=== PATIENT | female | born 1950 | race American Indian/Alaskan Native ===

== ENCOUNTER 2016-10-05 06:17 | Day surgery (SDC) | payer OTHER ==
--- NOTE | 2016-10-02 14:08 | Anesthesia Consultation ---
Anesthesia Consult and Med Hx Date of service: 10/05/16 - Airway Anesthetic Teeth Evaluation: Poor ROM Head & Neck: Adequate Mental/Hyoid Distance: Adequate Mallampati Class: Class II Intubation Access Assessment: Probably Good - Pulmonary Exam CTA: Yes - Cardiac Exam Cardiac Exam: RRR - Pre-Operative Health Status ASA Pre-Surgery Classification: ASA3 Proposed Anesthetic Plan: General - Pulmonary Hx Smoking: Yes (Quite in 1985) Home Oxygen Therapy: No - Cardiovascular System Hx Hypertension: No Hx Coronary Artery Disease: No Hx Heart Attack/AMI: No - Central Nervous System CVA: No Hx Back Pain: Yes Hx Psychiatric Problems: No - Gastrointestinal Hx Gastroesophageal Reflux Disease: Yes (no meds) - Endocrine Hx Renal Disease: No Hx Liver Disease: No Hx Non-Insulin Dependent Diabetes: No Hx Hypothyroidism: No - Other Systems Hx Alcohol Use: Yes (occas) Hx Cancer: No Hx Obesity: Yes (Wt. 398lb) - Additional Comments Anesthesia Medical History Comments: Not diagnosed with sleep apnea but very likely. Suffers from insomnia.
[2016-10-02 14:18] LABS: Basophils % (Auto) 0.5 % (0.0-1.8); Eosinophils % (Auto) 1.6 % (0.0-4.3); Hematocrit 40.6 % (30.3-42.9); Hemoglobin 12.6 gm/dl (10.1-14.3); Mean Corpuscular HGB Conc 31 % (30-34); Mean Corpuscular Volume 78 fl (79-97); Platelet Count 244 K/mm3 (140-440); Red Blood Count 5.21 M/mm3 (3.65-5.03); White Blood Count 7.6 K/mm3 (4.5-11.0)
[2016-10-02 14:26] LABS: Mean Corpuscular Hemoglobin 24 pg (28-32)
[2016-10-05] MEDS ORDERED: NACL BACTERIOSTATIC INFILTRATI ONE (07:11)
--- NOTE | 2016-10-05 07:17 | Anesthesia Day of Surgery ---
Anesthesia Day of Surgery - Day of Surgery Patient Examined: Yes Patient H&P Reviewed: Yes Patient is NPO: Yes
--- NOTE | 2016-10-05 07:26 | Short Stay Summary ---
Short Stay Documentation Date of service: 10/05/16 Narrative H&P: Pt is a 65yo BF LMP 10 years ago spontaneously, started bleeding on and off for the past 2 years, presents for surgical evaluation of postmenopausal bleeding. In office endometrial biopsy was attempted, but was not successful due to cervical stenosis. She is therefore scheduled for a Hysteroscopy with D& C. - History Principal diagnosis: Postmenopausal bleeding H&P: obtained from office Past Medical History: No medical history Past Surgical History: No surgical history Social history: no significant social history - Allergies and Medications Current Medications: Allergies aspirin Allergy (Verified 09/28/16 09:44) hives, itching codeine Allergy (Verified 09/28/16 09:44) hives, itching Home Medications Medication Instructions Recorded Confirmed Last Taken Type Cyclobenzaprine [Flexeril] 10 mg PO TID PRN 09/28/16 10/05/16 09/28/16 History Ergocalciferol(Vitamin D2)(Nf) 50,000 unit PO Q7D 09/28/16 10/05/16 09/29/16 History [Vitamin D (Nf)] Acetaminophen [Acetaminophen 8 650 mg PO Q6H PRN 10/05/16 10/05/16 10/02/16 History Hour] - Physical exam General appearance: no acute distress Integumentary: no rash HEENT: Atraumatic Lungs: Clear to auscultation Breasts: deferred Heart: Regular rate Gastrointestinal: normal Female Genitourinary: deferred Rectal Exam: deferred Extremities: No edema Neurological: Normal speech - Brief post op/procedure progress note Date of procedure: 10/05/16 Pre-op diagnosis: 1. Postmenopausal bleeding 2. Cervical stenosis Post-op diagnosis: same Procedure: 1. Hysteroscopy 2. D&C Anesthesia: GETA Findings: A 12-14 weeks size uterus sounded to 13cms. Lush amounts of endometrial tissue and polyps seen in uterine cavity, and multiple fragments removed on D&C. Surgeon: NORA SHER Estimated blood loss: minimal Pathology: list (endometrial currettings) Specimen disposition: to lab Condition: stable - Hospital course Hospital course: Unremarkable. - Disposition Condition at discharge: Good Disposition: DISCHARGED TO HOME OR SELFCARE - Discharge Diagnoses (1) Post-menopausal bleeding Status: Chronic Short Stay Discharge Plan Activity: no restrictions Diet: regular Follow up with: PRIMARY CARE, [Primary Care Provider] - 7 Days NORA SHER MD [Staff Physician] - 14 Days Forms: Outpatient Surgery DC Inst. Prescriptions: Ibuprofen [Motrin] 800 mg PO Q8HR PRN #30 tablet PRN Reason: Pain, Moderate (4-6)
[2016-10-05] MEDS ORDERED: DIPRIVAN 10 MG/ML IV ONE ×2 (07:27→08:32)
[2016-10-05] MEDS ORDERED: SUBLIMAZE ONE (07:27)
[2016-10-05] MEDS ORDERED: XYLOCAINE MPF 2% ONE (07:27)
[2016-10-05] MEDS ORDERED: SILVER NITRATE TP ONE (07:46)
[2016-10-05] MEDS ORDERED: ANCEF/STERILE WATER 2 GM/20 ML 2 GM/20 ML SYRINGE IV NR (08:00)
[2016-10-05] MEDS ORDERED: LACTATED RINGERS 1,000 ML IV SCH (08:00)
[2016-10-05] MEDS ORDERED: PEPCID PO NR (08:00)
[2016-10-05] MEDS ORDERED: VERSED IV NR (08:00)
[2016-10-05] MEDS ORDERED: SORBITOL-MANNITOL IRRIG IR ONE (08:01)
[2016-10-05] MEDS ORDERED: DILAUDID IV PRN (08:46)
[2016-10-05] MEDS ORDERED: PERCOCET 5/325 PO PRN (08:46)
[2016-10-05] MEDS ORDERED: DECADRON ONE (08:56)
[2016-10-05] MEDS ORDERED: ZOFRAN ONE (08:56)
[2016-10-05] MEDS ORDERED: QUELICIN ONE (09:02)
--- NOTE | 2016-10-05 09:15 | Post Anesthesia Evaluation ---
- Post Anesthesia Evaluation Patient Participated: Yes Airway Patent: Yes Stable Respiratory Function: Yes Nausea/Vomiting: No Temp > 96.8F: Yes Pain Manageable: Yes Adequeate Hydration: Yes Anesthesia Complications: No Block Receding Appropriately: Not Applicable Patient on Ventilator: No
[2016-10-05 10:37] VITALS: BP 151/78
--- NOTE | 2016-10-11 20:47 | Operative Report ---
Operative Report Operative Report: Date of procedure: 10/05/2016 Pre-operative diagnosis: 1. Postmenopausal bleeding 2. Cervical stenosis Post-operative diagnosis: Same Procedure name(s): 1. Hysteroscopy 2. D&C Surgeon: Cisco Noel MD Desulphuring Operator: None Anesthesia: General Mac by Dr. Gisela Lees EBL: Minimal less than 10 mls Findings: A 12-14 week size uterus was sounded to 13 cm. Lush amount of endometrial tissue and polyps seen in the uterine cavity, and multiple fragments removed on D&C Procedure: After the patient was correctly identified, she was prepped and draped in usual sterile fashion and placed in dorsolithotomy position. First the bladder was entered using a straight catheter. Next a speculum was placed in vaginal vault and the anterior lip of the cervix was grasped using single- tooth tenaculum. The uterus was sounded to 13 cm, and the cervical canal was sequentially dilated. The hysteroscope was placed into the uterine cavity and visualization of endometrial cavity showed lush amount of endometrial tissues and polyps. The hysteroscope was then removed, and the D&C was performed yielding moderate amounts of tissue with minimal effort. The specimen was sent to pathology. At this point the procedure was considered complete. All instruments removed from the vagina, the patient tolerated the procedure well, was transported to recovery room in stable condition.
== END 2016-10-05 10:40 | disposition home or self-care (01) ==
LOC: OR 06:17
PROVIDERS: ATTEND Obstetrics & Gynecology
DX: C54.1 Malignant neoplasm of endometrium (principal); N88.2 Stricture and stenosis of cervix uteri; K21.9 Gastro-esophageal reflux disease without esophagitis; E66.9 Obesity, unspecified; Z68.41 Body mass index [BMI] 40.0-44.9, adult; Z72.89 Other problems related to lifestyle; Z87.891 Personal history of nicotine dependence
CPT/HCPCS: 36415; 58558; 85025; 88305; J0330; J0690; J1100; J2405; J2704; J3010; J7120

== ENCOUNTER 2017-02-08 09:22 | Inpatient (IN) | payer OTHER ==
--- NOTE | 2017-02-08 09:33 | Emergency Department Report ---
ED Neuro Deficit HPI - General Chief Complaint: Neuro Symptoms/Deficit Stated Complaint: POSS STROKE Time Seen by Provider: 02/08/17 09:30 Source: patient, EMS, old records reviewed (hysterectomy for cervical stenosis surgery performed by manager rn 09/2016) Mode of arrival: Stretcher Limitations: Physical Limitation - History of Present Illness Initial Comments: 66-year-old female with a past medical history of hypertension, borderline diabetes, and obesity presents to the hospital with strokelike symptoms. Patient was being assisted by her daughter when suddenly she had generalized weakness with left-sided weakness reported. She complains of difficulty swallowing. EMS reports left facial droop since and persistent left arm weakness. Patient has a history of ongoing right arm pain due to "nerve problem " and arthritis. No previous history of stroke. Patient is not on any blood thinners. No recent surgery reported - Related Data Home Medications: Home Medications Medication Instructions Recorded Confirmed Last Taken Cyclobenzaprine [Flexeril] 10 mg PO TID PRN 09/28/16 10/05/16 09/28/16 Ergocalciferol(Vitamin D2)(Nf) 50,000 unit PO Q7D 09/28/16 10/05/16 09/29/16 [Vitamin D (Nf)] Acetaminophen [Acetaminophen 8 650 mg PO Q6H PRN 10/05/16 10/05/16 10/02/16 Hour] Previous Rx's Medication Instructions Recorded Last Taken Type Ibuprofen [Motrin] 800 mg PO Q8HR PRN #30 tablet 10/05/16 Unknown Rx Allergies/Adverse Reactions: Allergies Allergy/AdvReac Type Severity Reaction Status Date / Time aspirin Allergy hives, Verified 09/28/16 09:44 itching codeine Allergy hives, Verified 09/28/16 09:44 itching ED Review of Systems ROS: Stated complaint: POSS STROKE Other details as noted in HPI Comment: All other systems reviewed and negative Other: Constitutional: No fevers chills Eyes: No eye pain ENT: No throat pain Neck: Denies pain Respiratory: Denies cough wheezing shortness of breath Cardiovascular: Denies chest pain, palpitations, syncope GI: Denies abdominal pain, nausea, vomiting, diarrhea : Denies dysuria Musculoskeletal: Ongoing right arm pain and diagnosed recently with the patient is supposed to follow-up with orthopedic Skin: Denies rash, lesions, erythema Neurologic: Denies headache Psychiatric: Denies suicidal ideation, hallucinations ED Past Medical Hx - Past Medical History Previous Medical History?: Yes Hx Hypertension: Yes Hx Heart Attack/AMI: No Hx Diabetes: Yes Hx GERD: Yes Hx Liver Disease: No Hx Renal Disease: No Hx HIV: No - Surgical History Past Surgical History?: Yes Hx Breast Surgery: Yes (LEFT BREAST BIOPSY 2016) - Social History Smoking Status: Unknown if ever smoked - Medications Home Medications: Home Medications Medication Instructions Recorded Confirmed Last Taken Type Cyclobenzaprine [Flexeril] 10 mg PO TID PRN 09/28/16 10/05/16 09/28/16 History Ergocalciferol(Vitamin D2)(Nf) 50,000 unit PO Q7D 09/28/16 10/05/16 09/29/16 History [Vitamin D (Nf)] Acetaminophen [Acetaminophen 8 650 mg PO Q6H PRN 10/05/16 10/05/16 10/02/16 History Hour] Ibuprofen [Motrin] 800 mg PO Q8HR PRN #30 tablet 10/05/16 Unknown Rx ED Neuro Physical Exam - General Limitations: Physical Limitation Suspected Stroke: Yes - NIHSS Assessment Interval: Baseline 1a. Level of Consciousness: alert 1b. LOC Questions: answers correctly 1c. LOC Commands: performs tasks correctly 2. Best Gaze: normal 3. Visual: partial hemianopia 4. Facial Palsy: normal symmetrical movement 5b. Motor Arm Right: no gravity effort 5a. Motor Arm Left: some gravity effort 6a. Motor Leg Left: no gravity effort 6b. Motor Leg Right: no gravity effort 7. Limb Ataxia: present 2 limbs 8. Sensory: mild/moderate sensory loss (decrease left arm and leg) 9. Best Language: no aphasia 10. Dysarthria: normal 11. Extinction/Inattention: visual/tactile inattention Total Score: 16 Stroke Severity: Moderate to Severe Stroke - Other Other exam information: General: No limitations, patient is alert in no acute distress Head exam: Atraumatic, normocephalic Eyes exam: Normal appearance, pupils equal reactive to light, extraocular movements intact ENT: Moist mucous membrane, normal oropharynx Neck exam: Normal inspection, full range of motion, no meningismus nontender Respiratory exam: Clear to auscultation bilateral, no wheezes, rales, crackles Cardiovascular: Normal rate and rhythm, normal heart sounds Abdomen: Soft, nondistended, and nontender, with normal bowel sounds, no rebound, or guarding Extremity: Full range of motion normal inspection no deformity Back: Normal Inspection, full range of motion, no tenderness Neurologic: Alert, oriented x3, see NIH stroke scale Psychiatric: normal affect, normal mood Skin: Warm, dry, intact ED Course Vital Signs 02/08/17 02/08/17 02/08/17 09:45 10:01 10:15 Temperature Pulse Rate Respiratory Rate Blood Pressure 142/124 142/124 50/22 O2 Sat by Pulse 96 94 Oximetry 02/08/17 02/08/17 02/08/17 10:30 10:40 10:45 Temperature 98 F Pulse Rate 88 89 Respiratory 35 H 25 H Rate Blood Pressure 74/37 O2 Sat by Pulse 79 L 84 Oximetry 02/08/17 02/08/17 02/08/17 11:01 11:09 11:11 Temperature Pulse Rate 86 86 84 Respiratory 37 H 29 H 28 H Rate Blood Pressure 80/40 80/40 O2 Sat by Pulse 100 Oximetry 02/08/17 02/08/17 02/08/17 11:13 11:15 11:16 Temperature Pulse Rate 86 85 87 Respiratory 25 H 26 H 22 Rate Blood Pressure 80/40 65/37 65/37 O2 Sat by Pulse 100 100 100 Oximetry 02/08/17 02/08/17 02/08/17 11:19 11:21 11:23 Temperature Pulse Rate 84 85 91 H Respiratory 29 H 21 27 H Rate Blood Pressure 65/37 65/37 65/37 O2 Sat by Pulse Oximetry 02/08/17 02/08/17 02/08/17 11:25 11:27 11:29 Temperature Pulse Rate 93 H 96 H 107 H Respiratory 27 H 25 H 29 H Rate Blood Pressure 84/67 84/67 84/67 O2 Sat by Pulse Oximetry 02/08/17 02/08/17 02/08/17 11:31 11:32 11:35 Temperature Pulse Rate 120 H 122 H 121 H Respiratory 28 H 27 H 28 H Rate Blood Pressure 84/67 96/74 96/74 O2 Sat by Pulse Oximetry 02/08/17 02/08/17 02/08/17 11:37 11:39 11:41 Temperature Pulse Rate 137 H 145 H 144 H Respiratory 24 27 H 38 H Rate Blood Pressure 96/74 96/74 96/74 O2 Sat by Pulse 82 L 75 L Oximetry 02/08/17 02/08/17 02/08/17 11:43 11:45 11:47 Temperature Pulse Rate 140 H 134 H 132 H Respiratory 36 H 24 25 H Rate Blood Pressure 96/74 96/74 96/74 O2 Sat by Pulse 82 L 74 L 98 Oximetry 02/08/17 02/08/17 02/08/17 11:49 11:51 11:53 Temperature Pulse Rate 142 H 143 H 139 H Respiratory 30 H 21 29 H Rate Blood Pressure 96/74 96/74 96/74 O2 Sat by Pulse 97 98 100 Oximetry 02/08/17 02/08/17 02/08/17 11:55 11:57 11:59 Temperature Pulse Rate 138 H 137 H 136 H Respiratory 28 H 26 H 26 H Rate Blood Pressure 96/74 96/74 96/74 O2 Sat by Pulse 95 78 L 76 L Oximetry 02/08/17 02/08/17 02/08/17 12:01 12:03 12:05 Temperature Pulse Rate 139 H 138 H 135 H Respiratory 29 H 31 H 27 H Rate Blood Pressure 96/74 96/74 96/74 O2 Sat by Pulse 77 L 83 L 77 L Oximetry 02/08/17 02/08/17 02/08/17 12:07 12:08 12:11 Temperature Pulse Rate 143 H 143 H 143 H Respiratory 22 28 H 26 H Rate Blood Pressure 96/74 101/49 101/49 O2 Sat by Pulse 86 83 L Oximetry 02/08/17 12:13 Temperature Pulse Rate 136 H Respiratory 23 Rate Blood Pressure 101/49 O2 Sat by Pulse 75 L Oximetry - Reevaluation(s) Reevaluation #1: 02/08/17 10:15 Patient hypoxic on room air. Nonrebreather provided. Chest x-ray pending Reevaluation #2: 02/08/17 11:47 prior to tpa pt bp decreased from 140 to 70-80's systolic.1 L NS bolus given without improvement. Dopamine initiated thru right antecubital fossa 20 g cath while prepping for central line placement. spb improve to 96 with a MAP >65. repeat cxr ordered. Reevaluation #3: 02/08/17 14:30 Despite dopamine patient's blood pressure now in the 70s. Levophed ordered. IV TPA orderd since patient is too unstable to go to [facility]. Daughter informed. Hospitalist informed Reevaluation #4: 02/08/17 14:34 I was informed at this time that Dr. Jose vascular surgeon has decided to take patient to the [facility] instead since TPA infusion takes 2 hours - Consultations Consultation #1: 02/08/17 9:42 Case d/w Dr guillen superintendent transportation neuro. and will interview pt. 02/08/17 10:07 Interviewed pt. Pt alert but distracted. rec tpa if daughter can give consent. 02/08/17 10:12 Case discussed with Daughter Fredrick and explained 30% improved chance of improvement and 3% chance of bleed or bad outcome. Daughter provides consent for TPA. 02/08/17 10:[address] Guillen, patient is feeling a sepsis picture with leukocytosis, mild coagulopathy, and anion gap. Additional blood cultures, lactic acid, ABG/venous pH ordered. Saline bolus is ordered and the patient will be empirically treated with Zosyn and vancomycin. Dr Guillen suggests that symptoms may represent a mixed picture could represent endocarditis with associated septic emboli causing cva sx. Consultation #2: 02/08/17 13:[address] angio results. dr. Pederson to consult and see pt 02/08/17 14:14 Dr Humphries rec IV tpa since sbp remains in the 70's despite dopamine. too unstable for transfer to clinical lab specialist for [facility]. TPA 100 mg over 2 hours ordered. - Central Line Placement Right IJ Consent Obtained: verbal consent Time Out Performed: Yes Patient Placed on Monitor/Pulse Ox: Yes MD Prep: mask, gown, gloves Central Line Prep: Chlorhexidine scrub, sterile drapes applied Local Anesthesia Used: Lidocaine 1% Amount of Anesthesia Used (mls): 5 Ultrasound Used for Placement: Yes Central Line Lumen Inserted: triple Bloods Obtained for Lab: Yes Central Line Position: good blood return, sutured in place with 3-0 Dressing Applied: Tegaderm Post Procedure X-Ray: tip of catheter in good p Patient Tolerated Procedure: well Complications: none - Lab Data Result diagrams: 02/08/17 09:25 02/08/17 09:25 Lab Results 02/08/17 02/08/17 02/08/17 Range/Units 09:25 09:25 09:25 WBC 14.9 H (4.5-11.0) K/mm3 RBC 4.86 (3.65-5.03) M/mm3 Hgb 11.9 (10.1-14.3) gm/dl Hct 38.2 (30.3-42.9) % MCV 79 (79-97) fl MCH 24 L (28-32) pg MCHC 31 (30-34) % RDW 17.0 H (13.2-15.2) % Plt Count 281 (140-440) K/mm3 Lymph % (Auto) 9.7 L (13.4-35.0) % Gage % (Auto) 6.2 (0.0-7.3) % Eos % (Auto) 0.1 (0.0-4.3) % Baso % (Auto) 0.5 (0.0-1.8) % Lymph # 1.4 (1.2-5.4) K/mm3 Gage # 0.9 H (0.0-0.8) K/mm3 Eos # 0.0 (0.0-0.4) K/mm3 Baso # 0.1 (0.0-0.1) K/mm3 Seg Neutrophils % 83.5 H (40.0-70.0) % Seg Neutrophils # 12.5 H (1.8-7.7) K/mm3 PT 15.6 H (12.2-14.9) Sec. INR 1.25 H (0.87-1.13) APTT 25.1 (24.2-36.6) Sec. Thrombin Time (15.1-19.6) Sec. POC ABG pH (7.35-7.45) POC ABG pCO2 (35-45) POC ABG pO2 (80-105) POC ABG HCO3 POC ABG Total CO2 POC ABG O2 Sat POC ABG Base Excess FiO2 % Sodium 141 (137-145) mmol/L Potassium 4.9 (3.6-5.0) mmol/L Chloride 94.7 L (98-107) mmol/L Carbon Dioxide 21 L (22-30) mmol/L Anion Gap 30 mmol/L BUN 9 (7-17) mg/dL Creatinine 0.6 L (0.7-1.2) mg/dL Estimated GFR > 60 ml/min BUN/Creatinine Ratio 15.00 % Glucose 179 H (65-100) mg/dL POC Glucose (70-105) Lactic Acid (0.7-2.0) mmol/L Calcium 10.4 H (8.4-10.2) mg/dL Total Creatine Kinase (30-135) units/L CK-MB (CK-2) (0.0-4.0) ng/mL CK-MB (CK-2) Rel Index (0-4) Troponin T 0.027 (0.00-0.029) ng/mL Triglycerides (2-149) mg/dL Cholesterol (50-199) mg/dL LDL Cholesterol Direct (50-130) mg/dL HDL Cholesterol (40-59) mg/dL Cholesterol/HDL Ratio % Urine Color (Yellow) Urine Turbidity (Clear) Urine pH (5.0-7.0) Ur Specific [place] (1.003-1.030) Urine Protein (Negative) mg/dL Urine Glucose (UA) (Negative) mg/dL Urine Ketones (Negative) mg/dL Urine Blood (Negative) Urine Nitrite (Negative) Urine Bilirubin (Negative) Urine Urobilinogen (<2.0) mg/dL Ur Leukocyte Esterase (Negative) Urine WBC (Auto) (0.0-6.0) /HPF Urine RBC (Auto) (0.0-6.0) /HPF U Epithel Cells (Auto) (0-13.0) /HPF Urine Mucus /HPF 02/08/17 02/08/17 02/08/17 Range/Units 09:25 10:17 11:07 WBC (4.5-11.0) K/mm3 RBC (3.65-5.03) M/mm3 Hgb (10.1-14.3) gm/dl Hct (30.3-42.9) % MCV (79-97) fl MCH (28-32) pg MCHC (30-34) % RDW (13.2-15.2) % Plt Count (140-440) K/mm3 Lymph % (Auto) (13.4-35.0) % Gage % (Auto) (0.0-7.3) % Eos % (Auto) (0.0-4.3) % Baso % (Auto) (0.0-1.8) % Lymph # (1.2-5.4) K/mm3 Gage # (0.0-0.8) K/mm3 Eos # (0.0-0.4) K/mm3 Baso # (0.0-0.1) K/mm3 Seg Neutrophils % (40.0-70.0) % Seg Neutrophils # (1.8-7.7) K/mm3 PT (12.2-14.9) Sec. INR (0.87-1.13) APTT (24.2-36.6) Sec. Thrombin Time 17.6 (15.1-19.6) Sec. POC ABG pH 7.340 L (7.35-7.45) POC ABG pCO2 40.8 (35-45) POC ABG pO2 28 L (80-105) POC ABG HCO3 22.0 POC ABG Total CO2 23 POC ABG O2 Sat 48 POC ABG Base Excess -4 FiO2 100 % Sodium (137-145) mmol/L Potassium (3.6-5.0) mmol/L Chloride (98-107) mmol/L Carbon Dioxide (22-30) mmol/L Anion Gap mmol/L BUN (7-17) mg/dL Creatinine (0.7-1.2) mg/dL Estimated GFR ml/min BUN/Creatinine Ratio % Glucose (65-100) mg/dL POC Glucose 187 H (70-105) Lactic Acid (0.7-2.0) mmol/L Calcium (8.4-10.2) mg/dL Total Creatine Kinase (30-135) units/L CK-MB (CK-2) (0.0-4.0) ng/mL CK-MB (CK-2) Rel Index (0-4) Troponin T (0.00-0.029) ng/mL Triglycerides (2-149) mg/dL Cholesterol (50-199) mg/dL LDL Cholesterol Direct (50-130) mg/dL HDL Cholesterol (40-59) mg/dL Cholesterol/HDL Ratio % Urine Color (Yellow) Urine Turbidity (Clear) Urine pH (5.0-7.0) Ur Specific [place] (1.003-1.030) Urine Protein (Negative) mg/dL Urine Glucose (UA) (Negative) mg/dL Urine Ketones (Negative) mg/dL Urine Blood (Negative) Urine Nitrite (Negative) Urine Bilirubin (Negative) Urine Urobilinogen (<2.0) mg/dL Ur Leukocyte Esterase (Negative) Urine WBC (Auto) (0.0-6.0) /HPF Urine RBC (Auto) (0.0-6.0) /HPF U Epithel Cells (Auto) (0-13.0) /HPF Urine Mucus /HPF 02/08/17 02/08/17 02/08/17 Range/Units 12:00 12:00 14:15 WBC (4.5-11.0) K/mm3 RBC (3.65-5.03) M/mm3 Hgb (10.1-14.3) gm/dl Hct (30.3-42.9) % MCV (79-97) fl MCH (28-32) pg MCHC (30-34) % RDW (13.2-15.2) % Plt Count (140-440) K/mm3 Lymph % (Auto) (13.4-35.0) % Gage % (Auto) (0.0-7.3) % Eos % (Auto) (0.0-4.3) % Baso % (Auto) (0.0-1.8) % Lymph # (1.2-5.4) K/mm3 Gage # (0.0-0.8) K/mm3 Eos # (0.0-0.4) K/mm3 Baso # (0.0-0.1) K/mm3 Seg Neutrophils % (40.0-70.0) % Seg Neutrophils # (1.8-7.7) K/mm3 PT (12.2-14.9) Sec. INR (0.87-1.13) APTT (24.2-36.6) Sec. Thrombin Time (15.1-19.6) Sec. POC ABG pH (7.35-7.45) POC ABG pCO2 (35-45) POC ABG pO2 (80-105) POC ABG HCO3 POC ABG Total CO2 POC ABG O2 Sat POC ABG Base Excess FiO2 % Sodium (137-145) mmol/L Potassium (3.6-5.0) mmol/L Chloride (98-107) mmol/L Carbon Dioxide (22-30) mmol/L Anion Gap mmol/L BUN (7-17) mg/dL Creatinine (0.7-1.2) mg/dL Estimated GFR ml/min BUN/Creatinine Ratio % Glucose (65-100) mg/dL POC Glucose (70-105) Lactic Acid 1.80 (0.7-2.0) mmol/L Calcium (8.4-10.2) mg/dL Total Creatine Kinase 144 H (30-135) units/L CK-MB (CK-2) 2.1 (0.0-4.0) ng/mL CK-MB (CK-2) Rel Index 1.4 (0-4) Troponin T 0.046 H D (0.00-0.029) ng/mL Triglycerides 74 (2-149) mg/dL Cholesterol 206 H (50-199) mg/dL LDL Cholesterol Direct 157 H (50-130) mg/dL HDL Cholesterol 35 L (40-59) mg/dL Cholesterol/HDL Ratio 5.88 % Urine Color Straw (Yellow) Urine Turbidity Clear (Clear) Urine pH 6.0 (5.0-7.0) Ur Specific [place] 1.025 (1.003-1.030) Urine Protein 30 mg/dl (Negative) mg/dL Urine Glucose (UA) 150 (Negative) mg/dL Urine Ketones Tr (Negative) mg/dL Urine Blood Mod (Negative) Urine Nitrite Neg (Negative) Urine Bilirubin Neg (Negative) Urine Urobilinogen < 2.0 (<2.0) mg/dL Ur Leukocyte Esterase Neg (Negative) Urine WBC (Auto) 2.0 (0.0-6.0) /HPF Urine RBC (Auto) 5.0 (0.0-6.0) /HPF U Epithel Cells (Auto) < 1.0 (0-13.0) /HPF Urine Mucus Few /HPF - EKG Data -: EKG Interpreted by Me (sinus 97 and anterolateral T inversions prolonged) When compared to previous EKG there are: previous EKG unavailable - Radiology Data Radiology results: report reviewed CT head: No acute findings Chest x-ray: Compromise exam with question of right paratracheal widening - Medical Decision Making Stroke symptoms: CT head noncontrast unremarkable. Patient too unstable with finding a sepsis to receive TPA. Also if endocarditis patient at risk for hemorrhage with TPA. Therefore decision to not give TPA was decided by neurology. This was discussed with patient's daughter. Patient when the MRI and further workup Hypoxia on room air: Cause unknown. ABG performed on nonrebreather due to persistent desaturation. Chest x-ray shows questionable right paraTrachea widening. CT angiogram chest has been ordered at dispo. Respiratory unable to obtain ABG despite multiple results. results available are likely due to a venous stick Ct result + PE, vascular consulted and examined at bedside rec, IV TPA due to instability. additional pressors ordered. Daughter reinformed of update and need for TPA for PE. Then surgeon decided to pt to clinical lab specialist and hold TPA since it takes 2 hours to infuse. sepsis: Cause unknown at this time Patient exhibiting leukocytosis, anion gap with slightly low bicarbonate, hypotension, and mild coagulopathy. Empiric broad-spectrum antibiotics recommended. Endocarditis suggested by neurology as possible cause of sepsis with stroke findings. Vital signs are less likely secondary to sepsis and more likely secondary to massive PE. - Differential Diagnosis ischemic cva, ICH, encephalopathy - Thrombolytic Inclusion/Exclusion Thrombolytic Inclusion Criteria: Ischemic Stroke Onset< 3h, NIH Stroke Scale Deficit, Negative CT Scan for ICH, Age 18 or Older, Glucose of 50-400mg/dl Critical Care Time: Yes Critical care time in (mins) excluding proc time.: 65 Critical care attestation.: If time is entered above; I have spent that time in minutes in the direct care of this critically ill patient, excluding procedure time. ED Disposition Clinical Impression: Septic shock, Stroke-like symptom, Hypoxia, Morbid obesity, Hx of essential hypertension, Pulmonary emboli Disposition: OP ADMIT IP TO THIS HOSP Is pt being admited?: Yes Condition: Stable Referrals: PRIMARY CARE, [Primary Care Provider] - 3-5 Days Time of Disposition: 11:55 (Dr Tran/hosp)
[2017-02-08 09:35] LABS: Basophils % (Auto) 0.5 % (0.0-1.8); Eosinophils % (Auto) 0.1 % (0.0-4.3); Hematocrit 38.2 % (30.3-42.9); Hemoglobin 11.9 gm/dl (10.1-14.3); Mean Corpuscular HGB Conc 31 % (30-34); Mean Corpuscular Volume 79 fl (79-97); Platelet Count 281 K/mm3 (140-440); Red Blood Count 4.86 M/mm3 (3.65-5.03); White Blood Count 14.9 K/mm3 (4.5-11.0)
[2017-02-08 09:36] LABS: Mean Corpuscular Hemoglobin 24 pg (28-32)
--- NOTE | 2017-02-08 09:43 | Cat Scan Report ---
CT head without contrast: Neuro deficits on left side of body. Unenhanced images fail to identify any evidence of focal or generalized areas of decreased attenuation. No evidence of hemorrhage. Mild peripheral atrophy consistent with stated age. No extracerebral collections. Unremarkable visualized bones and paranasal sinuses. No prior exams for comparison. Impressions: No pathology identified. These findings were verbally transmitted to Dr. Sosa at 9:40 AM.
[2017-02-08 09:46] LABS: INR 1.25 (0.87-1.13)
[2017-02-08 09:47] LABS: Partial Thromboplastin Time 25.1 Sec. (24.2-36.6)
[2017-02-08 09:55] LABS: Anion Gap 30 mmol/L; Blood Urea Nitrogen 9 mg/dL (7-17); Calcium 10.4 mg/dL (8.4-10.2); Carbon Dioxide 21 mmol/L (22-30); Chloride 94.7 mmol/L (98-107); Glucose 179 mg/dL (65-100); Potassium 4.9 mmol/L (3.6-5.0); Sodium 141 mmol/L (137-145)
[2017-02-08] MEDS ORDERED: NACL 0.9% IV ONE (10:12)
[2017-02-08] MEDS ORDERED: ACTIVASE IV ONE ×3 (10:12→14:11)
[2017-02-08] MEDS ORDERED: NACL 0.9% 1000 ML 1,000 ML ONE ×2 (10:26→15:08)
[2017-02-08] MEDS ORDERED: VANCOMYCIN/NS 1 GM/250 ML 1 GM/250 ML BAG IV ONE (10:42)
[2017-02-08] MEDS ORDERED: ZOSYN/NS 4.5GM/100ML 4.5 GM/100 ML VIAL IV ONE (10:42)
[2017-02-08] MEDS ORDERED: NACL 0.9% 1000 ML 1,000 ML IV ONE ×4 (10:43→20:49)
[2017-02-08] MEDS ORDERED: INTROPIN DRIP 800 MG/D5W 250 ML 800 MG/250 ML BAG IV ONE ×2 (10:52→11:02)
--- NOTE | 2017-02-08 10:54 | XRay Report ---
Portable chest: There is mild rotation of the chest to the right. There is some question concerning right paratracheal widening. I have no prior study for comparison. The exam is otherwise unremarkable. Impression: Compromised exam with question of right paratracheal widening. Recommendation If possible, repeat frontal chest with better positioning and lateral projection.
[2017-02-08 11:09] LABS: ISTAT Base Excess -4; ISTAT PCO2 40.8 (35-45); ISTAT PO2 28 (80-105); ISTAT SO2 48; ISTAT TCO2 23
[2017-02-08] MEDS ORDERED: NACL ONE (12:13)
[2017-02-08] MEDS ORDERED: ZOFRAN IV ONE (12:29)
[2017-02-08] MEDS ORDERED: ZOFRAN ONE (12:33)
[2017-02-08 12:53] LABS: Creatine Kinase MB 2.1 ng/mL (0.0-4.0)
--- NOTE | 2017-02-08 13:07 | XRay Report ---
Portable chest: Line placement. A right jugular central venous line has been placed which appears to overlie the mid SVC. This exam is more rotated than the recent prior study of 10:40 AM and therefore does not improve the evaluation of a questionable widening of the paratracheal stripe question on prior study. The chest is otherwise unremarkable.
--- NOTE | 2017-02-08 13:59 | Cat Scan Report ---
CTA CHEST: History: Hypoxia, abnormal chest x-ray, shortness of breath. Technique: Helical CT following IV contrast. Pulmonary embolus protocol. Sagittal and coronal reformatted images. Rotational MIP images. Findings: Contrast bolus is satisfactory. Large, bilateral, near occlusive pulmonary emboli are identified extending from the main pulmonary arteries to nearly all lobes of both lungs. No saddle embolus. The lungs are generally clear. Minimal subpleural atelectatic changes are noted at the right lung base. No evidence for consolidation, pleural effusion or pneumothorax. The thyroid gland, tracheobronchial tree, esophagus, heart, pericardium, aorta, and bony thorax are unremarkable. Impression: Positive for large bilateral pulmonary emboli as described. These findings were discussed with Dr. Sosa in the emergency department at 1330 hrs.
[2017-02-08] MEDS ORDERED: NACL 0.9% 250ML IV ONE (14:11)
[2017-02-08 14:25] LABS: Bilirubin,Urine NEG (Negative); Blood,Urine MOD (Negative); Ketones,Urine TR mg/dL (Negative); Leukocyte Esterase,Urine NEG (Negative); Mucus,Urine FEW /HPF; Nitrite,Urine NEG (Negative); Urobilinogen,Urine < 2.0 mg/dL (<2.0)
[2017-02-08] MEDS ORDERED: LEVOPHED DRIP 4 MG/NS 250 ML 4 MG/250 ML BAG IV ONE (14:33)
--- NOTE | 2017-02-08 14:45 | Admit Criteria Form ---
Admission Criteria Documentation: SEVERE SEPSIS Clinical Indications for Admission to Inpatient Care (Place 'X' for any and all applicable criteria): Hospital admission is needed for appropriate care of the patient because of ANY ONE of the following: [X]I. Hemodynamic instability indicated by ANY ONE of the following(1)(2)(3)( 4)(5): [X]a. Vital sign abnormality not readily corrected by appropriate treatment within 12 to 24 hours indicated by ANY ONE of the following: [X]i) Tachycardia that persists despite appropriate treatment [X]ii) Hypotension that persists despite appropriate treatment []iii) Orthostatic vital sign changes that persist despite appropriate treatment []b. Vital sign abnormality that is severe indicated by ANY ONE of the following: []i. Inadequate perfusion indicated by ANY ONE of the following: []1) Lactic acidosis (greater than 2 mmol/L) []2) New abnormal capillary refill (greater than 3 seconds) []3) Reduced urine output []4) New altered mental status []5) Myocardial Ischemia []ii. Mean arterial pressure [A] less than 60 mm Hg []iii. Mean arterial pressure[A] less than 70 mm Hg after 30 minutes of appropriate treatment (eg, fluid resuscitation) []iv. Sustained heart rate greater than 120 beats per minute in adult []v. IV inotropic or vasopressor medication required to maintain adequate blood pressure or perfusion [X]II. Systemic or infectious condition causing severe symptoms or findings not responsive to emergency or observation care treatment (as appropriate) indicated by ANY ONE of the following: []a. Cardiac arrhythmias of immediate concern(1)(2)(3) []b. Severe endocrine disorder (eg, thyrotoxicosis, adrenal insufficiency)(4)(5) []c. Seizures (eg, new or recurrent)(6) [X]d. New-onset end organ failure or dysfunction as indicated by ANY ONE of the following: [X]i.Acute unexplained hypoxemia (eg, not from lung infection or chronic disease)(7)(8)(9) []ii. Acute renal failure as indicated by new onset of ANY ONE of the following(10)(11)(12)(13)(14): []1) 3-fold rise in serum creatinine from baseline []2) Serum creatinine greater than 4 mg/dL (354 micromoles/L) with acute rise greater than 0.5 mg/dL (44.2 micromoles/L) []3) Reduction of more than 75% in estimated glomerular filtration rate from baseline. []4) Estimated glomerular filtration rate less than 35 mL/min/1.73m2 ( 0.59 mL/sec/1.73m2) in child younger than 18 years. []5) Cessation of urine output indicated by ALL of the following: []A. Adequate volume status []B. Inadequate urine output as indicated by ANY ONE of the following: []a. Urine output less than 0.3 mL/kg/hr for 24 hours []b. Anuria (urine output less than 0.1 mL/kg/hr) for 12 hours []iii. Acute mental status changes(15) []iv. Acute hepatic failure (eg, plasma bilirubin greater than 4 mg/ dL (68 micromoles/L), new INR greater than 2.0)(16)(17) []e. Unmanageable nausea and vomiting(18) []f. New-onset or uncontrolled central diabetes insipidus(19)(20) []g. Clinically significant dehydration(18)(21) []h. Hypoglycemia(22) [X]i. Acidosis (pH less than 7.35) or alkalosis (pH greater than 7.45)( 22)(23) []j. Toxic drug level that indicates need for specific monitoring or treatment(24)(25) []k. Severe electrolyte abnormalities indicated by ALL of the following( 1)(2)(3): []i. Electrolytes and associated findings are not as expected for patient baseline or acceptable treatment effects. []ii. Severe abnormalities indicated by ANY ONE of the following: []1) Sodium less than 130 mEq/L (mmol/L) (new) []2) Sodium less than 135 mEq/L (mmol/L) with ANY ONE of the following: []A. Uncorrectable (to near normal or chronic baseline) after trial of outpatient and emergency treatment []B. Altered mental status []C. Seizures []D. Severe medical etiology requiring inpatient management (eg , heart failure, hypovolemia) []3) Sodium greater than 155 mEq/L (mmol/L) []4) Sodium greater than 150 mEq/L (mmol/L) with ANY ONE of the following: []A. Uncorrectable (to near normal or chronic baseline) with outpatient and emergency treatment []B. Altered mental status []C. Seizures []D. Severe medical etiology (eg, hypovolemia, diabetes insipidus) []5) Potassium less than 2.5 mEq/L (mmol/L) despite outpatient and emergency treatment []6) Potassium less than 3 mEq/L (mmol/L) with ANY ONE of the following : []A. Weakness []B. Cardiac abnormality (eg, arrhythmia, conduction disturbance ) []C. Cardiac ischemia []D. Ileus []E. Ongoing medical cause requiring inpatient management (eg, acute renal wasting or SIADH) []F. Other severe symptoms []7) Potassium greater than 6.5 mEq/L (mmol/L) []8) Potassium greater than 5 mEq/L (mmol/L) with ANY ONE of the following: []A. Uncorrectable (to near normal or chronic baseline) with outpatient and emergency treatment []B. Severe ECG findings[A] []C. Acute worsening of renal failure (creatinine greater than 2.5 mg/dL (221 micromoles/L) or significant elevation for age and size) []D. Severe weakness []E. Severe medical etiology (eg, hemolysis, infection, drug overdose) []9) Calcium less than 7 mg/dL (1.75 mmol/L) despite outpatient and emergency treatment(5) []10) Calcium less than 8 mg/dL (2 mmol/L) with significant symptoms or findings (eg, altered mental status, muscle spasms, seizures, breathing difficulty, cardiac abnormality (eg, arrhythmia or conduction disturbance))(5) []11) Calcium greater than 14 mg/dL (3.5 mmol/L)(5) []12) Calcium greater than 12 mg/dL (3 mmol/L) with ANY ONE of the following(5): []A. Uncorrectable (to near normal or chronic baseline) with outpatient and emergency treatment []B. Significant dehydration or hypovolemia as indicated by ALL of the following(3)(6)(7): []a. Not resolved with initial treatments []b. Clinically significant dehydration as indicated by ANY ONE of the following: [](1) Vomiting refractory to outpatient treatment (ie, precluding oral rehydration) [](2) Inability to drink [](3) Hypernatremia or other electrolyte abnormality unable to be corrected with outpatient and emergency treatment [](4) Failure to remain hydrated with outpatient therapy [](5) Reduced urine output [](6) Hypotension [](7) Serious cause for dehydration requiring acute hospitalization ( eg, bowel obstruction, increased intracranial pressure, infectious cause) [](8) Child with ANY ONE of the following(8): [](i) Severe abdominal tenderness [](ii) Adequate care not available at home [](iii) Severe dehydration (greater than 9% loss of body weight) []C. Significant symptoms or findings (eg, altered mental status , cardiac abnormality (eg, arrhythmia, conduction disturbance), malignant etiology requiring inpatient treatment) []13) Phosphorus less than 1 mg/dL (0.32 mmol/L) []14) Phosphorus less than 1.5 mg/dL (0.48 mmol/L) with ANY ONE of the following: []A. Patient unresponsive to outpatient and emergency treatment []B. Significant symptoms or findings (eg, weakness, altered mental status, breathing difficulty, seizures, rhabdomyolysis) []15) Phosphorus greater than 10 mg/dL (3.2 mmol/L) []16) Phosphorus greater than 4.5 mg/dL (1.45 mmol/L) (new) with ANY ONE of the following: []A. Severe medical etiology (eg, crush injury, acute renal failure) []B. Associated hypocalcemia with significant findings (eg, neurologic symptoms, altered mental status, muscle spasms, seizures, breathing difficulty, cardiac abnormality (eg, arrhythmia, conduction disturbance)) []16) Magnesium less than 1 mg/dL (0.41 mmol/L) []17) Magnesium less than 1.5 mg/dL (0.62 mmol/L) with ANY ONE of the following: []A. Patient unresponsive to outpatient and emergency treatment []B. Associated hypocalcemia with significant findings (eg, altered mental status, muscle spasms, seizures, breathing difficulty, cardiac abnormality (eg, arrhythmia, conduction disturbance)) []C. Associated hypokalemia (potassium less than 3 mEq/L (mmol/L )) with risk of arrhythmia []18) Magnesium greater than 4 mEq/L (2 mmol/L) []19) Magnesium greater than 2.5 mEq/L (1.25 mmol/L) with significant symptoms or findings (eg, weakness, altered mental status, cardiac abnormality (eg, arrhythmia, conduction disturbance), breathing difficulty, severe medical etiology (eg, renal failure, hypovolemia)) []20) Uric acid greater than 20 mg/dL (1190 micromoles/L)(9) []21) Uric acid greater than 8 mg/dL (476 micromoles/L) with significant symptoms or findings of tumor lysis syndrome (eg, creatinine greater than 1.5 times upper limit of normal, cardiac abnormality (eg , arrhythmia, conduction disturbance), seizure)(9) []III. High fever or other high-risk infection situation as indicated by ANY ONE of the following(26)(27)(28): []a. Outpatient and observation care antimicrobial treatment unavailable, not effective, or not appropriate []b. Documented bacteremia []c. Temperature greater than 104.9 degrees F (40.5 degrees C) (oral) []d. Temperature greater than 103.1 degrees F (39.5 degrees C) (oral) or less than 96.8 degrees F (36 degrees C) (rectal) that does not respond to emergency treatment and observation care []IV. High-risk febrile neutropenia[A] as indicated by ANY ONE of the following(29)(30)(31)(32): []a. Profound neutropenia[B] anticipated to extend for more than 7 days []b. Hemodynamic instability []c. Hypoxemia []d. Tachypnea []e. Altered mental status []f. New-onset abdominal pain []g. New-onset vomiting or diarrhea []h. Oral or gastrointestinal mucositis that interferes with swallowing or causes severe diarrhea []i. Focal infection (eg, cellulitis, pneumonia, central line or catheter infection, perirectal abscess) []j. Renal insufficiency (eg, GFR of less than 30 mL/min/1.73m2 (0.5 mL/sec /1.73m2)). []k. Severe liver dysfunction (transaminase levels greater than 5 times normal) []l. Platelet count less than 50,000/mm3 (50 x109/L)(33) []m. Leukemia or lymphoma induction therapy []n. Leukemia not in complete remission or with evidence of disease progression []o. Bone marrow transplant patient []p. Alemtuzumab being used for therapy []q. [employer] Supportive Care in Cancer (MASCC) Risk Index score of less than 21[C](33)(35). []V. Isolation required (eg, tuberculosis that requires isolation, Ebola infection)[D](36)(37)(38)(39)(40) []. Gangrene that requires treatment beyond emergency or observation level care(41)(42) []VII. Antitoxin administration and ongoing observation required (eg, tetanus, botulism)(43)(44) []. Suspected infection with rapid progression or severe symptoms as indicated by ANY ONE of the following(45): []a. Streptococcal or staphylococcal toxic shock(46) []b. Diphtheria(47) []c. Hantavirus(48) []d. Severe acute respiratory syndrome(8)(49) []e. Anthrax(50) []f. Ebola[D](36)(37)(38) []g. Necrotizing soft tissue infection(41)(42) []h. Plague(50) []i. Other suspected infection that requires care beyond emergency or observation level care []VII. Severe adverse drug or systemic toxin reaction as indicated by ANY ONE of the following(24): []a. Serotonin syndrome(51)(52) []b. Neuroleptic malignant syndrome(51)(52) []c. Cholinergic syndrome with severe symptoms (eg, bronchorrhea, weakness , mental status changes, seizures)(53) []d. Anticholinergic syndrome []e. Sympathetic syndrome with severe symptoms (eg, seizures, mental status changes, cardiac dysrhythmias) []f. Other severe adverse drug or systemic toxin reaction that remains after emergency or observation level care (as appropriate) []VIII. Allergic reaction with severe symptoms (not responsive to emergency or observation care treatment as appropriate), including ANY ONE of the following(54): []a. Airway edema (pharyngeal, epiglottic, or laryngeal edema) []b. Stridor []c. Respiratory failure []d. Bronchospasm []e. Hypotension []IX. Environmental emergency (not responsive to emergency or observation care treatment as appropriate) as indicated by ANY ONE of the following(55)(56): []a. Hyperthermia []b. Heat stroke []c. Heat exhaustion []d. Hypothermia (temperature less than 95 degrees F (35 degrees C) rectal) (57) []e. Electrocution(58) []X. Complications of transplanted organ (ie, not covered elsewhere)[E] indicated by ANY ONE of the following(59): []a. Acute graft rejection (or graft vs. host disease)[F] requiring inpatient management (eg, intravenous immunosuppression)(60)(61)(62)( 63) []b. Acute failure of transplanted organ necessitating inpatient care (eg, cannot be managed in other setting) []c. Infection requiring inpatient management (eg, Hemodynamic instability, need for intravenous antimicrobial treatment)(64)(65) []d. Other complication of transplanted organ requiring inpatient management []XI. Systemic or Infectious Condition condition, symptom, or finding for which emergency and observation care have failed or are not considered appropriate. See General Criteria: Observation Care, General Admission Criteria or Pediatric General Admission Criteria guideline as appropriate. (Contents from SEVERE SEPSIS and SYSTEMIC OR INFECTIOUS CONDITION clinical indications for admission to inpatient care have been integrated in this form) The original [facility] content created by [facility] has been revised. The portions of the content which have been revised are identified through the use of italic text or in bold and [facility] has neither reviewed nor approved the modified material. All other unmodified content is copyright [facility]. Please see references footnoted in the original [facility] edition 2016 Admission Criteria Met: Yes
[2017-02-08] MEDS ORDERED: SODIUM CHLORIDE FLUSH SYRINGE 10 ML IV SCH ×2 (15:00)
[2017-02-08] MEDS ORDERED: LEVOPHED DRIP 4 MG/NS 250 ML 4 MG/250 ML BAG IV SCH (15:00)
[2017-02-08] MEDS ORDERED: CATHFLO ONE (15:06)
[2017-02-08] MEDS ORDERED: HEPARIN/NS 5000 UNIT/500ML(CATH LAB) 1,000 ML IR ONE (15:06)
[2017-02-08] MEDS ORDERED: HEPARIN 10,000 UNITS/10 ML ONE ×3 (15:06→16:16)
[2017-02-08] MEDS ORDERED: XYLOCAINE 2% INFILTRATI ONE (15:06)
[2017-02-08] MEDS ORDERED: HEPARIN/NS 5000 UNIT/500ML(CATH LAB) 500 ML IR ONE (15:34)
[2017-02-08] MEDS ORDERED: WATER FOR INJ (PF) 10 ML ONE (15:35)
[2017-02-08] MEDS ORDERED: NACL 0.9% 1000 ML 1,000 ML SHEATH SCH ×5 (16:00→17:00)
[2017-02-08] MEDS ORDERED: NACL 0.9% 1000 ML 1,000 ML EKOSCLUMEN SCH ×5 (16:00→17:00)
[2017-02-08] MEDS ORDERED: HEPARIN/ 0.45% NACL-25,000 UNIT/500 ML 25,000 UNIT/500 ML BAG SHEATH SCH ×5 (16:00→17:00)
[2017-02-08] MEDS ORDERED: NACL 0.9% 1000 ML 2,000 ML ONE (16:21)
[2017-02-08] MEDS ORDERED: HEPARIN/ 0.45% NACL-25,000 UNIT/500 ML 50,000 UNIT/1,000 ML BAG ONE (16:22)
[2017-02-08] MEDS ORDERED: CATHFLO 10 MG in NACL 0.9% 250ML 250 ML IV SCH ×2 (16:30→17:00)
[2017-02-08] MEDS ORDERED: CATHFLO 10 MG in NACL 0.9% 250ML 250 ML EKOSDLUMEN SCH ×2 (16:30→17:00)
[2017-02-08] MEDS ORDERED: CATHFLO 20 MG in NACL 0.9% 500 ML 500 ML EKOSDLUMEN SCH (16:30)
[2017-02-08 16:39] LABS: ISTAT Base Excess -4; ISTAT HCO3 21.5; ISTAT PCO2 37.2 (35-45); ISTAT PO2 75 (80-105); ISTAT SO2 95; ISTAT TCO2 23
[2017-02-08] MEDS ORDERED: NACL 0.9% 1000 ML IV ONE (16:51)
[2017-02-08] MEDS ORDERED: PROVENTIL IH PRN (16:51)
--- NOTE | 2017-02-08 16:51 | History and Physical Report ---
History of Present Illness Chief complaint: weakness, and almost fell down History of present illness: 66 YO Female with HTN, DM, GERD, Metabolic Syndrome, MO, OA presents to ED for evaluation. Pt unable to provide history. Pt history provided by daughter. Patient was being assisted with ambulation by her daughter when suddenly she experienced acute onset weakness and confusion as well as difficulty swallowing. EMS notified, and upon arrival EMS reports left facial droop since and persistent left arm weakness. Pt transported to [facility] for evaluation. Pt seen and evaluated in ED and found to have septic shock and hypotension and in respiratory distress. Pt also found to have bilateral Pulmonary embolus. Vascular surgery consulted, and patient taken urgently to microbiology laboratory manager for ekos intervention. Pt reports of fever, chills, CP, Palpitations, NVD, Syncope, Productive cough, unintentional weight loss, or night sweats. Past History Past Medical History: arthritis, diabetes, GERD, hypertension, other (metabolic syndrome) Past Surgical History: Other (breast biopsy) Social history: . denies: smoking, alcohol abuse, prescription drug abuse Family history: diabetes, hypertension Medications and Allergies Allergies Allergy/AdvReac Type Severity Reaction Status Date / Time aspirin Allergy hives, Verified 09/28/16 09:44 itching codeine Allergy hives, Verified 09/28/16 09:44 itching Home Medications Medication Instructions Recorded Confirmed Last Taken Type Cyclobenzaprine [Flexeril] 10 mg PO TID PRN 09/28/16 10/05/16 09/28/16 History Ergocalciferol(Vitamin D2)(Nf) 50,000 unit PO Q7D 09/28/16 10/05/16 09/29/16 History [Vitamin D (Nf)] Acetaminophen [Acetaminophen 8 650 mg PO Q6H PRN 10/05/16 10/05/16 10/02/16 History Hour] Ibuprofen [Motrin] 800 mg PO Q8HR PRN #30 tablet 10/05/16 Unknown Rx Active Meds: Active Medications Dopamine HCl/Dextrose (Intropin Drip 800 Mg/D5w 250 Ml) 800 mg in 250 mls @ 6.769 mls/hr IV TITR ONE; 2 MCG/KG/MIN PRN Reason: Protocol Stop: 02/09/17 23:47 Last Titration: 02/08/17 11:20 Dose: 15 mcg/kg/min, 50.76 mls/hr Norepinephrine (Levophed Drip 4 Mg/Ns 250 Ml) 4 mg in 250 mls @ 7.5 mls/hr IV TITR GRICELDA; 2 MCG/MIN PRN Reason: Protocol Last Titration: 02/08/17 14:50 Dose: 10 mcg/min, 37.5 mls/hr Alteplase, Recombinant 20 mg/ (Sodium Chloride) 500 mls @ 25 mls/hr EKOSDLUMEN DIRECT GRICELDA Alteplase, Recombinant 10 mg/ (Sodium Chloride) 250 mls @ 10 mls/hr IV DIRECT GRICELDA Alteplase, Recombinant 10 mg/ (Sodium Chloride) 250 mls @ 10 mls/hr EKOSDLUMEN DIRECT GRICELDA Heparin Sodium/Sodium Chloride (Heparin/ 0.45% Nacl-25,000 Unit/500 Ml) 25,000 unit in 500 mls @ 10 mls/hr SHEATH DIRECT GRICELDA; 500 UNITS/HR PRN Reason: Protocol Heparin Sodium/Sodium Chloride (Heparin/ 0.45% Nacl-25,000 Unit/500 Ml) 25,000 unit in 500 mls @ 10 mls/hr SHEATH DIRECT GRICELDA; 500 UNITS/HR PRN Reason: Protocol Heparin Sodium/Sodium Chloride (Heparin/ 0.45% Nacl-25,000 Unit/500 Ml) 25,000 unit in 500 mls @ 10 mls/hr SHEATH DIRECT GRICELDA; 500 UNITS/HR PRN Reason: Protocol Sodium Chloride (Nacl 0.9% 1000 Ml) 1,000 mls @ 30 mls/hr IV DIRECT GRICELDA Sodium Chloride (Nacl 0.9% 1000 Ml) 1,000 mls @ 35 mls/hr EKOSCLUMEN DIRECT GRICELDA Sodium Chloride (Nacl 0.9% 1000 Ml) 1,000 mls @ 30 mls/hr SHEATH DIRECT GRICELDA Sodium Chloride (Nacl 0.9% 1000 Ml) 1,000 mls @ 35 mls/hr EKOSCLUMEN DIRECT GRICELDA Sodium Chloride (Nacl 0.9% 1000 Ml) 1,000 mls @ 30 mls/hr SHEATH DIRECT GRICELDA Sodium Chloride (Nacl 0.9% 1000 Ml) 1,000 mls @ 35 mls/hr EKOSCLUMEN DIRECT GRICELDA Sodium Chloride (Nacl 0.9% 1000 Ml) 1,000 mls @ 30 mls/hr SHEATH DIRECT GRICELDA Sodium Chloride (Sodium Chloride Flush Syringe 10 Ml) 10 ml IV PRN GRICELDA Sodium Chloride (Sodium Chloride Flush Syringe 10 Ml) 10 ml IV PRN GRICELDA Review of Systems ROS unobtainable: due to mental status Exam - Constitutional Vitals: Temp Pulse Resp BP Pulse Ox 98 F 90 31 H 62/40 70 L 02/08/17 10:40 02/08/17 14:42 02/08/17 13:05 02/08/17 14:42 02/08/17 14:42 General appearance: Present: severe distress - EENT Eyes: Present: PERRL ENT: hearing intact, clear oral mucosa - Neck Neck: Present: supple - Respiratory Respiratory effort: labored Respiratory: bilateral: diminished - Cardiovascular Heart Sounds: Present: S1 & S2. Absent: rub, click - Extremities Extremities: pulses symmetrical, No edema Peripheral Pulses: within normal limits - Abdominal General gastrointestinal: Present: soft, non-tender, non-distended, normal bowel sounds Female genitourinary: Present: normal - Integumentary Integumentary: Present: clear, dry, clammy, pale, decreased turgor - Musculoskeletal Musculoskeletal: generalized weakness - Psychiatric Psychiatric: no intact judgment & insight, no memory intact - Neurologic Neurologic: moves all extremities, no gait normal Results - Labs CBC & Chem 7: 02/08/17 09:25 02/08/17 09:25 Labs: Abnormal lab results 02/08/17 02/08/17 02/08/17 Range/Units 09:25 09:25 09:25 WBC 14.9 H (4.5-11.0) K/mm3 MCH 24 L (28-32) pg RDW 17.0 H (13.2-15.2) % Lymph % (Auto) 9.7 L (13.4-35.0) % [place] # 0.9 H (0.0-0.8) K/mm3 Seg Neutrophils % 83.5 H (40.0-70.0) % Seg Neutrophils # 12.5 H (1.8-7.7) K/mm3 PT 15.6 H (12.2-14.9) Sec. INR 1.25 H (0.87-1.13) POC ABG pH (7.35-7.45) POC ABG pO2 (80-105) VBG pH (7.320-7.420) Chloride 94.7 L (98-107) mmol/L Carbon Dioxide 21 L (22-30) mmol/L Creatinine 0.6 L (0.7-1.2) mg/dL Glucose 179 H (65-100) mg/dL POC Glucose (70-105) Calcium 10.4 H (8.4-10.2) mg/dL Total Creatine Kinase (30-135) units/L Troponin T (0.00-0.029) ng/mL Cholesterol (50-199) mg/dL LDL Cholesterol Direct (50-130) mg/dL HDL Cholesterol (40-59) mg/dL 02/08/17 02/08/17 02/08/17 Range/Units 10:17 11:07 12:00 WBC (4.5-11.0) K/mm3 MCH (28-32) pg RDW (13.2-15.2) % Lymph % (Auto) (13.4-35.0) % [place] # (0.0-0.8) K/mm3 Seg Neutrophils % (40.0-70.0) % Seg Neutrophils # (1.8-7.7) K/mm3 PT (12.2-14.9) Sec. INR (0.87-1.13) POC ABG pH 7.340 L (7.35-7.45) POC ABG pO2 28 L (80-105) VBG pH (7.320-7.420) Chloride (98-107) mmol/L Carbon Dioxide (22-30) mmol/L Creatinine (0.7-1.2) mg/dL Glucose (65-100) mg/dL POC Glucose 187 H (70-105) Calcium (8.4-10.2) mg/dL Total Creatine Kinase 144 H (30-135) units/L Troponin T 0.046 H D (0.00-0.029) ng/mL Cholesterol 206 H (50-199) mg/dL LDL Cholesterol Direct 157 H (50-130) mg/dL HDL Cholesterol 35 L (40-59) mg/dL 02/08/17 02/08/17 Range/Units 14:49 16:38 WBC (4.5-11.0) K/mm3 MCH (28-32) pg RDW (13.2-15.2) % Lymph % (Auto) (13.4-35.0) % [place] # (0.0-0.8) K/mm3 Seg Neutrophils % (40.0-70.0) % Seg Neutrophils # (1.8-7.7) K/mm3 PT (12.2-14.9) Sec. INR (0.87-1.13) POC ABG pH (7.35-7.45) POC ABG pO2 75 L (80-105) VBG pH 7.283 L (7.320-7.420) Chloride (98-107) mmol/L Carbon Dioxide (22-30) mmol/L Creatinine (0.7-1.2) mg/dL Glucose (65-100) mg/dL POC Glucose (70-105) Calcium (8.4-10.2) mg/dL Total Creatine Kinase (30-135) units/L Troponin T (0.00-0.029) ng/mL Cholesterol (50-199) mg/dL LDL Cholesterol Direct (50-130) mg/dL HDL Cholesterol (40-59) mg/dL Assessment and Plan - Patient Problems (1) Sepsis Current Visit: Yes Status: Acute Qualifiers: Sepsis type: Streptococcus group B Qualified Code(s): A40.1 - Sepsis due to streptococcus, group B Plan to address problem: IV abx, IVF, serial lactic acid, pressor support, monitor uop q shift, blood cultures, The high probability of a clinically significant, sudden or life threatening deterioration of the [cardiac, respiratory, renal] system(s) required my full and direct attention, intervention and personal management. The aggregate critical care time was [65] minutes. This time is in addition to time spent performing reported procedures but includes the following: [x] Data Review and interpretation [x] Patient assessment and monitoring of vital signs [x] Documentation [x] Medication orders and management (2) Acute respiratory failure Current Visit: Yes Status: Acute Qualifiers: Respiratory failure complication: R Plan to address problem: Supplemental oxygen, nebs, aspiration precautions, NIPPV, and clinically indicated, Pulmonary consulted. (3) Metabolic acidosis Current Visit: Yes Status: Acute Plan to address problem: treat sepsis, serial lactic acid, IVF resuscitation, (4) Morbid obesity Current Visit: Yes Status: Acute (5) Pulmonary emboli Current Visit: Yes Status: Acute Qualifiers: Pulmonary embolism type: saddle Chronicity: C Acute cor pulmonale presence: A Plan to address problem: Vascular Surgery consulted: S/P Ekos therapy, supportive care, (6) DVT prophylaxis Current Visit: Yes Status: Acute
--- NOTE | 2017-02-08 17:15 | Vascular Lab Report ---
MISCELLANEOUS VESSEL IDENTIFICATION: COMMENTS ON THE SCAN: The right common femoral vein and artery were identified and under real-time ultrasound guidance was cannulated. IMPRESSION: Successful ultrasound guided vein and arterial cannulation.
--- NOTE | 2017-02-08 17:21 | Operative Report ---
Operative Report Operative Report: Operative note: Date: 02/08/2017 Preoperative diagnosis: Massive pulmonary embolism Postoperative diagnosis: Same. Operation: Ultrasound-guided access of right femoral artery. Placement of arterial sheath. Ultrasound-guided access of right femoral vein. Placement of EKOS catheter in left pulmonary artery Placement of EKOS catheter in the right pulmonary artery Surgeon: Donna Magana. Asst.: Venu Jauregui Anesthesia: moderate sedation. EBL: Minimal Findings: Massive bilateral PE Indications: 66-year-old female presented to the emergency room with extreme shortness of breath she was found to be hypotensive to 60s and not responsive to pressors. She had CT scan with deep protocol showing massive bilateral pulmonary embolism. Vascular surgery was called for possible thrombolysis. Patient and family were discussed risks and benefits of procedure and agreed to proceed, signed informed consent. Operative details: patient was emergently brought to the [facility] Representative and placed in supine position. She was placed on BiPAP and respiratory therapist at the bedside. Her right groin was prepped and draped In sterile fashion. Timeout was performed. Under ultrasound guidance right femoral area was infiltrated with local anesthetic. The patient required a line placement. Under ultrasound guidance right femoral artery was accessed by a micropuncture ne and exchanged the micropuncture sheath over a guidewire. Then guidewire was inserted and micropuncture sheath was exchanged to 4FR access sheath, it was flushed. Femoral vein was accessed under ultrasound guidance with micropuncture needle and guidewire was inserted and removed it was accessed again for the secosheath with micropuncture needle under ultrasound and guidewire was placed in that also. Micropuncture sheath was inserted sequentially in I accessed and exchanged a 6 Stateless access s which was flushed and second wirefor the same thing repeated. Patient was given 5000u Heparin IV. 2 Mcadams wires were sequentially advanced to the right atrium, JR 4 catheter was advanced to the right atriumand maneuvered in the right ventricle and then up. Contrast was shot and showed the catheter to be in the pulmonary veins.. Patient happened to have patent foramen oval. Catheter was maneuvered back into right atrium and then maneuvered into the pulmonary artery and again repair was performed showing now being in the pulmonary artery. Then the catheter was positioned in the left lower lobe branches and the wire was lodged there. Catheter was removed and increased EKOS catheter with 12 infusion length was inserted and then the wire was removed and it EKOS wire was inserted. Then catheterJR4 was positioned on the second wire and that was maneuvered in the pulmonary artery and positioned in the right lower lobe. Catheter was removed and EKOS catheter inserted in the right pulmonary artery, followed by EKOS wire. I injected 4 mg of TPA in each drug port and injected heparin in each coolant port and sheath. Arterial sheath was connected to A.line during case. Patient tolerated procedure. By the end of procedure she was off pressors. She was sent to PACU, then to ICU.
[2017-02-08 18:56] LABS: Basophils % (Auto) 0.2 % (0.0-1.8); Hematocrit 37.3 % (30.3-42.9); Hemoglobin 11.8 gm/dl (10.1-14.3); Mean Corpuscular HGB Conc 32 % (30-34); Mean Corpuscular Volume 75 fl (79-97); Platelet Count 272 K/mm3 (140-440); Red Blood Count 4.98 M/mm3 (3.65-5.03); Red Cell Distribution Width 16.3 % (13.2-15.2); White Blood Count 18.5 K/mm3 (4.5-11.0)
[2017-02-08 19:00] LABS: Mean Corpuscular Hemoglobin 24 pg (28-32)
[2017-02-08 19:06] LABS: Anion Gap 19 mmol/L; Blood Urea Nitrogen 9 mg/dL (7-17); Carbon Dioxide 22 mmol/L (22-30); Chloride 103.7 mmol/L (98-107); Glucose 131 mg/dL (65-100); Potassium 3.7 mmol/L (3.6-5.0); Sodium 141 mmol/L (137-145)
[2017-02-08 19:07] LABS: INR 1.39 (0.87-1.13)
[2017-02-08] MEDS ORDERED: NACL 0.9% 500 ML 500 ML IV PRN (21:26)
[2017-02-08 21:28] LABS: ISTAT Base Excess -5; ISTAT HCO3 20.3; ISTAT PCO2 37.1 (35-45); ISTAT PH 7.346 (7.35-7.45); ISTAT PO2 72 (80-105); ISTAT SO2 93; ISTAT TCO2 21
[2017-02-08] MEDS ORDERED: NACL 0.9% 500 ML 500 ML ONE (21:29)
[2017-02-08] MEDS ORDERED: LEVOPHED 8 MG in NACL 0.9% 250ML 242 ML IV SCH (21:30)
[2017-02-08] MEDS ORDERED: Vasostrict 20 UNIT in NACL 0.9% 100 ML IV SCH (21:30)
[2017-02-08] MEDS ORDERED: ZOSYN/NS 4.5GM/100ML 4.5 GM/100 ML VIAL IV SCH (22:00)
--- NOTE | 2017-02-09 09:33 | Consultation ---
History of Present Illness Consult date: 02/09/17 Requesting physician: PREETI MILTON Reason for consult: pulmonary embolism History of present illness: 66 y/o female, admitted with weakness and altered mental status. Hypoxic as well and found to have bilateral Pulmonary emboli. patient taken to [facility] for EKOS therapy. Currently in ICU and stable. Had some issues with BP last night, but now off all pressors and MAPS are good. Patient is alert and awake. Complains of back pain from lying flat. Family at bedside asking if patient can sit up anytime soon and when can she have something for pain. Per patient, her sister had a blood clot before but she also was suffering from cancer. Patient has never had a clot. Denies any recent long trips. Remainder is negative. Past History Past Medical History: arthritis, diabetes, GERD, hypertension, other (metabolic syndrome) Past Surgical History: Other (breast biopsy) Social history: . denies: smoking, alcohol abuse, prescription drug abuse Family history: diabetes, hypertension Medications and Allergies Allergies Allergy/AdvReac Type Severity Reaction Status Date / Time aspirin Allergy hives, Verified 09/28/16 09:44 itching codeine Allergy hives, Verified 09/28/16 09:44 itching Home Medications Medication Instructions Recorded Confirmed Last Taken Type Cyclobenzaprine [Flexeril] 10 mg PO TID PRN 09/28/16 10/05/16 09/28/16 History Ergocalciferol(Vitamin D2)(Nf) 50,000 unit PO Q7D 09/28/16 10/05/16 09/29/16 History [Vitamin D (Nf)] Acetaminophen [Acetaminophen 8 650 mg PO Q6H PRN 10/05/16 10/05/16 10/02/16 History Hour] Ibuprofen [Motrin] 800 mg PO Q8HR PRN #30 tablet 10/05/16 Unknown Rx Active Meds: Active Medications Albuterol (Proventil) 2.5 mg IH Q3HRT PRN PRN Reason: Shortness Of Breath Dopamine HCl/Dextrose (Intropin Drip 800 Mg/D5w 250 Ml) 800 mg in 250 mls @ 6.769 mls/hr IV TITR ONE; 2 MCG/KG/MIN PRN Reason: Protocol Stop: 02/09/17 23:47 Last Titration: 02/08/17 11:20 Dose: 15 mcg/kg/min, 50.76 mls/hr Alteplase, Recombinant 20 mg/ (Sodium Chloride) 500 mls @ 25 mls/hr EKOSDLUMEN DIRECT GRICELDA Alteplase, Recombinant 10 mg/ (Sodium Chloride) 250 mls @ 10 mls/hr IV DIRECT GRICELDA Alteplase, Recombinant 10 mg/ (Sodium Chloride) 250 mls @ 10 mls/hr EKOSDLUMEN DIRECT GRICELDA Last Admin: 02/08/17 18:00 Dose: 250 mls Heparin Sodium/Sodium Chloride (Heparin/ 0.45% Nacl-25,000 Unit/500 Ml) 25,000 unit in 500 mls @ 10 mls/hr SHEATH DIRECT GRICELDA; 500 UNITS/HR PRN Reason: Protocol Last Admin: 02/08/17 18:00 Dose: 1,000 mls Heparin Sodium/Sodium Chloride (Heparin/ 0.45% Nacl-25,000 Unit/500 Ml) 25,000 unit in 500 mls @ 10 mls/hr SHEATH DIRECT GRICELDA; 500 UNITS/HR PRN Reason: Protocol Heparin Sodium/Sodium Chloride (Heparin/ 0.45% Nacl-25,000 Unit/500 Ml) 25,000 unit in 500 mls @ 10 mls/hr SHEATH DIRECT GRICELDA; 500 UNITS/HR PRN Reason: Protocol Sodium Chloride (Nacl 0.9% 1000 Ml) 1,000 mls @ 30 mls/hr IV DIRECT GRICELDA Sodium Chloride (Nacl 0.9% 1000 Ml) 1,000 mls @ 35 mls/hr EKOSCLUMEN DIRECT GRICELDA Last Admin: 02/08/17 18:00 Dose: 1,000 mls Sodium Chloride (Nacl 0.9% 1000 Ml) 1,000 mls @ 30 mls/hr SHEATH DIRECT GRICELDA Sodium Chloride (Nacl 0.9% 1000 Ml) 1,000 mls @ 35 mls/hr EKOSCLUMEN DIRECT GRICELDA Sodium Chloride (Nacl 0.9% 1000 Ml) 1,000 mls @ 30 mls/hr SHEATH DIRECT GRICELDA Sodium Chloride (Nacl 0.9% 1000 Ml) 1,000 mls @ 35 mls/hr EKOSCLUMEN DIRECT GRICELDA Last Admin: 02/08/17 18:00 Dose: 1,000 mls Sodium Chloride (Nacl 0.9% 1000 Ml) 1,000 mls @ 30 mls/hr SHEATH DIRECT GRICELDA Piperacillin Sod/Tazobactam Sod (Zosyn/Ns 4.5gm/100ml) 4.5 gm in 100 mls @ 200 mls/hr IV Q8HR GRICELDA PRN Reason: Protocol Last Admin: 02/08/17 22:30 Dose: 200 mls/hr Heparin Sodium/Sodium Chloride (Heparin/ 0.45% Nacl-25,000 Unit/500 Ml) 25,000 unit in 500 mls @ 10 mls/hr SHEATH DIRECT GRICELDA; 500 UNITS/HR PRN Reason: Protocol Heparin Sodium/Sodium Chloride (Heparin/ 0.45% Nacl-25,000 Unit/500 Ml) 25,000 unit in 500 mls @ 10 mls/hr SHEATH DIRECT GRICELDA; 500 UNITS/HR PRN Reason: Protocol Sodium Chloride (Nacl 0.9% 1000 Ml) 1,000 mls @ 30 mls/hr SHEATH DIRECT GRICELDA Sodium Chloride (Nacl 0.9% 1000 Ml) 1,000 mls @ 35 mls/hr EKOSCLUMEN DIRECT GRICELDA Sodium Chloride (Nacl 0.9% 1000 Ml) 1,000 mls @ 30 mls/hr SHEATH DIRECT GRICELDA Sodium Chloride (Nacl 0.9% 1000 Ml) 1,000 mls @ 35 mls/hr EKOSCLUMEN DIRECT GRICELDA Vasopressin 20 unit/ Sodium (Chloride) 101 mls @ 9.09 mls/hr IV TITR GRICELDA; 0.03 UNITS/MIN PRN Reason: Protocol Norepinephrine 8 mg/ Sodium (Chloride) 250 mls @ 3.75 mls/hr IV TITR GRICELDA; 2 MCG /MIN PRN Reason: Protocol Sodium Chloride (Nacl 0.9% 500 Ml) 500 mls @ 1 mls/hr IV DIRECT PRN PRN Reason: ARTERIAL LINE FLUSH Sodium Chloride (Sodium Chloride Flush Syringe 10 Ml) 10 ml IV PRN GRICELDA Sodium Chloride (Sodium Chloride Flush Syringe 10 Ml) 10 ml IV PRN GRICELDA Review of Systems All systems: negative Physical Examination Vital signs: Vital Signs BP 142/124 02/08/17 09:45 General appearance: no acute distress, alert, other (morbidly obese) Eyes: non-icteric ENT: oropharynx dry, other (has a full face mask bipap on.) Neck: other (large in circumference) Effort: normal Ascultation: Bilateral: diminished breath sounds (secondary to body habitus) Cardiovascular: regular rate and rhythm Gastrointestinal: soft, other (morbidly obese) Extremities: other (morbid obesity) normal mental status, other (per nursing complains of numbness on the right, did not express this to me) mood appropriate Results - Laboratory Findings CBC and BMP: 02/08/17 18:45 02/08/17 18:45 ABG POC ABG pH 7.346 (7.35-7.45) L 02/08/17 21:14 POC ABG pCO2 37.1 (35-45) 02/08/17 21:14 POC ABG pO2 72 (80-105) L 02/08/17 21:14 POC ABG HCO3 20.3 02/08/17 21:14 POC ABG Total CO2 21 02/08/17 21:14 POC ABG O2 Sat 93 02/08/17 21:14 PT/INR, D-dimer PT 17.8 Sec. (12.2-14.9) H 02/08/17 18:45 INR 1.39 (0.87-1.13) H 02/08/17 18:45 Abnormal lab findings: Abnormal Labs 02/08/17 02/08/17 02/08/17 18:45 18:45 18:45 WBC 18.5 H MCV 75 L MCH 24 L RDW 16.3 H Lymph % (Auto) 5.6 L Lymph # 1.0 L Bates # 1.2 H Seg Neutrophils % 88.0 H Seg Neutrophils # 16.3 H PT 17.8 H INR 1.39 H APTT 75.0 H* POC ABG pH POC ABG pO2 Creatinine 0.4 L Glucose 131 H 02/08/17 21:14 WBC MCV MCH RDW Lymph % (Auto) Lymph # Bates # Seg Neutrophils % Seg Neutrophils # PT INR APTT POC ABG pH 7.346 L POC ABG pO2 72 L Creatinine Glucose - Diagnostic Findings CT scan - chest: image reviewed (large pulmonary emboli seen in pulmonary trunk) Assessment and Plan 66 y/o, morbidly obese female, admitted with hypoxemia, acute respiratory failure, secondary to large bilateral pulmonary emboli status post EKOS therapy. 1. Await Vascular removal of catheters. 2. Ordered Fent for Pain with some Benadryl for itching 3. Needs hypercoag work up and LE dopplers once catheters come out 4. COntinue bipap therapy for now, wean FiO2 for sats >88%. Patient has many risk factors for ALTAGRACIA. 5. BP stable now, likely just volume deplete plus poor forward flow and lack of preload from clot burden. CCt 31 minutes.
[2017-02-09] MEDS ORDERED: NORMODYNE IV PRN (11:16)
--- NOTE | 2017-02-09 11:21 | Progress Note ---
Assessment and Plan Assessment and plan: 66-year-old female with a past medical history of hypertension, borderline diabetes, and obesity presents to the hospital with strokelike symptoms. Patient was being assisted by her daughter when suddenly she had generalized weakness with left-sided weakness reported. She complains of difficulty swallowing. EMS reports left facial droop since and persistent left arm weakness. Patient has a history of ongoing right arm pain due to "nerve problem " and arthritis Acute ischemic CVA with infarct patient has a probable PFO, most likely embolic CVA on anticoagulation, Will need official VINH, cardiology consult, Neurology consult continue CVA protocol, will obtain MRI when patient is able to get it, allow permissive hypertension We'll need full anticoagulation Acute Bilateral Massive PE sp EKOS - Needs hypercoag work up and LE dopplers once catheters come out - Needs Vasc US when catheter come out Acute Hypoxic Respiraroty failure -COntinue bipap therapy for now, wean FiO2 for sats >88%. Patient has many risk factors for ALTAGRACIA. metabolic encephalopathy Supportive care, continue to monitor most likely due to acute CVA HTN * Allow permissive hypertension due to acute CVA Mobrid obesity * Nutrition consult The high probability of a clinically significant, sudden or life threatening deterioration of the [cardiovascular, neurologic, pulmonary] system(s) required my full and direct attention, intervention and personal management. The aggregate critical care time was [35] minutes. This time is in addition to time spent performing reported procedures but includes the following: [] Data Review and interpretation [] Patient assessment and monitoring of vital signs [] Documentation [] Medication orders and management History Interval history: Continues to have left sided weakness worse in her left arm, slurred speech. Hospitalist Physical - Physical exam Narrative exam: General: Patient appears well in no distress HEENT: MMM, EOMI cardiac: S1-S2 heard lungs: clear to auscultation, abdomen: soft, nontender, nondistended bowel sounds positive extremities: no edema clubbing or cyanosis Skin: no rash or lesion Neuro: Left hemiparesis, worse in upper extremity, slurred speech Psych: appropriate behavior and mood, cognition intact - Constitutional Vitals: Temp Pulse Resp BP Pulse Ox 97.4 F L 92 H 20 150/76 100 02/09/17 08:00 02/09/17 08:16 02/09/17 08:16 02/09/17 08:16 02/09/17 08:16 General appearance: Present: severe distress Results - Labs CBC & Chem 7: 02/08/17 18:45 02/08/17 18:45 Labs: Laboratory Last Values WBC 18.5 K/mm3 (4.5-11.0) H 02/08/17 18:45 RBC 4.98 M/mm3 (3.65-5.03) 02/08/17 18:45 Hgb 11.8 gm/dl (10.1-14.3) 02/08/17 18:45 Hct 37.3 % (30.3-42.9) 02/08/17 18:45 MCV 75 fl (79-97) L 02/08/17 18:45 MCH 24 pg (28-32) L 02/08/17 18:45 MCHC 32 % (30-34) 02/08/17 18:45 RDW 16.3 % (13.2-15.2) H 02/08/17 18:45 Plt Count 272 K/mm3 (140-440) 02/08/17 18:45 Lymph % (Auto) 5.6 % (13.4-35.0) L 02/08/17 18:45 [place] % (Auto) 6.2 % (0.0-7.3) 02/08/17 18:45 Eos % (Auto) 0.0 % (0.0-4.3) 02/08/17 18:45 Baso % (Auto) 0.2 % (0.0-1.8) 02/08/17 18:45 Lymph # 1.0 K/mm3 (1.2-5.4) L 02/08/17 18:45 [place] # 1.2 K/mm3 (0.0-0.8) H 02/08/17 18:45 Eos # 0.0 K/mm3 (0.0-0.4) 02/08/17 18:45 Baso # 0.0 K/mm3 (0.0-0.1) 02/08/17 18:45 Seg Neutrophils % 88.0 % (40.0-70.0) H 02/08/17 18:45 Seg Neutrophils # 16.3 K/mm3 (1.8-7.7) H 02/08/17 18:45 PT 17.8 Sec. (12.2-14.9) H 02/08/17 18:45 INR 1.39 (0.87-1.13) H 02/08/17 18:45 APTT 75.0 Sec. (24.2-36.6) H* 02/08/17 18:45 Thrombin Time 17.6 Sec. (15.1-19.6) 02/08/17 09:25 Fibrinogen 375 mg/dl (211-480) 02/08/17 18:45 POC ABG pH 7.346 (7.35-7.45) L 02/08/17 21:14 POC ABG pCO2 37.1 (35-45) 02/08/17 21:14 POC ABG pO2 72 (80-105) L 02/08/17 21:14 POC ABG HCO3 20.3 02/08/17 21:14 POC ABG Total CO2 21 02/08/17 21:14 POC ABG O2 Sat 93 02/08/17 21:14 POC ABG Base Excess -5 02/08/17 21:14 VBG pH 7.283 (7.320-7.420) L 02/08/17 14:49 FiO2 85 % 02/08/17 21:14 Sodium 141 mmol/L (137-145) 02/08/17 18:45 Potassium 3.7 mmol/L (3.6-5.0) D 02/08/17 18:45 Chloride 103.7 mmol/L (98-107) 02/08/17 18:45 Carbon Dioxide 22 mmol/L (22-30) 02/08/17 18:45 Anion Gap 19 mmol/L 02/08/17 18:45 BUN 9 mg/dL (7-17) 02/08/17 18:45 Creatinine 0.4 mg/dL (0.7-1.2) L 02/08/17 18:45 Estimated GFR > 60 ml/min 02/08/17 18:45 BUN/Creatinine Ratio 22.50 % 02/08/17 18:45 Glucose 131 mg/dL (65-100) H 02/08/17 18:45 POC Glucose 187 (70-105) H 02/08/17 10:17 Lactic Acid 1.80 mmol/L (0.7-2.0) 02/08/17 22:10 Calcium 9.0 mg/dL (8.4-10.2) 02/08/17 18:45 Total Creatine Kinase 144 units/L (30-135) H 02/08/17 12:00 CK-MB (CK-2) 2.1 ng/mL (0.0-4.0) 02/08/17 12:00 CK-MB (CK-2) Rel Index 1.4 (0-4) 02/08/17 12:00 Troponin T 0.046 ng/mL (0.00-0.029) H D 02/08/17 12:00 Triglycerides 74 mg/dL (2-149) 02/08/17 12:00 Cholesterol 206 mg/dL (50-199) H 02/08/17 12:00 LDL Cholesterol Direct 157 mg/dL (50-130) H 02/08/17 12:00 HDL Cholesterol 35 mg/dL (40-59) L 02/08/17 12:00 Cholesterol/HDL Ratio 5.88 % 02/08/17 12:00 Urine Color Straw (Yellow) 02/08/17 14:15 Urine Turbidity Clear (Clear) 02/08/17 14:15 Urine pH 6.0 (5.0-7.0) 02/08/17 14:15 Ur Specific Tyler 1.025 (1.003-1.030) 02/08/17 14:15 Urine Protein 30 mg/dl mg/dL (Negative) 02/08/17 14:15 Urine Glucose (UA) 150 mg/dL (Negative) 02/08/17 14:15 Urine Ketones Tr mg/dL (Negative) 02/08/17 14:15 Urine Blood Mod (Negative) 02/08/17 14:15 Urine Nitrite Neg (Negative) 02/08/17 14:15 Urine Bilirubin Neg (Negative) 02/08/17 14:15 Urine Urobilinogen < 2.0 mg/dL (<2.0) 02/08/17 14:15 Ur Leukocyte Esterase Neg (Negative) 02/08/17 14:15 Urine WBC (Auto) 2.0 /HPF (0.0-6.0) 02/08/17 14:15 Urine RBC (Auto) 5.0 /HPF (0.0-6.0) 02/08/17 14:15 U Epithel Cells (Auto) < 1.0 /HPF (0-13.0) 02/08/17 14:15 Urine Mucus Few /HPF 02/08/17 14:15 Blood Type O POSITIVE 02/08/17 14:40 Antibody Screen Negative 02/08/17 14:40
[2017-02-09] MEDS ORDERED: HEPARIN/NS 5000 UNIT/500ML(CATH LAB) 500 ML IR ONE ×2 (13:51→14:33)
[2017-02-09] MEDS ORDERED: XYLOCAINE 2% INFILTRATI ONE (14:33)
[2017-02-09] MEDS ORDERED: SUBLIMAZE ONE (14:44)
[2017-02-09] MEDS ORDERED: VERSED ONE (14:44)
[2017-02-09] MEDS ORDERED: NACL 0.9% 250ML 0 ML ONE (14:46)
--- NOTE | 2017-02-09 16:47 | Operative Report ---
Operative Report Operative Report: Operative note: Date: 02/09/2017 Preoperative diagnosis: Less than PE, EKOS catheter Postoperative diagnosis: Same. Operation: Pulmonary arteriogram. Removal of EKOS cathteters.Placement of IVC filter Surgeon: Donna Magana. Asst.: None Anesthesia: Gen. EBL: Minimal Findings: Residual clot in the main pulmonary artery and main right and left pulmonary arteries. Infrarenal placement of IVC filter. Indications: Patient came in with unstable massive PE, she underwent emergent catheter directed thrombolysis, EKOS catheters. Patient was planned to come in 24 hours for catheter check, removal and IVC filter placement. She understood risks, benefits and alternatives of procedure and chose to proceed. Operative details: Patient was brought to the [facility] and placed in supine position. Her right groin was prepped and draped in sterile fashion. Timeout was performed. Gross wire was removed and pulmonary angiogram shot. There was no residual clots. This catheter was removed over a guidewire. Pig tail catheter was positioned in the main pulmonary artery. And pulmonary angiogram repeated with excellent flow and patent trunk. Then sheath was removed, and IVC filter sheath was placed, venogram performed and renal veins visualized over 1st lumbar vertebra. IVC filter was placed in the infrarenal IVC. sheath removed. Second EKOS wire and catheter removed. Sheath was also pulled. Pressure applied. Patient tolerated procedure well. she was sent back to ICU in stable condition. Arterial sheath was left in place for BP monitoring.
[2017-02-09 17:07] LABS: Hematocrit 33.7 % (30.3-42.9); Hemoglobin 10.9 gm/dl (10.1-14.3)
[2017-02-09 17:19] LABS: INR 1.2 (0.87-1.13)
[2017-02-09 17:20] LABS: Partial Thromboplastin Time 27.5 Sec. (24.2-36.6)
[2017-02-09] MEDS: HEPARIN/ 0.45% NACL-25,000 UNIT/500 ML 25,000 UNIT/500 ML BAG IV SCH (17:35)
[2017-02-09] MEDS: SUBLIMAZE IV PRN (18:58)
[2017-02-09] MEDS: ZOCOR PO SCH (22:10)
--- NOTE | 2017-02-10 11:25 | Progress Note ---
Assessment and Plan Assessment and plan: 66-year-old female with a past medical history of hypertension, borderline diabetes, and obesity presents to the hospital with strokelike symptoms. Patient was being assisted by her daughter when suddenly she had generalized weakness with left-sided weakness reported. She complains of difficulty swallowing. EMS reports left facial droop since and persistent left arm weakness. Patient has a history of ongoing right arm pain due to "nerve problem " and arthritis Acute ischemic CVA with infarct patient has a probable PFO, most likely embolic CVA on anticoagulation CTH did not show any acute findings carotid dopplers does not show any significant stenosis Will need official VINH, cardiology consult, Neurology consult continue CVA protocol, obtain MRI DERRELL, allow permissive hypertension continue heparin drip Acute Bilateral Massive PE and DVT sp EKOS - LE dopplers show ACUTE DVT NOTED IN RT. DS SFV, POP. V AND PX PTV continue heparin drip Acute Hypoxic Respiratory failure -Continue bipap therapy for now, wean FiO2 for sats >89%. Patient has many risk factors for ALTAGRACIA. Pulmonary impression appreciated metabolic encephalopathy Supportive care, continue to monitor most likely due to acute CVA HTN * Allow permissive hypertension due to acute CVA Mobrid obesity * Nutrition consult The high probability of a clinically significant, sudden or life threatening deterioration of the [cardiovascular, neurologic, pulmonary] system(s) required my full and direct attention, intervention and personal management. The aggregate critical care time was [35] minutes. This time is in addition to time spent performing reported procedures but includes the following: [] Data Review and interpretation [] Patient assessment and monitoring of vital signs [] Documentation [] Medication orders and management History Interval history: Continues to have left sided weakness worse in her left arm, slurred speech. Hospitalist Physical - Physical exam Narrative exam: General: Patient appears well in no distress HEENT: MMM, EOMI cardiac: S1-S2 heard lungs: clear to auscultation, abdomen: soft, nontender, nondistended bowel sounds positive extremities: no edema clubbing or cyanosis Skin: no rash or lesion Neuro: Left hemiparesis, worse in upper extremity, slurred speech Psych: appropriate behavior and mood, cognition intact - Constitutional Vitals: Temp Pulse Resp BP Pulse Ox 97.7 F 93 H 24 96/77 100 02/10/17 04:00 02/10/17 11:11 02/10/17 11:11 02/10/17 10:40 02/10/17 11:11 General appearance: Present: no acute distress Results - Labs CBC & Chem 7: 02/09/17 16:26 02/08/17 18:45 Labs: Laboratory Last Values WBC 18.5 K/mm3 (4.5-11.0) H 02/08/17 18:45 RBC 4.98 M/mm3 (3.65-5.03) 02/08/17 18:45 Hgb 10.9 gm/dl (10.1-14.3) 02/09/17 16:26 Hct 33.7 % (30.3-42.9) 02/09/17 16:26 MCV 75 fl (79-97) L 02/08/17 18:45 MCH 24 pg (28-32) L 02/08/17 18:45 MCHC 32 % (30-34) 02/08/17 18:45 RDW 16.3 % (13.2-15.2) H 02/08/17 18:45 Plt Count 201 K/mm3 (140-440) 02/09/17 16:26 Lymph % (Auto) 5.6 % (13.4-35.0) L 02/08/17 18:45 [place] % (Auto) 6.2 % (0.0-7.3) 02/08/17 18:45 Eos % (Auto) 0.0 % (0.0-4.3) 02/08/17 18:45 Baso % (Auto) 0.2 % (0.0-1.8) 02/08/17 18:45 Lymph # 1.0 K/mm3 (1.2-5.4) L 02/08/17 18:45 [place] # 1.2 K/mm3 (0.0-0.8) H 02/08/17 18:45 Eos # 0.0 K/mm3 (0.0-0.4) 02/08/17 18:45 Baso # 0.0 K/mm3 (0.0-0.1) 02/08/17 18:45 Seg Neutrophils % 88.0 % (40.0-70.0) H 02/08/17 18:45 Seg Neutrophils # 16.3 K/mm3 (1.8-7.7) H 02/08/17 18:45 PT 15.8 Sec. (12.2-14.9) H 02/09/17 16:26 INR 1.20 (0.87-1.13) H 02/09/17 16:26 APTT 27.5 Sec. (24.2-36.6) 02/09/17 16:26 Thrombin Time 17.6 Sec. (15.1-19.6) 02/08/17 09:25 Fibrinogen 375 mg/dl (211-480) 02/08/17 18:45 Heparin Anti-Xa Level 0.19 U.I./ml (0.3-0.7) L 02/10/17 09:35 POC ABG pH 7.346 (7.35-7.45) L 02/08/17 21:14 POC ABG pCO2 37.1 (35-45) 02/08/17 21:14 POC ABG pO2 72 (80-105) L 02/08/17 21:14 POC ABG HCO3 20.3 02/08/17 21:14 POC ABG Total CO2 21 02/08/17 21:14 POC ABG O2 Sat 93 02/08/17 21:14 POC ABG Base Excess -5 02/08/17 21:14 VBG pH 7.283 (7.320-7.420) L 02/08/17 14:49 FiO2 85 % 02/08/17 21:14 Sodium 141 mmol/L (137-145) 02/08/17 18:45 Potassium 3.7 mmol/L (3.6-5.0) D 02/08/17 18:45 Chloride 103.7 mmol/L (98-107) 02/08/17 18:45 Carbon Dioxide 22 mmol/L (22-30) 02/08/17 18:45 Anion Gap 19 mmol/L 02/08/17 18:45 BUN 9 mg/dL (7-17) 02/08/17 18:45 Creatinine 0.4 mg/dL (0.7-1.2) L 02/08/17 18:45 Estimated GFR > 60 ml/min 02/08/17 18:45 BUN/Creatinine Ratio 22.50 % 02/08/17 18:45 Glucose 131 mg/dL (65-100) H 02/08/17 18:45 POC Glucose 118 (70-105) H 02/10/17 00:28 Lactic Acid 1.80 mmol/L (0.7-2.0) 02/08/17 22:10 Calcium 9.0 mg/dL (8.4-10.2) 02/08/17 18:45 Total Creatine Kinase 144 units/L (30-135) H 02/08/17 12:00 CK-MB (CK-2) 2.1 ng/mL (0.0-4.0) 02/08/17 12:00 CK-MB (CK-2) Rel Index 1.4 (0-4) 02/08/17 12:00 Troponin T 0.046 ng/mL (0.00-0.029) H D 02/08/17 12:00 Triglycerides 74 mg/dL (2-149) 02/08/17 12:00 Cholesterol 206 mg/dL (50-199) H 02/08/17 12:00 LDL Cholesterol Direct 157 mg/dL (50-130) H 02/08/17 12:00 HDL Cholesterol 35 mg/dL (40-59) L 02/08/17 12:00 Cholesterol/HDL Ratio 5.88 % 02/08/17 12:00 Urine Color Straw (Yellow) 02/08/17 14:15 Urine Turbidity Clear (Clear) 02/08/17 14:15 Urine pH 6.0 (5.0-7.0) 02/08/17 14:15 Ur Specific [place] 1.025 (1.003-1.030) 02/08/17 14:15 Urine Protein 30 mg/dl mg/dL (Negative) 02/08/17 14:15 Urine Glucose (UA) 150 mg/dL (Negative) 02/08/17 14:15 Urine Ketones Tr mg/dL (Negative) 02/08/17 14:15 Urine Blood Mod (Negative) 02/08/17 14:15 Urine Nitrite Neg (Negative) 02/08/17 14:15 Urine Bilirubin Neg (Negative) 02/08/17 14:15 Urine Urobilinogen < 2.0 mg/dL (<2.0) 02/08/17 14:15 Ur Leukocyte Esterase Neg (Negative) 02/08/17 14:15 Urine WBC (Auto) 2.0 /HPF (0.0-6.0) 02/08/17 14:15 Urine RBC (Auto) 5.0 /HPF (0.0-6.0) 02/08/17 14:15 U Epithel Cells (Auto) < 1.0 /HPF (0-13.0) 02/08/17 14:15 Urine Mucus Few /HPF 02/08/17 14:15 Blood Type O POSITIVE 02/08/17 14:40 Antibody Screen Negative 02/08/17 14:40
[2017-02-10] MEDS: HEPARIN/ 0.45% NACL-25,000 UNIT/500 ML 25,000 UNIT/500 ML BAG IV SCH (11:34)
--- NOTE | 2017-02-10 13:33 | Progress Note ---
Assessment and Plan 66 y/o, morbidly obese female, admitted with hypoxemia, acute respiratory failure, secondary to large bilateral pulmonary emboli status post EKOS therapy. 1. Continue to wean FiO2 as tolerated. COntinue PRN PPV at night 2. Ordered Fent for Pain with some Benadryl for itching 3. Needs hypercoag work up LE dopplers done this am 4. COntinue bipap therapy for now, wean FiO2 for sats >88%. Patient has many risk factors for ALTAGRACIA. 5. BP has not been measurable with cuffs manually or automated. most likely this is secondary to body habitus. Nursing will attempt to use normal leg to check pressures but this patient is awake alert oriented and appropriate. She is not hypotensive. 6. Stable for transfer from a critical care standpoint. Subjective Date of service: 02/10/17 Interval history: EKOS out, no evidence of bleed. Breathing is stable to improving. Patient is morbidly obese and we have been having trouble obtaining cuff pressures. She had an artline and this has now malfunctioned. Family at bedside. Objective Vital Signs - 12hr 02/10/17 02/10/17 02/10/17 03:01 03:11 03:21 Temperature Pulse Rate 93 H 92 H 96 H Respiratory 22 21 20 Rate Blood Pressure O2 Sat by Pulse 100 100 100 Oximetry 02/10/17 02/10/17 02/10/17 03:31 03:41 03:51 Temperature Pulse Rate 92 H 95 H 91 H Respiratory 24 23 20 Rate Blood Pressure O2 Sat by Pulse 100 100 100 Oximetry 02/10/17 02/10/17 02/10/17 04:00 04:11 04:21 Temperature 97.7 F Pulse Rate 92 H 99 H 93 H Respiratory 23 24 23 Rate Blood Pressure 96/77 O2 Sat by Pulse 100 100 100 Oximetry 02/10/17 02/10/17 02/10/17 04:31 04:41 04:51 Temperature Pulse Rate 98 H 96 H 94 H Respiratory 24 25 H 24 Rate Blood Pressure O2 Sat by Pulse 100 100 100 Oximetry 02/10/17 02/10/17 02/10/17 05:01 05:11 05:21 Temperature Pulse Rate 90 88 92 H Respiratory 20 20 21 Rate Blood Pressure O2 Sat by Pulse 100 100 100 Oximetry 02/10/17 02/10/17 02/10/17 05:31 05:41 05:50 Temperature Pulse Rate 90 91 H 95 H Respiratory 23 22 23 Rate Blood Pressure 96/77 O2 Sat by Pulse 100 100 100 Oximetry 02/10/17 02/10/17 02/10/17 06:00 06:01 06:11 Temperature Pulse Rate 93 H 94 H Respiratory 15 21 19 Rate Blood Pressure O2 Sat by Pulse 98 100 100 Oximetry 02/10/17 02/10/17 02/10/17 06:21 06:31 06:41 Temperature Pulse Rate 93 H 89 90 Respiratory 20 20 22 Rate Blood Pressure O2 Sat by Pulse 100 100 100 Oximetry 02/10/17 02/10/17 02/10/17 06:51 07:01 07:11 Temperature Pulse Rate 95 H 93 H 94 H Respiratory 22 20 22 Rate Blood Pressure O2 Sat by Pulse 100 100 100 Oximetry 02/10/17 02/10/17 02/10/17 07:21 07:31 07:41 Temperature Pulse Rate 92 H 95 H 96 H Respiratory 20 25 H 16 Rate Blood Pressure O2 Sat by Pulse 100 100 Oximetry 02/10/17 02/10/17 02/10/17 07:45 07:51 08:01 Temperature Pulse Rate 96 H 101 H Respiratory 18 20 Rate Blood Pressure O2 Sat by Pulse 100 100 100 Oximetry 02/10/17 02/10/17 02/10/17 08:11 08:20 08:31 Temperature Pulse Rate 104 H 103 H 105 H Respiratory 25 H 18 19 Rate Blood Pressure 96/77 O2 Sat by Pulse 100 100 Oximetry 02/10/17 02/10/17 02/10/17 08:41 08:51 09:01 Temperature Pulse Rate 94 H 104 H 95 H Respiratory 23 23 23 Rate Blood Pressure O2 Sat by Pulse 100 100 100 Oximetry 02/10/17 02/10/17 02/10/17 09:11 09:21 09:31 Temperature Pulse Rate 93 H 97 H 94 H Respiratory 25 H 25 H 25 H Rate Blood Pressure O2 Sat by Pulse 100 100 99 Oximetry 02/10/17 02/10/17 02/10/17 09:41 09:51 10:01 Temperature Pulse Rate 94 H 91 H 89 Respiratory 23 24 21 Rate Blood Pressure O2 Sat by Pulse 98 99 100 Oximetry 02/10/17 02/10/17 02/10/17 10:11 10:21 10:31 Temperature Pulse Rate 92 H 94 H 89 Respiratory 23 22 22 Rate Blood Pressure O2 Sat by Pulse 100 100 100 Oximetry 02/10/17 02/10/17 02/10/17 10:40 10:51 11:01 Temperature Pulse Rate 92 H 93 H 92 H Respiratory 23 21 22 Rate Blood Pressure 96/77 O2 Sat by Pulse 100 100 100 Oximetry 02/10/17 02/10/17 02/10/17 11:11 11:31 11:45 Temperature Pulse Rate 93 H 92 H 90 Respiratory 24 20 25 H Rate Blood Pressure O2 Sat by Pulse 100 100 100 Oximetry 02/10/17 02/10/17 02/10/17 12:00 12:15 12:28 Temperature Pulse Rate 90 86 Respiratory 25 H 22 Rate Blood Pressure 75/51 75/51 O2 Sat by Pulse 100 100 97 Oximetry 02/10/17 12:31 Temperature Pulse Rate 91 H Respiratory 22 Rate Blood Pressure 82/61 O2 Sat by Pulse 100 Oximetry Constitutional: no acute distress, alert, other (morbidly obese) Eyes: non-icteric ENT: oropharynx dry, other (has a full face mask bipap on.) Neck: other (large in circumference) Effort: normal Ascultation: Bilateral: diminished breath sounds (secondary to body habitus) Cardiovascular: regular rate and rhythm Gastrointestinal: soft, other (morbidly obese) Extremities: other (morbid obesity) Neurologic: normal mental status, other (per nursing complains of numbness on the right, did not express this to me) Psychiatric: mood appropriate CBC and BMP: 02/09/17 16:26 02/08/17 18:45 ABG, PT/INR, D-dimer: ABG POC ABG pH 7.346 (7.35-7.45) L 02/08/17 21:14 POC ABG pCO2 37.1 (35-45) 02/08/17 21:14 POC ABG pO2 72 (80-105) L 02/08/17 21:14 POC ABG HCO3 20.3 02/08/17 21:14 POC ABG Total CO2 21 02/08/17 21:14 POC ABG O2 Sat 93 02/08/17 21:14 PT/INR, D-dimer PT 15.8 Sec. (12.2-14.9) H 02/09/17 16:26 INR 1.20 (0.87-1.13) H 02/09/17 16:26 Abnormal lab findings: Abnormal Labs 02/08/17 02/08/17 02/08/17 18:45 18:45 18:45 WBC 18.5 H MCV 75 L MCH 24 L RDW 16.3 H Lymph % (Auto) 5.6 L Lymph # 1.0 L [place] # 1.2 H Seg Neutrophils % 88.0 H Seg Neutrophils # 16.3 H PT 17.8 H INR 1.39 H APTT 75.0 H* Heparin Anti-Xa Level POC ABG pH POC ABG pO2 Creatinine 0.4 L Glucose 131 H POC Glucose 02/08/17 02/09/17 02/10/17 21:14 16:26 00:28 WBC MCV MCH RDW Lymph % (Auto) Lymph # [place] # Seg Neutrophils % Seg Neutrophils # PT 15.8 H INR 1.20 H APTT Heparin Anti-Xa Level POC ABG pH 7.346 L POC ABG pO2 72 L Creatinine Glucose POC Glucose 118 H 02/10/17 02/10/17 00:35 09:35 WBC MCV MCH RDW Lymph % (Auto) Lymph # [place] # Seg Neutrophils % Seg Neutrophils # PT INR APTT Heparin Anti-Xa Level 0.26 L 0.19 L POC ABG pH POC ABG pO2 Creatinine Glucose POC Glucose
--- NOTE | 2017-02-10 14:50 | Consultation ---
History of Present Illness Consult date: 02/10/17 Requesting physician: SOHAM SHAIKH Consult reason: other (pulmonary embolism and hypotension) History of present illness: The patient claims that 2 days prior to presentation, she experienced some shortness of breath. However, this improved. On the day of presentation, she suddenly developed left sided weakness. Upon presentation to the ER, she was noted to be hypotensive. Brain CT scan did not show any acute findings. However , chest CTA revealed large bilateral pulmonary emboli. She subsequently underwent EKOS-catheter directed thrombolysis. Past History Past Medical History: arthritis, GERD, hypertension, other (pre diabetes) Past Surgical History: hysterectomy Social history: . denies: smoking, alcohol abuse, prescription drug abuse Family history: no significant family history Medications and Allergies Allergies Allergy/AdvReac Type Severity Reaction Status Date / Time aspirin Allergy hives, Verified 09/28/16 09:44 itching codeine Allergy hives, Verified 09/28/16 09:44 itching Home Medications Medication Instructions Recorded Confirmed Last Taken Type Cyclobenzaprine [Flexeril] 10 mg PO TID PRN 09/28/16 10/05/16 09/28/16 History Ergocalciferol(Vitamin D2)(Nf) 50,000 unit PO Q7D 09/28/16 10/05/16 09/29/16 History [Vitamin D (Nf)] Acetaminophen [Acetaminophen 8 650 mg PO Q6H PRN 10/05/16 10/05/16 10/02/16 History Hour] Ibuprofen [Motrin] 800 mg PO Q8HR PRN #30 tablet 10/05/16 Unknown Rx Active Meds: Active Medications Albuterol (Proventil) 2.5 mg IH Q3HRT PRN PRN Reason: Shortness Of Breath Diphenhydramine HCl (Benadryl) 25 mg IV Q6H PRN PRN Reason: Itching Fentanyl (Sublimaze) 50 mcg IV Q4HR PRN PRN Reason: Pain Last Admin: 02/09/17 18:58 Dose: 50 mcg Sodium Chloride (Nacl 0.9% 1000 Ml) 1,000 mls @ 30 mls/hr IV DIRECT GRICELDA Vasopressin 20 unit/ Sodium (Chloride) 101 mls @ 9.09 mls/hr IV TITR GRICELDA; 0.03 UNITS/MIN PRN Reason: Protocol Norepinephrine 8 mg/ Sodium (Chloride) 250 mls @ 3.75 mls/hr IV TITR GRICELDA; 2 MCG /MIN PRN Reason: Protocol Sodium Chloride (Nacl 0.9% 500 Ml) 500 mls @ 1 mls/hr IV DIRECT PRN PRN Reason: ARTERIAL LINE FLUSH Heparin Sodium/Sodium Chloride (Heparin/ 0.45% Nacl-25,000 Unit/500 Ml) 25,000 unit in 500 mls @ 30 mls/hr IV TITR GRICELDA; 1,500 UNITS/HR PRN Reason: Protocol Last Admin: 02/10/17 11:34 Dose: 1,800 units/hr, 36 mls/hr Labetalol HCl (Normodyne) 10 mg IV Q4H PRN PRN Reason: Keep SBP > 185 Simvastatin (Zocor) 20 mg PO QHS GRICELDA Last Admin: 02/09/17 22:10 Dose: 20 mg Sodium Chloride (Sodium Chloride Flush Syringe 10 Ml) 10 ml IV PRN GRICELDA Sodium Chloride (Sodium Chloride Flush Syringe 10 Ml) 10 ml IV PRN GRICELDA Review of Systems Constitutional: no fever, no chills Ears, nose, mouth and throat: no ear pain, no ear discharge, no sore throat Cardiovascular: shortness of breath, no chest pain, no orthopnea, no palpitations, no lightheadedness Respiratory: shortness of breath, no cough, no hemoptysis Gastrointestinal: no abdominal pain, no nausea, no vomiting, no diarrhea, no constipation Genitourinary Female: no dysuria, no urinary frequency Rectal: no pain, no bleeding Musculoskeletal: no neck stiffness, no neck pain, no myalgias Integumentary: no rash, no pruritis Neurological: weakness (left-sided), no headaches Endocrine: no cold intolerance, no heat intolerance Allergic/Immunologic: no urticaria, no wheezing Physical Examination Vital Signs Last Vital Signs Temp 97.7 F 02/10/17 04:00 Pulse 91 H 02/10/17 12:31 Resp 22 02/10/17 12:31 BP 82/61 02/10/17 12:31 Pulse Ox 100 02/10/17 12:31 General appearance: no acute distress HEENT: Positive: EOMI, Normocephaly, Mucus Membranes Moist Neck: Positive: neck supple, trachea midline Cardiac: Positive: Reg Rate and Rhythm, S1/S2 Lungs: Positive: clear to auscultation Neuro: Positive: Other (left hemiparesis) Abdomen: Positive: Soft, Active Bowel Sounds. Negative: Tender Skin: Positive: Clear. Negative: Rash Musculoskeletal: Normal Range of Motion Extremities: Present: +1 Edema (nonpitting bilateral leg edema) Results 02/09/17 16:26 02/08/17 18:45 Coagulation 02/09/17 Range/Units 16:26 PT 15.8 H (12.2-14.9) Sec. INR 1.20 H (0.87-1.13) APTT 27.5 (24.2-36.6) Sec. CBC 02/09/17 Range/Units 16:26 Hgb 10.9 (10.1-14.3) gm/dl Hct 33.7 (30.3-42.9) % Plt Count 201 (140-440) K/mm3 - Imaging and Cardiology EKG: image reviewed EKG interpretations - Telemetry EKG Rhythm: Sinus Rhythm - EKG Sinus rhythms and dysrhythmias: sinus rhythm Repolarization changes or abnormalities: ST or T wave suggestive of ischemia Assessment and Plan IV fluids and vasopressor support as necessary. Await venous Doppler study findings to assess for possible DVT. Obtain echocardiogram. - Patient Problems (1) Acute massive pulmonary embolism Current Visit: Yes Status: Acute (2) Stroke Current Visit: Yes Status: Acute Qualifiers: CVA mechanism: embolism Precerebral and cerebral artery: P Laterality of affected vessel: L (3) Hypotension Current Visit: Yes Status: Acute Qualifiers: Hypotension type: H Trimester: T (4) Morbid obesity Current Visit: Yes Status: Chronic
[2017-02-10] MEDS: SUBLIMAZE IV PRN (16:35)
[2017-02-10] MEDS: ZOCOR PO SCH (21:49)
[2017-02-11] MEDS: SUBLIMAZE IV PRN ×2 (00:25→12:36)
[2017-02-11] MEDS: BENADRYL IV PRN (01:28)
[2017-02-11] MEDS: HEPARIN/ 0.45% NACL-25,000 UNIT/500 ML 25,000 UNIT/500 ML BAG IV SCH (01:29)
[2017-02-11 05:32] LABS: Hematocrit 29.4 % (30.3-42.9); Hemoglobin 9.6 gm/dl (10.1-14.3)
--- NOTE | 2017-02-11 09:36 | Consultation ---
History of Present Illness - Reason for Consult Consult date: 02/11/17 stroke - History of Present Illness patient seen and assessed, she still has left sided arm weakness and more alert per daughter suspect from reviewing the EMS notes she has stroke prior to admission and this is residual weakness doubt she has had [place] I will follow up full note dictated Thanks for consult Past History Past Medical History: arthritis, GERD, hypertension, other (pre diabetes) Past Surgical History: hysterectomy Social history: . denies: smoking, alcohol abuse, prescription drug abuse Family history: no significant family history Medications and Allergies Allergies Allergy/AdvReac Type Severity Reaction Status Date / Time aspirin Allergy hives, Verified 09/28/16 09:44 itching codeine Allergy hives, Verified 09/28/16 09:44 itching Home Medications Medication Instructions Recorded Confirmed Last Taken Type Cyclobenzaprine [Flexeril] 10 mg PO TID PRN 09/28/16 10/05/16 09/28/16 History Ergocalciferol(Vitamin D2)(Nf) 50,000 unit PO Q7D 09/28/16 10/05/16 09/29/16 History [Vitamin D (Nf)] Acetaminophen [Acetaminophen 8 650 mg PO Q6H PRN 10/05/16 10/05/16 10/02/16 History Hour] Ibuprofen [Motrin] 800 mg PO Q8HR PRN #30 tablet 10/05/16 Unknown Rx Active Meds: Active Medications Albuterol (Proventil) 2.5 mg IH Q3HRT PRN PRN Reason: Shortness Of Breath Diphenhydramine HCl (Benadryl) 25 mg IV Q6H PRN PRN Reason: Itching Last Admin: 02/11/17 01:28 Dose: 25 mg Fentanyl (Sublimaze) 50 mcg IV Q4HR PRN PRN Reason: Pain Last Admin: 02/11/17 00:25 Dose: 50 mcg Sodium Chloride (Nacl 0.9% 1000 Ml) 1,000 mls @ 30 mls/hr IV DIRECT GRICELDA Vasopressin 20 unit/ Sodium (Chloride) 101 mls @ 9.09 mls/hr IV TITR GRICELDA; 0.03 UNITS/MIN PRN Reason: Protocol Norepinephrine 8 mg/ Sodium (Chloride) 250 mls @ 3.75 mls/hr IV TITR GRICELDA; 2 MCG /MIN PRN Reason: Protocol Sodium Chloride (Nacl 0.9% 500 Ml) 500 mls @ 1 mls/hr IV DIRECT PRN PRN Reason: ARTERIAL LINE FLUSH Heparin Sodium/Sodium Chloride (Heparin/ 0.45% Nacl-25,000 Unit/500 Ml) 25,000 unit in 500 mls @ 30 mls/hr IV TITR GRICELDA; 1,500 UNITS/HR PRN Reason: Protocol Last Admin: 02/11/17 01:29 Dose: 1,800 units/hr, 36 mls/hr Labetalol HCl (Normodyne) 10 mg IV Q4H PRN PRN Reason: Keep SBP > 185 Simvastatin (Zocor) 20 mg PO QHS GRICELDA Last Admin: 02/10/17 21:49 Dose: 20 mg Sodium Chloride (Sodium Chloride Flush Syringe 10 Ml) 10 ml IV PRN GRICELDA Sodium Chloride (Sodium Chloride Flush Syringe 10 Ml) 10 ml IV PRN GRICELDA Exam - Constitutional Vitals: Temp Pulse Resp BP Pulse Ox 98.1 F 85 19 118/55 99 02/11/17 08:00 02/11/17 09:00 02/11/17 09:00 02/11/17 09:00 02/11/17 09:00 Results - Labs CBC & Chem 7: 02/11/17 04:00 02/08/17 18:45 Labs: Abnormal lab results 02/10/17 02/10/17 02/11/17 Range/Units 09:35 21:14 04:00 Hgb 9.6 L (10.1-14.3) gm/dl Hct 29.4 L (30.3-42.9) % Heparin Anti-Xa Level 0.19 L (0.3-0.7) U.I./ml POC Glucose 143 H (70-105)
--- NOTE | 2017-02-11 10:16 | Progress Note ---
Assessment and Plan 66 y/o, morbidly obese female, admitted with hypoxemia, acute respiratory failure, secondary to large bilateral pulmonary emboli status post EKOS therapy. 1. Continue to wean FiO2 as tolerated. COntinue PRN PPV at night 2. Ordered Fent for Pain with some Benadryl for itching 3. Needs hypercoag work up LE dopplers done this am and positive for DVT. Still needs heme follow up and hypercoag work up. 4. COntinue bipap therapy for now, wean FiO2 for sats >88%. Patient has many risk factors for ALTAGRACIA. May be a candidate for home trilogy at discharge 5. Nursing now able to get BP's on leg. Stable. 6. Stable for transfer from a critical care standpoint. Subjective Date of service: 02/11/17 Interval history: Transfer orders placed yesterday but appears no beds were available. Breathing is stable this am. [facility] [place] has ordered MRI secondary to stroke like symptoms but patient too large for table. Her initial presentation was stroke like symptoms but clinically she deteriorated and PE was found. Objective Vital Signs - 12hr 02/10/17 02/10/17 02/11/17 23:00 23:16 00:00 Temperature 97.8 F Pulse Rate 94 H 98 H Pulse Rate [ 90 From Monitor] Respiratory 22 22 Rate Blood Pressure 130/58 131/53 O2 Sat by Pulse 100 100 Oximetry 02/11/17 02/11/17 02/11/17 00:54 01:00 02:00 Temperature Pulse Rate 91 H 88 Pulse Rate [ From Monitor] Respiratory 28 H 23 Rate Blood Pressure 122/56 130/63 O2 Sat by Pulse 100 99 100 Oximetry 02/11/17 02/11/17 02/11/17 03:00 03:40 04:00 Temperature 98 F Pulse Rate 85 86 Pulse Rate [ From Monitor] Respiratory 27 H 18 Rate Blood Pressure 136/63 139/60 O2 Sat by Pulse 98 95 Oximetry 02/11/17 02/11/17 02/11/17 05:00 06:00 07:00 Temperature Pulse Rate 87 82 86 Pulse Rate [ From Monitor] Respiratory 24 23 13 Rate Blood Pressure 127/61 126/63 140/62 O2 Sat by Pulse 99 Oximetry 02/11/17 02/11/17 02/11/17 07:55 08:00 09:00 Temperature 98.1 F Pulse Rate 93 H 85 Pulse Rate [ From Monitor] Respiratory 14 19 Rate Blood Pressure 128/56 118/55 O2 Sat by Pulse 97 98 99 Oximetry Constitutional: no acute distress, alert, other (morbidly obese) Eyes: non-icteric ENT: oropharynx dry, other (has a full face mask bipap on.) Neck: other (large in circumference) Effort: normal Ascultation: Bilateral: diminished breath sounds (secondary to body habitus) Cardiovascular: regular rate and rhythm Gastrointestinal: soft, other (morbidly obese) Extremities: other (morbid obesity) Neurologic: normal mental status, other (per nursing complains of numbness on the right, did not express this to me) Psychiatric: mood appropriate CBC and BMP: 02/11/17 04:00 02/08/17 18:45 ABG, PT/INR, D-dimer: ABG POC ABG pH 7.346 (7.35-7.45) L 02/08/17 21:14 POC ABG pCO2 37.1 (35-45) 02/08/17 21:14 POC ABG pO2 72 (80-105) L 02/08/17 21:14 POC ABG HCO3 20.3 02/08/17 21:14 POC ABG Total CO2 21 02/08/17 21:14 POC ABG O2 Sat 93 02/08/17 21:14 PT/INR, D-dimer PT 15.8 Sec. (12.2-14.9) H 02/09/17 16:26 INR 1.20 (0.87-1.13) H 02/09/17 16:26 Abnormal lab findings: Abnormal Labs 02/08/17 02/08/17 02/08/17 18:45 18:45 18:45 WBC 18.5 H Hgb Hct MCV 75 L MCH 24 L RDW 16.3 H Lymph % (Auto) 5.6 L Lymph # 1.0 L [place] # 1.2 H Seg Neutrophils % 88.0 H Seg Neutrophils # 16.3 H PT 17.8 H INR 1.39 H APTT 75.0 H* Heparin Anti-Xa Level POC ABG pH POC ABG pO2 Creatinine 0.4 L Glucose 131 H POC Glucose 02/08/17 02/09/17 02/10/17 21:14 16:26 00:28 WBC Hgb Hct MCV MCH RDW Lymph % (Auto) Lymph # [place] # Seg Neutrophils % Seg Neutrophils # PT 15.8 H INR 1.20 H APTT Heparin Anti-Xa Level POC ABG pH 7.346 L POC ABG pO2 72 L Creatinine Glucose POC Glucose 118 H 02/10/17 02/10/17 02/10/17 00:35 09:35 21:14 WBC Hgb Hct MCV MCH RDW Lymph % (Auto) Lymph # [place] # Seg Neutrophils % Seg Neutrophils # PT INR APTT Heparin Anti-Xa Level 0.26 L 0.19 L POC ABG pH POC ABG pO2 Creatinine Glucose POC Glucose 143 H 02/11/17 04:00 WBC Hgb 9.6 L Hct 29.4 L MCV MCH RDW Lymph % (Auto) Lymph # [place] # Seg Neutrophils % Seg Neutrophils # PT INR APTT Heparin Anti-Xa Level POC ABG pH POC ABG pO2 Creatinine Glucose POC Glucose
--- NOTE | 2017-02-11 11:46 | Cat Scan Report ---
CTA HEAD: HISTORY: CVA. TECHNIQUE: Helical CT images after IV contrast with 0.625mm reformations. Sagittal and coronal reformats. Rotational MIP images. 3D volume rendering technique. NASCET criteria was utilized. FINDINGS: The distal internal carotid arteries, anterior cerebral arteries and middle cerebral arteries are patent with no evidence for stenosis or occlusion. There is loss of endovascular enhancement in the right SKIN FITTER approximately 3 cm from its origin. This is suspicious for occlusion. The remainder of the vertebrobasilar system is widely patent. There is an approximate 1.5 cm area of diminished attenuation in the posterolateral right thalamus concerning for an ischemic infarct. IMPRESSION: High grade stenosis or occlusion of the right SKIN FITTER is suspected as outlined above. Probable 1.5 cm right thalamic ischemic infarct.
[2017-02-11 12:48] LABS: Hematocrit 29.4 % (30.3-42.9); Hemoglobin 9.6 gm/dl (10.1-14.3); Mean Corpuscular HGB Conc 33 % (30-34); Mean Corpuscular Volume 74 fl (79-97); Platelet Count 197 K/mm3 (140-440); Red Blood Count 3.97 M/mm3 (3.65-5.03); Red Cell Distribution Width 16.4 % (13.2-15.2); White Blood Count 9.5 K/mm3 (4.5-11.0)
[2017-02-11 12:50] LABS: Mean Corpuscular Hemoglobin 24 pg (28-32)
--- NOTE | 2017-02-11 12:55 | Progress Note ---
Assessment and Plan Assessment and plan: 66-year-old female with a past medical history of hypertension, borderline diabetes, and obesity presents to the hospital with strokelike symptoms. Patient was being assisted by her daughter when suddenly she had generalized weakness with left-sided weakness reported. She complains of difficulty swallowing. EMS reports left facial droop since and persistent left arm weakness. Acute ischemic CVA with infarct patient has a probable PFO, most likely embolic CVA on anticoagulation carotid dopplers does not show any significant stenosis Will need official VINH, cardiology consult, Neurology consult continue CVA protocol, unable to get MRI to weight limit of the machine * CT angiogram of the head shows high-grade stenosis of the SPRING MAKER, and 1.5 cm right thalamic ischemic infarct allow permissive hypertension continue heparin drip -LDL 157, change to a more potent statin Acute Bilateral Massive PE and DVT -sp EKOS - LE dopplers show ACUTE DVT NOTED IN RT. DS SFV, POP. V AND PX PTV continue heparin drip Acute Hypoxic Respiratory failure -Continue bipap therapy for now, wean FiO2 for sats >89%. Patient has many risk factors for ALTAGRACIA. Pulmonary impression appreciated metabolic encephalopathy Supportive care, continue to monitor most likely due to acute CVA HTN * Allow permissive hypertension due to acute CVA [place] obesity * Nutrition consult The high probability of a clinically significant, sudden or life threatening deterioration of the [cardiovascular, neurologic, pulmonary] system(s) required my full and direct attention, intervention and personal management. The aggregate critical care time was [35] minutes. This time is in addition to time spent performing reported procedures but includes the following: [] Data Review and interpretation [] Patient assessment and monitoring of vital signs [] Documentation [] Medication orders and management History Interval history: Continues to have left sided weakness worse in her left arm, slurred speech. Hospitalist Physical - Physical exam Narrative exam: General: Patient appears well in no distress, obese HEENT: MMM, EOMI cardiac: S1-S2 heard lungs: clear to auscultation, abdomen: soft, nontender, nondistended bowel sounds positive extremities: no edema clubbing or cyanosis Skin: no rash or lesion Neuro: Left hemiparesis, worse in upper extremity, slurred speech Psych: appropriate behavior and mood, cognition intact - Constitutional Vitals: Temp Pulse Resp BP Pulse Ox 98.1 F 87 20 109/52 100 02/11/17 08:00 02/11/17 10:35 02/11/17 10:00 02/11/17 10:00 02/11/17 10:00 General appearance: Present: no acute distress Results - Labs CBC & Chem 7: 02/11/17 04:00 02/08/17 18:45 Labs: Laboratory Last Values WBC 18.5 K/mm3 (4.5-11.0) H 02/08/17 18:45 RBC 4.98 M/mm3 (3.65-5.03) 02/08/17 18:45 Hgb 9.6 gm/dl (10.1-14.3) L 02/11/17 04:00 Hct 29.4 % (30.3-42.9) L 02/11/17 04:00 MCV 75 fl (79-97) L 02/08/17 18:45 MCH 24 pg (28-32) L 02/08/17 18:45 MCHC 32 % (30-34) 02/08/17 18:45 RDW 16.3 % (13.2-15.2) H 02/08/17 18:45 Plt Count 198 K/mm3 (140-440) 02/11/17 04:00 Lymph % (Auto) 5.6 % (13.4-35.0) L 02/08/17 18:45 [place] % (Auto) 6.2 % (0.0-7.3) 02/08/17 18:45 Eos % (Auto) 0.0 % (0.0-4.3) 02/08/17 18:45 Baso % (Auto) 0.2 % (0.0-1.8) 02/08/17 18:45 Lymph # 1.0 K/mm3 (1.2-5.4) L 02/08/17 18:45 [place] # 1.2 K/mm3 (0.0-0.8) H 02/08/17 18:45 Eos # 0.0 K/mm3 (0.0-0.4) 02/08/17 18:45 Baso # 0.0 K/mm3 (0.0-0.1) 02/08/17 18:45 Seg Neutrophils % 88.0 % (40.0-70.0) H 02/08/17 18:45 Seg Neutrophils # 16.3 K/mm3 (1.8-7.7) H 02/08/17 18:45 PT 15.8 Sec. (12.2-14.9) H 02/09/17 16:26 INR 1.20 (0.87-1.13) H 02/09/17 16:26 APTT 27.5 Sec. (24.2-36.6) 02/09/17 16:26 Thrombin Time 17.6 Sec. (15.1-19.6) 02/08/17 09:25 Fibrinogen 375 mg/dl (211-480) 02/08/17 18:45 Heparin Anti-Xa Level 0.33 U.I./ml (0.3-0.7) 02/10/17 17:27 POC ABG pH 7.346 (7.35-7.45) L 02/08/17 21:14 POC ABG pCO2 37.1 (35-45) 02/08/17 21:14 POC ABG pO2 72 (80-105) L 02/08/17 21:14 POC ABG HCO3 20.3 02/08/17 21:14 POC ABG Total CO2 21 02/08/17 21:14 POC ABG O2 Sat 93 02/08/17 21:14 POC ABG Base Excess -5 02/08/17 21:14 VBG pH 7.283 (7.320-7.420) L 02/08/17 14:49 FiO2 85 % 02/08/17 21:14 Sodium 141 mmol/L (137-145) 02/08/17 18:45 Potassium 3.7 mmol/L (3.6-5.0) D 02/08/17 18:45 Chloride 103.7 mmol/L (98-107) 02/08/17 18:45 Carbon Dioxide 22 mmol/L (22-30) 02/08/17 18:45 Anion Gap 19 mmol/L 02/08/17 18:45 BUN 9 mg/dL (7-17) 02/08/17 18:45 Creatinine 0.4 mg/dL (0.7-1.2) L 02/08/17 18:45 Estimated GFR > 60 ml/min 02/08/17 18:45 BUN/Creatinine Ratio 22.50 % 02/08/17 18:45 Glucose 131 mg/dL (65-100) H 02/08/17 18:45 POC Glucose 143 (70-105) H 02/10/17 21:14 Lactic Acid 1.80 mmol/L (0.7-2.0) 02/08/17 22:10 Calcium 9.0 mg/dL (8.4-10.2) 02/08/17 18:45 Total Creatine Kinase 144 units/L (30-135) H 02/08/17 12:00 CK-MB (CK-2) 2.1 ng/mL (0.0-4.0) 02/08/17 12:00 CK-MB (CK-2) Rel Index 1.4 (0-4) 02/08/17 12:00 Troponin T 0.046 ng/mL (0.00-0.029) H D 02/08/17 12:00 Triglycerides 74 mg/dL (2-149) 02/08/17 12:00 Cholesterol 206 mg/dL (50-199) H 02/08/17 12:00 LDL Cholesterol Direct 157 mg/dL (50-130) H 02/08/17 12:00 HDL Cholesterol 35 mg/dL (40-59) L 02/08/17 12:00 Cholesterol/HDL Ratio 5.88 % 02/08/17 12:00 Urine Color Straw (Yellow) 02/08/17 14:15 Urine Turbidity Clear (Clear) 02/08/17 14:15 Urine pH 6.0 (5.0-7.0) 02/08/17 14:15 Ur Specific [place] 1.025 (1.003-1.030) 02/08/17 14:15 Urine Protein 30 mg/dl mg/dL (Negative) 02/08/17 14:15 Urine Glucose (UA) 150 mg/dL (Negative) 02/08/17 14:15 Urine Ketones Tr mg/dL (Negative) 02/08/17 14:15 Urine Blood Mod (Negative) 02/08/17 14:15 Urine Nitrite Neg (Negative) 02/08/17 14:15 Urine Bilirubin Neg (Negative) 02/08/17 14:15 Urine Urobilinogen < 2.0 mg/dL (<2.0) 02/08/17 14:15 Ur Leukocyte Esterase Neg (Negative) 02/08/17 14:15 Urine WBC (Auto) 2.0 /HPF (0.0-6.0) 02/08/17 14:15 Urine RBC (Auto) 5.0 /HPF (0.0-6.0) 02/08/17 14:15 U Epithel Cells (Auto) < 1.0 /HPF (0-13.0) 02/08/17 14:15 Urine Mucus Few /HPF 02/08/17 14:15 Blood Type O POSITIVE 02/08/17 14:40 Antibody Screen Negative 02/08/17 14:40 - Imaging and Cardiology CT Scan - head: image reviewed (SPRING MAKER stenosis, thalamic ischemic infarct)
[2017-02-11 13:06] LABS: Anion Gap 15 mmol/L; BUN/Creatinine Ratio 16.66; Blood Urea Nitrogen 5 mg/dL (7-17); Calcium 8.9 mg/dL (8.4-10.2); Carbon Dioxide 28 mmol/L (22-30); Chloride 99.8 mmol/L (98-107); Glucose 121 mg/dL (65-100); Sodium 140 mmol/L (137-145)
[2017-02-11 13:10] LABS: Potassium 2.9 mmol/L (3.6-5.0)
[2017-02-11] MEDS: KCL 20MEQ/100ML 20 MEQ/100 ML BAG IV SCH ×3 (14:38→18:45)
--- NOTE | 2017-02-11 17:22 | Progress Note ---
Assessment and Plan Echo is pending. Continue other management. - Patient Problems (1) Acute massive pulmonary embolism Current Visit: Yes Status: Acute (2) Stroke Current Visit: Yes Status: Acute Qualifiers: CVA mechanism: embolism Precerebral and cerebral artery: P Laterality of affected vessel: L (3) Hypotension Current Visit: Yes Status: Resolved Qualifiers: Hypotension type: H Trimester: T (4) Morbid obesity Current Visit: Yes Status: Chronic (5) Acute DVT (deep venous thrombosis) Current Visit: Yes Status: Acute Qualifiers: DVT location: lower extremity Affected thrombotic vein of extremity: popliteal Laterality: right Qualified Code(s): I82.431 - Acute embolism and thrombosis of right popliteal vein Subjective Date of service: 02/11/17 Principal diagnosis: Massive PE, CVA, Hypotension, RLE DVT, Morbid Obesity Interval history: She complains of right knee pain. Objective Vital Signs Temp Pulse Pulse Resp BP Pulse Ox 02/11/17 12:00 98.6 F 86 17 02/11/17 11:06 91 H 21 02/11/17 10:35 87 02/11/17 10:00 89 20 109/52 100 02/11/17 09:00 85 19 118/55 99 02/11/17 08:10 92 H 12 100 02/11/17 08:00 98.1 F 93 H 14 128/56 98 02/11/17 07:55 97 02/11/17 07:00 86 13 140/62 02/11/17 06:00 82 23 126/63 02/11/17 05:00 87 24 127/61 99 02/11/17 04:00 86 18 139/60 95 02/11/17 03:40 98 F 02/11/17 03:00 85 27 H 136/63 98 02/11/17 02:00 88 23 130/63 100 02/11/17 01:00 91 H 28 H 122/56 99 02/11/17 00:54 100 02/11/17 00:00 98 H 90 22 131/53 100 02/10/17 23:16 97.8 F 02/10/17 23:00 94 H 22 130/58 100 02/10/17 22:00 94 H 25 H 130/58 100 02/10/17 21:23 100.0 F H 02/10/17 21:22 92 H 23 121/56 100 02/10/17 21:00 94 H 22 121/56 100 02/10/17 20:15 101 H 22 100 02/10/17 20:00 101 H 22 121/61 100 02/10/17 19:47 100.4 F H 02/10/17 19:46 100 02/10/17 19:00 94 H 25 H 122/48 100 02/10/17 18:00 97 H 18 131/49 100 - Physical Examination General: No Apparent Distress HEENT: Positive: EOMI, Normocephaly, Mucus Membranes Moist Neck: Positive: neck supple, trachea midline Cardiac: Positive: Reg Rate and Rhythm, S1/S2 Lungs: Positive: clear to auscultation Neuro: Positive: Other (left hemiparesis) Abdomen: Positive: Soft, Active Bowel Sounds. Negative: Tender Skin: Positive: Clear. Negative: Rash Musculoskeletal: Normal Range of Motion Extremities: Present: +1 Edema (nonpitting bilateral leg edema) - Labs and Meds CBC 02/11/17 02/11/17 Range/Units 04:00 12:25 WBC 9.5 (4.5-11.0) K/mm3 RBC 3.97 (3.65-5.03) M/mm3 Hgb 9.6 L 9.6 L (10.1-14.3) gm/dl Hct 29.4 L 29.4 L (30.3-42.9) % Plt Count 198 197 (140-440) K/mm3 Comprehensive Metabolic Panel 02/11/17 Range/Units 09:23 Sodium 140 (137-145) mmol/L Potassium 2.9 L* D (3.6-5.0) mmol/L Chloride 99.8 (98-107) mmol/L Carbon Dioxide 28 (22-30) mmol/L BUN 5 L (7-17) mg/dL Creatinine 0.3 L (0.7-1.2) mg/dL Glucose 121 H (65-100) mg/dL Calcium 8.9 (8.4-10.2) mg/dL - Imaging and Cardiology EKG: image reviewed - Telemetry EKG Rhythm: Sinus Rhythm - EKG Sinus rhythms and dysrhythmias: sinus rhythm Repolarization changes or abnormalities: ST or T wave suggestive of ischemia
[2017-02-11] MEDS: MORPHINE IV PRN (18:53)
[2017-02-12] MEDS: MORPHINE IV PRN ×3 (00:50→21:59)
[2017-02-12] MEDS: SENOKOT S PO SCH ×3 (00:51→21:58)
--- NOTE | 2017-02-12 00:57 | Consultation ---
HISTORY OF PRESENT ILLNESS: The patient is a 66-year-old black female, who enters [facility] as emergency admission for possible stroke. She is admitted with onset of left-sided weakness, severe headache. Review of the EMS notes revealed that the patient was transported here because of acute onset symptomatology, presented to the Emergency Room with symptoms of stroke. She was noted to have left-sided weakness, complaining of headache and on reviewing the EMS note, the patient had a left facial droop, unable to move the left side. The patient was apparently week had undergone evaluation because of right shoulder pain, was found to have degenerative arthritis of the right shoulder. 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 She has been under the care of orthopedic physician, but has not had any followup appointments recently. PHYSICAL EXAMINATION: VITAL SIGNS: On my examination, her blood pressure is 114/80, pulse rate 80, respirations 18. 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 The lower extremity examination is extremely difficult because she has advanced arthritis in knees and ankles. She has symmetrical smile. She has no dyan-field deficits. She recognizes her daughter well, who is sitting to her left side. She responds to simple questions well, is not disoriented, is not agitated. No seizure activity is present. The patient's ocular movements are full. Cranial nerves are intact with hearing intact. I do not find any facial asymmetry at this time. IMPRESSION: Based on the history, the patient has had a prior stroke involving her left side, new onset of weakness on the left side, but that recently she had gone to the Emergency Room with weakness of her right arm, which was detected to be due to osteolytic lesion in the right shoulder, based on the daughter's description, but in addition, she was not very ambulatory because of advanced arthritis in knees and ankles making the examination and conclusions somewhat difficult to arrive at. PLAN: To review her imaging studies and follow the patient with you. JOB# [id number] ALEXA/NTS
[2017-02-12] MEDS: NACL 0.9% 1000 ML 1,000 ML IV SCH (01:02)
[2017-02-12] MEDS: HEPARIN/ 0.45% NACL-25,000 UNIT/500 ML 25,000 UNIT/500 ML BAG IV SCH ×2 (05:38→19:39)
[2017-02-12 11:55] LABS: Blood Urea Nitrogen 6 mg/dL (7-17); Calcium 8.9 mg/dL (8.4-10.2); Carbon Dioxide 25 mmol/L (22-30); Glucose 117 mg/dL (65-100)
[2017-02-12 11:56] LABS: Anion Gap 17 mmol/L; Chloride 99.2 mmol/L (98-107); Potassium 3.4 mmol/L (3.6-5.0); Sodium 138 mmol/L (137-145)
--- NOTE | 2017-02-12 13:30 | Progress Note ---
Assessment and Plan Consider initiation of oral anticoagulation tomorrow, possibly factor Xa inhibitor or vitamin K antagonist. - Patient Problems (1) Acute massive pulmonary embolism Current Visit: Yes Status: Acute (2) Stroke Current Visit: Yes Status: Acute Qualifiers: CVA mechanism: embolism Precerebral and cerebral artery: P Laterality of affected vessel: L (3) Hypotension Current Visit: Yes Status: Resolved Qualifiers: Hypotension type: H Trimester: T (4) Morbid obesity Current Visit: Yes Status: Chronic (5) Acute DVT (deep venous thrombosis) Current Visit: Yes Status: Acute Qualifiers: DVT location: lower extremity Affected thrombotic vein of extremity: popliteal Laterality: right Qualified Code(s): I82.431 - Acute embolism and thrombosis of right popliteal vein Subjective Date of service: 02/12/17 Principal diagnosis: Massive PE, CVA, Hypotension, RLE DVT, Morbid Obesity Interval history: She complains of bilateral knee pain, more so in the right knee. Objective Vital Signs Temp Pulse Resp BP Pulse Ox 02/12/17 08:15 99.1 F 93 H 22 120/55 100 02/12/17 00:00 107 H 28 H 99 02/11/17 22:44 18 02/11/17 19:58 97 02/11/17 18:10 98 02/11/17 17:00 98.0 F 54 L 20 119/60 98 - Physical Examination General: No Apparent Distress HEENT: Positive: EOMI, Normocephaly, Mucus Membranes Moist Neck: Positive: neck supple, trachea midline Cardiac: Positive: Reg Rate and Rhythm, S1/S2 Lungs: Positive: clear to auscultation Neuro: Positive: Other (left hemiparesis) Abdomen: Positive: Soft, Active Bowel Sounds. Negative: Tender Skin: Positive: Clear. Negative: Rash Musculoskeletal: Normal Range of Motion Extremities: Present: +1 Edema (nonpitting bilateral leg edema) - Labs and Meds Comprehensive Metabolic Panel 02/12/17 Range/Units 11:04 Sodium 138 (137-145) mmol/L Potassium 3.4 L (3.6-5.0) mmol/L Chloride 99.2 (98-107) mmol/L Carbon Dioxide 25 (22-30) mmol/L BUN 6 L (7-17) mg/dL Creatinine 0.3 L (0.7-1.2) mg/dL Glucose 117 H (65-100) mg/dL Calcium 8.9 (8.4-10.2) mg/dL - Imaging and Cardiology EKG: image reviewed - EKG Sinus rhythms and dysrhythmias: sinus rhythm Repolarization changes or abnormalities: ST or T wave suggestive of ischemia
--- NOTE | 2017-02-12 13:47 | Progress Note ---
Assessment and Plan Assessment and plan: 66-year-old female with a past medical history of hypertension, borderline diabetes, and obesity presents to the hospital with strokelike symptoms. Patient was being assisted by her daughter when suddenly she had generalized weakness with left-sided weakness reported. She complains of difficulty swallowing. EMS reports left facial droop since and persistent left arm weakness. Acute ischemic CVA with infarct patient has a probable PFO, most likely embolic CVA on anticoagulation carotid dopplers does not show any significant stenosis Will need official VINH, cardiology consult, Neurology consult continue CVA protocol, unable to get MRI to weight limit of the machine * CT angiogram of the head shows high-grade stenosis of the [employer], and 1.5 cm right thalamic ischemic infarct optimize BP, out of window for permissive htn continue heparin drip -LDL 157, continue statin Acute Bilateral Massive PE and DVT -sp EKOS - LE dopplers show ACUTE DVT NOTED IN RT. DS SFV, POP. V AND PX PTV continue heparin drip Acute Hypoxic Respiratory failure -Continue bipap therapy for now, wean FiO2 for sats >89%. Patient has many risk factors for ALTAGRACIA. Pulmonary impression appreciated metabolic encephalopathy Supportive care, continue to monitor most likely due to acute CVA, now improved Hypokalemia repleted Acute blood loss anemia expected post surgical outcome, stable, continue to monitor HTN * Allow permissive hypertension due to acute CVA Mobrid obesity * Nutrition consult OA of R shoulder and Bilateral Knees * pain control * outpatient orthopedic sx fup, she already has appt History Interval history: Continues to have left sided weakness worse in her left arm, slurred speech. Hospitalist Physical - Physical exam Narrative exam: General: Patient appears well in no distress, obese HEENT: MMM, EOMI cardiac: S1-S2 heard lungs: clear to auscultation, abdomen: soft, nontender, nondistended bowel sounds positive extremities: no edema clubbing or cyanosis Skin: no rash or lesion Neuro: Left hemiparesis, worse in upper extremity, slurred speech Psych: appropriate behavior and mood, cognition intact - Constitutional Vitals: Temp Pulse Resp BP Pulse Ox 99.1 F 93 H 22 120/55 100 02/12/17 08:15 02/12/17 08:15 02/12/17 08:15 02/12/17 08:15 02/12/17 08:15 General appearance: Present: no acute distress Results - Labs CBC & Chem 7: 02/11/17 12:25 02/12/17 11:04 Labs: Laboratory Last Values WBC 9.5 K/mm3 (4.5-11.0) 02/11/17 12:25 RBC 3.97 M/mm3 (3.65-5.03) 02/11/17 12:25 Hgb 9.6 gm/dl (10.1-14.3) L 02/11/17 12:25 Hct 29.4 % (30.3-42.9) L 02/11/17 12:25 MCV 74 fl (79-97) L 02/11/17 12:25 MCH 24 pg (28-32) L 02/11/17 12:25 MCHC 33 % (30-34) 02/11/17 12:25 RDW 16.4 % (13.2-15.2) H 02/11/17 12:25 Plt Count 197 K/mm3 (140-440) 02/11/17 12:25 Lymph % (Auto) 5.6 % (13.4-35.0) L 02/08/17 18:45 [place] % (Auto) 6.2 % (0.0-7.3) 02/08/17 18:45 Eos % (Auto) 0.0 % (0.0-4.3) 02/08/17 18:45 Baso % (Auto) 0.2 % (0.0-1.8) 02/08/17 18:45 Lymph # 1.0 K/mm3 (1.2-5.4) L 02/08/17 18:45 [place] # 1.2 K/mm3 (0.0-0.8) H 02/08/17 18:45 Eos # 0.0 K/mm3 (0.0-0.4) 02/08/17 18:45 Baso # 0.0 K/mm3 (0.0-0.1) 02/08/17 18:45 Seg Neutrophils % 88.0 % (40.0-70.0) H 02/08/17 18:45 Seg Neutrophils # 16.3 K/mm3 (1.8-7.7) H 02/08/17 18:45 PT 15.8 Sec. (12.2-14.9) H 02/09/17 16:26 INR 1.20 (0.87-1.13) H 02/09/17 16:26 APTT 27.5 Sec. (24.2-36.6) 02/09/17 16:26 Thrombin Time 17.6 Sec. (15.1-19.6) 02/08/17 09:25 Fibrinogen 375 mg/dl (211-480) 02/08/17 18:45 Heparin Anti-Xa Level 0.42 U.I./ml (0.3-0.7) 02/11/17 17:28 POC ABG pH 7.346 (7.35-7.45) L 02/08/17 21:14 POC ABG pCO2 37.1 (35-45) 02/08/17 21:14 POC ABG pO2 72 (80-105) L 02/08/17 21:14 POC ABG HCO3 20.3 02/08/17 21:14 POC ABG Total CO2 21 02/08/17 21:14 POC ABG O2 Sat 93 02/08/17 21:14 POC ABG Base Excess -5 02/08/17 21:14 VBG pH 7.283 (7.320-7.420) L 02/08/17 14:49 FiO2 85 % 02/08/17 21:14 Sodium 138 mmol/L (137-145) 02/12/17 11:04 Potassium 3.4 mmol/L (3.6-5.0) L 02/12/17 11:04 Chloride 99.2 mmol/L (98-107) 02/12/17 11:04 Carbon Dioxide 25 mmol/L (22-30) 02/12/17 11:04 Anion Gap 17 mmol/L 02/12/17 11:04 BUN 6 mg/dL (7-17) L 02/12/17 11:04 Creatinine 0.3 mg/dL (0.7-1.2) L 02/12/17 11:04 Estimated GFR > 60 ml/min 02/12/17 11:04 BUN/Creatinine Ratio 20.00 % 02/12/17 11:04 Glucose 117 mg/dL (65-100) H 02/12/17 11:04 POC Glucose 93 (70-105) 02/11/17 12:18 Lactic Acid 1.80 mmol/L (0.7-2.0) 02/08/17 22:10 Calcium 8.9 mg/dL (8.4-10.2) 02/12/17 11:04 Magnesium 1.80 mg/dL (1.7-2.3) 02/11/17 09:23 Total Creatine Kinase 144 units/L (30-135) H 02/08/17 12:00 CK-MB (CK-2) 2.1 ng/mL (0.0-4.0) 02/08/17 12:00 CK-MB (CK-2) Rel Index 1.4 (0-4) 02/08/17 12:00 Troponin T 0.046 ng/mL (0.00-0.029) H D 02/08/17 12:00 Triglycerides 74 mg/dL (2-149) 02/08/17 12:00 Cholesterol 206 mg/dL (50-199) H 02/08/17 12:00 LDL Cholesterol Direct 157 mg/dL (50-130) H 02/08/17 12:00 HDL Cholesterol 35 mg/dL (40-59) L 02/08/17 12:00 Cholesterol/HDL Ratio 5.88 % 02/08/17 12:00 Urine Color Straw (Yellow) 02/08/17 14:15 Urine Turbidity Clear (Clear) 02/08/17 14:15 Urine pH 6.0 (5.0-7.0) 02/08/17 14:15 Ur Specific [place] 1.025 (1.003-1.030) 02/08/17 14:15 Urine Protein 30 mg/dl mg/dL (Negative) 02/08/17 14:15 Urine Glucose (UA) 150 mg/dL (Negative) 02/08/17 14:15 Urine Ketones Tr mg/dL (Negative) 02/08/17 14:15 Urine Blood Mod (Negative) 02/08/17 14:15 Urine Nitrite Neg (Negative) 02/08/17 14:15 Urine Bilirubin Neg (Negative) 02/08/17 14:15 Urine Urobilinogen < 2.0 mg/dL (<2.0) 02/08/17 14:15 Ur Leukocyte Esterase Neg (Negative) 02/08/17 14:15 Urine WBC (Auto) 2.0 /HPF (0.0-6.0) 02/08/17 14:15 Urine RBC (Auto) 5.0 /HPF (0.0-6.0) 02/08/17 14:15 U Epithel Cells (Auto) < 1.0 /HPF (0-13.0) 02/08/17 14:15 Urine Mucus Few /HPF 02/08/17 14:15 Blood Type O POSITIVE 02/08/17 14:40 Antibody Screen Negative 02/08/17 14:40
[2017-02-12] MEDS: PERCOCET 5/325 PO PRN (17:06)
--- NOTE | 2017-02-12 17:57 | Progress Note ---
Assessment and Plan Imp: 1. Acute pulm embolus with acute cor pulmonale 2. Acute DVT 3. 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 Morbid obesity, excess cals. Rec: 1. Cont. heparin -> Coumadin versus Eliquis or Xarelto; needs minimum of 6 months; consider heme evaluation for hypercoag work-up 2. Wean O2 to keep sats 88% or above 3. Not a candidate for Trilogy; no CO2 retention; needs outpatient PSG Plan of care reviewed w/ patient, she understands/agrees Subjective Date of service: 02/12/17 Principal diagnosis: Massive PE, CVA, Hypotension, RLE DVT, Morbid Obesity Interval history: No events. HD stable. On 4-5L NC. SOB better. No chest pain, cough, new complaints. Active Medications Albuterol (Proventil) 2.5 mg IH Q3HRT PRN PRN Reason: Shortness Of Breath Atorvastatin Calcium (Lipitor) 40 mg PO QHS GRICELDA Last Admin: 02/11/17 21:00 Dose: 40 mg Diphenhydramine HCl (Benadryl) 25 mg IV Q6H PRN PRN Reason: Itching Last Admin: 02/11/17 01:28 Dose: 25 mg Fentanyl (Sublimaze) 50 mcg IV Q4HR PRN PRN Reason: Pain Last Admin: 02/11/17 12:36 Dose: 50 mcg Sodium Chloride (Nacl 0.9% 1000 Ml) 1,000 mls @ 30 mls/hr IV DIRECT GRICELDA Last Admin: 02/12/17 01:02 Dose: 30 mls/hr Vasopressin 20 unit/ Sodium (Chloride) 101 mls @ 9.09 mls/hr IV TITR GRICELDA; 0.03 UNITS/MIN PRN Reason: Protocol Norepinephrine 8 mg/ Sodium (Chloride) 250 mls @ 3.75 mls/hr IV TITR GRICELDA; 2 MCG /MIN PRN Reason: Protocol Sodium Chloride (Nacl 0.9% 500 Ml) 500 mls @ 1 mls/hr IV DIRECT PRN PRN Reason: ARTERIAL LINE FLUSH Heparin Sodium/Sodium Chloride (Heparin/ 0.45% Nacl-25,000 Unit/500 Ml) 25,000 unit in 500 mls @ 30 mls/hr IV TITR GRICELDA; 1,500 UNITS/HR PRN Reason: Protocol Last Admin: 02/12/17 05:38 Dose: 1,800 units/hr, 36 mls/hr Morphine Sulfate (Morphine) 2 mg IV Q4H PRN PRN Reason: Pain, Moderate (4-6) Last Admin: 02/12/17 13:01 Dose: 2 mg Oxycodone/Acetaminophen (Percocet 5/325) 1 tab PO Q6H PRN PRN Reason: Pain, Moderate (4-6) Last Admin: 02/12/17 17:06 Dose: 1 tab Senna/Docusate Sodium (Senokot S) 1 tab PO Q12HR GRICELDA Last Admin: 02/12/17 13:01 Dose: 1 tab Sodium Chloride (Sodium Chloride Flush Syringe 10 Ml) 10 ml IV PRN GRICELDA Sodium Chloride (Sodium Chloride Flush Syringe 10 Ml) 10 ml IV PRN GRICELDA Objective Vital Signs - 12hr 02/12/17 02/12/17 02/12/17 08:15 10:00 12:35 Temperature 99.1 F 99.6 F Pulse Rate 93 H 89 Respiratory 22 20 Rate Blood Pressure 120/55 133/58 [Right] O2 Sat by Pulse 100 97 100 Oximetry Constitutional: no acute distress, alert, other (morbidly obese) Eyes: non-icteric ENT: oropharynx moist Neck: other (large in circumference) Effort: normal Ascultation: Bilateral: clear Cardiovascular: regular rate and rhythm (no mrg) Gastrointestinal: normoactive bowel sounds, soft, non-distended, other ( morbidly obese) Extremities: no cyanosis, edema, other (morbid obesity) Neurologic: normal mental status Psychiatric: mood appropriate, affect normal CBC and BMP: 02/11/17 12:25 02/12/17 11:04 ABG, PT/INR, D-dimer: ABG POC ABG pH 7.346 (7.35-7.45) L 02/08/17 21:14 POC ABG pCO2 37.1 (35-45) 02/08/17 21:14 POC ABG pO2 72 (80-105) L 02/08/17 21:14 POC ABG HCO3 20.3 02/08/17 21:14 POC ABG Total CO2 21 02/08/17 21:14 POC ABG O2 Sat 93 02/08/17 21:14 PT/INR, D-dimer PT 15.8 Sec. (12.2-14.9) H 02/09/17 16:26 INR 1.20 (0.87-1.13) H 02/09/17 16:26 Abnormal lab findings: Abnormal Labs 02/08/17 02/08/17 02/08/17 18:45 18:45 18:45 WBC 18.5 H Hgb Hct MCV 75 L MCH 24 L RDW 16.3 H Lymph % (Auto) 5.6 L Lymph # 1.0 L [place] # 1.2 H Seg Neutrophils % 88.0 H Seg Neutrophils # 16.3 H PT 17.8 H INR 1.39 H APTT 75.0 H* Heparin Anti-Xa Level POC ABG pH POC ABG pO2 Potassium BUN Creatinine 0.4 L Glucose 131 H POC Glucose 02/08/17 02/09/17 02/10/17 21:14 16:26 00:28 WBC Hgb Hct MCV MCH RDW Lymph % (Auto) Lymph # [place] # Seg Neutrophils % Seg Neutrophils # PT 15.8 H INR 1.20 H APTT Heparin Anti-Xa Level POC ABG pH 7.346 L POC ABG pO2 72 L Potassium BUN Creatinine Glucose POC Glucose 118 H 02/10/17 02/10/17 02/10/17 00:35 08:28 09:35 WBC Hgb Hct MCV MCH RDW Lymph % (Auto) Lymph # [place] # Seg Neutrophils % Seg Neutrophils # PT INR APTT Heparin Anti-Xa Level 0.26 L 0.19 L POC ABG pH POC ABG pO2 Potassium BUN Creatinine Glucose POC Glucose 123 H 02/10/17 02/10/17 02/10/17 12:00 16:40 21:14 WBC Hgb Hct MCV MCH RDW Lymph % (Auto) Lymph # [place] # Seg Neutrophils % Seg Neutrophils # PT INR APTT Heparin Anti-Xa Level POC ABG pH POC ABG pO2 Potassium BUN Creatinine Glucose POC Glucose 126 H 128 H 143 H 02/11/17 02/11/17 02/11/17 04:00 08:09 09:23 WBC Hgb 9.6 L Hct 29.4 L MCV MCH RDW Lymph % (Auto) Lymph # [place] # Seg Neutrophils % Seg Neutrophils # PT INR APTT Heparin Anti-Xa Level POC ABG pH POC ABG pO2 Potassium 2.9 L* D BUN 5 L Creatinine 0.3 L Glucose 121 H POC Glucose 121 H 02/11/17 02/12/17 12:25 11:04 WBC Hgb 9.6 L Hct 29.4 L MCV 74 L MCH 24 L RDW 16.4 H Lymph % (Auto) Lymph # [place] # Seg Neutrophils % Seg Neutrophils # PT INR APTT Heparin Anti-Xa Level POC ABG pH POC ABG pO2 Potassium 3.4 L BUN 6 L Creatinine 0.3 L Glucose 117 H POC Glucose Chest x-ray: report reviewed, image reviewed CT scan - chest: report reviewed, image reviewed
[2017-02-13 06:14] LABS: Hematocrit 28.4 % (30.3-42.9); Hemoglobin 9.2 gm/dl (10.1-14.3)
[2017-02-13] MEDS: HEPARIN/ 0.45% NACL-25,000 UNIT/500 ML 25,000 UNIT/500 ML BAG IV SCH (09:34)
[2017-02-13] MEDS: SENOKOT S PO SCH ×2 (09:45→21:19)
--- NOTE | 2017-02-13 14:02 | Progress Note ---
Assessment and Plan Eliquis initiated today per primary. Currently stable cardiac status. PFO and atrial septal aneurysm visualized on TTE. However, no intracardiac thrombus or vegetations noted. No indication for VINH at this time. The patient has been seen in conjunction with Dr. Rashid who agrees with the assessment and plan of care. - Patient Problems (1) Acute DVT (deep venous thrombosis) Current Visit: Yes Status: Acute Qualifiers: DVT location: lower extremity Affected thrombotic vein of extremity: popliteal Laterality: right Qualified Code(s): I82.431 - Acute embolism and thrombosis of right popliteal vein (2) Acute massive pulmonary embolism Current Visit: Yes Status: Acute (3) Stroke Current Visit: Yes Status: Acute Qualifiers: CVA mechanism: embolism Precerebral and cerebral artery: P Laterality of affected vessel: L (4) PFO (patent foramen ovale) Current Visit: Yes Status: Chronic (5) Atrial septal aneurysm Current Visit: Yes Status: Chronic (6) Morbid obesity Current Visit: Yes Status: Chronic (7) Hypotension Current Visit: Yes Status: Resolved Qualifiers: Hypotension type: H Trimester: T Subjective Date of service: 02/13/17 Principal diagnosis: Massive PE, CVA, Hypotension, RLE DVT, Morbid Obesity Interval history: Pt resting comfortably in bed. Denies any cardiac complaints. Objective Last Vital Signs Temp 97.7 F 02/13/17 04:05 Pulse 98 H 02/13/17 08:03 Resp 18 02/13/17 08:03 BP 127/57 02/13/17 08:03 Pulse Ox 98 02/13/17 10:00 - Physical Examination General: No Apparent Distress HEENT: Positive: EOMI, Normocephaly, Mucus Membranes Moist Neck: Positive: neck supple, trachea midline Cardiac: Positive: Reg Rate and Rhythm, S1/S2 Lungs: Positive: clear to auscultation Neuro: Positive: Other (left hemiparesis) Abdomen: Positive: Soft, Active Bowel Sounds. Negative: Tender Skin: Positive: Clear. Negative: Rash Musculoskeletal: Normal Range of Motion Extremities: Present: +1 Edema (nonpitting bilateral leg edema) - Labs and Meds CBC 02/13/17 Range/Units 05:03 Hgb 9.2 L (10.1-14.3) gm/dl Hct 28.4 L (30.3-42.9) % Plt Count 218 (140-440) K/mm3 - Imaging and Cardiology EKG: image reviewed - EKG Sinus rhythms and dysrhythmias: sinus rhythm Repolarization changes or abnormalities: ST or T wave suggestive of ischemia
[2017-02-13] MEDS: MORPHINE IV PRN (14:06)
[2017-02-13] MEDS: ELIQUIS PO SCH ×2 (14:43→21:21)
--- NOTE | 2017-02-13 15:17 | Progress Note ---
Assessment and Plan Assessment and plan: 66-year-old female with a past medical history of hypertension, borderline diabetes, and obesity presents to the hospital with strokelike symptoms. Patient was being assisted by her daughter when suddenly she had generalized weakness with left-sided weakness reported. She complains of difficulty swallowing. EMS reports left facial droop since and persistent left arm weakness. Acute ischemic CVA with infarct patient has a probable PFO, most likely embolic CVA on anticoagulation carotid dopplers does not show any significant stenosis Will need official VINH, cardiology consult, Neurology consult continue CVA protocol, unable to get MRI to weight limit of the machine * CT angiogram of the head shows high-grade stenosis of the [employer] INST[employer], and 1.5 cm right thalamic ischemic infarct optimize BP, out of window for permissive htn transition from heparin to eliquis -LDL 157, continue statin Acute Bilateral Massive PE and DVT -sp EKOS - LE dopplers show ACUTE DVT NOTED IN RT. DS SFV, POP. V AND PX PTV continue heparin drip Acute Hypoxic Respiratory failure -Continue bipap therapy for now, wean FiO2 for sats >89%. Patient has many risk factors for ALTAGRACIA. 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 Hospitalist Physical - Physical exam Narrative exam: General: Patient appears well in no distress, obese HEENT: MMM, EOMI cardiac: S1-S2 heard lungs: clear to auscultation, abdomen: soft, nontender, nondistended bowel sounds positive extremities: no edema clubbing or cyanosis Skin: no rash or lesion Neuro: Left hemiparesis, worse in upper extremity, slurred speech Psych: appropriate behavior and mood, cognition intact - Constitutional Vitals: Temp Pulse Resp BP Pulse Ox 97.7 F 98 H 18 127/57 98 02/13/17 04:05 02/13/17 08:03 02/13/17 08:03 02/13/17 08:03 02/13/17 10:00 General appearance: Present: no acute distress Results - Labs CBC & Chem 7: 02/17/17 05:54 02/12/17 11:04 Labs: Laboratory Last Values WBC 9.5 K/mm3 (4.5-11.0) 02/11/17 12:25 RBC 3.97 M/mm3 (3.65-5.03) 02/11/17 12:25 Hgb 9.2 gm/dl (10.1-14.3) L 02/13/17 05:03 Hct 28.4 % (30.3-42.9) L 02/13/17 05:03 MCV 74 fl (79-97) L 02/11/17 12:25 MCH 24 pg (28-32) L 02/11/17 12:25 MCHC 33 % (30-34) 02/11/17 12:25 RDW 16.4 % (13.2-15.2) H 02/11/17 12:25 Plt Count 218 K/mm3 (140-440) 02/13/17 05:03 Lymph % (Auto) 5.6 % (13.4-35.0) L 02/08/17 18:45 [place] % (Auto) 6.2 % (0.0-7.3) 02/08/17 18:45 Eos % (Auto) 0.0 % (0.0-4.3) 02/08/17 18:45 Baso % (Auto) 0.2 % (0.0-1.8) 02/08/17 18:45 Lymph # 1.0 K/mm3 (1.2-5.4) L 02/08/17 18:45 [place] # 1.2 K/mm3 (0.0-0.8) H 02/08/17 18:45 Eos # 0.0 K/mm3 (0.0-0.4) 02/08/17 18:45 Baso # 0.0 K/mm3 (0.0-0.1) 02/08/17 18:45 Seg Neutrophils % 88.0 % (40.0-70.0) H 02/08/17 18:45 Seg Neutrophils # 16.3 K/mm3 (1.8-7.7) H 02/08/17 18:45 PT 15.8 Sec. (12.2-14.9) H 02/09/17 16:26 INR 1.20 (0.87-1.13) H 02/09/17 16:26 APTT 27.5 Sec. (24.2-36.6) 02/09/17 16:26 Thrombin Time 17.6 Sec. (15.1-19.6) 02/08/17 09:25 Fibrinogen 375 mg/dl (211-480) 02/08/17 18:45 Heparin Anti-Xa Level 0.34 U.I./ml (0.3-0.7) 02/12/17 18:46 POC ABG pH 7.346 (7.35-7.45) L 02/08/17 21:14 POC ABG pCO2 37.1 (35-45) 02/08/17 21:14 POC ABG pO2 72 (80-105) L 02/08/17 21:14 POC ABG HCO3 20.3 02/08/17 21:14 POC ABG Total CO2 21 02/08/17 21:14 POC ABG O2 Sat 93 02/08/17 21:14 POC ABG Base Excess -5 02/08/17 21:14 VBG pH 7.283 (7.320-7.420) L 02/08/17 14:49 FiO2 85 % 02/08/17 21:14 Sodium 138 mmol/L (137-145) 02/12/17 11:04 Potassium 3.4 mmol/L (3.6-5.0) L 02/12/17 11:04 Chloride 99.2 mmol/L (98-107) 02/12/17 11:04 Carbon Dioxide 25 mmol/L (22-30) 02/12/17 11:04 Anion Gap 17 mmol/L 02/12/17 11:04 BUN 6 mg/dL (7-17) L 02/12/17 11:04 Creatinine 0.3 mg/dL (0.7-1.2) L 02/12/17 11:04 Estimated GFR > 60 ml/min 02/12/17 11:04 BUN/Creatinine Ratio 20.00 % 02/12/17 11:04 Glucose 117 mg/dL (65-100) H 02/12/17 11:04 POC Glucose 93 (70-105) 02/11/17 12:18 Lactic Acid 1.80 mmol/L (0.7-2.0) 02/08/17 22:10 Calcium 8.9 mg/dL (8.4-10.2) 02/12/17 11:04 Magnesium 1.80 mg/dL (1.7-2.3) 02/11/17 09:23 Total Creatine Kinase 144 units/L (30-135) H 02/08/17 12:00 CK-MB (CK-2) 2.1 ng/mL (0.0-4.0) 02/08/17 12:00 CK-MB (CK-2) Rel Index 1.4 (0-4) 02/08/17 12:00 Troponin T 0.046 ng/mL (0.00-0.029) H D 02/08/17 12:00 Triglycerides 74 mg/dL (2-149) 02/08/17 12:00 Cholesterol 206 mg/dL (50-199) H 02/08/17 12:00 LDL Cholesterol Direct 157 mg/dL (50-130) H 02/08/17 12:00 HDL Cholesterol 35 mg/dL (40-59) L 02/08/17 12:00 Cholesterol/HDL Ratio 5.88 % 02/08/17 12:00 Urine Color Straw (Yellow) 02/08/17 14:15 Urine Turbidity Clear (Clear) 02/08/17 14:15 Urine pH 6.0 (5.0-7.0) 02/08/17 14:15 Ur Specific [place] 1.025 (1.003-1.030) 02/08/17 14:15 Urine Protein 30 mg/dl mg/dL (Negative) 02/08/17 14:15 Urine Glucose (UA) 150 mg/dL (Negative) 02/08/17 14:15 Urine Ketones Tr mg/dL (Negative) 02/08/17 14:15 Urine Blood Mod (Negative) 02/08/17 14:15 Urine Nitrite Neg (Negative) 02/08/17 14:15 Urine Bilirubin Neg (Negative) 02/08/17 14:15 Urine Urobilinogen < 2.0 mg/dL (<2.0) 02/08/17 14:15 Ur Leukocyte Esterase Neg (Negative) 02/08/17 14:15 Urine WBC (Auto) 2.0 /HPF (0.0-6.0) 02/08/17 14:15 Urine RBC (Auto) 5.0 /HPF (0.0-6.0) 02/08/17 14:15 U Epithel Cells (Auto) < 1.0 /HPF (0-13.0) 02/08/17 14:15 Urine Mucus Few /HPF 02/08/17 14:15 Blood Type O POSITIVE 02/08/17 14:40 Antibody Screen Negative 02/08/17 14:40
--- NOTE | 2017-02-13 15:46 | Vascular Lab Report ---
LOWER EXTREMITY VENOUS DUPLEX: REASON FOR EXAM: swelling of the lower extremities. COMMENTS ON THE RIGHT: There is no flow in the right superficial femoral vein, popliteal vein and posterior tibial vein, they are noncompressible. The remaining veins visualized are freely compressible without evidence of internal echogenicity. Spontaneous and phasic flow is present proximally. COMMENTS ON THE LEFT: All veins visualized are freely compressible without evidence of internal echogenicity. Flow is spontaneous and phasic throughout. IMPRESSION: Acute DVT in the right superficial femoral vein, popliteal vein and posterior tibial vein. Proximal calf vessels are difficult to visualize due to body habitus.
--- NOTE | 2017-02-13 16:11 | Progress Note ---
Assessment and Plan Imp: 1. Acute pulm embolus with acute cor pulmonale 2. Acute DVT 3. 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 Morbid obesity, excess cals. Rec: 1. Cont. heparin -> Coumadin versus Eliquis or Xarelto; needs minimum of 6 months; consider heme evaluation for hypercoag work-up 2. Wean O2 to keep sats 88% or above 3. Not a candidate for Trilogy; no CO2 retention; needs outpatient PSG 4. Overall stable pulm-rodriguez; will monitor Plan of care reviewed w/ patient, she understands/agrees Subjective Date of service: 02/13/17 Principal diagnosis: Massive PE, CVA, Hypotension, RLE DVT, Morbid Obesity Interval history: No events. HD stable. On 4-5L NC. SOB better. No chest pain, cough, new complaints. Active Medications Albuterol (Proventil) 2.5 mg IH Q3HRT PRN PRN Reason: Shortness Of Breath Apixaban (Eliquis) 10 mg PO Q12HR GRICELDA PRN Reason: Protocol Stop: 02/19/17 22:01 Last Admin: 02/13/17 14:43 Dose: 10 mg Atorvastatin Calcium (Lipitor) 40 mg PO QHS GRICELDA Last Admin: 02/12/17 21:58 Dose: 40 mg Diphenhydramine HCl (Benadryl) 25 mg IV Q6H PRN PRN Reason: Itching Last Admin: 02/11/17 01:28 Dose: 25 mg Sodium Chloride (Nacl 0.9% 1000 Ml) 1,000 mls @ 30 mls/hr IV DIRECT GRICELDA Last Admin: 02/12/17 01:02 Dose: 30 mls/hr Morphine Sulfate (Morphine) 2 mg IV Q4H PRN PRN Reason: Pain, Moderate (4-6) Last Admin: 02/13/17 14:06 Dose: 2 mg Oxycodone/Acetaminophen (Percocet 5/325) 1 tab PO Q6H PRN PRN Reason: Pain, Moderate (4-6) Last Admin: 02/12/17 17:06 Dose: 1 tab Senna/Docusate Sodium (Senokot S) 1 tab PO Q12HR GRICELDA Last Admin: 02/13/17 09:45 Dose: 1 tab Sodium Chloride (Sodium Chloride Flush Syringe 10 Ml) 10 ml IV PRN GRICELDA Sodium Chloride (Sodium Chloride Flush Syringe 10 Ml) 10 ml IV PRN GRICELDA Objective Vital Signs - 12hr 02/13/17 02/13/17 08:03 10:00 Pulse Rate 98 H Respiratory 18 Rate Blood Pressure 127/57 O2 Sat by Pulse 99 98 Oximetry Constitutional: no acute distress, alert, other (morbidly obese) Eyes: non-icteric ENT: oropharynx moist Neck: other (large in circumference) Effort: normal Ascultation: Bilateral: diminished breath sounds (secondary to body habitus) Cardiovascular: regular rate and rhythm (no mrg) Gastrointestinal: normoactive bowel sounds, soft, non-distended, other ( morbidly obese) Extremities: no cyanosis, edema, other (morbid obesity) Neurologic: normal mental status Psychiatric: mood appropriate, affect normal CBC and BMP: 02/13/17 05:03 02/12/17 11:04 ABG, PT/INR, D-dimer: ABG POC ABG pH 7.346 (7.35-7.45) L 02/08/17 21:14 POC ABG pCO2 37.1 (35-45) 02/08/17 21:14 POC ABG pO2 72 (80-105) L 02/08/17 21:14 POC ABG HCO3 20.3 02/08/17 21:14 POC ABG Total CO2 21 02/08/17 21:14 POC ABG O2 Sat 93 02/08/17 21:14 PT/INR, D-dimer PT 15.8 Sec. (12.2-14.9) H 02/09/17 16:26 INR 1.20 (0.87-1.13) H 02/09/17 16:26 Abnormal lab findings: Abnormal Labs 02/08/17 02/08/17 02/08/17 18:45 18:45 18:45 WBC 18.5 H Hgb Hct MCV 75 L MCH 24 L RDW 16.3 H Lymph % (Auto) 5.6 L Lymph # 1.0 L [place] # 1.2 H Seg Neutrophils % 88.0 H Seg Neutrophils # 16.3 H PT 17.8 H INR 1.39 H APTT 75.0 H* Heparin Anti-Xa Level POC ABG pH POC ABG pO2 Potassium BUN Creatinine 0.4 L Glucose 131 H POC Glucose 02/08/17 02/09/17 02/10/17 21:14 16:26 00:28 WBC Hgb Hct MCV MCH RDW Lymph % (Auto) Lymph # [place] # Seg Neutrophils % Seg Neutrophils # PT 15.8 H INR 1.20 H APTT Heparin Anti-Xa Level POC ABG pH 7.346 L POC ABG pO2 72 L Potassium BUN Creatinine Glucose POC Glucose 118 H 02/10/17 02/10/17 02/10/17 00:35 08:28 09:35 WBC Hgb Hct MCV MCH RDW Lymph % (Auto) Lymph # [place] # Seg Neutrophils % Seg Neutrophils # PT INR APTT Heparin Anti-Xa Level 0.26 L 0.19 L POC ABG pH POC ABG pO2 Potassium BUN Creatinine Glucose POC Glucose 123 H 02/10/17 02/10/17 02/10/17 12:00 16:40 21:14 WBC Hgb Hct MCV MCH RDW Lymph % (Auto) Lymph # [place] # Seg Neutrophils % Seg Neutrophils # PT INR APTT Heparin Anti-Xa Level POC ABG pH POC ABG pO2 Potassium BUN Creatinine Glucose POC Glucose 126 H 128 H 143 H 02/11/17 02/11/17 02/11/17 04:00 08:09 09:23 WBC Hgb 9.6 L Hct 29.4 L MCV MCH RDW Lymph % (Auto) Lymph # [place] # Seg Neutrophils % Seg Neutrophils # PT INR APTT Heparin Anti-Xa Level POC ABG pH POC ABG pO2 Potassium 2.9 L* D BUN 5 L Creatinine 0.3 L Glucose 121 H POC Glucose 121 H 02/11/17 02/12/17 02/13/17 12:25 11:04 05:03 WBC Hgb 9.6 L 9.2 L Hct 29.4 L 28.4 L MCV 74 L MCH 24 L RDW 16.4 H Lymph % (Auto) Lymph # [place] # Seg Neutrophils % Seg Neutrophils # PT INR APTT Heparin Anti-Xa Level POC ABG pH POC ABG pO2 Potassium 3.4 L BUN 6 L Creatinine 0.3 L Glucose 117 H POC Glucose Chest x-ray: report reviewed, image reviewed CT scan - chest: report reviewed, image reviewed
[2017-02-13] MEDS: PERCOCET 5/325 PO PRN (21:19)
[2017-02-14] MEDS: SENOKOT S PO SCH ×2 (10:20→22:25)
[2017-02-14] MEDS: ELIQUIS PO SCH ×2 (10:20→22:24)
--- NOTE | 2017-02-14 12:09 | Progress Note ---
Assessment and Plan Eliquis initiated per primary. Currently stable cardiac status. Will see PRN. PFO and atrial septal aneurysm visualized on TTE. However, no intracardiac thrombus or vegetations noted. No indication for VINH at this time. Recommend follow up in our office with Esha Phillip NP, within 1-2 weeks of hospital discharge ([phone]). The patient has been seen in conjunction with Dr. Rashid who agrees with the assessment and plan of care. - Patient Problems (1) Acute DVT (deep venous thrombosis) Current Visit: Yes Status: Acute Qualifiers: DVT location: lower extremity Affected thrombotic vein of extremity: popliteal Laterality: right Qualified Code(s): I82.431 - Acute embolism and thrombosis of right popliteal vein (2) Acute massive pulmonary embolism Current Visit: Yes Status: Acute (3) Stroke Current Visit: Yes Status: Acute Qualifiers: CVA mechanism: embolism Precerebral and cerebral artery: P Laterality of affected vessel: L (4) PFO (patent foramen ovale) Current Visit: Yes Status: Chronic (5) Atrial septal aneurysm Current Visit: Yes Status: Chronic (6) Morbid obesity Current Visit: Yes Status: Chronic (7) Hypotension Current Visit: Yes Status: Resolved Qualifiers: Hypotension type: H Trimester: T Subjective Date of service: 02/14/17 Principal diagnosis: Massive PE, CVA, Hypotension, RLE DVT, Morbid Obesity Interval history: Pt resting comfortably in bed. Denies any cardiac complaints. Objective Vital Signs Temp Pulse Resp BP Pulse Ox 02/14/17 10:00 99 02/14/17 05:21 89 02/14/17 05:15 97.6 F 20 124/52 94 02/14/17 03:30 89 02/14/17 00:13 97.5 F L 95 H 20 121/51 96 02/13/17 21:03 95 02/13/17 20:45 100.1 F H 101 H 20 136/56 95 02/13/17 17:24 167/51 02/13/17 12:36 18 124/60 - Physical Examination General: No Apparent Distress HEENT: Positive: EOMI, Normocephaly, Mucus Membranes Moist Neck: Positive: neck supple, trachea midline Cardiac: Positive: Reg Rate and Rhythm, S1/S2 Lungs: Positive: clear to auscultation Neuro: Positive: Other (left hemiparesis) Abdomen: Positive: Soft, Active Bowel Sounds. Negative: Tender Skin: Positive: Clear. Negative: Rash Musculoskeletal: Normal Range of Motion Extremities: Present: +1 Edema (nonpitting bilateral leg edema) - Imaging and Cardiology EKG: image reviewed - EKG Sinus rhythms and dysrhythmias: sinus rhythm Repolarization changes or abnormalities: ST or T wave suggestive of ischemia
[2017-02-14] MEDS: PERCOCET 5/325 PO PRN (12:17)
--- NOTE | 2017-02-14 13:51 | Progress Note ---
Assessment and Plan Imp: 1. Acute pulm embolus with acute cor pulmonale 2. Acute DVT 3. 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 Morbid obesity, excess cals. Rec: 1. On Eliquis now; needs minimum of 6 months OAC; consider heme evaluation for hypercoag work-up 2. Wean O2 to keep sats 88% or above (ordered, not done) 3. Not a candidate for Trilogy; no CO2 retention; needs outpatient PSG 4. ? Placement; if goes home will need home O2 Plan of care reviewed w/ patient, she understands/agrees Subjective Date of service: 02/14/17 Principal diagnosis: Massive PE, CVA, Hypotension, RLE DVT, Morbid Obesity Interval history: No events. HD stable. On 4-5L NC. SOB better. No chest pain, cough, new complaints. Active Medications Albuterol (Proventil) 2.5 mg IH Q3HRT PRN PRN Reason: Shortness Of Breath Apixaban (Eliquis) 10 mg PO Q12HR GRICELDA PRN Reason: Protocol Stop: 02/19/17 22:01 Last Admin: 02/14/17 10:20 Dose: 10 mg Atorvastatin Calcium (Lipitor) 40 mg PO QHS GRICELDA Last Admin: 02/13/17 21:19 Dose: 40 mg Diphenhydramine HCl (Benadryl) 25 mg IV Q6H PRN PRN Reason: Itching Last Admin: 02/11/17 01:28 Dose: 25 mg Sodium Chloride (Nacl 0.9% 1000 Ml) 1,000 mls @ 30 mls/hr IV DIRECT GRICELDA Last Admin: 02/12/17 01:02 Dose: 30 mls/hr Morphine Sulfate (Morphine) 2 mg IV Q4H PRN PRN Reason: Pain, Moderate (4-6) Last Admin: 02/13/17 14:06 Dose: 2 mg Oxycodone/Acetaminophen (Percocet 5/325) 1 tab PO Q6H PRN PRN Reason: Pain, Moderate (4-6) Last Admin: 02/14/17 12:17 Dose: 1 tab Senna/Docusate Sodium (Senokot S) 1 tab PO Q12HR GRICELDA Last Admin: 02/14/17 10:20 Dose: 1 tab Sodium Chloride (Sodium Chloride Flush Syringe 10 Ml) 10 ml IV PRN GRICELDA Sodium Chloride (Sodium Chloride Flush Syringe 10 Ml) 10 ml IV PRN GRICELDA Objective Vital Signs - 12hr 02/14/17 02/14/17 02/14/17 03:30 05:15 05:21 Temperature 97.6 F Pulse Rate 89 89 Respiratory 20 Rate Blood Pressure 124/52 O2 Sat by Pulse 94 Oximetry 02/14/17 02/14/17 02/14/17 08:31 10:00 12:17 Temperature 98.8 F Pulse Rate 93 H Respiratory 20 22 Rate Blood Pressure 126/49 O2 Sat by Pulse 99 99 Oximetry 02/14/17 12:33 Temperature 98.5 F Pulse Rate 90 Respiratory 20 Rate Blood Pressure 155/56 O2 Sat by Pulse 78 L Oximetry Constitutional: no acute distress, alert, other (morbidly obese) Eyes: non-icteric ENT: oropharynx moist Neck: other (large in circumference) Effort: normal Ascultation: Bilateral: clear, diminished breath sounds (secondary to body habitus) Cardiovascular: regular rate and rhythm (no mrg) Gastrointestinal: normoactive bowel sounds, soft, non-distended, other ( morbidly obese) Extremities: no cyanosis, edema, other (morbid obesity) Neurologic: normal mental status Psychiatric: mood appropriate, affect normal CBC and BMP: 02/13/17 05:03 02/12/17 11:04 ABG, PT/INR, D-dimer: ABG POC ABG pH 7.346 (7.35-7.45) L 02/08/17 21:14 POC ABG pCO2 37.1 (35-45) 02/08/17 21:14 POC ABG pO2 72 (80-105) L 02/08/17 21:14 POC ABG HCO3 20.3 02/08/17 21:14 POC ABG Total CO2 21 02/08/17 21:14 POC ABG O2 Sat 93 02/08/17 21:14 PT/INR, D-dimer PT 15.8 Sec. (12.2-14.9) H 02/09/17 16:26 INR 1.20 (0.87-1.13) H 02/09/17 16:26 Abnormal lab findings: Abnormal Labs 02/08/17 02/08/17 02/08/17 18:45 18:45 18:45 WBC 18.5 H Hgb Hct MCV 75 L MCH 24 L RDW 16.3 H Lymph % (Auto) 5.6 L Lymph # 1.0 L [place] # 1.2 H Seg Neutrophils % 88.0 H Seg Neutrophils # 16.3 H PT 17.8 H INR 1.39 H APTT 75.0 H* Heparin Anti-Xa Level POC ABG pH POC ABG pO2 Potassium BUN Creatinine 0.4 L Glucose 131 H POC Glucose 02/08/17 02/09/17 02/10/17 21:14 16:26 00:28 WBC Hgb Hct MCV MCH RDW Lymph % (Auto) Lymph # [place] # Seg Neutrophils % Seg Neutrophils # PT 15.8 H INR 1.20 H APTT Heparin Anti-Xa Level POC ABG pH 7.346 L POC ABG pO2 72 L Potassium BUN Creatinine Glucose POC Glucose 118 H 02/10/17 02/10/17 02/10/17 00:35 08:28 09:35 WBC Hgb Hct MCV MCH RDW Lymph % (Auto) Lymph # [place] # Seg Neutrophils % Seg Neutrophils # PT INR APTT Heparin Anti-Xa Level 0.26 L 0.19 L POC ABG pH POC ABG pO2 Potassium BUN Creatinine Glucose POC Glucose 123 H 02/10/17 02/10/17 02/10/17 12:00 16:40 21:14 WBC Hgb Hct MCV MCH RDW Lymph % (Auto) Lymph # [place] # Seg Neutrophils % Seg Neutrophils # PT INR APTT Heparin Anti-Xa Level POC ABG pH POC ABG pO2 Potassium BUN Creatinine Glucose POC Glucose 126 H 128 H 143 H 02/11/17 02/11/17 02/11/17 04:00 08:09 09:23 WBC Hgb 9.6 L Hct 29.4 L MCV MCH RDW Lymph % (Auto) Lymph # [place] # Seg Neutrophils % Seg Neutrophils # PT INR APTT Heparin Anti-Xa Level POC ABG pH POC ABG pO2 Potassium 2.9 L* D BUN 5 L Creatinine 0.3 L Glucose 121 H POC Glucose 121 H 02/11/17 02/12/17 02/13/17 12:25 11:04 05:03 WBC Hgb 9.6 L 9.2 L Hct 29.4 L 28.4 L MCV 74 L MCH 24 L RDW 16.4 H Lymph % (Auto) Lymph # [place] # Seg Neutrophils % Seg Neutrophils # PT INR APTT Heparin Anti-Xa Level POC ABG pH POC ABG pO2 Potassium 3.4 L BUN 6 L Creatinine 0.3 L Glucose 117 H POC Glucose 02/13/17 02/13/17 02/14/17 17:41 20:41 08:22 WBC Hgb Hct MCV MCH RDW Lymph % (Auto) Lymph # [place] # Seg Neutrophils % Seg Neutrophils # PT INR APTT Heparin Anti-Xa Level 1.85 H POC ABG pH POC ABG pO2 Potassium BUN Creatinine Glucose POC Glucose 135 H 123 H 02/14/17 12:13 WBC Hgb Hct MCV MCH RDW Lymph % (Auto) Lymph # [place] # Seg Neutrophils % Seg Neutrophils # PT INR APTT Heparin Anti-Xa Level POC ABG pH POC ABG pO2 Potassium BUN Creatinine Glucose POC Glucose 119 H Chest x-ray: report reviewed, image reviewed CT scan - chest: report reviewed, image reviewed
--- NOTE | 2017-02-14 18:40 | Progress Note ---
Assessment and Plan Assessment and plan: 66-year-old female with a past medical history of hypertension, borderline diabetes, and obesity presents to the hospital with strokelike symptoms. Patient was being assisted by her daughter when suddenly she had generalized weakness with left-sided weakness reported. She complains of difficulty swallowing. EMS reports left facial droop since and persistent left arm weakness. Acute ischemic CVA with infarct patient has a probable PFO, most likely embolic CVA on anticoagulation carotid dopplers does not show any significant stenosis Will need official VINH, cardiology consult, Neurology consult continue CVA protocol, unable to get MRI to weight limit of the machine * CT angiogram of the head shows high-grade stenosis of the [employer]ORD[employer]ATOR, and 1.5 cm right thalamic ischemic infarct optimize BP, out of window for permissive htn transition from heparin to eliquis will need 6 months of Eliquis Outpatient anticoagulation work up with Hemeonc -LDL 157, continue statin Eliquis initiated per primary. Per cardiology "no intracardiac thrombus or vegetations noted. No indication for VINH at this time.' follow up with cardiology-Esha Phillip NP, within 1-2 weeks of hospital discharge ([phone]). Acute Bilateral Massive PE and DVT -sp EKOS - LE dopplers show ACUTE DVT NOTED IN RT. DS SFV, POP. V AND PX PTV continue heparin drip Acute Hypoxic Respiratory failure -Continue bipap therapy for now, wean FiO2 for sats >89%. Patient has many risk factors for ALTAGRACIA. Pulmonary impression appreciated O2 ON DISCHARGE. 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 Hospitalist Physical - Physical exam Narrative exam: VITAL SIGNS: Reviewed. GENERAL: The patient appeared morbidly obese. Vital signs as documented. HEAD: No signs of head trauma. EYES: Pupils are equal. Extraocular motions intact. EARS: Hearing grossly intact. MOUTH: Oropharynx is normal. NECK: No adenopathy, no JVD. CHEST: Chest with clear breath sounds bilaterally. No wheezes, rales, or rhonchi. CARDIAC: Regular rate and rhythm. S1 and S2, without murmurs, gallops, or rubs. VASCULAR: No Edema. Peripheral pulses normal and equal in all extremities. ABDOMEN: Soft, without detectable tenderness. No sign of distention. No rebound or guarding, and no masses palpated. Bowel Sounds normal. MUSCULOSKELETAL: Good range of motion of all major joints. Extremities without clubbing, cyanosis or edema. NEUROLOGIC EXAM: Alert and oriented x 3. Left sided hemiparesis. Follows commands. PSYCHIATRIC: Mood normal. - Constitutional Vitals: Temp Pulse Resp BP Pulse Ox 98.5 F 90 20 155/56 78 L 02/14/17 12:33 02/14/17 12:33 02/14/17 12:33 02/14/17 12:33 02/14/17 12:33 General appearance: Present: no acute distress Results - Labs CBC & Chem 7: 02/13/17 05:03 02/12/17 11:04 Labs: Laboratory Last Values WBC 9.5 K/mm3 (4.5-11.0) 02/11/17 12:25 RBC 3.97 M/mm3 (3.65-5.03) 02/11/17 12:25 Hgb 9.2 gm/dl (10.1-14.3) L 02/13/17 05:03 Hct 28.4 % (30.3-42.9) L 02/13/17 05:03 MCV 74 fl (79-97) L 02/11/17 12:25 MCH 24 pg (28-32) L 02/11/17 12:25 MCHC 33 % (30-34) 02/11/17 12:25 RDW 16.4 % (13.2-15.2) H 02/11/17 12:25 Plt Count 218 K/mm3 (140-440) 02/13/17 05:03 Lymph % (Auto) 5.6 % (13.4-35.0) L 02/08/17 18:45 [place] % (Auto) 6.2 % (0.0-7.3) 02/08/17 18:45 Eos % (Auto) 0.0 % (0.0-4.3) 02/08/17 18:45 Baso % (Auto) 0.2 % (0.0-1.8) 02/08/17 18:45 Lymph # 1.0 K/mm3 (1.2-5.4) L 02/08/17 18:45 [place] # 1.2 K/mm3 (0.0-0.8) H 02/08/17 18:45 Eos # 0.0 K/mm3 (0.0-0.4) 02/08/17 18:45 Baso # 0.0 K/mm3 (0.0-0.1) 02/08/17 18:45 Seg Neutrophils % 88.0 % (40.0-70.0) H 02/08/17 18:45 Seg Neutrophils # 16.3 K/mm3 (1.8-7.7) H 02/08/17 18:45 PT 15.8 Sec. (12.2-14.9) H 02/09/17 16:26 INR 1.20 (0.87-1.13) H 02/09/17 16:26 APTT 27.5 Sec. (24.2-36.6) 02/09/17 16:26 Thrombin Time 17.6 Sec. (15.1-19.6) 02/08/17 09:25 Fibrinogen 375 mg/dl (211-480) 02/08/17 18:45 Heparin Anti-Xa Level 1.85 U.I./ml (0.3-0.7) H 02/13/17 17:41 POC ABG pH 7.346 (7.35-7.45) L 02/08/17 21:14 POC ABG pCO2 37.1 (35-45) 02/08/17 21:14 POC ABG pO2 72 (80-105) L 02/08/17 21:14 POC ABG HCO3 20.3 02/08/17 21:14 POC ABG Total CO2 21 02/08/17 21:14 POC ABG O2 Sat 93 02/08/17 21:14 POC ABG Base Excess -5 02/08/17 21:14 VBG pH 7.283 (7.320-7.420) L 02/08/17 14:49 FiO2 85 % 02/08/17 21:14 Sodium 138 mmol/L (137-145) 02/12/17 11:04 Potassium 3.4 mmol/L (3.6-5.0) L 02/12/17 11:04 Chloride 99.2 mmol/L (98-107) 02/12/17 11:04 Carbon Dioxide 25 mmol/L (22-30) 02/12/17 11:04 Anion Gap 17 mmol/L 02/12/17 11:04 BUN 6 mg/dL (7-17) L 02/12/17 11:04 Creatinine 0.3 mg/dL (0.7-1.2) L 02/12/17 11:04 Estimated GFR > 60 ml/min 02/12/17 11:04 BUN/Creatinine Ratio 20.00 % 02/12/17 11:04 Glucose 117 mg/dL (65-100) H 02/12/17 11:04 POC Glucose 119 (70-105) H 02/14/17 12:13 Lactic Acid 1.80 mmol/L (0.7-2.0) 02/08/17 22:10 Calcium 8.9 mg/dL (8.4-10.2) 02/12/17 11:04 Magnesium 1.80 mg/dL (1.7-2.3) 02/11/17 09:23 Total Creatine Kinase 144 units/L (30-135) H 02/08/17 12:00 CK-MB (CK-2) 2.1 ng/mL (0.0-4.0) 02/08/17 12:00 CK-MB (CK-2) Rel Index 1.4 (0-4) 02/08/17 12:00 Troponin T 0.046 ng/mL (0.00-0.029) H D 02/08/17 12:00 Triglycerides 74 mg/dL (2-149) 02/08/17 12:00 Cholesterol 206 mg/dL (50-199) H 02/08/17 12:00 LDL Cholesterol Direct 157 mg/dL (50-130) H 02/08/17 12:00 HDL Cholesterol 35 mg/dL (40-59) L 02/08/17 12:00 Cholesterol/HDL Ratio 5.88 % 02/08/17 12:00 Urine Color Straw (Yellow) 02/08/17 14:15 Urine Turbidity Clear (Clear) 02/08/17 14:15 Urine pH 6.0 (5.0-7.0) 02/08/17 14:15 Ur Specific [place] 1.025 (1.003-1.030) 02/08/17 14:15 Urine Protein 30 mg/dl mg/dL (Negative) 02/08/17 14:15 Urine Glucose (UA) 150 mg/dL (Negative) 02/08/17 14:15 Urine Ketones Tr mg/dL (Negative) 02/08/17 14:15 Urine Blood Mod (Negative) 02/08/17 14:15 Urine Nitrite Neg (Negative) 02/08/17 14:15 Urine Bilirubin Neg (Negative) 02/08/17 14:15 Urine Urobilinogen < 2.0 mg/dL (<2.0) 02/08/17 14:15 Ur Leukocyte Esterase Neg (Negative) 02/08/17 14:15 Urine WBC (Auto) 2.0 /HPF (0.0-6.0) 02/08/17 14:15 Urine RBC (Auto) 5.0 /HPF (0.0-6.0) 02/08/17 14:15 U Epithel Cells (Auto) < 1.0 /HPF (0-13.0) 02/08/17 14:15 Urine Mucus Few /HPF 02/08/17 14:15 Blood Type O POSITIVE 02/08/17 14:40 Antibody Screen Negative 02/08/17 14:40
[2017-02-14] MEDS: MORPHINE IV PRN (21:17)
[2017-02-15] MEDS: NACL 0.9% 1000 ML 1,000 ML IV SCH (05:10)
[2017-02-15 05:20] LABS: Hematocrit 28.4 % (30.3-42.9); Hemoglobin 9.3 gm/dl (10.1-14.3)
[2017-02-15] MEDS: SENOKOT S PO SCH ×2 (09:37→21:29)
[2017-02-15] MEDS: ELIQUIS PO SCH ×2 (09:37→21:29)
--- NOTE | 2017-02-15 10:03 | Discharge Summary ---
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 Place consult to:: Dr Almanza Notified:: yes Time called:: 20:02 02/09/17 11:15 Consult to Physician [CONS] Routine Consulting Provider: ALISA LEONARD Reason For Exam: embolic cva, needs VINH Place consult to:: nomi Notified:: [phone] Phone number called:: yes Was contact made?: Yes If yes, spoke with:: answering service Time called:: 10:44 Comment:: jesusita 02/09/17 11:16 Occupational Therapy Evaluate and Treat [CONS] Routine Comment: Reason For Exam: Neuro deficits Physical Therapy Evaluation and Treat [CONS] Routine Comment: Reason For Exam: Neuro deficits 02/09/17 11:17 Consult to Dietitian/Nutrition [CONS] Routine Physician Instructions: Reason For Exam: Reason for Consult: Nutrition Recommendations Reason for Consult: Diet education 02/11/17 09:24 Consult to Physician [CONS] Routine Consulting Provider: LOLA LEIGH Reason For Exam: cva Place consult to:: CHRISTINA Notified:: YES 02/11/17 09:25 Consult to Physician [CONS] Routine Consulting Provider: LOLA LEIGH Reason For Exam: cva Place consult to:: Dr. Leigh Notified:: Shyann NORIEGA Phone number called:: Was contact made?: Yes If yes, spoke with:: Nirav Time called:: 13:42 02/12/17 11:00 Consult to Physician [CONS] Routine Consulting Provider: KRISTIN MCDANIELS Reason For Exam: cva Place consult to:: NEURO Notified:: YES Was contact made?: No Comment:: WHIT ON DR HUERTAS Primary care physician: [facility] Hospitalization Condition: Stable Hospital course: 66-year-old female with a past medical history of hypertension, borderline diabetes, and obesity presents to the hospital with strokelike symptoms. Patient was being assisted by her daughter when suddenly she had generalized weakness with left-sided weakness reported. She complains of difficulty swallowing. EMS reports left facial droop since and persistent left arm weakness. Acute ischemic CVA with infarct patient has a probable PFO, most likely embolic CVA carotid dopplers does not show any significant stenosis Cardiology and neurology input noted. continue CVA protocol, unable to get MRI to weight limit of the machine * CT angiogram of the head shows high-grade stenosis of the HELP DESK ANALYST, and 1.5 cm right thalamic ischemic infarct optimize BP, out of window for permissive htn transitioned from heparin to eliquis will need 6 months of Eliquis Outpatient anticoagulation work up with Hemeonc -LDL 157, continue statin Eliquis initiated Per cardiology "no intracardiac thrombus or vegetations noted. No indication for VINH at this time.' follow up with cardiology-Esha Phillip NP, within 1-2 weeks of hospital discharge ([phone]). Acute Bilateral Massive PE and DVT -s/p EKOS - LE dopplers show ACUTE DVT NOTED IN RT. DS SFV, POP. V AND PX PTV started on Eliquis Acute Hypoxic Respiratory failure -Continue bipap therapy for now, wean FiO2 for sats >89%. Patient has many risk factors for ALTAGRACIA. Pulmonary impression appreciated O2 ON DISCHARGE. 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 Check uric acid/unknown gout. DVT/GI prophy pLAN DISCUSSED WITH PATIENT. Update discussed with case management. Pending DISCHARGE DMES FOR SAFE HOME DISCHARGE. Disposition: [id number]-06 HOME UNDER [facility] Time spent for discharge: 35 mins Core Measure Documentation - Palliative Care Palliative Care/ Comfort Measures: Not Applicable - Core Measures Any of the following diagnoses?: DVT/PE - VTE Discharge Requirements Deep Vein Thrombosis/Pulmonary Embolism Present on Admission: Yes Has pt received <5 days of overlap therapy or INR<2.0: No (criteria for overlap therapy at discharge: on overlap therapy for less than 5 days or INR<2.0) Anticoagulant overlap therapy prescribed at discharge: Yes Exam - Physical Exam Narrative exam: VITAL SIGNS: Reviewed. GENERAL: The patient appeared morbidly obese. Vital signs as documented. HEAD: No signs of head trauma. EYES: Pupils are equal. Extraocular motions intact. EARS: Hearing grossly intact. MOUTH: Oropharynx is normal. NECK: No adenopathy, no JVD. CHEST: Chest with clear breath sounds bilaterally. No wheezes, rales, or rhonchi. CARDIAC: Regular rate and rhythm. S1 and S2, without murmurs, gallops, or rubs. VASCULAR: No Edema. Peripheral pulses normal and equal in all extremities. ABDOMEN: Soft, without detectable tenderness. No sign of distention. No rebound or guarding, and no masses palpated. Bowel Sounds normal. MUSCULOSKELETAL: Tender at the ankle. Not so much at the knee. Good range of motion of all major joints. Extremities without clubbing, cyanosis or edema. NEUROLOGIC EXAM: Alert and oriented x 3. Left sided hemiparesis. Follows commands. PSYCHIATRIC: Mood normal. - Constitutional Vitals: Temp Pulse Resp BP Pulse Ox 98.5 F 100 H 16 155/56 99 02/14/17 12:33 02/14/17 22:00 02/14/17 22:00 02/14/17 12:33 02/15/17 09:56 Plan Activity: advance as tolerated, fall precautions Diet: low fat Special Instructions: physical therapy, occupational therapy Durable Medical Equipment Needed Upon Discharge: Oxygen (2lpm) Follow up with: ALEXYS PECK MD [Staff Physician] - 14 Days PRIMARY CARE, [Primary Care Provider] - 3-5 Days HARDEEP GAUTAM MD [Staff Physician] - 7 Days Prescriptions: AtorvaSTATin [Lipitor] 40 mg PO QHS #30 tablet Apixaban [Eliquis] 10 mg PO Q12HR #60 tablet oxyCODONE /ACETAMINOPHEN [Percocet 5/325 mg] 1 tab PO Q6H PRN #10 tablet PRN Reason: Pain, Moderate (4-6)
--- NOTE | 2017-02-15 12:03 | Progress Note ---
Assessment and Plan Imp: 1. Acute pulm embolus with acute cor pulmonale 2. Acute DVT 3. 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 Morbid obesity, excess cals. Rec: 1. On Eliquis now; needs minimum of 6 months OAC; consider heme evaluation for hypercoag work-up 2. Wean O2 to keep sats 88% or above 3. Not a candidate for Trilogy; no CO2 retention; needs outpatient PSG 4. ? Placement; if goes home will need home O2 Plan of care reviewed w/ patient, she understands/agrees Subjective Date of service: 02/15/17 Principal diagnosis: Massive PE, CVA, Hypotension, RLE DVT, Morbid Obesity Interval history: No events. HD stable. On 3L NC. SOB better. No chest pain, cough, new complaints. Active Medications Albuterol (Proventil) 2.5 mg IH Q3HRT PRN PRN Reason: Shortness Of Breath Apixaban (Eliquis) 10 mg PO Q12HR GRICELDA PRN Reason: Protocol Stop: 02/19/17 22:01 Last Admin: 02/15/17 09:37 Dose: 10 mg Atorvastatin Calcium (Lipitor) 40 mg PO QHS GRICELDA Last Admin: 02/14/17 22:25 Dose: 40 mg Diphenhydramine HCl (Benadryl) 25 mg IV Q6H PRN PRN Reason: Itching Last Admin: 02/11/17 01:28 Dose: 25 mg Sodium Chloride (Nacl 0.9% 1000 Ml) 1,000 mls @ 30 mls/hr IV DIRECT GRICELDA Last Admin: 02/15/17 05:10 Dose: 30 mls/hr Morphine Sulfate (Morphine) 2 mg IV Q4H PRN PRN Reason: Pain, Moderate (4-6) Last Admin: 02/14/17 21:17 Dose: 2 mg Oxycodone/Acetaminophen (Percocet 5/325) 1 tab PO Q6H PRN PRN Reason: Pain, Moderate (4-6) Last Admin: 02/14/17 12:17 Dose: 1 tab Senna/Docusate Sodium (Senokot S) 1 tab PO Q12HR GRICELDA Last Admin: 02/15/17 09:37 Dose: 1 tab Sodium Chloride (Sodium Chloride Flush Syringe 10 Ml) 10 ml IV PRN GRICELDA Sodium Chloride (Sodium Chloride Flush Syringe 10 Ml) 10 ml IV PRN GRICELDA Objective Vital Signs - 12hr 02/15/17 02/15/17 02/15/17 00:10 00:22 09:54 Temperature 98.1 F Pulse Rate 102 H Respiratory 18 Rate Blood Pressure 116/55 153/71 O2 Sat by Pulse 100 99 Oximetry 02/15/17 02/15/17 09:56 11:05 Temperature 98.5 F Pulse Rate Respiratory 20 Rate Blood Pressure 107/59 O2 Sat by Pulse 99 Oximetry Constitutional: no acute distress, alert, other (morbidly obese) Eyes: non-icteric ENT: oropharynx moist Neck: other (large in circumference) Effort: normal Ascultation: Bilateral: diminished breath sounds (secondary to body habitus) Cardiovascular: regular rate and rhythm (no mrg) Gastrointestinal: normoactive bowel sounds, soft, non-distended, other ( morbidly obese) Extremities: no cyanosis, edema, other (morbid obesity) Neurologic: normal mental status Psychiatric: mood appropriate, affect normal CBC and BMP: 02/15/17 Unknown 02/12/17 11:04 ABG, PT/INR, D-dimer: ABG POC ABG pH 7.346 (7.35-7.45) L 02/08/17 21:14 POC ABG pCO2 37.1 (35-45) 02/08/17 21:14 POC ABG pO2 72 (80-105) L 02/08/17 21:14 POC ABG HCO3 20.3 02/08/17 21:14 POC ABG Total CO2 21 02/08/17 21:14 POC ABG O2 Sat 93 02/08/17 21:14 PT/INR, D-dimer PT 15.8 Sec. (12.2-14.9) H 02/09/17 16:26 INR 1.20 (0.87-1.13) H 02/09/17 16:26 Abnormal lab findings: Abnormal Labs 02/08/17 02/08/17 02/08/17 18:45 18:45 18:45 WBC 18.5 H Hgb Hct MCV 75 L MCH 24 L RDW 16.3 H Lymph % (Auto) 5.6 L Lymph # 1.0 L [place] # 1.2 H Seg Neutrophils % 88.0 H Seg Neutrophils # 16.3 H PT 17.8 H INR 1.39 H APTT 75.0 H* Heparin Anti-Xa Level POC ABG pH POC ABG pO2 Potassium BUN Creatinine 0.4 L Glucose 131 H POC Glucose 02/08/17 02/09/17 02/10/17 21:14 16:26 00:28 WBC Hgb Hct MCV MCH RDW Lymph % (Auto) Lymph # [place] # Seg Neutrophils % Seg Neutrophils # PT 15.8 H INR 1.20 H APTT Heparin Anti-Xa Level POC ABG pH 7.346 L POC ABG pO2 72 L Potassium BUN Creatinine Glucose POC Glucose 118 H 02/10/17 02/10/17 02/10/17 00:35 08:28 09:35 WBC Hgb Hct MCV MCH RDW Lymph % (Auto) Lymph # [place] # Seg Neutrophils % Seg Neutrophils # PT INR APTT Heparin Anti-Xa Level 0.26 L 0.19 L POC ABG pH POC ABG pO2 Potassium BUN Creatinine Glucose POC Glucose 123 H 02/10/17 02/10/17 02/10/17 12:00 16:40 21:14 WBC Hgb Hct MCV MCH RDW Lymph % (Auto) Lymph # [place] # Seg Neutrophils % Seg Neutrophils # PT INR APTT Heparin Anti-Xa Level POC ABG pH POC ABG pO2 Potassium BUN Creatinine Glucose POC Glucose 126 H 128 H 143 H 02/11/17 02/11/17 02/11/17 04:00 08:09 09:23 WBC Hgb 9.6 L Hct 29.4 L MCV MCH RDW Lymph % (Auto) Lymph # [place] # Seg Neutrophils % Seg Neutrophils # PT INR APTT Heparin Anti-Xa Level POC ABG pH POC ABG pO2 Potassium 2.9 L* D BUN 5 L Creatinine 0.3 L Glucose 121 H POC Glucose 121 H 02/11/17 02/12/17 02/13/17 12:25 11:04 05:03 WBC Hgb 9.6 L 9.2 L Hct 29.4 L 28.4 L MCV 74 L MCH 24 L RDW 16.4 H Lymph % (Auto) Lymph # [place] # Seg Neutrophils % Seg Neutrophils # PT INR APTT Heparin Anti-Xa Level POC ABG pH POC ABG pO2 Potassium 3.4 L BUN 6 L Creatinine 0.3 L Glucose 117 H POC Glucose 02/13/17 02/13/17 02/14/17 17:41 20:41 08:22 WBC Hgb Hct MCV MCH RDW Lymph % (Auto) Lymph # [place] # Seg Neutrophils % Seg Neutrophils # PT INR APTT Heparin Anti-Xa Level 1.85 H POC ABG pH POC ABG pO2 Potassium BUN Creatinine Glucose POC Glucose 135 H 123 H 02/14/17 02/14/17 02/15/17 12:13 21:16 07:42 WBC Hgb Hct MCV MCH RDW Lymph % (Auto) Lymph # [place] # Seg Neutrophils % Seg Neutrophils # PT INR APTT Heparin Anti-Xa Level POC ABG pH POC ABG pO2 Potassium BUN Creatinine Glucose POC Glucose 119 H 127 H 116 H 02/15/17 Unknown WBC Hgb 9.3 L Hct 28.4 L MCV MCH RDW Lymph % (Auto) Lymph # [place] # Seg Neutrophils % Seg Neutrophils # PT INR APTT Heparin Anti-Xa Level POC ABG pH POC ABG pO2 Potassium BUN Creatinine Glucose POC Glucose Chest x-ray: report reviewed, image reviewed
[2017-02-15] MEDS: PERCOCET 5/325 PO PRN ×2 (12:18→19:15)
[2017-02-16] MEDS: PERCOCET 5/325 PO PRN ×2 (05:04→18:35)
--- NOTE | 2017-02-16 07:33 | Progress Note ---
Assessment and Plan Assessment and plan: 66-year-old female with a past medical history of hypertension, borderline diabetes, and obesity presents to the hospital with strokelike symptoms. Patient was being assisted by her daughter when suddenly she had generalized weakness with left-sided weakness reported. She complains of difficulty swallowing. EMS reports left facial droop since and persistent left arm weakness. Acute ischemic CVA with infarct patient has a probable PFO, most likely embolic CVA on anticoagulation carotid dopplers does not show any significant stenosis Will need official VINH, cardiology consult, Neurology consult continue CVA protocol, unable to get MRI to weight limit of the machine * CT angiogram of the head shows high-grade stenosis of the HOUSING SPECIALIST, and 1.5 cm right thalamic ischemic infarct optimize BP, out of window for permissive htn transition from heparin to eliquis will need 6 months of Eliquis Outpatient anticoagulation work up with Hemeonc -LDL 157, continue statin Eliquis initiated per primary. Per cardiology "no intracardiac thrombus or vegetations noted. No indication for VINH at this time.' follow up with cardiology-Esha Phillip NP, within 1-2 weeks of hospital discharge ([phone]). Acute Bilateral Massive PE and DVT -sp EKOS - LE dopplers show ACUTE DVT NOTED IN RT. DS SFV, POP. V AND PX PTV started on Eliquis Acute Hypoxic Respiratory failure -Continue bipap therapy for now, wean FiO2 for sats >89%. Patient has many risk factors for ALTAGRACIA. Pulmonary impression appreciated O2 ON DISCHARGE. 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 Hospitalist Physical - Physical exam Narrative exam: VITAL SIGNS: Reviewed. GENERAL: The patient appeared morbidly obese. Vital signs as documented. HEAD: No signs of head trauma. EYES: Pupils are equal. Extraocular motions intact. EARS: Hearing grossly intact. MOUTH: Oropharynx is normal. NECK: No adenopathy, no JVD. CHEST: Chest with clear breath sounds bilaterally. No wheezes, rales, or rhonchi. CARDIAC: Regular rate and rhythm. S1 and S2, without murmurs, gallops, or rubs. VASCULAR: No Edema. Peripheral pulses normal and equal in all extremities. ABDOMEN: Soft, without detectable tenderness. No sign of distention. No rebound or guarding, and no masses palpated. Bowel Sounds normal. MUSCULOSKELETAL: Good range of motion of all major joints. Extremities without clubbing, cyanosis or edema. NEUROLOGIC EXAM: Alert and oriented x 3. Left sided hemiparesis. Follows commands. PSYCHIATRIC: Mood normal. - Constitutional Vitals: Temp Pulse Resp BP Pulse Ox 98.8 F 95 H 20 95/62 96 02/16/17 04:58 02/16/17 04:58 02/16/17 06:04 02/16/17 04:58 02/16/17 04:58 General appearance: Present: no acute distress Results - Labs CBC & Chem 7: 02/15/17 Unknown 02/12/17 11:04 Labs: Laboratory Last Values WBC 9.5 K/mm3 (4.5-11.0) 02/11/17 12:25 RBC 3.97 M/mm3 (3.65-5.03) 02/11/17 12:25 Hgb 9.3 gm/dl (10.1-14.3) L 02/15/17 Unknown Hct 28.4 % (30.3-42.9) L 02/15/17 Unknown MCV 74 fl (79-97) L 02/11/17 12:25 MCH 24 pg (28-32) L 02/11/17 12:25 MCHC 33 % (30-34) 02/11/17 12:25 RDW 16.4 % (13.2-15.2) H 02/11/17 12:25 Plt Count 240 K/mm3 (140-440) 02/15/17 Unknown Lymph % (Auto) 5.6 % (13.4-35.0) L 02/08/17 18:45 [place] % (Auto) 6.2 % (0.0-7.3) 02/08/17 18:45 Eos % (Auto) 0.0 % (0.0-4.3) 02/08/17 18:45 Baso % (Auto) 0.2 % (0.0-1.8) 02/08/17 18:45 Lymph # 1.0 K/mm3 (1.2-5.4) L 02/08/17 18:45 [place] # 1.2 K/mm3 (0.0-0.8) H 02/08/17 18:45 Eos # 0.0 K/mm3 (0.0-0.4) 02/08/17 18:45 Baso # 0.0 K/mm3 (0.0-0.1) 02/08/17 18:45 Seg Neutrophils % 88.0 % (40.0-70.0) H 02/08/17 18:45 Seg Neutrophils # 16.3 K/mm3 (1.8-7.7) H 02/08/17 18:45 PT 15.8 Sec. (12.2-14.9) H 02/09/17 16:26 INR 1.20 (0.87-1.13) H 02/09/17 16:26 APTT 27.5 Sec. (24.2-36.6) 02/09/17 16:26 Thrombin Time 17.6 Sec. (15.1-19.6) 02/08/17 09:25 Fibrinogen 375 mg/dl (211-480) 02/08/17 18:45 Heparin Anti-Xa Level 1.85 U.I./ml (0.3-0.7) H 02/13/17 17:41 POC ABG pH 7.346 (7.35-7.45) L 02/08/17 21:14 POC ABG pCO2 37.1 (35-45) 02/08/17 21:14 POC ABG pO2 72 (80-105) L 02/08/17 21:14 POC ABG HCO3 20.3 02/08/17 21:14 POC ABG Total CO2 21 02/08/17 21:14 POC ABG O2 Sat 93 02/08/17 21:14 POC ABG Base Excess -5 02/08/17 21:14 VBG pH 7.283 (7.320-7.420) L 02/08/17 14:49 FiO2 85 % 02/08/17 21:14 Sodium 138 mmol/L (137-145) 02/12/17 11:04 Potassium 3.4 mmol/L (3.6-5.0) L 02/12/17 11:04 Chloride 99.2 mmol/L (98-107) 02/12/17 11:04 Carbon Dioxide 25 mmol/L (22-30) 02/12/17 11:04 Anion Gap 17 mmol/L 02/12/17 11:04 BUN 6 mg/dL (7-17) L 02/12/17 11:04 Creatinine 0.3 mg/dL (0.7-1.2) L 02/12/17 11:04 Estimated GFR > 60 ml/min 02/12/17 11:04 BUN/Creatinine Ratio 20.00 % 02/12/17 11:04 Glucose 117 mg/dL (65-100) H 02/12/17 11:04 POC Glucose 122 (70-105) H 02/15/17 18:48 Lactic Acid 1.80 mmol/L (0.7-2.0) 02/08/17 22:10 Calcium 8.9 mg/dL (8.4-10.2) 02/12/17 11:04 Magnesium 1.80 mg/dL (1.7-2.3) 02/11/17 09:23 Total Creatine Kinase 144 units/L (30-135) H 02/08/17 12:00 CK-MB (CK-2) 2.1 ng/mL (0.0-4.0) 02/08/17 12:00 CK-MB (CK-2) Rel Index 1.4 (0-4) 02/08/17 12:00 Troponin T 0.046 ng/mL (0.00-0.029) H D 02/08/17 12:00 Triglycerides 74 mg/dL (2-149) 02/08/17 12:00 Cholesterol 206 mg/dL (50-199) H 02/08/17 12:00 LDL Cholesterol Direct 157 mg/dL (50-130) H 02/08/17 12:00 HDL Cholesterol 35 mg/dL (40-59) L 02/08/17 12:00 Cholesterol/HDL Ratio 5.88 % 02/08/17 12:00 Urine Color Straw (Yellow) 02/08/17 14:15 Urine Turbidity Clear (Clear) 02/08/17 14:15 Urine pH 6.0 (5.0-7.0) 02/08/17 14:15 Ur Specific [place] 1.025 (1.003-1.030) 02/08/17 14:15 Urine Protein 30 mg/dl mg/dL (Negative) 02/08/17 14:15 Urine Glucose (UA) 150 mg/dL (Negative) 02/08/17 14:15 Urine Ketones Tr mg/dL (Negative) 02/08/17 14:15 Urine Blood Mod (Negative) 02/08/17 14:15 Urine Nitrite Neg (Negative) 02/08/17 14:15 Urine Bilirubin Neg (Negative) 02/08/17 14:15 Urine Urobilinogen < 2.0 mg/dL (<2.0) 02/08/17 14:15 Ur Leukocyte Esterase Neg (Negative) 02/08/17 14:15 Urine WBC (Auto) 2.0 /HPF (0.0-6.0) 02/08/17 14:15 Urine RBC (Auto) 5.0 /HPF (0.0-6.0) 02/08/17 14:15 U Epithel Cells (Auto) < 1.0 /HPF (0-13.0) 02/08/17 14:15 Urine Mucus Few /HPF 02/08/17 14:15 Blood Type O POSITIVE 02/08/17 14:40 Antibody Screen Negative 02/08/17 14:40
[2017-02-16] MEDS: ELIQUIS PO SCH ×2 (10:23→22:36)
[2017-02-16] MEDS: SENOKOT S PO SCH ×2 (10:24→22:36)
[2017-02-16] MEDS: MORPHINE IV PRN (10:24)
[2017-02-16] MEDS: BENADRYL IV PRN (10:24)
--- NOTE | 2017-02-16 14:11 | Progress Note ---
Assessment and Plan Imp: 1. Acute pulm embolus with acute cor pulmonale 2. Acute DVT 3. 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 Morbid obesity, excess cals. Rec: 1. On Eliquis now; needs minimum of 6 months OAC; consider heme evaluation for hypercoag work-up 2. Wean O2 to keep sats 88% or above 3. Not a candidate for Trilogy; no CO2 retention; needs outpatient PSG 4. ? Placement; if goes home will need home O2 Plan of care reviewed w/ patient, she understands/agrees Subjective Date of service: 02/16/17 Principal diagnosis: Massive PE, CVA, Hypotension, RLE DVT, Morbid Obesity Interval history: No events. HD stable. On 3L NC. SOB better. No chest pain, cough. C/o knee/leg pain, finger pain, other joint pain. Active Medications Albuterol (Proventil) 2.5 mg IH Q3HRT PRN PRN Reason: Shortness Of Breath Apixaban (Eliquis) 10 mg PO Q12HR GRICELDA PRN Reason: Protocol Stop: 02/19/17 22:01 Last Admin: 02/16/17 10:23 Dose: 10 mg Atorvastatin Calcium (Lipitor) 40 mg PO QHS GRICELDA Last Admin: 02/15/17 21:29 Dose: 40 mg Diphenhydramine HCl (Benadryl) 25 mg IV Q6H PRN PRN Reason: Itching Last Admin: 02/16/17 10:24 Dose: 25 mg Sodium Chloride (Nacl 0.9% 1000 Ml) 1,000 mls @ 30 mls/hr IV DIRECT GRICELDA Last Admin: 02/15/17 05:10 Dose: 30 mls/hr Morphine Sulfate (Morphine) 2 mg IV Q4H PRN PRN Reason: Pain, Moderate (4-6) Last Admin: 02/16/17 10:24 Dose: 2 mg Oxycodone/Acetaminophen (Percocet 5/325) 1 tab PO Q6H PRN PRN Reason: Pain, Moderate (4-6) Last Admin: 02/16/17 05:04 Dose: 1 tab Senna/Docusate Sodium (Senokot S) 1 tab PO Q12HR GRICELDA Last Admin: 02/16/17 10:24 Dose: 1 tab Sodium Chloride (Sodium Chloride Flush Syringe 10 Ml) 10 ml IV PRN GRICELDA Sodium Chloride (Sodium Chloride Flush Syringe 10 Ml) 10 ml IV PRN GRICELDA Objective Vital Signs - 12hr 02/16/17 02/16/17 02/16/17 04:58 05:04 06:04 Temperature 98.8 F Pulse Rate 95 H Respiratory 20 20 20 Rate Blood Pressure 95/62 Blood Pressure [Right] O2 Sat by Pulse 96 Oximetry 02/16/17 02/16/17 02/16/17 08:22 08:30 11:07 Temperature 98.9 F 98.8 F Pulse Rate 91 H 86 90 Respiratory 24 24 22 Rate Blood Pressure 114/62 98/62 Blood Pressure 118/73 [Right] O2 Sat by Pulse 98 96 96 Oximetry Constitutional: no acute distress, alert, other (morbidly obese) Eyes: non-icteric ENT: oropharynx moist Neck: other (large in circumference) Effort: normal Ascultation: Bilateral: clear, diminished breath sounds (secondary to body habitus) Cardiovascular: regular rate and rhythm (no mrg) Gastrointestinal: normoactive bowel sounds, soft, non-distended, other ( morbidly obese) Extremities: no cyanosis, edema, other (morbid obesity) Neurologic: normal mental status Psychiatric: mood appropriate, affect normal CBC and BMP: 02/15/17 Unknown 02/12/17 11:04 ABG, PT/INR, D-dimer: ABG POC ABG pH 7.346 (7.35-7.45) L 02/08/17 21:14 POC ABG pCO2 37.1 (35-45) 02/08/17 21:14 POC ABG pO2 72 (80-105) L 02/08/17 21:14 POC ABG HCO3 20.3 02/08/17 21:14 POC ABG Total CO2 21 02/08/17 21:14 POC ABG O2 Sat 93 02/08/17 21:14 PT/INR, D-dimer PT 15.8 Sec. (12.2-14.9) H 02/09/17 16:26 INR 1.20 (0.87-1.13) H 02/09/17 16:26 Abnormal lab findings: Abnormal Labs 02/08/17 02/08/17 02/08/17 18:45 18:45 18:45 WBC 18.5 H Hgb Hct MCV 75 L MCH 24 L RDW 16.3 H Lymph % (Auto) 5.6 L Lymph # 1.0 L [place] # 1.2 H Seg Neutrophils % 88.0 H Seg Neutrophils # 16.3 H PT 17.8 H INR 1.39 H APTT 75.0 H* Heparin Anti-Xa Level POC ABG pH POC ABG pO2 Potassium BUN Creatinine 0.4 L Glucose 131 H POC Glucose 02/08/17 02/09/17 02/10/17 21:14 16:26 00:28 WBC Hgb Hct MCV MCH RDW Lymph % (Auto) Lymph # [place] # Seg Neutrophils % Seg Neutrophils # PT 15.8 H INR 1.20 H APTT Heparin Anti-Xa Level POC ABG pH 7.346 L POC ABG pO2 72 L Potassium BUN Creatinine Glucose POC Glucose 118 H 02/10/17 02/10/17 02/10/17 00:35 08:28 09:35 WBC Hgb Hct MCV MCH RDW Lymph % (Auto) Lymph # [place] # Seg Neutrophils % Seg Neutrophils # PT INR APTT Heparin Anti-Xa Level 0.26 L 0.19 L POC ABG pH POC ABG pO2 Potassium BUN Creatinine Glucose POC Glucose 123 H 02/10/17 02/10/17 02/10/17 12:00 16:40 21:14 WBC Hgb Hct MCV MCH RDW Lymph % (Auto) Lymph # [place] # Seg Neutrophils % Seg Neutrophils # PT INR APTT Heparin Anti-Xa Level POC ABG pH POC ABG pO2 Potassium BUN Creatinine Glucose POC Glucose 126 H 128 H 143 H 02/11/17 02/11/17 02/11/17 04:00 08:09 09:23 WBC Hgb 9.6 L Hct 29.4 L MCV MCH RDW Lymph % (Auto) Lymph # [place] # Seg Neutrophils % Seg Neutrophils # PT INR APTT Heparin Anti-Xa Level POC ABG pH POC ABG pO2 Potassium 2.9 L* D BUN 5 L Creatinine 0.3 L Glucose 121 H POC Glucose 121 H 02/11/17 02/12/17 02/13/17 12:25 11:04 05:03 WBC Hgb 9.6 L 9.2 L Hct 29.4 L 28.4 L MCV 74 L MCH 24 L RDW 16.4 H Lymph % (Auto) Lymph # [place] # Seg Neutrophils % Seg Neutrophils # PT INR APTT Heparin Anti-Xa Level POC ABG pH POC ABG pO2 Potassium 3.4 L BUN 6 L Creatinine 0.3 L Glucose 117 H POC Glucose 02/13/17 02/13/17 02/14/17 17:41 20:41 08:22 WBC Hgb Hct MCV MCH RDW Lymph % (Auto) Lymph # [place] # Seg Neutrophils % Seg Neutrophils # PT INR APTT Heparin Anti-Xa Level 1.85 H POC ABG pH POC ABG pO2 Potassium BUN Creatinine Glucose POC Glucose 135 H 123 H 02/14/17 02/14/17 02/15/17 12:13 21:16 07:42 WBC Hgb Hct MCV MCH RDW Lymph % (Auto) Lymph # [place] # Seg Neutrophils % Seg Neutrophils # PT INR APTT Heparin Anti-Xa Level POC ABG pH POC ABG pO2 Potassium BUN Creatinine Glucose POC Glucose 119 H 127 H 116 H 02/15/17 02/15/17 02/15/17 12:10 18:48 Unknown WBC Hgb 9.3 L Hct 28.4 L MCV MCH RDW Lymph % (Auto) Lymph # [place] # Seg Neutrophils % Seg Neutrophils # PT INR APTT Heparin Anti-Xa Level POC ABG pH POC ABG pO2 Potassium BUN Creatinine Glucose POC Glucose 116 H 122 H Chest x-ray: report reviewed, image reviewed
--- NOTE | 2017-02-16 18:08 | Progress Note ---
Assessment and Plan Assessment and plan: 66-year-old female with a past medical history of hypertension, borderline diabetes, and obesity presents to the hospital with strokelike symptoms. Patient was being assisted by her daughter when suddenly she had generalized weakness with left-sided weakness reported. She complains of difficulty swallowing. EMS reports left facial droop since and persistent left arm weakness. Acute ischemic CVA with infarct patient has a probable PFO, most likely embolic CVA on anticoagulation carotid dopplers does not show any significant stenosis Will need official VINH, cardiology consult, Neurology consult continue CVA protocol, unable to get MRI to weight limit of the machine * CT angiogram of the head shows high-grade stenosis of the FINAL INSPECTOR, and 1.5 cm right thalamic ischemic infarct optimize BP, out of window for permissive htn transition from heparin to eliquis will need 6 months of Eliquis Outpatient anticoagulation work up with Hemeonc -LDL 157, continue statin Eliquis initiated Per cardiology "no intracardiac thrombus or vegetations noted. No indication for VINH at this time.' follow up with cardiology-Esha Phillip NP, within 1-2 weeks of hospital discharge ([phone]). Acute Bilateral Massive PE and DVT -sp EKOS - LE dopplers show ACUTE DVT NOTED IN RT. DS SFV, POP. V AND PX PTV started on Eliquis Acute Hypoxic Respiratory failure -Continue bipap therapy for now, wean FiO2 for sats >89%. Patient has many risk factors for ALTAGRACIA. Pulmonary impression appreciated O2 ON DISCHARGE. 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 History Interval history: patient seen and examined today in no acute distress, no new fever. NO NEW COMPLAINTS. Hospitalist Physical - Physical exam Narrative exam: VITAL SIGNS: Reviewed. GENERAL: The patient appeared morbidly obese. Vital signs as documented. HEAD: No signs of head trauma. EYES: Pupils are equal. Extraocular motions intact. EARS: Hearing grossly intact. MOUTH: Oropharynx is normal. NECK: No adenopathy, no JVD. CHEST: Chest with clear breath sounds bilaterally. No wheezes, rales, or rhonchi. CARDIAC: Regular rate and rhythm. S1 and S2, without murmurs, gallops, or rubs. VASCULAR: No Edema. Peripheral pulses normal and equal in all extremities. ABDOMEN: Soft, without detectable tenderness. No sign of distention. No rebound or guarding, and no masses palpated. Bowel Sounds normal. MUSCULOSKELETAL: Good range of motion of all major joints. Extremities without clubbing, cyanosis or edema. NEUROLOGIC EXAM: Alert and oriented x 3. Left sided hemiparesis. Follows commands. PSYCHIATRIC: Mood normal. - Constitutional Vitals: Temp Pulse Resp BP Pulse Ox 98.9 F 92 H 20 106/68 97 02/16/17 16:11 02/16/17 16:11 02/16/17 16:11 02/16/17 16:11 02/16/17 16:11 General appearance: Present: no acute distress Results - Labs CBC & Chem 7: 02/15/17 Unknown 02/12/17 11:04 Labs: Laboratory Last Values WBC 9.5 K/mm3 (4.5-11.0) 02/11/17 12:25 RBC 3.97 M/mm3 (3.65-5.03) 02/11/17 12:25 Hgb 9.3 gm/dl (10.1-14.3) L 02/15/17 Unknown Hct 28.4 % (30.3-42.9) L 02/15/17 Unknown MCV 74 fl (79-97) L 02/11/17 12:25 MCH 24 pg (28-32) L 02/11/17 12:25 MCHC 33 % (30-34) 02/11/17 12:25 RDW 16.4 % (13.2-15.2) H 02/11/17 12:25 Plt Count 240 K/mm3 (140-440) 02/15/17 Unknown Lymph % (Auto) 5.6 % (13.4-35.0) L 02/08/17 18:45 [place] % (Auto) 6.2 % (0.0-7.3) 02/08/17 18:45 Eos % (Auto) 0.0 % (0.0-4.3) 02/08/17 18:45 Baso % (Auto) 0.2 % (0.0-1.8) 02/08/17 18:45 Lymph # 1.0 K/mm3 (1.2-5.4) L 02/08/17 18:45 [place] # 1.2 K/mm3 (0.0-0.8) H 02/08/17 18:45 Eos # 0.0 K/mm3 (0.0-0.4) 02/08/17 18:45 Baso # 0.0 K/mm3 (0.0-0.1) 02/08/17 18:45 Seg Neutrophils % 88.0 % (40.0-70.0) H 02/08/17 18:45 Seg Neutrophils # 16.3 K/mm3 (1.8-7.7) H 02/08/17 18:45 PT 15.8 Sec. (12.2-14.9) H 02/09/17 16:26 INR 1.20 (0.87-1.13) H 02/09/17 16:26 APTT 27.5 Sec. (24.2-36.6) 02/09/17 16:26 Thrombin Time 17.6 Sec. (15.1-19.6) 02/08/17 09:25 Fibrinogen 375 mg/dl (211-480) 02/08/17 18:45 Heparin Anti-Xa Level 1.85 U.I./ml (0.3-0.7) H 02/13/17 17:41 POC ABG pH 7.346 (7.35-7.45) L 02/08/17 21:14 POC ABG pCO2 37.1 (35-45) 02/08/17 21:14 POC ABG pO2 72 (80-105) L 02/08/17 21:14 POC ABG HCO3 20.3 02/08/17 21:14 POC ABG Total CO2 21 02/08/17 21:14 POC ABG O2 Sat 93 02/08/17 21:14 POC ABG Base Excess -5 02/08/17 21:14 VBG pH 7.283 (7.320-7.420) L 02/08/17 14:49 FiO2 85 % 02/08/17 21:14 Sodium 138 mmol/L (137-145) 02/12/17 11:04 Potassium 3.4 mmol/L (3.6-5.0) L 02/12/17 11:04 Chloride 99.2 mmol/L (98-107) 02/12/17 11:04 Carbon Dioxide 25 mmol/L (22-30) 02/12/17 11:04 Anion Gap 17 mmol/L 02/12/17 11:04 BUN 6 mg/dL (7-17) L 02/12/17 11:04 Creatinine 0.3 mg/dL (0.7-1.2) L 02/12/17 11:04 Estimated GFR > 60 ml/min 02/12/17 11:04 BUN/Creatinine Ratio 20.00 % 02/12/17 11:04 Glucose 117 mg/dL (65-100) H 02/12/17 11:04 POC Glucose 122 (70-105) H 02/15/17 18:48 Lactic Acid 1.80 mmol/L (0.7-2.0) 02/08/17 22:10 Calcium 8.9 mg/dL (8.4-10.2) 02/12/17 11:04 Magnesium 1.80 mg/dL (1.7-2.3) 02/11/17 09:23 Total Creatine Kinase 144 units/L (30-135) H 02/08/17 12:00 CK-MB (CK-2) 2.1 ng/mL (0.0-4.0) 02/08/17 12:00 CK-MB (CK-2) Rel Index 1.4 (0-4) 02/08/17 12:00 Troponin T 0.046 ng/mL (0.00-0.029) H D 02/08/17 12:00 Triglycerides 74 mg/dL (2-149) 02/08/17 12:00 Cholesterol 206 mg/dL (50-199) H 02/08/17 12:00 LDL Cholesterol Direct 157 mg/dL (50-130) H 02/08/17 12:00 HDL Cholesterol 35 mg/dL (40-59) L 02/08/17 12:00 Cholesterol/HDL Ratio 5.88 % 02/08/17 12:00 Urine Color Straw (Yellow) 02/08/17 14:15 Urine Turbidity Clear (Clear) 02/08/17 14:15 Urine pH 6.0 (5.0-7.0) 02/08/17 14:15 Ur Specific [place] 1.025 (1.003-1.030) 02/08/17 14:15 Urine Protein 30 mg/dl mg/dL (Negative) 02/08/17 14:15 Urine Glucose (UA) 150 mg/dL (Negative) 02/08/17 14:15 Urine Ketones Tr mg/dL (Negative) 02/08/17 14:15 Urine Blood Mod (Negative) 02/08/17 14:15 Urine Nitrite Neg (Negative) 02/08/17 14:15 Urine Bilirubin Neg (Negative) 02/08/17 14:15 Urine Urobilinogen < 2.0 mg/dL (<2.0) 02/08/17 14:15 Ur Leukocyte Esterase Neg (Negative) 02/08/17 14:15 Urine WBC (Auto) 2.0 /HPF (0.0-6.0) 02/08/17 14:15 Urine RBC (Auto) 5.0 /HPF (0.0-6.0) 02/08/17 14:15 U Epithel Cells (Auto) < 1.0 /HPF (0-13.0) 02/08/17 14:15 Urine Mucus Few /HPF 02/08/17 14:15 Blood Type O POSITIVE 02/08/17 14:40 Antibody Screen Negative 02/08/17 14:40
[2017-02-17] MEDS: PERCOCET 5/325 PO PRN ×2 (06:45→19:10)
[2017-02-17 06:46] LABS: Hematocrit 30.2 % (30.3-42.9); Hemoglobin 9.8 gm/dl (10.1-14.3)
[2017-02-17] MEDS: SENOKOT S PO SCH ×2 (10:33→22:12)
[2017-02-17] MEDS: ELIQUIS PO SCH ×2 (10:34→22:12)
--- NOTE | 2017-02-17 10:43 | Progress Note ---
Assessment and Plan Assessment and plan: 66-year-old female with a past medical history of hypertension, borderline diabetes, and obesity presents to the hospital with strokelike symptoms. Patient was being assisted by her daughter when suddenly she had generalized weakness with left-sided weakness reported. She complains of difficulty swallowing. EMS reports left facial droop since and persistent left arm weakness. 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 No indication for VINH at this time.' follow up with cardiology-Esha Phillip NP, within 1-2 weeks of hospital discharge ([phone]). Acute Bilateral Massive PE and DVT -s/p EKOS - LE dopplers show ACUTE DVT NOTED IN RT. DS SFV, POP. V AND PX PTV started on Eliquis Acute Hypoxic Respiratory failure -Continue bipap therapy for now, wean FiO2 for sats >89%. Patient has many risk factors for ALTAGRACIA. Pulmonary impression appreciated O2 ON DISCHARGE. 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 History Interval history: patient seen and examined today in no acute distress, no new fever. NO new complaints from nursing staff reported to me Hospitalist Physical - Physical exam Narrative exam: VITAL SIGNS: Reviewed. GENERAL: The patient appeared morbidly obese. Vital signs as documented. HEAD: No signs of head trauma. EYES: Pupils are equal. Extraocular motions intact. EARS: Hearing grossly intact. MOUTH: Oropharynx is normal. NECK: No adenopathy, no JVD. CHEST: Chest with clear breath sounds bilaterally. No wheezes, rales, or rhonchi. CARDIAC: Regular rate and rhythm. S1 and S2, without murmurs, gallops, or rubs. VASCULAR: No Edema. Peripheral pulses normal and equal in all extremities. ABDOMEN: Soft, without detectable tenderness. No sign of distention. No rebound or guarding, and no masses palpated. Bowel Sounds normal. MUSCULOSKELETAL: Good range of motion of all major joints. Extremities without clubbing, cyanosis or edema. NEUROLOGIC EXAM: Alert and oriented x 3. Left sided hemiparesis. Follows commands. PSYCHIATRIC: Mood normal. - Constitutional Vitals: Temp Pulse Resp BP Pulse Ox 97.9 F 75 17 97/34 99 02/16/17 23:45 02/16/17 23:45 02/17/17 06:45 02/16/17 23:45 02/16/17 23:45 General appearance: Present: no acute distress Results - Labs CBC & Chem 7: 02/17/17 05:54 02/12/17 11:04 Labs: Laboratory Last Values WBC 9.5 K/mm3 (4.5-11.0) 02/11/17 12:25 RBC 3.97 M/mm3 (3.65-5.03) 02/11/17 12:25 Hgb 9.8 gm/dl (10.1-14.3) L 02/17/17 05:54 Hct 30.2 % (30.3-42.9) L 02/17/17 05:54 MCV 74 fl (79-97) L 02/11/17 12:25 MCH 24 pg (28-32) L 02/11/17 12:25 MCHC 33 % (30-34) 02/11/17 12:25 RDW 16.4 % (13.2-15.2) H 02/11/17 12:25 Plt Count 309 K/mm3 (140-440) 02/17/17 05:54 Lymph % (Auto) 5.6 % (13.4-35.0) L 02/08/17 18:45 [place] % (Auto) 6.2 % (0.0-7.3) 02/08/17 18:45 Eos % (Auto) 0.0 % (0.0-4.3) 02/08/17 18:45 Baso % (Auto) 0.2 % (0.0-1.8) 02/08/17 18:45 Lymph # 1.0 K/mm3 (1.2-5.4) L 02/08/17 18:45 [place] # 1.2 K/mm3 (0.0-0.8) H 02/08/17 18:45 Eos # 0.0 K/mm3 (0.0-0.4) 02/08/17 18:45 Baso # 0.0 K/mm3 (0.0-0.1) 02/08/17 18:45 Seg Neutrophils % 88.0 % (40.0-70.0) H 02/08/17 18:45 Seg Neutrophils # 16.3 K/mm3 (1.8-7.7) H 02/08/17 18:45 PT 15.8 Sec. (12.2-14.9) H 02/09/17 16:26 INR 1.20 (0.87-1.13) H 02/09/17 16:26 APTT 27.5 Sec. (24.2-36.6) 02/09/17 16:26 Thrombin Time 17.6 Sec. (15.1-19.6) 02/08/17 09:25 Fibrinogen 375 mg/dl (211-480) 02/08/17 18:45 Heparin Anti-Xa Level 1.85 U.I./ml (0.3-0.7) H 02/13/17 17:41 POC ABG pH 7.346 (7.35-7.45) L 02/08/17 21:14 POC ABG pCO2 37.1 (35-45) 02/08/17 21:14 POC ABG pO2 72 (80-105) L 02/08/17 21:14 POC ABG HCO3 20.3 02/08/17 21:14 POC ABG Total CO2 21 02/08/17 21:14 POC ABG O2 Sat 93 02/08/17 21:14 POC ABG Base Excess -5 02/08/17 21:14 VBG pH 7.283 (7.320-7.420) L 02/08/17 14:49 FiO2 85 % 02/08/17 21:14 Sodium 138 mmol/L (137-145) 02/12/17 11:04 Potassium 3.4 mmol/L (3.6-5.0) L 02/12/17 11:04 Chloride 99.2 mmol/L (98-107) 02/12/17 11:04 Carbon Dioxide 25 mmol/L (22-30) 02/12/17 11:04 Anion Gap 17 mmol/L 02/12/17 11:04 BUN 6 mg/dL (7-17) L 02/12/17 11:04 Creatinine 0.3 mg/dL (0.7-1.2) L 02/12/17 11:04 Estimated GFR > 60 ml/min 02/12/17 11:04 BUN/Creatinine Ratio 20.00 % 02/12/17 11:04 Glucose 117 mg/dL (65-100) H 02/12/17 11:04 POC Glucose 122 (70-105) H 02/15/17 18:48 Lactic Acid 1.80 mmol/L (0.7-2.0) 02/08/17 22:10 Calcium 8.9 mg/dL (8.4-10.2) 02/12/17 11:04 Magnesium 1.80 mg/dL (1.7-2.3) 02/11/17 09:23 Total Creatine Kinase 144 units/L (30-135) H 02/08/17 12:00 CK-MB (CK-2) 2.1 ng/mL (0.0-4.0) 02/08/17 12:00 CK-MB (CK-2) Rel Index 1.4 (0-4) 02/08/17 12:00 Troponin T 0.046 ng/mL (0.00-0.029) H D 02/08/17 12:00 Triglycerides 74 mg/dL (2-149) 02/08/17 12:00 Cholesterol 206 mg/dL (50-199) H 02/08/17 12:00 LDL Cholesterol Direct 157 mg/dL (50-130) H 02/08/17 12:00 HDL Cholesterol 35 mg/dL (40-59) L 02/08/17 12:00 Cholesterol/HDL Ratio 5.88 % 02/08/17 12:00 Urine Color Straw (Yellow) 02/08/17 14:15 Urine Turbidity Clear (Clear) 02/08/17 14:15 Urine pH 6.0 (5.0-7.0) 02/08/17 14:15 Ur Specific [place] 1.025 (1.003-1.030) 02/08/17 14:15 Urine Protein 30 mg/dl mg/dL (Negative) 02/08/17 14:15 Urine Glucose (UA) 150 mg/dL (Negative) 02/08/17 14:15 Urine Ketones Tr mg/dL (Negative) 02/08/17 14:15 Urine Blood Mod (Negative) 02/08/17 14:15 Urine Nitrite Neg (Negative) 02/08/17 14:15 Urine Bilirubin Neg (Negative) 02/08/17 14:15 Urine Urobilinogen < 2.0 mg/dL (<2.0) 02/08/17 14:15 Ur Leukocyte Esterase Neg (Negative) 02/08/17 14:15 Urine WBC (Auto) 2.0 /HPF (0.0-6.0) 02/08/17 14:15 Urine RBC (Auto) 5.0 /HPF (0.0-6.0) 02/08/17 14:15 U Epithel Cells (Auto) < 1.0 /HPF (0-13.0) 02/08/17 14:15 Urine Mucus Few /HPF 02/08/17 14:15 Blood Type O POSITIVE 02/08/17 14:40 Antibody Screen Negative 02/08/17 14:40
[2017-02-17] MEDS: MORPHINE IV PRN (11:00)
[2017-02-17] MEDS ORDERED: K-DUR PO ONE (12:00)
--- NOTE | 2017-02-17 12:55 | Progress Note ---
Assessment and Plan Imp: 1. Acute pulm embolus with acute cor pulmonale 2. Acute DVT 3. 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 Morbid obesity, excess cals. Rec: 1. On Eliquis now; needs minimum of 6 months OAC; consider heme evaluation for hypercoag work-up 2. Wean O2 to keep sats 88% or above 3. Not a candidate for Trilogy; no CO2 retention; needs outpatient PSG 4. D/c IVFs 5. Remove CVL jany 6. ? Placement; if goes home will likely need home O2 Plan of care reviewed w/ patient, she understands/agrees Subjective Date of service: 02/17/17 Principal diagnosis: Massive PE, CVA, Hypotension, RLE DVT, Morbid Obesity Interval history: No events. HD stable. On 2L NC. SOB better. No chest pain, cough. No other complaints today. Active Medications Albuterol (Proventil) 2.5 mg IH Q3HRT PRN PRN Reason: Shortness Of Breath Apixaban (Eliquis) 10 mg PO Q12HR GRICELDA PRN Reason: Protocol Stop: 02/19/17 22:01 Last Admin: 02/17/17 10:34 Dose: 10 mg Atorvastatin Calcium (Lipitor) 40 mg PO QHS GRICELDA Last Admin: 02/16/17 22:36 Dose: 40 mg Diphenhydramine HCl (Benadryl) 25 mg IV Q6H PRN PRN Reason: Itching Last Admin: 02/16/17 10:24 Dose: 25 mg Morphine Sulfate (Morphine) 2 mg IV Q4H PRN PRN Reason: Pain, Moderate (4-6) Last Admin: 02/17/17 11:00 Dose: 2 mg Oxycodone/Acetaminophen (Percocet 5/325) 1 tab PO Q6H PRN PRN Reason: Pain, Moderate (4-6) Last Admin: 02/17/17 06:45 Dose: 1 tab Senna/Docusate Sodium (Senokot S) 1 tab PO Q12HR GRICELDA Last Admin: 02/17/17 10:33 Dose: 1 tab Sodium Chloride (Sodium Chloride Flush Syringe 10 Ml) 10 ml IV PRN GRICELDA Sodium Chloride (Sodium Chloride Flush Syringe 10 Ml) 10 ml IV PRN GRICELDA Objective Vital Signs - 12hr 02/17/17 02/17/17 02/17/17 06:45 07:51 08:00 Temperature 97.8 F 97.8 F Pulse Rate 85 83 Respiratory 17 20 20 Rate Blood Pressure 103/36 Blood Pressure 103/36 [Right] O2 Sat by Pulse 95 Oximetry 02/17/17 12:02 Temperature 98.7 F Pulse Rate 91 H Respiratory 18 Rate Blood Pressure 90/48 Blood Pressure [Right] O2 Sat by Pulse 95 Oximetry Constitutional: no acute distress, alert, other (morbidly obese) Eyes: non-icteric ENT: oropharynx moist Neck: other (large in circumference) Effort: normal Ascultation: Bilateral: clear, diminished breath sounds (secondary to body habitus) Cardiovascular: regular rate and rhythm (no mrg) Gastrointestinal: normoactive bowel sounds, soft, non-distended, other ( morbidly obese) Extremities: no cyanosis, edema, other (morbid obesity) Neurologic: normal mental status Psychiatric: mood appropriate, affect normal CBC and BMP: 02/17/17 05:54 02/12/17 11:04 ABG, PT/INR, D-dimer: ABG POC ABG pH 7.346 (7.35-7.45) L 02/08/17 21:14 POC ABG pCO2 37.1 (35-45) 02/08/17 21:14 POC ABG pO2 72 (80-105) L 02/08/17 21:14 POC ABG HCO3 20.3 02/08/17 21:14 POC ABG Total CO2 21 02/08/17 21:14 POC ABG O2 Sat 93 02/08/17 21:14 PT/INR, D-dimer PT 15.8 Sec. (12.2-14.9) H 02/09/17 16:26 INR 1.20 (0.87-1.13) H 02/09/17 16:26 Abnormal lab findings: Abnormal Labs 02/08/17 02/08/17 02/08/17 18:45 18:45 18:45 WBC 18.5 H Hgb Hct MCV 75 L MCH 24 L RDW 16.3 H Lymph % (Auto) 5.6 L Lymph # 1.0 L [place] # 1.2 H Seg Neutrophils % 88.0 H Seg Neutrophils # 16.3 H PT 17.8 H INR 1.39 H APTT 75.0 H* Heparin Anti-Xa Level POC ABG pH POC ABG pO2 Potassium BUN Creatinine 0.4 L Glucose 131 H POC Glucose 02/08/17 02/09/17 02/10/17 21:14 16:26 00:28 WBC Hgb Hct MCV MCH RDW Lymph % (Auto) Lymph # [place] # Seg Neutrophils % Seg Neutrophils # PT 15.8 H INR 1.20 H APTT Heparin Anti-Xa Level POC ABG pH 7.346 L POC ABG pO2 72 L Potassium BUN Creatinine Glucose POC Glucose 118 H 02/10/17 02/10/17 02/10/17 00:35 08:28 09:35 WBC Hgb Hct MCV MCH RDW Lymph % (Auto) Lymph # [place] # Seg Neutrophils % Seg Neutrophils # PT INR APTT Heparin Anti-Xa Level 0.26 L 0.19 L POC ABG pH POC ABG pO2 Potassium BUN Creatinine Glucose POC Glucose 123 H 02/10/17 02/10/17 02/10/17 12:00 16:40 21:14 WBC Hgb Hct MCV MCH RDW Lymph % (Auto) Lymph # [place] # Seg Neutrophils % Seg Neutrophils # PT INR APTT Heparin Anti-Xa Level POC ABG pH POC ABG pO2 Potassium BUN Creatinine Glucose POC Glucose 126 H 128 H 143 H 02/11/17 02/11/17 02/11/17 04:00 08:09 09:23 WBC Hgb 9.6 L Hct 29.4 L MCV MCH RDW Lymph % (Auto) Lymph # [place] # Seg Neutrophils % Seg Neutrophils # PT INR APTT Heparin Anti-Xa Level POC ABG pH POC ABG pO2 Potassium 2.9 L* D BUN 5 L Creatinine 0.3 L Glucose 121 H POC Glucose 121 H 02/11/17 02/12/17 02/13/17 12:25 11:04 05:03 WBC Hgb 9.6 L 9.2 L Hct 29.4 L 28.4 L MCV 74 L MCH 24 L RDW 16.4 H Lymph % (Auto) Lymph # [place] # Seg Neutrophils % Seg Neutrophils # PT INR APTT Heparin Anti-Xa Level POC ABG pH POC ABG pO2 Potassium 3.4 L BUN 6 L Creatinine 0.3 L Glucose 117 H POC Glucose 02/13/17 02/13/17 02/14/17 17:41 20:41 08:22 WBC Hgb Hct MCV MCH RDW Lymph % (Auto) Lymph # [place] # Seg Neutrophils % Seg Neutrophils # PT INR APTT Heparin Anti-Xa Level 1.85 H POC ABG pH POC ABG pO2 Potassium BUN Creatinine Glucose POC Glucose 135 H 123 H 02/14/17 02/14/17 02/15/17 12:13 21:16 07:42 WBC Hgb Hct MCV MCH RDW Lymph % (Auto) Lymph # [place] # Seg Neutrophils % Seg Neutrophils # PT INR APTT Heparin Anti-Xa Level POC ABG pH POC ABG pO2 Potassium BUN Creatinine Glucose POC Glucose 119 H 127 H 116 H 02/15/17 02/15/17 02/15/17 12:10 18:48 Unknown WBC Hgb 9.3 L Hct 28.4 L MCV MCH RDW Lymph % (Auto) Lymph # [place] # Seg Neutrophils % Seg Neutrophils # PT INR APTT Heparin Anti-Xa Level POC ABG pH POC ABG pO2 Potassium BUN Creatinine Glucose POC Glucose 116 H 122 H 02/17/17 05:54 WBC Hgb 9.8 L Hct 30.2 L MCV MCH RDW Lymph % (Auto) Lymph # [place] # Seg Neutrophils % Seg Neutrophils # PT INR APTT Heparin Anti-Xa Level POC ABG pH POC ABG pO2 Potassium BUN Creatinine Glucose POC Glucose Chest x-ray: report reviewed, image reviewed
[2017-02-18] MEDS: PERCOCET 5/325 PO PRN ×2 (04:32→13:40)
[2017-02-18] MEDS: ELIQUIS PO SCH ×2 (09:36→21:08)
[2017-02-18] MEDS: SENOKOT S PO SCH ×2 (09:36→21:09)
--- NOTE | 2017-02-18 13:14 | Progress Note ---
Assessment and Plan Imp: 1. Acute pulm embolus with acute cor pulmonale 2. Acute DVT 3. 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 Morbid obesity, excess cals. Rec: 1. On Eliquis now; needs minimum of 6 months OAC; consider heme evaluation for hypercoag work-up 2. Wean O2 to keep sats 88% or above 3. Not a candidate for Trilogy; no CO2 retention; needs outpatient PSG 4. D/c IVFs 5. Remove CVL jany 6. If goes home will likely need home O2 Plan of care reviewed w/ patient, she understands/agrees Subjective Date of service: 02/18/17 Principal diagnosis: Massive PE, CVA, Hypotension, RLE DVT, Morbid Obesity Interval history: No events. HD stable. On 2L NC. SOB better. No chest pain, cough. No other complaints today. Active Medications Albuterol (Proventil) 2.5 mg IH Q3HRT PRN PRN Reason: Shortness Of Breath Apixaban (Eliquis) 10 mg PO Q12HR GRICELDA PRN Reason: Protocol Stop: 02/19/17 22:01 Last Admin: 02/18/17 09:36 Dose: 10 mg Atorvastatin Calcium (Lipitor) 40 mg PO QHS [facility] Last Admin: 02/17/17 22:12 Dose: 40 mg Capsaicin (Zostrix Hp) 1 applic TP TID [facility] Stop: 02/20/17 13:59 Diphenhydramine HCl (Benadryl) 25 mg IV Q6H PRN PRN Reason: Itching Last Admin: 02/16/17 10:24 Dose: 25 mg Morphine Sulfate (Morphine) 2 mg IV Q4H PRN PRN Reason: Pain, Moderate (4-6) Last Admin: 02/17/17 11:00 Dose: 2 mg Oxycodone/Acetaminophen (Percocet 5/325) 1 tab PO Q6H PRN PRN Reason: Pain, Moderate (4-6) Last Admin: 02/18/17 04:32 Dose: 1 tab Senna/Docusate Sodium (Senokot S) 1 tab PO Q12HR [facility] Last Admin: 02/18/17 09:36 Dose: 1 tab Sodium Chloride (Sodium Chloride Flush Syringe 10 Ml) 10 ml IV PRN GRICELDA Sodium Chloride (Sodium Chloride Flush Syringe 10 Ml) 10 ml IV PRN [facility] Objective Vital Signs - 12hr 02/18/17 02/18/17 02/18/17 04:25 04:28 08:06 Temperature 98.6 F 98.4 F Pulse Rate 93 H 96 H 93 H Respiratory 20 20 22 Rate Blood Pressure 116/66 104/58 Blood Pressure 116/66 [Right] O2 Sat by Pulse 97 97 96 Oximetry 02/18/17 10:00 Temperature Pulse Rate Respiratory Rate Blood Pressure Blood Pressure [Right] O2 Sat by Pulse 97 Oximetry Constitutional: no acute distress, alert, other (morbidly obese) Eyes: non-icteric ENT: oropharynx moist Neck: other (large in circumference) Effort: normal Ascultation: Bilateral: clear, diminished breath sounds (secondary to body habitus) Cardiovascular: regular rate and rhythm (no mrg) Gastrointestinal: normoactive bowel sounds, soft, non-distended, other ( morbidly obese) Extremities: no cyanosis, edema, other (morbid obesity) Neurologic: normal mental status Psychiatric: mood appropriate, affect normal CBC and BMP: 02/17/17 05:54 02/12/17 11:04 ABG, PT/INR, D-dimer: ABG POC ABG pH 7.346 (7.35-7.45) L 02/08/17 21:14 POC ABG pCO2 37.1 (35-45) 02/08/17 21:14 POC ABG pO2 72 (80-105) L 02/08/17 21:14 POC ABG HCO3 20.3 02/08/17 21:14 POC ABG Total CO2 21 02/08/17 21:14 POC ABG O2 Sat 93 02/08/17 21:14 PT/INR, D-dimer PT 15.8 Sec. (12.2-14.9) H 02/09/17 16:26 INR 1.20 (0.87-1.13) H 02/09/17 16:26 Abnormal lab findings: Abnormal Labs 02/08/17 02/08/17 02/08/17 18:45 18:45 18:45 WBC 18.5 H Hgb Hct MCV 75 L MCH 24 L RDW 16.3 H Lymph % (Auto) 5.6 L Lymph # 1.0 L [place] # 1.2 H Seg Neutrophils % 88.0 H Seg Neutrophils # 16.3 H PT 17.8 H INR 1.39 H APTT 75.0 H* Heparin Anti-Xa Level POC ABG pH POC ABG pO2 Potassium BUN Creatinine 0.4 L Glucose 131 H POC Glucose 02/08/17 02/09/17 02/10/17 21:14 16:26 00:28 WBC Hgb Hct MCV MCH RDW Lymph % (Auto) Lymph # [place] # Seg Neutrophils % Seg Neutrophils # PT 15.8 H INR 1.20 H APTT Heparin Anti-Xa Level POC ABG pH 7.346 L POC ABG pO2 72 L Potassium BUN Creatinine Glucose POC Glucose 118 H 02/10/17 02/10/17 02/10/17 00:35 08:28 09:35 WBC Hgb Hct MCV MCH RDW Lymph % (Auto) Lymph # [place] # Seg Neutrophils % Seg Neutrophils # PT INR APTT Heparin Anti-Xa Level 0.26 L 0.19 L POC ABG pH POC ABG pO2 Potassium BUN Creatinine Glucose POC Glucose 123 H 02/10/17 02/10/17 02/10/17 12:00 16:40 21:14 WBC Hgb Hct MCV MCH RDW Lymph % (Auto) Lymph # [place] # Seg Neutrophils % Seg Neutrophils # PT INR APTT Heparin Anti-Xa Level POC ABG pH POC ABG pO2 Potassium BUN Creatinine Glucose POC Glucose 126 H 128 H 143 H 02/11/17 02/11/17 02/11/17 04:00 08:09 09:23 WBC Hgb 9.6 L Hct 29.4 L MCV MCH RDW Lymph % (Auto) Lymph # [place] # Seg Neutrophils % Seg Neutrophils # PT INR APTT Heparin Anti-Xa Level POC ABG pH POC ABG pO2 Potassium 2.9 L* D BUN 5 L Creatinine 0.3 L Glucose 121 H POC Glucose 121 H 02/11/17 02/12/17 02/13/17 12:25 11:04 05:03 WBC Hgb 9.6 L 9.2 L Hct 29.4 L 28.4 L MCV 74 L MCH 24 L RDW 16.4 H Lymph % (Auto) Lymph # [place] # Seg Neutrophils % Seg Neutrophils # PT INR APTT Heparin Anti-Xa Level POC ABG pH POC ABG pO2 Potassium 3.4 L BUN 6 L Creatinine 0.3 L Glucose 117 H POC Glucose 02/13/17 02/13/1717 17:41 20:41 08:22 WBC Hgb Hct MCV MCH RDW Lymph % (Auto) Lymph # [place] # Seg Neutrophils % Seg Neutrophils # PT INR APTT Heparin Anti-Xa Level 1.85 H POC ABG pH POC ABG pO2 Potassium BUN Creatinine Glucose POC Glucose 135 H 123 H 02/14/17 02/14/17 02/15/17 12:13 21:16 07:42 WBC Hgb Hct MCV MCH RDW Lymph % (Auto) Lymph # [place] # Seg Neutrophils % Seg Neutrophils # PT INR APTT Heparin Anti-Xa Level POC ABG pH POC ABG pO2 Potassium BUN Creatinine Glucose POC Glucose 119 H 127 H 116 H 02/15/17 02/15/17 02/15/17 12:10 18:48 Unknown WBC Hgb 9.3 L Hct 28.4 L MCV MCH RDW Lymph % (Auto) Lymph # [place] # Seg Neutrophils % Seg Neutrophils # PT INR APTT Heparin Anti-Xa Level POC ABG pH POC ABG pO2 Potassium BUN Creatinine Glucose POC Glucose 116 H 122 H 02/17/17 05:54 WBC Hgb 9.8 L Hct 30.2 L MCV MCH RDW Lymph % (Auto) Lymph # [place] # Seg Neutrophils % Seg Neutrophils # PT INR APTT Heparin Anti-Xa Level POC ABG pH POC ABG pO2 Potassium BUN Creatinine Glucose POC Glucose Chest x-ray: report reviewed, image reviewed
[2017-02-18] MEDS: ZOSTRIX HP TP SCH ×2 (13:41→20:20)
--- NOTE | 2017-02-18 13:54 | Progress Note ---
Assessment and Plan Assessment and plan: 66-year-old female with a past medical history of hypertension, borderline diabetes, and obesity presents to the hospital with strokelike symptoms. Patient was being assisted by her daughter when suddenly she had generalized weakness with left-sided weakness reported. She complains of difficulty swallowing. EMS reports left facial droop since and persistent left arm weakness. Acute ischemic CVA with infarct patient has a probable PFO, most likely embolic CVA carotid dopplers does not show any significant stenosis Cardiology and neurology input noted. continue CVA protocol, unable to get MRI to weight limit of the machine * CT angiogram of the head shows high-grade stenosis of the [employer], and 1.5 cm right thalamic ischemic infarct optimize BP, out of window for permissive htn transitioned from heparin to eliquis will need 6 months of Eliquis Outpatient anticoagulation work up with Hemeonc -LDL 157, continue statin Eliquis initiated Per cardiology "no intracardiac thrombus or vegetations noted. No indication for VINH at this time.' follow up with cardiology-Esha Phillip NP, within 1-2 weeks of hospital discharge ([phone]). Acute Bilateral Massive PE and DVT -s/p EKOS - LE dopplers show ACUTE DVT NOTED IN RT. DS SFV, POP. V AND PX PTV started on Eliquis Acute Hypoxic Respiratory failure -Continue bipap therapy for now, wean FiO2 for sats >89%. Patient has many risk factors for ALTAGRACIA. Pulmonary impression appreciated O2 ON DISCHARGE. 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 Check uric acid/unknown gout. * DVT/GI prophy pLAN DISCUSSED WITH PATIENT. Update discussed with case management. Pending DISCHARGE DMES FOR SAFE HOME DISCHARGE. History Interval history: patient seen and examined today in no acute distress, no new fever. Complains of left ankle pain and right knee pain. This is chronic but comes and goes. Pain is rated at 3/10 in intensity Hospitalist Physical - Physical exam Narrative exam: VITAL SIGNS: Reviewed. GENERAL: The patient appeared morbidly obese. Vital signs as documented. HEAD: No signs of head trauma. EYES: Pupils are equal. Extraocular motions intact. EARS: Hearing grossly intact. MOUTH: Oropharynx is normal. NECK: No adenopathy, no JVD. CHEST: Chest with clear breath sounds bilaterally. No wheezes, rales, or rhonchi. CARDIAC: Regular rate and rhythm. S1 and S2, without murmurs, gallops, or rubs. VASCULAR: No Edema. Peripheral pulses normal and equal in all extremities. ABDOMEN: Soft, without detectable tenderness. No sign of distention. No rebound or guarding, and no masses palpated. Bowel Sounds normal. MUSCULOSKELETAL: Tender at the ankle. Not so much at the knee. Good range of motion of all major joints. Extremities without clubbing, cyanosis or edema. NEUROLOGIC EXAM: Alert and oriented x 3. Left sided hemiparesis. Follows commands. PSYCHIATRIC: Mood normal. - Constitutional Vitals: Temp Pulse Resp BP Pulse Ox 98.4 F 93 H 22 104/58 97 02/18/17 08:06 02/18/17 08:06 02/18/17 08:06 02/18/17 08:06 02/18/17 10:00 General appearance: Present: no acute distress Results - Labs CBC & Chem 7: 02/17/17 05:54 02/12/17 11:04 Labs: Laboratory Last Values WBC 9.5 K/mm3 (4.5-11.0) 02/11/17 12:25 RBC 3.97 M/mm3 (3.65-5.03) 02/11/17 12:25 Hgb 9.8 gm/dl (10.1-14.3) L 02/17/17 05:54 Hct 30.2 % (30.3-42.9) L 02/17/17 05:54 MCV 74 fl (79-97) L 02/11/17 12:25 MCH 24 pg (28-32) L 02/11/17 12:25 MCHC 33 % (30-34) 02/11/17 12:25 RDW 16.4 % (13.2-15.2) H 02/11/17 12:25 Plt Count 309 K/mm3 (140-440) 02/17/17 05:54 Lymph % (Auto) 5.6 % (13.4-35.0) L 02/08/17 18:45 [place] % (Auto) 6.2 % (0.0-7.3) 02/08/17 18:45 Eos % (Auto) 0.0 % (0.0-4.3) 02/08/17 18:45 Baso % (Auto) 0.2 % (0.0-1.8) 02/08/17 18:45 Lymph # 1.0 K/mm3 (1.2-5.4) L 02/08/17 18:45 [place] # 1.2 K/mm3 (0.0-0.8) H 02/08/17 18:45 Eos # 0.0 K/mm3 (0.0-0.4) 02/08/17 18:45 Baso # 0.0 K/mm3 (0.0-0.1) 02/08/17 18:45 Seg Neutrophils % 88.0 % (40.0-70.0) H 02/08/17 18:45 Seg Neutrophils # 16.3 K/mm3 (1.8-7.7) H 02/08/17 18:45 PT 15.8 Sec. (12.2-14.9) H 02/09/17 16:26 INR 1.20 (0.87-1.13) H 02/09/17 16:26 APTT 27.5 Sec. (24.2-36.6) 02/09/17 16:26 Thrombin Time 17.6 Sec. (15.1-19.6) 02/08/17 09:25 Fibrinogen 375 mg/dl (211-480) 02/08/17 18:45 Heparin Anti-Xa Level 1.85 U.I./ml (0.3-0.7) H 02/13/17 17:41 POC ABG pH 7.346 (7.35-7.45) L 02/08/17 21:14 POC ABG pCO2 37.1 (35-45) 02/08/17 21:14 POC ABG pO2 72 (80-105) L 02/08/17 21:14 POC ABG HCO3 20.3 02/08/17 21:14 POC ABG Total CO2 21 02/08/17 21:14 POC ABG O2 Sat 93 02/08/17 21:14 POC ABG Base Excess -5 02/08/17 21:14 VBG pH 7.283 (7.320-7.420) L 02/08/17 14:49 FiO2 85 % 02/08/17 21:14 Sodium 138 mmol/L (137-145) 02/12/17 11:04 Potassium 3.4 mmol/L (3.6-5.0) L 02/12/17 11:04 Chloride 99.2 mmol/L (98-107) 02/12/17 11:04 Carbon Dioxide 25 mmol/L (22-30) 02/12/17 11:04 Anion Gap 17 mmol/L 02/12/17 11:04 BUN 6 mg/dL (7-17) L 02/12/17 11:04 Creatinine 0.3 mg/dL (0.7-1.2) L 02/12/17 11:04 Estimated GFR > 60 ml/min 02/12/17 11:04 BUN/Creatinine Ratio 20.00 % 02/12/17 11:04 Glucose 117 mg/dL (65-100) H 02/12/17 11:04 POC Glucose 122 (70-105) H 02/15/17 18:48 Lactic Acid 1.80 mmol/L (0.7-2.0) 02/08/17 22:10 Uric Acid 4.5 mg/dL (3.5-7.6) 02/18/17 10:00 Calcium 8.9 mg/dL (8.4-10.2) 02/12/17 11:04 Magnesium 1.80 mg/dL (1.7-2.3) 02/11/17 09:23 Total Creatine Kinase 144 units/L (30-135) H 02/08/17 12:00 CK-MB (CK-2) 2.1 ng/mL (0.0-4.0) 02/08/17 12:00 CK-MB (CK-2) Rel Index 1.4 (0-4) 02/08/17 12:00 Troponin T 0.046 ng/mL (0.00-0.029) H D 02/08/17 12:00 Triglycerides 74 mg/dL (2-149) 02/08/17 12:00 Cholesterol 206 mg/dL (50-199) H 02/08/17 12:00 LDL Cholesterol Direct 157 mg/dL (50-130) H 02/08/17 12:00 HDL Cholesterol 35 mg/dL (40-59) L 02/08/17 12:00 Cholesterol/HDL Ratio 5.88 % 02/08/17 12:00 Urine Color Straw (Yellow) 02/08/17 14:15 Urine Turbidity Clear (Clear) 02/08/17 14:15 Urine pH 6.0 (5.0-7.0) 02/08/17 14:15 Ur Specific [place] 1.025 (1.003-1.030) 02/08/17 14:15 Urine Protein 30 mg/dl mg/dL (Negative) 02/08/17 14:15 Urine Glucose (UA) 150 mg/dL (Negative) 02/08/17 14:15 Urine Ketones Tr mg/dL (Negative) 02/08/17 14:15 Urine Blood Mod (Negative) 02/08/17 14:15 Urine Nitrite Neg (Negative) 02/08/17 14:15 Urine Bilirubin Neg (Negative) 02/08/17 14:15 Urine Urobilinogen < 2.0 mg/dL (<2.0) 02/08/17 14:15 Ur Leukocyte Esterase Neg (Negative) 02/08/17 14:15 Urine WBC (Auto) 2.0 /HPF (0.0-6.0) 02/08/17 14:15 Urine RBC (Auto) 5.0 /HPF (0.0-6.0) 02/08/17 14:15 U Epithel Cells (Auto) < 1.0 /HPF (0-13.0) 02/08/17 14:15 Urine Mucus Few /HPF 02/08/17 14:15 Blood Type O POSITIVE 02/08/17 14:40 Antibody Screen Negative 02/08/17 14:40
[2017-02-18] MEDS ORDERED: TRIPLE ANTIBIOTIC TP ONE (16:00)
[2017-02-18] MEDS: MILK OF MAGNESIA PO PRN (17:46)
[2017-02-19 08:25] VITALS: BP 111/43
--- NOTE | 2017-02-19 09:23 | Progress Note ---
Assessment and Plan 66 y/o, morbidly obese female, admitted with hypoxemia, acute respiratory failure, secondary to large bilateral pulmonary emboli status post EKOS therapy. 1. Continue to wean FiO2 as tolerated. COntinue PRN PPV at night 2. Still needs heme follow up and hypercoag work up. 3. Needs outpatient sleep study. 4. Check room air sats prior to discharge to determine need for home O2. To my knowledge, patient is not ambulatory at home 5. No objection to discharge. Subjective Date of service: 02/19/17 Principal diagnosis: Massive PE, CVA, Hypotension, RLE DVT, Morbid Obesity Interval history: Documented as being on 3 liters NC. In the room O2 actually off as they were turning the patient. O2 in room at 1.5 liters. Stable. Patient states that breathing feels fine. Objective Vital Signs - 12hr 02/18/17 02/18/17 02/18/17 22:00 23:10 23:11 Temperature Pulse Rate 101 H 100 H Pulse Rate [ 82 Right Radial] Respiratory 18 Rate Respiratory 20 Rate [Head] Blood Pressure Blood Pressure [Right] O2 Sat by Pulse 96 96 Oximetry 02/18/17 02/19/17 02/19/17 23:12 08:13 08:48 Temperature 98.7 F 97.9 F Pulse Rate 103 H 92 H Pulse Rate [ Right Radial] Respiratory 18 Rate Respiratory Rate [Head] Blood Pressure 111/43 Blood Pressure 103/55 [Right] O2 Sat by Pulse 97 95 Oximetry Constitutional: no acute distress, alert, other (morbidly obese) Eyes: non-icteric ENT: oropharynx moist Neck: other (large in circumference) Effort: normal Ascultation: Bilateral: clear, diminished breath sounds (secondary to body habitus) Cardiovascular: regular rate and rhythm (no mrg) Gastrointestinal: normoactive bowel sounds, soft, non-distended, other ( morbidly obese) Extremities: no cyanosis, edema, other (morbid obesity) Neurologic: normal mental status Psychiatric: mood appropriate, affect normal CBC and BMP: 02/17/17 05:54 02/12/17 11:04 ABG, PT/INR, D-dimer: ABG POC ABG pH 7.346 (7.35-7.45) L 02/08/17 21:14 POC ABG pCO2 37.1 (35-45) 02/08/17 21:14 POC ABG pO2 72 (80-105) L 02/08/17 21:14 POC ABG HCO3 20.3 02/08/17 21:14 POC ABG Total CO2 21 02/08/17 21:14 POC ABG O2 Sat 93 02/08/17 21:14 PT/INR, D-dimer PT 15.8 Sec. (12.2-14.9) H 02/09/17 16:26 INR 1.20 (0.87-1.13) H 02/09/17 16:26 Abnormal lab findings: Abnormal Labs 02/08/17 02/08/17 02/08/17 18:45 18:45 18:45 WBC 18.5 H Hgb Hct MCV 75 L MCH 24 L RDW 16.3 H Lymph % (Auto) 5.6 L Lymph # 1.0 L [place] # 1.2 H Seg Neutrophils % 88.0 H Seg Neutrophils # 16.3 H PT 17.8 H INR 1.39 H APTT 75.0 H* Heparin Anti-Xa Level POC ABG pH POC ABG pO2 Potassium BUN Creatinine 0.4 L Glucose 131 H POC Glucose 02/08/17 02/09/17 02/10/17 21:14 16:26 00:28 WBC Hgb Hct MCV MCH RDW Lymph % (Auto) Lymph # [place] # Seg Neutrophils % Seg Neutrophils # PT 15.8 H INR 1.20 H APTT Heparin Anti-Xa Level POC ABG pH 7.346 L POC ABG pO2 72 L Potassium BUN Creatinine Glucose POC Glucose 118 H 02/10/17 02/10/17 02/10/17 00:35 08:28 09:35 WBC Hgb Hct MCV MCH RDW Lymph % (Auto) Lymph # [place] # Seg Neutrophils % Seg Neutrophils # PT INR APTT Heparin Anti-Xa Level 0.26 L 0.19 L POC ABG pH POC ABG pO2 Potassium BUN Creatinine Glucose POC Glucose 123 H 02/10/17 02/10/17 02/10/17 12:00 16:40 21:14 WBC Hgb Hct MCV MCH RDW Lymph % (Auto) Lymph # Lamb # Seg Neutrophils % Seg Neutrophils # PT INR APTT Heparin Anti-Xa Level POC ABG pH POC ABG pO2 Potassium BUN Creatinine Glucose POC Glucose 126 H 128 H 143 H 02/11/17 02/11/17 02/11/17 04:00 08:09 09:23 WBC Hgb 9.6 L Hct 29.4 L MCV MCH RDW Lymph % (Auto) Lymph # Lamb # Seg Neutrophils % Seg Neutrophils # PT INR APTT Heparin Anti-Xa Level POC ABG pH POC ABG pO2 Potassium 2.9 L* D BUN 5 L Creatinine 0.3 L Glucose 121 H POC Glucose 121 H 02/11/17 02/12/17 02/13/17 12:25 11:04 05:03 WBC Hgb 9.6 L 9.2 L Hct 29.4 L 28.4 L MCV 74 L MCH 24 L RDW 16.4 H Lymph % (Auto) Lymph # Lamb # Seg Neutrophils % Seg Neutrophils # PT INR APTT Heparin Anti-Xa Level POC ABG pH POC ABG pO2 Potassium 3.4 L BUN 6 L Creatinine 0.3 L Glucose 117 H POC Glucose 02/13/17 02/13/17 02/14/17 17:41 20:41 08:22 WBC Hgb Hct MCV MCH RDW Lymph % (Auto) Lymph # Lamb # Seg Neutrophils % Seg Neutrophils # PT INR APTT Heparin Anti-Xa Level 1.85 H POC ABG pH POC ABG pO2 Potassium BUN Creatinine Glucose POC Glucose 135 H 123 H 02/14/17 02/14/17 02/15/17 12:13 21:16 07:42 WBC Hgb Hct MCV MCH RDW Lymph % (Auto) Lymph # Lamb # Seg Neutrophils % Seg Neutrophils # PT INR APTT Heparin Anti-Xa Level POC ABG pH POC ABG pO2 Potassium BUN Creatinine Glucose POC Glucose 119 H 127 H 116 H 02/15/17 02/15/17 02/15/17 12:10 18:48 Unknown WBC Hgb 9.3 L Hct 28.4 L MCV MCH RDW Lymph % (Auto) Lymph # Lamb # Seg Neutrophils % Seg Neutrophils # PT INR APTT Heparin Anti-Xa Level POC ABG pH POC ABG pO2 Potassium BUN Creatinine Glucose POC Glucose 116 H 122 H 02/17/17 05:54 WBC Hgb 9.8 L Hct 30.2 L MCV MCH RDW Lymph % (Auto) Lymph # Lamb # Seg Neutrophils % Seg Neutrophils # PT INR APTT Heparin Anti-Xa Level POC ABG pH POC ABG pO2 Potassium BUN Creatinine Glucose POC Glucose
[2017-02-19] MEDS: SENOKOT S PO SCH (10:03)
[2017-02-19] MEDS: PERCOCET 5/325 PO PRN (10:04)
[2017-02-19] MEDS: ELIQUIS PO SCH (10:04)
[2017-02-19] MEDS: ZOSTRIX HP TP SCH ×2 (10:05→13:04)
[2017-02-19] MEDS: MILK OF MAGNESIA PO PRN (10:05)
[2017-02-19] MEDS ORDERED: CITRATE OF MAGNESIA PO ONE (13:11)
[2017-02-20] MEDS ORDERED: ELIQUIS PO SCH (10:00)
== END 2017-02-19 15:45 | disposition home health service (06) | DRG 853 ==
LOC: ED 09:22 → CC1 16:51 → 4A 02-11 13:08 → 3A 02-16 17:55
PROVIDERS: ADMIT Internal Medicine; ATTEND Internal Medicine
PROC: 02HV33Z Insertion of Infusion Device into Superior Vena Cava, Percutaneous Approach (ICD-10-PCS; principal; 2017-02-08)
PROC: 02HR33Z Insertion of Infusion Device into Left Pulmonary Artery, Percutaneous Approach (ICD-10-PCS; 2017-02-08)
PROC: 02HQ33Z Insertion of Infusion Device into Right Pulmonary Artery, Percutaneous Approach (ICD-10-PCS; 2017-02-08)
PROC: 4A033R1 Measurement of Arterial Saturation, Peripheral, Percutaneous Approach (ICD-10-PCS; 2017-02-08)
PROC: 06H03DZ Insertion of Intraluminal Device into Inferior Vena Cava, Percutaneous Approach (ICD-10-PCS; 2017-02-09)
PROC: 03P Upper Arteries, Removal (ICD-10-PCS; 2017-02-09)
PROC: B31T1ZZ Fluoroscopy of Left Pulmonary Artery using Low Osmolar Contrast (ICD-10-PCS; 2017-02-09)
PROC: B31S1ZZ Fluoroscopy of Right Pulmonary Artery using Low Osmolar Contrast (ICD-10-PCS; 2017-02-09)
PROC: 5A09357 Assistance with Respiratory Ventilation, Less than 24 Consecutive Hours, Continuous Positive Airway Pressure (ICD-10-PCS; 2017-02-13)
DX: A41.9 Sepsis, unspecified organism (principal); I26.99 Other pulmonary embolism without acute cor pulmonale; J96.01 Acute respiratory failure with hypoxia; G93.41 Metabolic encephalopathy; I63.9 Cerebral infarction, unspecified; E66.01 Morbid (severe) obesity due to excess calories; D62 Acute posthemorrhagic anemia; I10 Essential (primary) hypertension; E11.9 Type 2 diabetes mellitus without complications; K21.9 Gastro-esophageal reflux disease without esophagitis; E88.81 Metabolic syndrome and other insulin resistance; I82.411 Acute embolism and thrombosis of right femoral vein; I82.431 Acute embolism and thrombosis of right popliteal vein; I82.441 Acute embolism and thrombosis of right tibial vein; M19.011 Primary osteoarthritis, right shoulder; M17.0 Bilateral primary osteoarthritis of knee; Z88.6 Allergy status to analgesic agent; Z88.5 Allergy status to narcotic agent; Z68.43 Body mass index [BMI] 50.0-59.9, adult; Z71.3 Dietary counseling and surveillance; Q21.1 Atrial septal defect; Z90.710 Acquired absence of both cervix and uterus; Z83.3 Family history of diabetes mellitus; Z82.49 Family history of ischemic heart disease and other diseases of the circulatory system
CPT/HCPCS: 36415; 36600; 37191; 37211; 37214; 70450; 70496; 71010; 71275; 76937; 80048; 80061; 81001; 82140; 82550; 82553; 82803; 82805; 82962; 83735; 84484; 84550; 85014; 85018; 85025; 85027; 85049; 85384; 85520; 85610; 85670; 85730; 86850; 86900; 86901; 87040; 87086; 93005; 93010; 93306; 93880; 93970; 94660; 94760; A6250; A9270-GY; C1757; C1769; C1880; C1894; J1200; J1265; J1644; J2250; J2270; J2405; J2543; J2997; J3010; J3370; J3480; J7030; J7040; J7050; Q9967

== ENCOUNTER 2017-03-17 07:16 | Inpatient (IN) | payer OTHER ==
[2017-03-17 08:38] LABS: Basophils % (Auto) 0.6 % (0.0-1.8); Eosinophils % (Auto) 1.2 % (0.0-4.3); Hematocrit 37.1 % (30.3-42.9); Hemoglobin 12.3 gm/dl (10.1-14.3); Mean Corpuscular HGB Conc 33 % (30-34); Mean Corpuscular Volume 75 fl (79-97); Platelet Count 226 K/mm3 (140-440); Red Blood Count 4.95 M/mm3 (3.65-5.03); Red Cell Distribution Width 19.9 % (13.2-15.2); White Blood Count 8.2 K/mm3 (4.5-11.0)
[2017-03-17 08:39] LABS: Mean Corpuscular Hemoglobin 25 pg (28-32)
[2017-03-17 08:58] LABS: Alanine Aminotransferase 17 units/L (7-56); Albumin 3.6 g/dL (3.9-5); Albumin/Globulin Ratio 1.1 %; Alkaline Phosphatase 65 units/L (35-129); BUN/Creatinine Ratio 15; Blood Urea Nitrogen 6 mg/dL (7-17); Calcium 10.8 mg/dL (8.4-10.2); Carbon Dioxide 23 mmol/L (22-30); Glucose 119 mg/dL (65-100)
[2017-03-17 08:59] LABS: Anion Gap 20 mmol/L; Chloride 101.3 mmol/L (98-107); Sodium 141 mmol/L (137-145)
[2017-03-17] MEDS ORDERED: NACL 0.9% 250ML 250 ML IV ONE (09:17)
--- NOTE | 2017-03-17 09:18 | Emergency Department Report ---
ED General Adult HPI - General Chief complaint: Dyspnea/Respdistress Stated complaint: DARRIAN Time Seen by Provider: 03/17/17 09:03 Source: patient, EMS (ems notes not available at time of chart dictation), RN notes reviewed, old records reviewed Mode of arrival: Stretcher Limitations: Physical Limitation - History of Present Illness Initial comments: This is a 66-year-old female who was previously unknown to this provider. Patient has a past medical history of patent foramen ovale, reports recent endovascular closure at another hospital, also has a history of presumed stroke , hypertension, diabetes, obesity, massive pulmonary embolus at this hospital, status post catheter directed lysis, currently on anticoagulation; arturo Patient had an echocardiogram at this hospital recently which demonstrated an ejection fraction of 55-60% Patient presents to the ER with a complaint of shortness of breath. The shortness of breath is constant. He does not have exacerbating or relieving factors. The patient also describes chest pain, which is central, and does not radiate to the back, arms or neck. The patient denies abdominal pain but complains about feeling constipated. She is endorses compliance with her systemic anticoagulation. 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 Her symptoms are intermittent, and do not have exacerbating or relieving factors. The patient also feels like she is constipated. -: Gradual Location: chest, abdomen Severity scale (0 -10): 10 Consistency: intermittent Improves with: none Worsens with: none Associated Symptoms: chest pain, loss of appetite, shortness of breath, weakness - Related Data Home Medications Medication Instructions Recorded Confirmed Last Taken Ergocalciferol(Vitamin D2)(Nf) 50,000 unit PO Q7D 09/28/16 02/13/17 02/08/17 [Vitamin D (Nf)] Acetaminophen [Acetaminophen 8 650 mg PO Q6H PRN 10/05/16 02/13/17 02/08/17 Hour] Previous Rx's Medication Instructions Recorded Last Taken Type Apixaban [Eliquis] 10 mg PO Q12HR #60 tablet 02/15/17 Unknown Rx AtorvaSTATin [Lipitor] 40 mg PO QHS #30 tablet 02/15/17 Unknown Rx oxyCODONE /ACETAMINOPHEN [Percocet 1 tab PO Q6H PRN #10 tablet 02/15/17 Unknown Rx 5/325 mg] Allergies Allergy/AdvReac Type Severity Reaction Status Date / Time aspirin Allergy hives, Verified 03/17/17 08:08 itching codeine Allergy hives, Verified 03/17/17 08:08 itching ED Review of Systems ROS: Stated complaint: DARRIAN Other details as noted in HPI Constitutional: malaise. denies: fever Eyes: denies: vision change ENT: denies: epistaxis Respiratory: shortness of breath Cardiovascular: chest pain Gastrointestinal: constipation Musculoskeletal: arthralgia Skin: denies: lesions Neurological: weakness Psychiatric: as per HPI, anxiety ED Past Medical Hx - Past Medical History Hx Hypertension: Yes Hx Heart Attack/AMI: No Hx Congestive Heart Failure: No Hx Diabetes: Yes Hx GERD: Yes Hx Liver Disease: No Hx Renal Disease: No Hx Asthma: No Hx COPD: No Hx HIV: No - Surgical History Hx Breast Surgery: Yes (LEFT BREAST BIOPSY 2015) - Social History Smoking Status: Never Smoker Substance Use Type: None - Medications Home Medications: Home Medications Medication Instructions Recorded Confirmed Last Taken Type Ergocalciferol(Vitamin D2)(Nf) 50,000 unit PO Q7D 09/28/16 02/13/17 02/08/17 History [Vitamin D (Nf)] Acetaminophen [Acetaminophen 8 650 mg PO Q6H PRN 10/05/16 02/13/17 02/08/17 History Hour] Apixaban [Eliquis] 10 mg PO Q12HR #60 tablet 02/15/17 Unknown Rx AtorvaSTATin [Lipitor] 40 mg PO QHS #30 tablet 02/15/17 Unknown Rx oxyCODONE /ACETAMINOPHEN [Percocet 1 tab PO Q6H PRN #10 tablet 02/15/17 Unknown Rx 5/325 mg] ED Physical Exam - General Limitations: Physical Limitation General appearance: alert, in no apparent distress - Head Head exam: Present: atraumatic, normocephalic - Eye Eye exam: Present: normal appearance, EOMI. Absent: nystagmus - ENT ENT exam: Present: normal exam, normal orophraynx, mucous membranes moist, normal external ear exam - Neck Neck exam: Present: normal inspection, full ROM. Absent: tenderness, meningismus - Respiratory Respiratory exam: Present: normal lung sounds bilaterally. Absent: respiratory distress, wheezes, rales, rhonchi, stridor, chest wall tenderness, accessory muscle use, decreased breath sounds, prolonged expiratory - Cardiovascular Cardiovascular Exam: Present: regular rate, normal rhythm, normal heart sounds. Absent: bradycardia, tachycardia, irregular rhythm, systolic murmur, diastolic murmur, rubs, gallop - GI/Abdominal GI/Abdominal exam: Present: soft, normal bowel sounds. Absent: distended, tenderness, guarding, rebound, rigid, pulsatile mass - Rectal Rectal exam: Present: normal inspection, other (escurted by rn L Ortiz) - Extremities Exam Extremities exam: Present: normal inspection, full ROM, normal capillary refill , pedal edema, other (there is a scab noted to the right upper extremity which is tender, with no redness, pus or streaking). Absent: calf tenderness - Back Exam Back exam: Present: normal inspection, full ROM - Neurological Exam Neurological exam: Present: alert, motor sensory deficit (chronic weakness in the lower extremities, however the patient has 5 out of 5 strength with dorsi and plantar flexion.) - Psychiatric Psychiatric exam: Present: anxious - Skin Skin exam: Present: warm, dry, intact, normal color. Absent: rash ED Course Vital Signs 03/17/17 07:30 Temperature 98.7 F Pulse Rate 98 H Respiratory 18 Rate Blood Pressure 153/131 Blood Pressure 153/131 [Left] O2 Sat by Pulse 98 Oximetry ED Medical Decision Making - Lab Data Result diagrams: 03/17/17 08:25 03/17/17 08:25 Vital Signs 03/17/17 07:30 Temperature 98.7 F Pulse Rate 98 H Respiratory 18 Rate Blood Pressure 153/131 Blood Pressure 153/131 [Left] O2 Sat by Pulse 98 Oximetry Lab Results 03/17/17 03/17/17 03/17/17 Range/Units 08:25 08:25 09:10 WBC 8.2 (4.5-11.0) K/mm3 RBC 4.95 (3.65-5.03) M/mm3 Hgb 12.3 (10.1-14.3) gm/dl Hct 37.1 (30.3-42.9) % MCV 75 L (79-97) fl MCH 25 L (28-32) pg MCHC 33 (30-34) % RDW 19.9 H (13.2-15.2) % Plt Count 226 (140-440) K/mm3 Lymph % (Auto) 15.0 (13.4-35.0) % Blair % (Auto) 9.7 H (0.0-7.3) % Eos % (Auto) 1.2 (0.0-4.3) % Baso % (Auto) 0.6 (0.0-1.8) % Lymph # 1.2 (1.2-5.4) K/mm3 Blair # 0.8 (0.0-0.8) K/mm3 Eos # 0.1 (0.0-0.4) K/mm3 Baso # 0.0 (0.0-0.1) K/mm3 Seg Neutrophils % 73.5 H (40.0-70.0) % Seg Neutrophils # 6.0 (1.8-7.7) K/mm3 PT 16.0 H (12.2-14.9) Sec. INR 1.22 H (0.87-1.13) Sodium 141 (137-145) mmol/L Potassium 3.0 L (3.6-5.0) mmol/L Chloride 101.3 (98-107) mmol/L Carbon Dioxide 23 (22-30) mmol/L Anion Gap 20 mmol/L BUN 6 L (7-17) mg/dL Creatinine 0.4 L (0.7-1.2) mg/dL Estimated GFR > 60 ml/min BUN/Creatinine Ratio 15 % Glucose 119 H (65-100) mg/dL Calcium 10.8 H (8.4-10.2) mg/dL Magnesium (1.7-2.3) mg/dL Total Bilirubin 1.10 (0.1-1.2) mg/dL AST 21 (5-40) units/L ALT 17 (7-56) units/L Alkaline Phosphatase 65 (35-129) units/L NT-Pro-B Natriuret Pep (0-900) pg/mL Total Protein 7.0 (6.3-8.2) g/dL Albumin 3.6 L (3.9-5) g/dL Albumin/Globulin Ratio 1.1 % 03/17/17 Range/Units 09:10 WBC (4.5-11.0) K/mm3 RBC (3.65-5.03) M/mm3 Hgb (10.1-14.3) gm/dl Hct (30.3-42.9) % MCV (79-97) fl MCH (28-32) pg MCHC (30-34) % RDW (13.2-15.2) % Plt Count (140-440) K/mm3 Lymph % (Auto) (13.4-35.0) % Blair % (Auto) (0.0-7.3) % Eos % (Auto) (0.0-4.3) % Baso % (Auto) (0.0-1.8) % Lymph # (1.2-5.4) K/mm3 Blair # (0.0-0.8) K/mm3 Eos # (0.0-0.4) K/mm3 Baso # (0.0-0.1) K/mm3 Seg Neutrophils % (40.0-70.0) % Seg Neutrophils # (1.8-7.7) K/mm3 PT (12.2-14.9) Sec. INR (0.87-1.13) Sodium (137-145) mmol/L Potassium (3.6-5.0) mmol/L Chloride (98-107) mmol/L Carbon Dioxide (22-30) mmol/L Anion Gap mmol/L BUN (7-17) mg/dL Creatinine (0.7-1.2) mg/dL Estimated GFR ml/min BUN/Creatinine Ratio % Glucose (65-100) mg/dL Calcium (8.4-10.2) mg/dL Magnesium 2.20 (1.7-2.3) mg/dL Total Bilirubin (0.1-1.2) mg/dL AST (5-40) units/L ALT (7-56) units/L Alkaline Phosphatase (35-129) units/L NT-Pro-B Natriuret Pep 103.3 (0-900) pg/mL Total Protein (6.3-8.2) g/dL Albumin (3.9-5) g/dL Albumin/Globulin Ratio % - EKG Data -: EKG Interpreted by Wi - EKG Data 03/17/17 11:41 Sinus, 99 bpm, normal axis, normal intervals, not morphologically consistent with stemi - Radiology Data Radiology results: report reviewed, image reviewed CT scan of the chest is negative for acute disease. CT scan of the abdomen and pelvis negative for acute disease, with the exception of mild fecal retention, x-ray of the chest is negative - Medical Decision Making Differential diagnosis: Pneumonia, acute coronary syndrome, pulmonary embolus, pulmonary hypertension, constipation, retroperitoneal hematoma Assessment and plan: 66-year-old female with chest pain, shortness of breath, poor mobility, complex cardiac and medical history. CT scan of the chest, abdomen, pelvis negative for significant disease. Patient has poor mobility, multiple medical comorbidities, high risk by ERLINDA score, high risk by heart score, will be admitted for acute coronary syndrome risk stratification, patient presents to the Hospital physician, Dr. Khoury, who accepts the patient to his service. Critical care attestation.: If time is entered above; I have spent that time in minutes in the direct care of this critically ill patient, excluding procedure time. ED Disposition Clinical Impression: Chest pain, Dyspnea, Debility Disposition: OP ADMIT IP TO THIS HOSP Is pt being admited?: Yes Does the pt Need Aspirin: Yes Condition: Good
--- NOTE | 2017-03-17 09:22 | XRay Report ---
AP CHEST: HISTORY: Dyspnea AP view of the chest demonstrates a normal mediastinal and cardiac contour with clear lungs and normal bony and soft tissue structures. IMPRESSION: Unremarkable AP chest.
[2017-03-17] MEDS ORDERED: NACL ONE (09:31)
[2017-03-17 09:37] LABS: INR 1.22 (0.87-1.13)
[2017-03-17 09:40] LABS: Magnesium 2.2 mg/dL (1.7-2.3)
[2017-03-17] MEDS ORDERED: MAG-OX PO ONE (10:00)
--- NOTE | 2017-03-17 11:32 | Cat Scan Report ---
CTA CHEST: History: Chest pain, shortness of breath Technique: Helical CT following IV contrast. Pulmonary embolus protocol. Sagittal and coronal reformatted images. Rotational MIP images. Findings: Contrast bolus is satisfactory. No pulmonary embolus is identified. The thyroid gland, tracheobronchial tree, esophagus, heart, pericardium, mediastinal vessels, lung alvarez and bony thorax are unremarkable. Impression: No evidence for pulmonary embolus. Unremarkable CT chest with contrast.
--- NOTE | 2017-03-17 11:33 | Cat Scan Report ---
CT OF THE ABDOMEN AND PELVIS WITHOUT CONTRAST HISTORY: Abdominal pain, constipation. TECHNIQUE: Helical CT without contrast. Sagittal and coronal reformatted images. FINDINGS: At least one large gallstone measuring up to 2 cm is identified in the fundus of the gallbladder. No biliary dilatation or inflammation. The liver, pancreas, spleen, kidneys and adrenal glands are unremarkable. There are scattered diverticula in the distal colon. No evidence for obstruction or acute inflammation. There is moderate stool in the rectal vault. Normal appendix. An IVC filter is in place below the renal veins. The aorta is normal caliber and contains mild diffuse calcifications. No evidence for acute inflammation, free air, adenopathy or abscess. Hysterectomy changes are suspected. IMPRESSION: No acute abdominal process. Gallstone. Diverticulosis of the distal colon. Mild fecal retention in the rectum.
[2017-03-17] MEDS ORDERED: PLAVIX PO ONE (11:44)
[2017-03-17 13:42] LABS: Bilirubin,Urine NEG (Negative); Blood,Urine NEG (Negative); Ketones,Urine 20 mg/dL (Negative); Leukocyte Esterase,Urine MOD (Negative); Mucus,Urine FEW /HPF; Nitrite,Urine NEG (Negative); Protein,Urine <15 mg/dL mg/dL (Negative)
[2017-03-18] MEDS ORDERED: ZOFRAN IV PRN (00:44)
[2017-03-18] MEDS ORDERED: DILAUDID IV PRN (00:44)
[2017-03-18] MEDS ORDERED: DULCOLAX PR PRN (00:44)
[2017-03-18] MEDS ORDERED: MILK OF MAGNESIA PO PRN (00:44)
--- NOTE | 2017-03-18 00:44 | Event Note ---
Date: 03/17/17 See H/p in reports CHF exacerbation Hypertensivr urgency HLD Vitamin D def Chest pain -Had Lexiscan recently Severe Abd pain- sec to severe constipation
[2017-03-18] MEDS ORDERED: CEPHULAC PR PRN ×3 (00:45→12:10)
[2017-03-18] MEDS ORDERED: D5NS 1,000 ML IV SCH (01:00)
[2017-03-18 03:13] LABS: Anion Gap 22 mmol/L; BUN/Creatinine Ratio 15; Blood Urea Nitrogen 6 mg/dL (7-17); Calcium 10.7 mg/dL (8.4-10.2); Carbon Dioxide 21 mmol/L (22-30); Chloride 101.9 mmol/L (98-107); Glucose 112 mg/dL (65-100); Potassium 3.2 mmol/L (3.6-5.0); Sodium 142 mmol/L (137-145)
[2017-03-18 03:17] LABS: Creatine Kinase 64 units/L (30-135)
[2017-03-18 08:16] LABS: Creatine Kinase 67 units/L (30-135)
--- NOTE | 2017-03-18 10:41 | History and Physical Report ---
CHIEF COMPLAINT: 1. Shortness of breath. 2. Acute abdominal pain. HISTORY OF PRESENT ILLNESS: A 66-year-old female presents with increasing shortness of breath. Also, some chest pain, very nonspecific. It does not radiate. No diaphoresis. Shortness of breath on minimal exertion. The patient also has severe abdominal pain. The patient attributes it to severe constipation and fecal impaction. The patient wants something for relief of fecal impaction. The patient has history of hypertension, diabetes, obesity, and pulmonary embolism. The patient had catheter-directed lysis of the pulmonary embolism. PAST MEDICAL HISTORY: Significant for congestive heart failure, hypertension, gastroesophageal reflux disease, and type 2 diabetes. PAST SURGICAL HISTORY: Left breast biopsy in 2016. SOCIAL HISTORY: Does not smoke. No alcohol, no recreational drugs. FAMILY HISTORY: Significant for hypertension. CURRENT MEDICATIONS: Eliquis 10 mg q.12, Lipitor 40 mg daily, vitamin D 50,000 units q. weekly. REVIEW OF SYSTEMS: Significant for acute abdominal pain secondary to fecal impaction and also shortness of breath on minimal exertion and occasional chest pain. Otherwise, review of systems is negative. PHYSICAL EXAMINATION: GENERAL: Elderly female lying in bed comfortably and having some pain secondary to abdominal pain. VITAL SIGNS: Blood pressure is 153/131, temperature is 98.7, pulse is 98, respirations are 18, sats 98%. HEENT: Unremarkable. Pupils equal and reactive. NECK: Supple, no lymphadenopathy, no thyromegaly. LUNGS: Clear to auscultation and percussion. Good air entry. CARDIOVASCULAR: S1, S2 heard. No gallop, no murmur, no rub. Apical impulse in left fifth intercostal space and midclavicular line. ABDOMEN: Soft and benign. No hepatosplenomegaly. No guarding, no rigidity. Hernial orifices are normal. EXTREMITIES: Good pedal pulses. No pedal edema. CENTRAL NERVOUS SYSTEM: Alert and oriented x 4, nonfocal exam. LABORATORY DATA: CT of the abdomen shows fecal retention. X-ray of chest is negative. EKG shows sinus heart rate 99 per minute. No acute ST-T wave changes. ASSESSMENT AND PLAN: 1. Congestive heart failure exacerbation. IV Lasix initiated. The patient to get an echocardiogram. Optimize medications for congestive heart failure. 2. Hypertensive urgency. The patient initiated on losartan, Coreg, and hydralazine p.r.n. IV. 3. Acute abdominal pain secondary to constipation. Lactulose enema initiated. 4. Anticoagulation, the patient on Eliquis, continue Eliquis. 5. Vitamin D deficiency, continue vitamin D. 6. Hyperlipidemia, continue atorvastatin. 7. Chest pain, nonspecific, but cardiac enzymes and Lexiscan on Sunday morning. 8. Deep venous thrombosis prophylaxis, the patient on Eliquis, no need for Lovenox. [facility]# [id number] BRADY/NTS
[2017-03-18] MEDS: ELIQUIS PO SCH ×2 (11:59→22:32)
[2017-03-18] MEDS: HALFPRIN EC PO SCH (11:59)
[2017-03-18 13:48] LABS: Creatine Kinase MB 1.1 ng/mL (0.0-4.0)
[2017-03-18 13:49] LABS: Creatine Kinase 67 units/L (30-135)
[2017-03-18] MEDS: TYLENOL PO PRN (20:52)
--- NOTE | 2017-03-18 22:36 | Progress Note ---
Assessment and Plan - Patient Problems (1) Acute exacerbation of CHF (congestive heart failure) Current Visit: Yes Status: Acute Qualifiers: Congestive heart failure type: combined Qualified Code(s): I50.43 - Acute on chronic combined systolic (congestive) and diastolic (congestive) heart failure Plan to address problem: Improved Check ECHO report (2) Chest pain Current Visit: Yes Status: Resolved Qualifiers: Chest pain type: C Ischemic chest pain type: I Plan to address problem: Patient had a Lexiscan recently -hence not repeated today (3) Constipation Current Visit: Yes Status: Acute Qualifiers: Constipation type: unspecified constipation type Qualified Code(s): K59.00 - Constipation, unspecified Plan to address problem: Severe Lactulose enema/po Lactulose ordered Patient maybe discharged if she has a good BM-her main complaint (4) Morbid obesity Current Visit: No Status: Chronic (5) HTN (hypertension) Current Visit: Yes Status: Chronic Qualifiers: Hypertension type: essential hypertension Qualified Code(s): I10 - Essential (primary) hypertension Plan to address problem: well controlled (6) Anticoagulation adequate Current Visit: Yes Status: Chronic Plan to address problem: On Eliquis for DVT-to cont same (7) Vitamin D deficiency Current Visit: Yes Status: Chronic Plan to address problem: Cont Vit D (8) DVT prophylaxis Current Visit: No Status: Acute Subjective Date of service: 03/18/17 Principal diagnosis: CHF Exacerbation Constipation Interval history: Symptomatically better. No BM Lactulose to be given Objective - Constitutional Vitals: Vital Signs - 12hr 03/18/17 03/18/17 03/18/17 12:19 17:46 20:14 Temperature 98.7 F Pulse Rate 102 H 97 H 103 H Respiratory 18 Rate Blood Pressure 109/76 100/71 O2 Sat by Pulse 97 100 98 Oximetry 03/18/17 03/18/17 20:52 21:06 Temperature Pulse Rate Respiratory 20 20 Rate Blood Pressure O2 Sat by Pulse Oximetry General appearance: Present: well-nourished - EENT Eyes: PERRL, EOM intact ENT: hearing intact, clear oral mucosa Ears: bilateral: normal - Neck Neck: supple, normal ROM - Respiratory Respiratory effort: normal Respiratory: bilateral: CTA - Breasts Breasts: normal - Cardiovascular Heart rate: 80 Rhythm: regular Heart Sounds: Present: S1 & S2. Absent: gallop, rub Extremities: pulses intact, No edema, normal color, Full ROM - Gastrointestinal General gastrointestinal: Present: soft, non-tender, non-distended, normal bowel sounds Rectal Exam: deferred - Genitourinary Female genitourinary: normal - Integumentary Integumentary: clear, warm, dry - Musculoskeletal Musculoskeletal: 1, strength equal bilaterally - Neurologic Neurologic: moves all extremities - Psychiatric Psychiatric: memory intact, appropriate mood/affect, intact judgment & insight - Allied health notes Allied health notes reviewed: nursing, case management - Labs CBC & Chem 7: 03/19/17 05:40 03/19/17 05:40 Labs: Abnormal lab results 03/18/17 03/18/17 03/18/17 Range/Units 02:15 08:12 12:24 Potassium 3.2 L (3.6-5.0) mmol/L Carbon Dioxide 21 L (22-30) mmol/L BUN 6 L (7-17) mg/dL Creatinine 0.4 L (0.7-1.2) mg/dL Glucose 112 H (65-100) mg/dL POC Glucose 117 H 139 H (70-105) Calcium 10.7 H (8.4-10.2) mg/dL 03/18/17 Range/Units 17:52 Potassium (3.6-5.0) mmol/L Carbon Dioxide (22-30) mmol/L BUN (7-17) mg/dL Creatinine (0.7-1.2) mg/dL Glucose (65-100) mg/dL POC Glucose 124 H (70-105) Calcium (8.4-10.2) mg/dL
[2017-03-19 06:12] LABS: Basophils % (Auto) 0.4 % (0.0-1.8); Eosinophils % (Auto) 5.5 % (0.0-4.3); Hematocrit 34.5 % (30.3-42.9); Hemoglobin 11.3 gm/dl (10.1-14.3); Mean Corpuscular HGB Conc 33 % (30-34); Mean Corpuscular Volume 75 fl (79-97); Platelet Count 222 K/mm3 (140-440); White Blood Count 6.9 K/mm3 (4.5-11.0)
[2017-03-19 06:14] LABS: Mean Corpuscular Hemoglobin 25 pg (28-32)
[2017-03-19 06:32] LABS: Alanine Aminotransferase 16 units/L (7-56); Albumin 3.1 g/dL (3.9-5); Albumin/Globulin Ratio 0.9 %; Alkaline Phosphatase 59 units/L (35-129); BUN/Creatinine Ratio 23; Blood Urea Nitrogen 7 mg/dL (7-17); Calcium 10.2 mg/dL (8.4-10.2); Carbon Dioxide 23 mmol/L (22-30); Glucose 117 mg/dL (65-100); Total Protein 6.5 g/dL (6.3-8.2)
[2017-03-19 06:33] LABS: Anion Gap 18 mmol/L; Potassium 3.4 mmol/L (3.6-5.0); Sodium 139 mmol/L (137-145)
[2017-03-19] MEDS: NOVOLOG SUB-Q SCH ×4 (08:13→22:22)
[2017-03-19] MEDS: HALFPRIN EC PO SCH (10:12)
[2017-03-19] MEDS: ELIQUIS PO SCH ×2 (10:12→22:21)
[2017-03-19] MEDS ORDERED: REGLAN IV PRN ×2 (15:16→15:18)
--- NOTE | 2017-03-19 15:24 | Progress Note ---
Assessment and Plan Assessment and plan: Patient is 66-year-old woman with history of morbid obesity, functional quadriplegia, chroninc hypoxic respiratory failure on home oxygen due to PE, acute right leg DVT on Eliquis, PFO with recent CVA (Jan 2017) with left-sided hematemesis who presents with constipation, chest pain and shortness of breath. She denies ever having a colonoscopy, she is on 3 L oxygen, chest x-ray read as clear lungs, CTA chest negative for PE. -Constipation with loose stool: enema x 1 and consulted GI -CP, most likely pleuric chest pain: pain control and continue to monitor -Acute on chronic hypoxic respiratory failure: on 2 liters at home, now on 3l, continue to wean down to baseline, treat with nebs -SIRS due UTI: urine ctx and start abx -DVT prophylaxis: on Eliquis History Interval history: Patient was seen and examined. Follow-up on current diagnosis/constipation. Overnight uneventful. Patient denies any chest pain, shortness breath, nausea/ vomiting or severe headaches. Imaging, nursing note, chart, labs and old chart reviewed. Discussed with patient. She has loose stool but feels like constipation. Hospitalist Physical - Physical exam Narrative exam: GEN: morbid obesity bmi 50.2, WDWN, NAD, AWAKE, ALERT, ORIENTATED x 3 HEENT: NCAT, EOMI, PERRL, OP Clear NECK: supple, no adenopathy, no thyromegaly, no JVD CVS/HEART: RRR, NORMAL S1S2, NO JVD, pulses present bilaterally CHEST/LUNGS: CTA B, Symmetrical chest expansion, good air entry bilaterally GI/Abdomen: soft, NTND, good bowel sounds, no guarding or rebound /Bladder: no suprapubic tenderness, no CVA or paraspinal tenderness EXT/Skin: lymphedema bilateral legs MSK: lROM x 4 Neuro: CN 2-12 grossly intact, no new focal deficits Psych: calm - Constitutional Vitals: Temp Pulse Resp BP Pulse Ox 98.2 F 88 20 116/69 100 03/19/17 11:30 03/19/17 11:30 03/19/17 11:30 03/19/17 11:30 03/19/17 11:30 General appearance: Present: well-nourished Results - Labs CBC & Chem 7: 03/19/17 05:40 03/19/17 05:40 Labs: Laboratory Last Values WBC 6.9 K/mm3 (4.5-11.0) 03/19/17 05:40 RBC 4.60 M/mm3 (3.65-5.03) 03/19/17 05:40 Hgb 11.3 gm/dl (10.1-14.3) 03/19/17 05:40 Hct 34.5 % (30.3-42.9) 03/19/17 05:40 MCV 75 fl (79-97) L 03/19/17 05:40 MCH 25 pg (28-32) L 03/19/17 05:40 MCHC 33 % (30-34) 03/19/17 05:40 RDW 20.0 % (13.2-15.2) H 03/19/17 05:40 Plt Count 222 K/mm3 (140-440) 03/19/17 05:40 Lymph % (Auto) 17.5 % (13.4-35.0) 03/19/17 05:40 Wise % (Auto) 10.4 % (0.0-7.3) H 03/19/17 05:40 Eos % (Auto) 5.5 % (0.0-4.3) H 03/19/17 05:40 Baso % (Auto) 0.4 % (0.0-1.8) 03/19/17 05:40 Lymph # 1.2 K/mm3 (1.2-5.4) 03/19/17 05:40 Wise # 0.7 K/mm3 (0.0-0.8) 03/19/17 05:40 Eos # 0.4 K/mm3 (0.0-0.4) 03/19/17 05:40 Baso # 0.0 K/mm3 (0.0-0.1) 03/19/17 05:40 Seg Neutrophils % 66.2 % (40.0-70.0) 03/19/17 05:40 Seg Neutrophils # 4.6 K/mm3 (1.8-7.7) 03/19/17 05:40 PT 16.0 Sec. (12.2-14.9) H 03/17/17 09:10 INR 1.22 (0.87-1.13) H 03/17/17 09:10 Sodium 139 mmol/L (137-145) 03/19/17 05:40 Potassium 3.4 mmol/L (3.6-5.0) L 03/19/17 05:40 Chloride 101.0 mmol/L (98-107) 03/19/17 05:40 Carbon Dioxide 23 mmol/L (22-30) 03/19/17 05:40 Anion Gap 18 mmol/L 03/19/17 05:40 BUN 7 mg/dL (7-17) 03/19/17 05:40 Creatinine 0.3 mg/dL (0.7-1.2) L 03/19/17 05:40 Estimated GFR > 60 ml/min 03/19/17 05:40 BUN/Creatinine Ratio 23 % 03/19/17 05:40 Glucose 117 mg/dL (65-100) H 03/19/17 05:40 POC Glucose 115 (70-105) H 03/19/17 11:59 Calcium 10.2 mg/dL (8.4-10.2) 03/19/17 05:40 Magnesium 2.20 mg/dL (1.7-2.3) 03/17/17 09:10 Total Bilirubin 1.00 mg/dL (0.1-1.2) 03/19/17 05:40 AST 24 units/L (5-40) 03/19/17 05:40 ALT 16 units/L (7-56) 03/19/17 05:40 Alkaline Phosphatase 59 units/L (35-129) 03/19/17 05:40 Total Creatine Kinase 67 units/L (30-135) 03/18/17 13:19 CK-MB (CK-2) 1.1 ng/mL (0.0-4.0) 03/18/17 13:19 CK-MB (CK-2) Rel Index 1.6 (0-4) 03/18/17 13:19 Troponin T < 0.010 ng/mL (0.00-0.029) 03/18/17 13:19 NT-Pro-B Natriuret Pep 103.3 pg/mL (0-900) 03/17/17 09:10 Total Protein 6.5 g/dL (6.3-8.2) 03/19/17 05:40 Albumin 3.1 g/dL (3.9-5) L 03/19/17 05:40 Albumin/Globulin Ratio 0.9 % 03/19/17 05:40 Urine Color Yellow (Yellow) 03/17/17 13:20 Urine Turbidity Clear (Clear) 03/17/17 13:20 Urine pH 9.0 (5.0-7.0) H 03/17/17 13:20 Ur Specific [place] > 1.059 (1.003-1.030) H 03/17/17 13:20 Urine Protein <15 mg/dl mg/dL (Negative) 03/17/17 13:20 Urine Glucose (UA) Neg mg/dL (Negative) 03/17/17 13:20 Urine Ketones 20 mg/dL (Negative) 03/17/17 13:20 Urine Blood Neg (Negative) 03/17/17 13:20 Urine Nitrite Neg (Negative) 03/17/17 13:20 Urine Bilirubin Neg (Negative) 03/17/17 13:20 Urine Urobilinogen 2.0 mg/dL (<2.0) 03/17/17 13:20 Ur Leukocyte Esterase Mod (Negative) 03/17/17 13:20 Urine WBC (Auto) 13.0 /HPF (0.0-6.0) H 03/17/17 13:20 Urine RBC (Auto) 7.0 /HPF (0.0-6.0) 03/17/17 13:20 U Epithel Cells (Auto) 5.0 /HPF (0-13.0) 03/17/17 13:20 Urine Mucus Few /HPF 03/17/17 13:20
[2017-03-19] MEDS: ROCEPHIN/NS 1 GM/50 ML 1 GM/50 ML BAG IV SCH (16:54)
[2017-03-19] MEDS: DUONEB *Not for PRN Use IH SCH (20:35)
[2017-03-20] MEDS: NOVOLOG SUB-Q SCH ×3 (07:30→17:30)
[2017-03-20] MEDS: DUONEB *Not for PRN Use IH SCH ×2 (07:43→21:18)
[2017-03-20 08:15] LABS: Hematocrit 36.3 % (30.3-42.9); Hemoglobin 11.4 gm/dl (10.1-14.3); Mean Corpuscular HGB Conc 31 % (30-34); Mean Corpuscular Volume 76 fl (79-97); Platelet Count 231 K/mm3 (140-440); Red Blood Count 4.78 M/mm3 (3.65-5.03); White Blood Count 5.6 K/mm3 (4.5-11.0)
[2017-03-20 08:17] LABS: Mean Corpuscular Hemoglobin 24 pg (28-32)
[2017-03-20 08:18] LABS: Red Cell Distribution Width 20.6 % (13.2-15.2)
[2017-03-20 08:29] LABS: Anion Gap 18 mmol/L; BUN/Creatinine Ratio 18; Blood Urea Nitrogen 7 mg/dL (7-17); Calcium 10.1 mg/dL (8.4-10.2); Carbon Dioxide 26 mmol/L (22-30); Chloride 99.9 mmol/L (98-107); Glucose 119 mg/dL (65-100); Potassium 3.2 mmol/L (3.6-5.0); Sodium 141 mmol/L (137-145)
--- NOTE | 2017-03-20 08:51 | Gastroenterology Consultation ---
<WEINERRAFAELA SCOUT - Last Filed: 03/20/17 08:54> History of Present Illness - Reason for Consult Consult date: 03/20/17 constipation Requesting physician: ALEKSANDR MARTINEZ - History of Present Illness Ms. Jay is a 66 y/o AA female admitted with SOB with CP as well as constipation. She has a hx of functional quadriplegia, and is on home oxygen due to PE, acute right leg DVT on Eliquis, PFO with recent CVA (Jan 2017).She has never had a colonoscopy. She reports her BM are typically once per week, she has chronic constipation. She is not on any medications at home for constipation. CT revealed moderate stool burden in the sigmoid/ rectal area. She denies N/V or abdominal pain. Past History Past Medical History: COPD, diabetes, DVT, GERD, hypertension, pulmonary embolism, stroke Past Surgical History: No surgical history Social history: lives with family Family history: no significant family history Medications and Allergies Allergies Allergy/AdvReac Type Severity Reaction Status Date / Time codeine Allergy hives, Verified 03/17/17 08:08 itching Home Medications Medication Instructions Recorded Confirmed Last Taken Type Apixaban [Eliquis] 10 mg PO Q12HR #60 tablet 02/15/17 03/17/17 Unknown Rx AtorvaSTATin [Lipitor] 40 mg PO QHS #30 tablet 02/15/17 03/17/17 Unknown Rx Aspirin [Adult Low Dose Aspirin EC] 81 mg PO DAILY 03/17/17 03/17/17 Unknown History Active Meds: Active Medications Acetaminophen (Tylenol) 650 mg PO Q4H PRN PRN Reason: Pain MILD(1-3)/Fever >100.5/ALEXANDER Last Admin: 03/18/17 20:52 Dose: 650 mg Albuterol/Ipratropium (Duoneb *Not For Prn Use*) 1 ampul IH BIDRT [facility] Last Admin: 03/20/17 07:43 Dose: 1 ampul Apixaban (Eliquis) 5 mg PO Q12HR [facility] PRN Reason: Protocol Last Admin: 03/19/17 22:21 Dose: 5 mg Aspirin (Halfprin Ec) 81 mg PO DAILY [facility] Last Admin: 03/19/17 10:12 Dose: 81 mg Bisacodyl (Dulcolax) 10 mg DE QDAY PRN PRN Reason: Constipation unrelieved by MOM Hydromorphone HCl (Dilaudid) 0.5 mg IV Q3H PRN PRN Reason: Pain , Severe (7-10) Ceftriaxone Sodium (Rocephin/Ns 1 Gm/50 Ml) 1 gm in 50 mls @ 100 mls/hr IV Q24H [facility] PRN Reason: Protocol Last Admin: 03/19/17 16:54 Dose: 100 mls/hr Insulin Aspart (Novolog) 0 units SUB-Q ACHS [facility] PRN Reason: Protocol Last Admin: 03/19/17 22:22 Dose: Not Given Magnesium Hydroxide (Milk Of Magnesia) 30 ml PO Q4H PRN PRN Reason: Constipation Metoclopramide HCl (Reglan) 10 mg IV Q8H PRN PRN Reason: Nausea And Vomiting Last Admin: 03/19/17 18:44 Dose: 10 mg Metoclopramide HCl (Reglan) 10 mg IV Q8H PRN PRN Reason: Nausea And Vomiting Ondansetron HCl (Zofran) 4 mg IV Q8H PRN PRN Reason: N/V unrelieved by Reglan Review of Systems - Review of Systems All systems: negative Cardiovascular: chest pain Respiratory: shortness of breath Gastrointestinal: constipation Exam - Constitutional Vital Signs: Temp Pulse Resp BP Pulse Ox 98.2 F 87 18 118/76 100 03/20/17 08:00 03/20/17 08:00 03/20/17 08:00 03/20/17 08:00 03/20/17 08:00 General appearance: no acute distress - EENT Eyes: EOM intact ENT: hearing intact - Neck Neck: supple - Respiratory Respiratory effort: normal Respiratory: bilateral: CTA - Cardiovascular Rhythm: regular Heart Sounds: Present: S1 & S2 Extremities: pulses intact, abnormal - Gastrointestinal General gastrointestinal: Present: soft, non-tender, normal bowel sounds - Integumentary Integumentary: Present: warm, dry - Neurologic Neurological: alert and oriented x3 - Labs CBC & Chem 7: 03/20/17 07:30 03/20/17 07:30 Lab Results: Laboratory Results - last 24 hr 03/19/17 03/19/17 03/19/17 11:59 16:23 20:55 WBC RBC Hgb Hct MCV MCH MCHC RDW Plt Count Sodium Potassium Chloride Carbon Dioxide Anion Gap BUN Creatinine Estimated GFR BUN/Creatinine Ratio Glucose POC Glucose 115 H 86 104 Calcium 03/20/17 03/20/17 07:30 07:30 WBC 5.6 RBC 4.78 Hgb 11.4 Hct 36.3 MCV 76 L MCH 24 L MCHC 31 RDW 20.6 H Plt Count 231 Sodium 141 Potassium 3.2 L Chloride 99.9 Carbon Dioxide 26 Anion Gap 18 BUN 7 Creatinine 0.4 L Estimated GFR > 60 BUN/Creatinine Ratio 18 Glucose 119 H POC Glucose Calcium 10.1 Assessment and Plan 1. Constipation -She has received one enema, 3 small BM over the last 2 days. Will give dulcolax suppository. Start Miralax daily. Avoid narcotics. If suppository does not work, may need dis-impaction vs GGE. -Will follow. <JOVITA FLOYD - Last Filed: 03/20/17 21:07> Medications and Allergies Active Meds: Active Medications Acetaminophen (Tylenol) 650 mg PO Q4H PRN PRN Reason: Pain MILD(1-3)/Fever >100.5/AL[place]ANDER Last Admin: 03/18/17 20:52 Dose: 650 mg Albuterol/Ipratropium (Duoneb *Not For Prn Use*) 1 ampul IH BIDRT [facility] Last Admin: 03/20/17 07:43 Dose: 1 ampul Apixaban (Eliquis) 5 mg PO Q12HR [facility] PRN Reason: Protocol Last Admin: 03/20/17 11:43 Dose: 5 mg Aspirin (Halfprin Ec) 81 mg PO DAILY [facility] Last Admin: 03/20/17 11:44 Dose: 81 mg Bisacodyl (Dulcolax) 10 mg DE QDAY PRN PRN Reason: Constipation unrelieved by MOM Bisacodyl (Dulcolax) 10 mg DE ONCE [facility] Hydromorphone HCl (Dilaudid) 0.5 mg IV Q3H PRN PRN Reason: Pain , Severe (7-10) Ceftriaxone Sodium (Rocephin/Ns 1 Gm/50 Ml) 1 gm in 50 mls @ 100 mls/hr IV Q24H [facility] PRN Reason: Protocol Last Admin: 03/20/17 17:19 Dose: 100 mls/hr Insulin Aspart (Novolog) 0 units SUB-Q ACHS [facility] PRN Reason: Protocol Last Admin: 03/20/17 17:30 Dose: Not Given Magnesium Hydroxide (Milk Of Magnesia) 30 ml PO Q4H PRN PRN Reason: Constipation Metoclopramide HCl (Reglan) 10 mg IV Q8H PRN PRN Reason: Nausea And Vomiting Last Admin: 03/19/17 18:44 Dose: 10 mg Metoclopramide HCl (Reglan) 10 mg IV Q8H PRN PRN Reason: Nausea And Vomiting Ondansetron HCl (Zofran) 4 mg IV Q8H PRN PRN Reason: N/V unrelieved by Reglan Polyethylene Glycol (Miralax 3350) 17 gm PO QDAY [facility] Last Admin: 03/20/17 14:16 Dose: 17 gm Exam - Constitutional Vital Signs: Temp Pulse Resp BP Pulse Ox 99 F 102 H 18 116/77 95 03/20/17 16:00 03/20/17 16:00 03/20/17 16:00 03/20/17 16:00 03/20/17 16:00 - Labs CBC & Chem 7: 03/20/17 07:30 03/20/17 07:30 Lab Results: Laboratory Results - last 24 hr 03/19/17 03/20/17 03/20/17 20:55 07:30 07:30 WBC 5.6 RBC 4.78 Hgb 11.4 Hct 36.3 MCV 76 L MCH 24 L MCHC 31 RDW 20.6 H Plt Count 231 Sodium 141 Potassium 3.2 L Chloride 99.9 Carbon Dioxide 26 Anion Gap 18 BUN 7 Creatinine 0.4 L Estimated GFR > 60 BUN/Creatinine Ratio 18 Glucose 119 H POC Glucose 104 Calcium 10.1 Assessment and Plan Patient seen and examined. Agree with note by Ellen Weiner.
[2017-03-20] MEDS ORDERED: DULCOLAX PR SCH (11:30)
[2017-03-20] MEDS: ELIQUIS PO SCH (11:43)
[2017-03-20] MEDS: HALFPRIN EC PO SCH (11:44)
[2017-03-20] MEDS: MIRALAX 3350 PO SCH (14:16)
--- NOTE | 2017-03-20 15:43 | Progress Note ---
Assessment and Plan Assessment and plan: Patient is 66-year-old woman with history of morbid obesity, functional quadriplegia, chroninc hypoxic respiratory failure on home oxygen due to PE, acute right leg DVT on Eliquis, PFO with recent CVA (Jan 2017) with left-sided hematemesis who presents with constipation, chest pain and shortness of breath. She denies ever having a colonoscopy, she is on 3 L oxygen, chest x-ray read as clear lungs, CTA chest negative for PE. -Constipation with loose stool: enema x 1 and consulted GI, await final decision -CP, most likely pleuric chest pain venous thromboembolism: pain control and continue to monitor -Functional quadriplegia: PT/OT -DVT/PE: Continue anticoagulation due to immobility -Acute on chronic hypoxic respiratory failure: on 2 liters at home, now on 3l, continue to wean down to baseline, treat with nebs -SIRS due UTI: urine ctx and start abx -DVT prophylaxis: on Eliquis History Interval history: Patient was seen and examined. Follow-up on current diagnosis/constipation. Overnight uneventful. Patient denies any chest pain, shortness breath, nausea/ vomiting or severe headaches. Imaging, nursing note, chart, labs and old chart reviewed. Discussed with patient. She has loose stool but feels like constipation. Hospitalist Physical - Physical exam Narrative exam: GEN: morbid obesity bmi 50.2, WDWN, NAD, AWAKE, ALERT, ORIENTATED x 3 HEENT: NCAT, EOMI, PERRL, OP Clear NECK: supple, no adenopathy, no thyromegaly, no JVD CVS/HEART: RRR, NORMAL S1S2, NO JVD, pulses present bilaterally CHEST/LUNGS: CTA B, Symmetrical chest expansion, good air entry bilaterally GI/Abdomen: soft, NTND, good bowel sounds, no guarding or rebound /Bladder: no suprapubic tenderness, no CVA or paraspinal tenderness EXT/Skin: lymphedema bilateral legs MSK: lROM x 4 Neuro: CN 2-12 grossly intact, no new focal deficits Psych: calm - Constitutional Vitals: Temp Pulse Resp BP Pulse Ox 98.3 F 86 20 98/65 96 03/20/17 12:00 03/20/17 12:00 03/20/17 12:00 03/20/17 12:00 03/20/17 12:00 General appearance: Present: well-nourished Results - Labs CBC & Chem 7: 03/20/17 07:30 03/20/17 07:30 Labs: Laboratory Last Values WBC 5.6 K/mm3 (4.5-11.0) 03/20/17 07:30 RBC 4.78 M/mm3 (3.65-5.03) 03/20/17 07:30 Hgb 11.4 gm/dl (10.1-14.3) 03/20/17 07:30 Hct 36.3 % (30.3-42.9) 03/20/17 07:30 MCV 76 fl (79-97) L 03/20/17 07:30 MCH 24 pg (28-32) L 03/20/17 07:30 MCHC 31 % (30-34) 03/20/17 07:30 RDW 20.6 % (13.2-15.2) H 03/20/17 07:30 Plt Count 231 K/mm3 (140-440) 03/20/17 07:30 Lymph % (Auto) 17.5 % (13.4-35.0) 03/19/17 05:40 [place] % (Auto) 10.4 % (0.0-7.3) H 03/19/17 05:40 Eos % (Auto) 5.5 % (0.0-4.3) H 03/19/17 05:40 Baso % (Auto) 0.4 % (0.0-1.8) 03/19/17 05:40 Lymph # 1.2 K/mm3 (1.2-5.4) 03/19/17 05:40 [place] # 0.7 K/mm3 (0.0-0.8) 03/19/17 05:40 Eos # 0.4 K/mm3 (0.0-0.4) 03/19/17 05:40 Baso # 0.0 K/mm3 (0.0-0.1) 03/19/17 05:40 Seg Neutrophils % 66.2 % (40.0-70.0) 03/19/17 05:40 Seg Neutrophils # 4.6 K/mm3 (1.8-7.7) 03/19/17 05:40 PT 16.0 Sec. (12.2-14.9) H 03/17/17 09:10 INR 1.22 (0.87-1.13) H 03/17/17 09:10 Sodium 141 mmol/L (137-145) 03/20/17 07:30 Potassium 3.2 mmol/L (3.6-5.0) L 03/20/17 07:30 Chloride 99.9 mmol/L (98-107) 03/20/17 07:30 Carbon Dioxide 26 mmol/L (22-30) 03/20/17 07:30 Anion Gap 18 mmol/L 03/20/17 07:30 BUN 7 mg/dL (7-17) 03/20/17 07:30 Creatinine 0.4 mg/dL (0.7-1.2) L 03/20/17 07:30 Estimated GFR > 60 ml/min 03/20/17 07:30 BUN/Creatinine Ratio 18 % 03/20/17 07:30 Glucose 119 mg/dL (65-100) H 03/20/17 07:30 POC Glucose 104 (70-105) 03/19/17 20:55 Calcium 10.1 mg/dL (8.4-10.2) 03/20/17 07:30 Magnesium 2.20 mg/dL (1.7-2.3) 03/17/17 09:10 Total Bilirubin 1.00 mg/dL (0.1-1.2) 03/19/17 05:40 AST 24 units/L (5-40) 03/19/17 05:40 ALT 16 units/L (7-56) 03/19/17 05:40 Alkaline Phosphatase 59 units/L (35-129) 03/19/17 05:40 Total Creatine Kinase 67 units/L (30-135) 03/18/17 13:19 CK-MB (CK-2) 1.1 ng/mL (0.0-4.0) 03/18/17 13:19 CK-MB (CK-2) Rel Index 1.6 (0-4) 03/18/17 13:19 Troponin T < 0.010 ng/mL (0.00-0.029) 03/18/17 13:19 NT-Pro-B Natriuret Pep 103.3 pg/mL (0-900) 03/17/17 09:10 Total Protein 6.5 g/dL (6.3-8.2) 03/19/17 05:40 Albumin 3.1 g/dL (3.9-5) L 03/19/17 05:40 Albumin/Globulin Ratio 0.9 % 03/19/17 05:40 Urine Color Yellow (Yellow) 03/17/17 13:20 Urine Turbidity Clear (Clear) 03/17/17 13:20 Urine pH 9.0 (5.0-7.0) H 03/17/17 13:20 Ur Specific [place] > 1.059 (1.003-1.030) H 03/17/17 13:20 Urine Protein <15 mg/dl mg/dL (Negative) 03/17/17 13:20 Urine Glucose (UA) Neg mg/dL (Negative) 03/17/17 13:20 Urine Ketones 20 mg/dL (Negative) 03/17/17 13:20 Urine Blood Neg (Negative) 03/17/17 13:20 Urine Nitrite Neg (Negative) 03/17/17 13:20 Urine Bilirubin Neg (Negative) 03/17/17 13:20 Urine Urobilinogen 2.0 mg/dL (<2.0) 03/17/17 13:20 Ur Leukocyte Esterase Mod (Negative) 03/17/17 13:20 Urine WBC (Auto) 13.0 /HPF (0.0-6.0) H 03/17/17 13:20 Urine RBC (Auto) 7.0 /HPF (0.0-6.0) 03/17/17 13:20 U Epithel Cells (Auto) 5.0 /HPF (0-13.0) 03/17/17 13:20 Urine Mucus Few /HPF 03/17/17 13:20
[2017-03-20] MEDS: ROCEPHIN/NS 1 GM/50 ML 1 GM/50 ML BAG IV SCH (17:19)
[2017-03-21] MEDS: NOVOLOG SUB-Q SCH ×4 (04:04→22:59)
[2017-03-21] MEDS: DUONEB *Not for PRN Use IH SCH ×2 (09:06→19:50)
[2017-03-21] MEDS: HALFPRIN EC PO SCH (10:09)
[2017-03-21] MEDS: ELIQUIS PO SCH ×2 (10:09)
[2017-03-21] MEDS: MIRALAX 3350 PO SCH (10:09)
--- NOTE | 2017-03-21 16:24 | Progress Note ---
Assessment and Plan Assessment and plan: Patient is 66-year-old woman with history of morbid obesity, functional quadriplegia, chroninc hypoxic respiratory failure on home oxygen due to PE, acute right leg DVT on Eliquis, PFO with recent CVA (Jan 2017) with left-sided hematemesis who presents with constipation, chest pain and shortness of breath. She denies ever having a colonoscopy, she is on 3 L oxygen, chest x-ray read as clear lungs, CTA chest negative for PE. -Constipation with loose stool: enema x 1 and consulted GI, await final decision , called Dr. Pérez and spoke with history, will try another enema==>Colonoscopy tomorrow, hold Eliquis -CP, most likely pleuric chest pain venous thromboembolism: pain control and continue to monitor -Functional quadriplegia: PT/OT -DVT/PE: Continue anticoagulation due to immobility -Acute on chronic hypoxic respiratory failure: on 2 liters at home, now on 3l, continue to wean down to baseline, treat with nebs -SIRS due UTI: urine ctx and start abx -DVT prophylaxis: on Eliquis History Interval history: Patient was seen and examined. Follow-up on current diagnosis/constipation. Overnight uneventful. Patient denies any chest pain, shortness breath, nausea/ vomiting or severe headaches. Imaging, nursing note, chart, labs and old chart reviewed. Discussed with patient. She has loose stool but feels like constipation. Hospitalist Physical - Physical exam Narrative exam: GEN: morbid obesity bmi 50.2, WDWN, NAD, AWAKE, ALERT, ORIENTATED x 3 HEENT: NCAT, EOMI, PERRL, OP Clear NECK: supple, no adenopathy, no thyromegaly, no JVD CVS/HEART: RRR, NORMAL S1S2, NO JVD, pulses present bilaterally CHEST/LUNGS: CTA B, Symmetrical chest expansion, good air entry bilaterally GI/Abdomen: soft, NTND, good bowel sounds, no guarding or rebound /Bladder: no suprapubic tenderness, no CVA or paraspinal tenderness EXT/Skin: lymphedema bilateral legs MSK: lROM x 4 Neuro: CN 2-12 grossly intact, no new focal deficits Psych: calm - Constitutional Vitals: Temp Pulse Resp BP Pulse Ox 98.0 F 86 18 123/76 94 03/21/17 01:23 03/21/17 10:00 03/21/17 10:00 03/21/17 01:23 03/21/17 10:00 General appearance: Present: well-nourished Results - Labs CBC & Chem 7: 03/20/17 07:30 03/20/17 07:30 Labs: Laboratory Last Values WBC 5.6 K/mm3 (4.5-11.0) 03/20/17 07:30 RBC 4.78 M/mm3 (3.65-5.03) 03/20/17 07:30 Hgb 11.4 gm/dl (10.1-14.3) 03/20/17 07:30 Hct 36.3 % (30.3-42.9) 03/20/17 07:30 MCV 76 fl (79-97) L 03/20/17 07:30 MCH 24 pg (28-32) L 03/20/17 07:30 MCHC 31 % (30-34) 03/20/17 07:30 RDW 20.6 % (13.2-15.2) H 03/20/17 07:30 Plt Count 231 K/mm3 (140-440) 03/20/17 07:30 Lymph % (Auto) 17.5 % (13.4-35.0) 03/19/17 05:40 [place] % (Auto) 10.4 % (0.0-7.3) H 03/19/17 05:40 Eos % (Auto) 5.5 % (0.0-4.3) H 03/19/17 05:40 Baso % (Auto) 0.4 % (0.0-1.8) 03/19/17 05:40 Lymph # 1.2 K/mm3 (1.2-5.4) 03/19/17 05:40 [place] # 0.7 K/mm3 (0.0-0.8) 03/19/17 05:40 Eos # 0.4 K/mm3 (0.0-0.4) 03/19/17 05:40 Baso # 0.0 K/mm3 (0.0-0.1) 03/19/17 05:40 Seg Neutrophils % 66.2 % (40.0-70.0) 03/19/17 05:40 Seg Neutrophils # 4.6 K/mm3 (1.8-7.7) 03/19/17 05:40 PT 16.0 Sec. (12.2-14.9) H 03/17/17 09:10 INR 1.22 (0.87-1.13) H 03/17/17 09:10 Sodium 141 mmol/L (137-145) 03/20/17 07:30 Potassium 3.2 mmol/L (3.6-5.0) L 03/20/17 07:30 Chloride 99.9 mmol/L (98-107) 03/20/17 07:30 Carbon Dioxide 26 mmol/L (22-30) 03/20/17 07:30 Anion Gap 18 mmol/L 03/20/17 07:30 BUN 7 mg/dL (7-17) 03/20/17 07:30 Creatinine 0.4 mg/dL (0.7-1.2) L 03/20/17 07:30 Estimated GFR > 60 ml/min 03/20/17 07:30 BUN/Creatinine Ratio 18 % 03/20/17 07:30 Glucose 119 mg/dL (65-100) H 03/20/17 07:30 POC Glucose 122 (70-105) H 03/20/17 21:47 Calcium 10.1 mg/dL (8.4-10.2) 03/20/17 07:30 Magnesium 2.20 mg/dL (1.7-2.3) 03/17/17 09:10 Total Bilirubin 1.00 mg/dL (0.1-1.2) 03/19/17 05:40 AST 24 units/L (5-40) 03/19/17 05:40 ALT 16 units/L (7-56) 03/19/17 05:40 Alkaline Phosphatase 59 units/L (35-129) 03/19/17 05:40 Total Creatine Kinase 67 units/L (30-135) 03/18/17 13:19 CK-MB (CK-2) 1.1 ng/mL (0.0-4.0) 03/18/17 13:19 CK-MB (CK-2) Rel Index 1.6 (0-4) 03/18/17 13:19 Troponin T < 0.010 ng/mL (0.00-0.029) 03/18/17 13:19 NT-Pro-B Natriuret Pep 103.3 pg/mL (0-900) 03/17/17 09:10 Total Protein 6.5 g/dL (6.3-8.2) 03/19/17 05:40 Albumin 3.1 g/dL (3.9-5) L 03/19/17 05:40 Albumin/Globulin Ratio 0.9 % 03/19/17 05:40 Urine Color Yellow (Yellow) 03/17/17 13:20 Urine Turbidity Clear (Clear) 03/17/17 13:20 Urine pH 9.0 (5.0-7.0) H 03/17/17 13:20 Ur Specific [place] > 1.059 (1.003-1.030) H 03/17/17 13:20 Urine Protein <15 mg/dl mg/dL (Negative) 03/17/17 13:20 Urine Glucose (UA) Neg mg/dL (Negative) 03/17/17 13:20 Urine Ketones 20 mg/dL (Negative) 03/17/17 13:20 Urine Blood Neg (Negative) 03/17/17 13:20 Urine Nitrite Neg (Negative) 03/17/17 13:20 Urine Bilirubin Neg (Negative) 03/17/17 13:20 Urine Urobilinogen 2.0 mg/dL (<2.0) 03/17/17 13:20 Ur Leukocyte Esterase Mod (Negative) 03/17/17 13:20 Urine WBC (Auto) 13.0 /HPF (0.0-6.0) H 03/17/17 13:20 Urine RBC (Auto) 7.0 /HPF (0.0-6.0) 03/17/17 13:20 U Epithel Cells (Auto) 5.0 /HPF (0-13.0) 03/17/17 13:20 Urine Mucus Few /HPF 03/17/17 13:20
[2017-03-21] MEDS ORDERED: DULCOLAX PO ONE (16:26)
[2017-03-21] MEDS ORDERED: GOLYTELY PO ONE (16:26)
--- NOTE | 2017-03-21 16:34 | Gastroenterology Progress Note ---
Assessment and Plan 1. Chronic constipation 2. h/o DVT on mcfp anticoagulation 3. Functional quadriplegia -given no prior colonoscopy and anticoagulation needs, will plan for colonoscopy tomorrow (screening and possibly therapeutic as well given fecal impaction) -prep this evening, clear liquid diet rest of today, NPO at midnight Subjective Date of service: 03/21/17 Principal diagnosis: CHF Exacerbation Constipation Interval history: pt continues to have complaints of lower abd pain and constipation. no bm since yesterday. denies gi bleeding, tolerating po Objective - Constitutional Vitals: Temp Pulse Resp BP Pulse Ox 98.0 F 86 18 123/76 94 03/21/17 01:23 03/21/17 10:00 03/21/17 10:00 03/21/17 01:23 03/21/17 10:00 General appearance: no acute distress, obese - Respiratory Respiratory effort: normal Respiratory: bilateral: CTA - Cardiovascular Rhythm: regular Heart Sounds: Present: S1 & S2 - Gastrointestinal General gastrointestinal: Present: soft, tender, non-distended - Neurologic Neurological: alert and oriented x3 - Psychiatric Psychiatric: appropriate mood/affect - Labs CBC & Chem 7: 03/20/17 07:30 03/20/17 07:30 Labs: Laboratory Results - last 24 hr 03/20/17 03/20/17 03/20/17 11:34 15:44 21:47 POC Glucose 115 H 146 H 122 H
[2017-03-21] MEDS: ROCEPHIN/NS 1 GM/50 ML 1 GM/50 ML BAG IV SCH (16:58)
[2017-03-22] MEDS ORDERED: WATER FOR IRRIG STERILE IR ONE (07:29)
[2017-03-22] MEDS ORDERED: WATER FOR IRRIG STERILE ONE (07:30)
[2017-03-22] MEDS: NOVOLOG SUB-Q SCH ×5 (08:00→23:03)
[2017-03-22] MEDS: DUONEB *Not for PRN Use IH SCH ×2 (09:24→19:33)
[2017-03-22] MEDS: NACL 0.9% 1000 ML 1,000 ML IV SCH (09:51)
--- NOTE | 2017-03-22 10:53 | Anesthesia Day of Surgery ---
Anesthesia Day of Surgery - Day of Surgery Patient Examined: Yes Patient H&P Reviewed: Yes Patient is NPO: Yes
--- NOTE | 2017-03-22 10:55 | Anesthesia Consultation ---
Anesthesia Consult and Med Hx Date of service: 03/22/17 - Airway Anesthetic Teeth Evaluation: Edentulous ROM Head & Neck: Adequate Mental/Hyoid Distance: Adequate Mallampati Class: Class II Intubation Access Assessment: Probably Good - Pulmonary Exam CTA: Yes - Cardiac Exam Cardiac Exam: RRR - Pre-Operative Health Status ASA Pre-Surgery Classification: ASA3 Proposed Anesthetic Plan: MAC - Pulmonary Hx Smoking: Yes (Quite in 1985) Hx Asthma: No COPD: No Hx Pneumonia: No - Cardiovascular System Hx Hypertension: Yes Hx Coronary Artery Disease: No Hx Heart Attack/AMI: No Hx Angina: Yes - Central Nervous System CVA: Yes (January 2017) Hx Back Pain: Yes Hx Psychiatric Problems: No - Gastrointestinal Hx Gastroesophageal Reflux Disease: Yes (no meds) - Endocrine Hx Renal Disease: No Hx End Stage Renal Disease: No Hx Liver Disease: No Hx Non-Insulin Dependent Diabetes: No Hx Hypothyroidism: No - Other Systems Hx Alcohol Use: Yes (occas) Hx Cancer: No Hx Obesity: Yes (Wt. 398lb) - Additional Comments Anesthesia Medical History Comments: Quadrapalegic
[2017-03-22] MEDS ORDERED: AMIDATE IV ONE ×2 (10:59→11:09)
[2017-03-22] MEDS ORDERED: DIPRIVAN 10 MG/ML IV ONE (11:38)
[2017-03-22] MEDS ORDERED: ADRENALIN ONE (11:39)
[2017-03-22] MEDS ORDERED: ADRENALIN IV ONE (11:40)
--- NOTE | 2017-03-22 11:53 | Post Operative Note ---
Pre-op diagnosis: gi bleed, fecal impaction, change in bowel habits Post-op diagnosis: other (fecal impaction (manual disimpaction performed), rectal ulcer with active bleeding/high risk stigmata s/p hemostasis) Findings: Colonoscopy: fecal impaction s/p disimpaction rectal ulcer with active bleeding/high risk stigmata Diffuse diverticulosis Procedure: colonoscopy with control of bleeding 1. Rectal ulcer with active bleeding and visible vessel - treated with epi injection (3 cc total0 and endoclip placement with hemostasis 2. Fecal impaction (likely cause of rectal ulcer) s/p disimpaction 3. Diffuse diverticulosis Anesthesia: MAC Surgeon: JOVITA FLOYD Estimated blood loss: minimal Pathology: none Condition: stable Disposition: floor
--- NOTE | 2017-03-22 12:02 | Operative Report ---
Operative Report Operative Report: Date of procedure: 03/22/2017 Procedure: Colonoscopy with control of bleeding Endoscopist: Moiz Pérez Pre-op diagnosis: GI bleeding, change in bowel habits, abdominal pain Post-op diagnosis: Rectal ulcer with visible vessel/active bleeding s/p treatment/hemostasis. Fecal impaction in rectum. Diffuse diverticulosis Anesthesia: MAC Complications: No immediate complications Estimated blood loss: minimal Procedure: After consent was obtained, the patient was placed in the left lateral decubitus positions. The fujinon colonoscope was passed into the rectum under direct vision, and advanced to the cecum. The procedure was technically difficult due to patient's body habitus and turtuous colon. The patient tolerated the procedure well. The quality of prep was fair. The views of the mucosa were fair. The patient's vital signs were monitored continuously throughout the procedure. Findings: There was fecal impaction on CARMELO. There was active bleeding from rectum prior to insertion of colonoscope. Upon initial exam, there was a moderate-large amount of hard stool in the rectum. Adjacent to this, there was a rectal ulcer with visible vessel/active bleeding in the distal portion of the rectum (likely due to chronic fecal impaction). Hemostasis was achieved with epinephrine injection (3 cc total in three quadrants) and hemoclip placement. There was severe diverticulosis throughout the colon. Manual disimpaction was performed of rectal stool impaction. Impression: 1. Rectal ulcer with visible vessel/active bleeding - treated with epinephrine injection and hemoclip placement with hemostasis 2. Fecal impaction (manual disimpaction performed) 3. Diffuse diverticulosis Recommendations: -High fiber diet daily -Bowel regimen daily (miralax BID), avoid enemas -Limit medications (narcotics) that can worsen constipation -[place] suppository BID x 2 weeks -If no further bleeding after 24-48 hours, okay to restart anticoagulation while monitoring for bleeding
[2017-03-22] MEDS: HALFPRIN EC PO SCH (14:12)
[2017-03-22] MEDS: MIRALAX 3350 PO SCH (14:13)
--- NOTE | 2017-03-22 17:46 | Progress Note ---
Assessment and Plan Assessment and plan: Patient is 66-year-old woman with history of morbid obesity, functional quadriplegia, chronic hypoxic respiratory failure on home oxygen due to PE, acute right leg DVT on Eliquis, PFO with recent CVA (Jan 2017) with left-sided hematemesis who presents with constipation, chest pain and shortness of breath. She denies ever having a colonoscopy, she is on 3 L oxygen, chest x-ray read as clear lungs, CTA chest negative for PE. -Constipation with loose stool: enema x 1 and consulted GI, await final decision , called Dr. Pérez and spoke with history, will try another enema==>Colonoscopy tomorrow, hold Eliquis -CP, most likely pleuric chest pain venous thromboembolism: pain control and continue to monitor -Functional quadriplegia: PT/OT -DVT/PE: Continue anticoagulation due to immobility -Acute on chronic hypoxic respiratory failure: on 2 liters at home, now on 3l, continue to wean down to baseline, treat with nebs -SIRS due UTI: urine ctx and start abx -DVT prophylaxis: on Eliquis 03/22/17 per GI, DR. Pérez, Colonoscopy Impression: 1. Rectal ulcer with visible vessel/active bleeding - treated with epinephrine injection and hemoclip placement with hemostasis 2. Fecal impaction (manual disimpaction performed) 3. Diffuse diverticulosis Recommendations: -High fiber diet daily -Bowel regimen daily (miralax BID), avoid enemas -Limit medications (narcotics) that can worsen constipation -Canasa suppository BID x 2 weeks -If no further bleeding after 24-48 hours, okay to restart anticoagulation while monitoring for bleeding History Interval history: Patient was seen and examined. Follow-up on current diagnosis/constipation. Overnight uneventful. Patient denies any chest pain, shortness breath, nausea/ vomiting or severe headaches. Imaging, nursing note, chart, labs and old chart reviewed. Discussed with patient. She has loose stool but feels like constipation. Hospitalist Physical - Physical exam Narrative exam: GEN: morbid obesity bmi 50.2, WDWN, NAD, AWAKE, ALERT, ORIENTATED x 3 HEENT: NCAT, EOMI, PERRL, OP Clear NECK: supple, no adenopathy, no thyromegaly, no JVD CVS/HEART: RRR, NORMAL S1S2, NO JVD, pulses present bilaterally CHEST/LUNGS: CTA B, Symmetrical chest expansion, good air entry bilaterally GI/Abdomen: soft, NTND, good bowel sounds, no guarding or rebound /Bladder: no suprapubic tenderness, no CVA or paraspinal tenderness EXT/Skin: lymphedema bilateral legs MSK: lROM x 4 Neuro: CN 2-12 grossly intact, no new focal deficits Psych: calm - Constitutional Vitals: Temp Pulse Resp BP Pulse Ox 98.7 F 85 14 135/65 100 03/22/17 11:57 03/22/17 12:51 03/22/17 12:51 03/22/17 12:51 03/22/17 12:51 General appearance: Present: well-nourished Results - Labs CBC & Chem 7: 03/20/17 07:30 03/20/17 07:30 Labs: Laboratory Last Values WBC 5.6 K/mm3 (4.5-11.0) 03/20/17 07:30 RBC 4.78 M/mm3 (3.65-5.03) 03/20/17 07:30 Hgb 11.4 gm/dl (10.1-14.3) 03/20/17 07:30 Hct 36.3 % (30.3-42.9) 03/20/17 07:30 MCV 76 fl (79-97) L 03/20/17 07:30 MCH 24 pg (28-32) L 03/20/17 07:30 MCHC 31 % (30-34) 03/20/17 07:30 RDW 20.6 % (13.2-15.2) H 03/20/17 07:30 Plt Count 231 K/mm3 (140-440) 03/20/17 07:30 Lymph % (Auto) 17.5 % (13.4-35.0) 03/19/17 05:40 [place] % (Auto) 10.4 % (0.0-7.3) H 03/19/17 05:40 Eos % (Auto) 5.5 % (0.0-4.3) H 03/19/17 05:40 Baso % (Auto) 0.4 % (0.0-1.8) 03/19/17 05:40 Lymph # 1.2 K/mm3 (1.2-5.4) 03/19/17 05:40 [place] # 0.7 K/mm3 (0.0-0.8) 03/19/17 05:40 Eos # 0.4 K/mm3 (0.0-0.4) 03/19/17 05:40 Baso # 0.0 K/mm3 (0.0-0.1) 03/19/17 05:40 Seg Neutrophils % 66.2 % (40.0-70.0) 03/19/17 05:40 Seg Neutrophils # 4.6 K/mm3 (1.8-7.7) 03/19/17 05:40 PT 16.0 Sec. (12.2-14.9) H 03/17/17 09:10 INR 1.22 (0.87-1.13) H 03/17/17 09:10 Sodium 141 mmol/L (137-145) 03/20/17 07:30 Potassium 3.2 mmol/L (3.6-5.0) L 03/20/17 07:30 Chloride 99.9 mmol/L (98-107) 03/20/17 07:30 Carbon Dioxide 26 mmol/L (22-30) 03/20/17 07:30 Anion Gap 18 mmol/L 03/20/17 07:30 BUN 7 mg/dL (7-17) 03/20/17 07:30 Creatinine 0.4 mg/dL (0.7-1.2) L 03/20/17 07:30 Estimated GFR > 60 ml/min 03/20/17 07:30 BUN/Creatinine Ratio 18 % 03/20/17 07:30 Glucose 119 mg/dL (65-100) H 03/20/17 07:30 POC Glucose 125 (70-105) H 03/22/17 08:49 Calcium 10.1 mg/dL (8.4-10.2) 03/20/17 07:30 Magnesium 2.20 mg/dL (1.7-2.3) 03/17/17 09:10 Total Bilirubin 1.00 mg/dL (0.1-1.2) 03/19/17 05:40 AST 24 units/L (5-40) 03/19/17 05:40 ALT 16 units/L (7-56) 03/19/17 05:40 Alkaline Phosphatase 59 units/L (35-129) 03/19/17 05:40 Total Creatine Kinase 67 units/L (30-135) 03/18/17 13:19 CK-MB (CK-2) 1.1 ng/mL (0.0-4.0) 03/18/17 13:19 CK-MB (CK-2) Rel Index 1.6 (0-4) 03/18/17 13:19 Troponin T < 0.010 ng/mL (0.00-0.029) 03/18/17 13:19 NT-Pro-B Natriuret Pep 103.3 pg/mL (0-900) 03/17/17 09:10 Total Protein 6.5 g/dL (6.3-8.2) 03/19/17 05:40 Albumin 3.1 g/dL (3.9-5) L 03/19/17 05:40 Albumin/Globulin Ratio 0.9 % 03/19/17 05:40 Urine Color Yellow (Yellow) 03/17/17 13:20 Urine Turbidity Clear (Clear) 03/17/17 13:20 Urine pH 9.0 (5.0-7.0) H 03/17/17 13:20 Ur Specific [place] > 1.059 (1.003-1.030) H 03/17/17 13:20 Urine Protein <15 mg/dl mg/dL (Negative) 03/17/17 13:20 Urine Glucose (UA) Neg mg/dL (Negative) 03/17/17 13:20 Urine Ketones 20 mg/dL (Negative) 03/17/17 13:20 Urine Blood Neg (Negative) 03/17/17 13:20 Urine Nitrite Neg (Negative) 03/17/17 13:20 Urine Bilirubin Neg (Negative) 03/17/17 13:20 Urine Urobilinogen 2.0 mg/dL (<2.0) 03/17/17 13:20 Ur Leukocyte Esterase Mod (Negative) 03/17/17 13:20 Urine WBC (Auto) 13.0 /HPF (0.0-6.0) H 03/17/17 13:20 Urine RBC (Auto) 7.0 /HPF (0.0-6.0) 03/17/17 13:20 U Epithel Cells (Auto) 5.0 /HPF (0-13.0) 03/17/17 13:20 Urine Mucus Few /HPF 03/17/17 13:20
[2017-03-22] MEDS: ROCEPHIN/NS 1 GM/50 ML 1 GM/50 ML BAG IV SCH (17:59)
[2017-03-23] MEDS ORDERED: PROVENTIL IH ONE (03:29)
[2017-03-23] MEDS ORDERED: PROVENTIL IH PRN (05:44)
[2017-03-23] MEDS: DUONEB *Not for PRN Use IH SCH ×2 (07:15→20:25)
[2017-03-23] MEDS: NOVOLOG SUB-Q SCH ×2 (07:30→22:20)
[2017-03-23 08:07] LABS: Mean Corpuscular HGB Conc 31 % (30-34); Mean Corpuscular Volume 80 fl (79-97); Platelet Count 221 K/mm3 (140-440); Red Blood Count 4.71 M/mm3 (3.65-5.03); White Blood Count 8.9 K/mm3 (4.5-11.0)
[2017-03-23 08:11] LABS: Hematocrit 37.4 % (30.3-42.9); Hemoglobin 11.5 gm/dl (10.1-14.3)
[2017-03-23 08:12] LABS: Mean Corpuscular Hemoglobin 24 pg (28-32)
[2017-03-23 08:43] LABS: Anion Gap 21 mmol/L; BUN/Creatinine Ratio 20; Blood Urea Nitrogen 6 mg/dL (7-17); Calcium 10.2 mg/dL (8.4-10.2); Carbon Dioxide 25 mmol/L (22-30); Chloride 102.9 mmol/L (98-107); Glucose 108 mg/dL (65-100); Potassium 3.2 mmol/L (3.6-5.0); Sodium 146 mmol/L (137-145)
[2017-03-23] MEDS: MIRALAX 3350 PO SCH (09:41)
[2017-03-23] MEDS: HALFPRIN EC PO SCH (09:41)
--- NOTE | 2017-03-23 10:14 | Gastroenterology Progress Note ---
<RAFAELA WEINER SCOUT - Last Filed: 03/23/17 10:11> Assessment and Plan 1. Constipation, chronic 2. jail A/C , DVT 3. Functional quadriplegia S/p colonoscopy : 1. Rectal ulcer with visible vessel/active bleeding - treated with epinephrine injection and hemoclip placement with hemostasis 2. Fecal impaction (manual disimpaction performed) 3. Diffuse diverticulosis Recommendations: 1-High fiber diet daily 2-Bowel regimen daily (miralax BID), avoid enemas 3-Limit medications (narcotics) that can worsen constipation 4. Small amt of bleeding per nursing, this is expected. H/h stable. Continue to monitor H/h and bleeding Subjective Date of service: 03/23/17 Principal diagnosis: CHF Exacerbation Constipation Interval history: Nursing reported small amt of bleeding per rectum noted on chucks pad. Objective - Constitutional Vitals: Temp Pulse Resp BP Pulse Ox 98.5 F 104 H 20 124/92 100 03/23/17 07:30 03/23/17 08:22 03/23/17 04:21 03/23/17 07:30 03/23/17 08:22 General appearance: no acute distress - EENT Eyes: EOM intact ENT: hearing intact - Neck Neck: supple - Respiratory Respiratory: bilateral: CTA - Cardiovascular Rhythm: regular Heart Sounds: Present: S1 & S2 - Gastrointestinal General gastrointestinal: Present: soft, normal bowel sounds - Labs CBC & Chem 7: 03/23/17 07:05 03/23/17 07:05 Labs: Laboratory Results - last 24 hr 03/22/17 03/22/17 03/23/17 16:26 22:48 07:05 WBC 8.9 RBC 4.71 Hgb 11.5 Hct 37.4 MCV 80 MCH 24 L MCHC 31 RDW 21.0 H Plt Count 221 Sodium Potassium Chloride Carbon Dioxide Anion Gap BUN Creatinine Estimated GFR BUN/Creatinine Ratio Glucose POC Glucose 129 H 107 H Calcium 03/23/17 03/23/17 07:05 08:50 WBC RBC Hgb Hct MCV MCH MCHC RDW Plt Count Sodium 146 H Potassium 3.2 L Chloride 102.9 Carbon Dioxide 25 Anion Gap 21 BUN 6 L Creatinine 0.3 L Estimated GFR > 60 BUN/Creatinine Ratio 20 Glucose 108 H POC Glucose 130 H Calcium 10.2 <FLOYD,JOVITA A - Last Filed: 03/23/17 16:38> Assessment and Plan Patient seen and examined. Agree with note by Ellen Weiner. Small amt of bleeding, H/H stable. Cont management as above. Okay to restart AC tomorrow if no further bleeding/stable H/H. Objective - Constitutional Vitals: Temp Pulse Resp BP Pulse Ox 98.3 F 99 H 22 104/66 100 03/23/17 12:00 03/23/17 12:00 03/23/17 12:00 03/23/17 12:00 03/23/17 12:00 - Labs CBC & Chem 7: 03/23/17 14:08 03/23/17 07:05 Labs: Laboratory Results - last 24 hr 03/22/17 03/22/17 03/23/17 16:26 22:48 07:05 WBC 8.9 RBC 4.71 Hgb 11.5 Hct 37.4 MCV 80 MCH 24 L MCHC 31 RDW 21.0 H Plt Count 221 Sodium Potassium Chloride Carbon Dioxide Anion Gap BUN Creatinine Estimated GFR BUN/Creatinine Ratio Glucose POC Glucose 129 H 107 H Calcium 03/23/17 03/23/17 03/23/17 07:05 08:50 12:15 WBC RBC Hgb Hct MCV MCH MCHC RDW Plt Count Sodium 146 H Potassium 3.2 L Chloride 102.9 Carbon Dioxide 25 Anion Gap 21 BUN 6 L Creatinine 0.3 L Estimated GFR > 60 BUN/Creatinine Ratio 20 Glucose 108 H POC Glucose 130 H 133 H Calcium 10.2 03/23/17 14:08 WBC RBC Hgb 11.5 Hct 35.8 MCV MCH MCHC RDW Plt Count Sodium Potassium Chloride Carbon Dioxide Anion Gap BUN Creatinine Estimated GFR BUN/Creatinine Ratio Glucose POC Glucose Calcium
[2017-03-23] MEDS ORDERED: K-DUR PO NR (10:30)
--- NOTE | 2017-03-23 13:07 | Progress Note ---
Assessment and Plan Assessment and plan: Patient is 66-year-old woman with history of morbid obesity, functional quadriplegia, chronic hypoxic respiratory failure on home oxygen due to PE, acute right leg DVT on Eliquis, PFO with recent CVA (Jan 2017) with left-sided hematemesis who presents with constipation, chest pain and shortness of breath. She denies ever having a colonoscopy, she is on 3 L oxygen, chest x-ray read as clear lungs, CTA chest negative for PE. -Constipation with loose stool: enema x 1 and consulted GI, await final decision , called Dr. Pérez and spoke with history, will try another enema==>Colonoscopy tomorrow, hold Eliquis -CP, most likely pleuric chest pain venous thromboembolism: pain control and continue to monitor -Functional quadriplegia: PT/OT -DVT/PE: Continue anticoagulation due to immobility -Acute on chronic hypoxic respiratory failure: on 2 liters at home, now on 3l, continue to wean down to baseline, treat with nebs -SIRS due UTI: urine ctx and start abx -DVT prophylaxis: on Eliquis 03/22/17 per GI, DR. Pérez, Colonoscopy Impression: 1. Rectal ulcer with visible vessel/active bleeding - treated with epinephrine injection and hemoclip placement with hemostasis 2. Fecal impaction (manual disimpaction performed) 3. Diffuse diverticulosis Recommendations: -High fiber diet daily -Bowel regimen daily (miralax BID), avoid enemas -Limit medications (narcotics) that can worsen constipation -Canasa suppository BID x 2 weeks -If no further bleeding after 24-48 hours, okay to restart anticoagulation while monitoring for bleeding 03/23/17: per GI 1. Constipation, chronic 2. 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 Functional quadriplegia S/p colonoscopy : 1. Rectal ulcer with visible vessel/active bleeding - treated with epinephrine injection and hemoclip placement with hemostasis 2. Fecal impaction (manual disimpaction performed) 3. Diffuse diverticulosis Recommendations: 1-High fiber diet daily 2-Bowel regimen daily (miralax BID), avoid enemas 3-Limit medications (narcotics) that can worsen constipation 4. Small amt of bleeding per nursing, this is expected. H/h stable. Continue to monitor H/h and bleeding repeat h/h, hold Eliquis for now History Interval history: Patient was seen and examined. Follow-up on current diagnosis/constipation. Overnight uneventful. Patient denies any chest pain, shortness breath, nausea/ vomiting or severe headaches. Imaging, nursing note, chart, labs and old chart reviewed. Discussed with patient. She feels better with less abd pains. She had small amount of BRBPR in diaper. Hospitalist Physical - Physical exam Narrative exam: GEN: morbid obesity bmi 50.2, WDWN, NAD, AWAKE, ALERT, ORIENTATED x 3 HEENT: NCAT, EOMI, PERRL, OP Clear NECK: supple, no adenopathy, no thyromegaly, no JVD CVS/HEART: RRR, NORMAL S1S2, NO JVD, pulses present bilaterally CHEST/LUNGS: CTA B, Symmetrical chest expansion, good air entry bilaterally GI/Abdomen: soft, NTND, good bowel sounds, no guarding or rebound /Bladder: no suprapubic tenderness, no CVA or paraspinal tenderness EXT/Skin: lymphedema bilateral legs MSK: lROM x 4 Neuro: CN 2-12 grossly intact, no new focal deficits Psych: calm - Constitutional Vitals: Temp Pulse Resp BP Pulse Ox 98.5 F 104 H 18 124/92 100 03/23/17 07:30 03/23/17 08:22 03/23/17 07:25 03/23/17 07:30 03/23/17 08:22 General appearance: Present: well-nourished Results - Labs CBC & Chem 7: 03/23/17 07:05 03/23/17 07:05 Labs: Laboratory Last Values WBC 8.9 K/mm3 (4.5-11.0) 03/23/17 07:05 RBC 4.71 M/mm3 (3.65-5.03) 03/23/17 07:05 Hgb 11.5 gm/dl (10.1-14.3) 03/23/17 07:05 Hct 37.4 % (30.3-42.9) 03/23/17 07:05 MCV 80 fl (79-97) 03/23/17 07:05 MCH 24 pg (28-32) L 03/23/17 07:05 MCHC 31 % (30-34) 03/23/17 07:05 RDW 21.0 % (13.2-15.2) H 03/23/17 07:05 Plt Count 221 K/mm3 (140-440) 03/23/17 07:05 Lymph % (Auto) 17.5 % (13.4-35.0) 03/19/17 05:40 [place] % (Auto) 10.4 % (0.0-7.3) H 03/19/17 05:40 Eos % (Auto) 5.5 % (0.0-4.3) H 03/19/17 05:40 Baso % (Auto) 0.4 % (0.0-1.8) 03/19/17 05:40 Lymph # 1.2 K/mm3 (1.2-5.4) 03/19/17 05:40 [place] # 0.7 K/mm3 (0.0-0.8) 03/19/17 05:40 Eos # 0.4 K/mm3 (0.0-0.4) 03/19/17 05:40 Baso # 0.0 K/mm3 (0.0-0.1) 03/19/17 05:40 Seg Neutrophils % 66.2 % (40.0-70.0) 03/19/17 05:40 Seg Neutrophils # 4.6 K/mm3 (1.8-7.7) 03/19/17 05:40 PT 16.0 Sec. (12.2-14.9) H 03/17/17 09:10 INR 1.22 (0.87-1.13) H 03/17/17 09:10 Sodium 146 mmol/L (137-145) H 03/23/17 07:05 Potassium 3.2 mmol/L (3.6-5.0) L 03/23/17 07:05 Chloride 102.9 mmol/L (98-107) 03/23/17 07:05 Carbon Dioxide 25 mmol/L (22-30) 03/23/17 07:05 Anion Gap 21 mmol/L 03/23/17 07:05 BUN 6 mg/dL (7-17) L 03/23/17 07:05 Creatinine 0.3 mg/dL (0.7-1.2) L 03/23/17 07:05 Estimated GFR > 60 ml/min 03/23/17 07:05 BUN/Creatinine Ratio 20 % 03/23/17 07:05 Glucose 108 mg/dL (65-100) H 03/23/17 07:05 POC Glucose 130 (70-105) H 03/23/17 08:50 Calcium 10.2 mg/dL (8.4-10.2) 03/23/17 07:05 Magnesium 2.20 mg/dL (1.7-2.3) 03/17/17 09:10 Total Bilirubin 1.00 mg/dL (0.1-1.2) 03/19/17 05:40 AST 24 units/L (5-40) 03/19/17 05:40 ALT 16 units/L (7-56) 03/19/17 05:40 Alkaline Phosphatase 59 units/L (35-129) 03/19/17 05:40 Total Creatine Kinase 67 units/L (30-135) 03/18/17 13:19 CK-MB (CK-2) 1.1 ng/mL (0.0-4.0) 03/18/17 13:19 CK-MB (CK-2) Rel Index 1.6 (0-4) 03/18/17 13:19 Troponin T < 0.010 ng/mL (0.00-0.029) 03/18/17 13:19 NT-Pro-B Natriuret Pep 103.3 pg/mL (0-900) 03/17/17 09:10 Total Protein 6.5 g/dL (6.3-8.2) 03/19/17 05:40 Albumin 3.1 g/dL (3.9-5) L 03/19/17 05:40 Albumin/Globulin Ratio 0.9 % 03/19/17 05:40 Urine Color Yellow (Yellow) 03/17/17 13:20 Urine Turbidity Clear (Clear) 03/17/17 13:20 Urine pH 9.0 (5.0-7.0) H 03/17/17 13:20 Ur Specific [place] > 1.059 (1.003-1.030) H 03/17/17 13:20 Urine Protein <15 mg/dl mg/dL (Negative) 03/17/17 13:20 Urine Glucose (UA) Neg mg/dL (Negative) 03/17/17 13:20 Urine Ketones 20 mg/dL (Negative) 03/17/17 13:20 Urine Blood Neg (Negative) 03/17/17 13:20 Urine Nitrite Neg (Negative) 03/17/17 13:20 Urine Bilirubin Neg (Negative) 03/17/17 13:20 Urine Urobilinogen 2.0 mg/dL (<2.0) 03/17/17 13:20 Ur Leukocyte Esterase Mod (Negative) 03/17/17 13:20 Urine WBC (Auto) 13.0 /HPF (0.0-6.0) H 03/17/17 13:20 Urine RBC (Auto) 7.0 /HPF (0.0-6.0) 03/17/17 13:20 U Epithel Cells (Auto) 5.0 /HPF (0-13.0) 03/17/17 13:20 Urine Mucus Few /HPF 03/17/17 13:20
[2017-03-23 14:35] LABS: Hematocrit 35.8 % (30.3-42.9); Hemoglobin 11.5 gm/dl (10.1-14.3)
[2017-03-23] MEDS: ROCEPHIN/NS 1 GM/50 ML 1 GM/50 ML BAG IV SCH (16:56)
[2017-03-24] MEDS: NOVOLOG SUB-Q SCH ×5 (00:29→22:55)
[2017-03-24] MEDS: DUONEB *Not for PRN Use IH SCH ×2 (07:48→20:10)
[2017-03-24 09:06] LABS: Basophils % (Auto) 0.2 % (0.0-1.8); Hematocrit 32.8 % (30.3-42.9); Hemoglobin 10.7 gm/dl (10.1-14.3); Mean Corpuscular HGB Conc 33 % (30-34); Mean Corpuscular Volume 76 fl (79-97); Platelet Count 241 K/mm3 (140-440); Red Blood Count 4.32 M/mm3 (3.65-5.03); Red Cell Distribution Width 19.9 % (13.2-15.2); White Blood Count 9.6 K/mm3 (4.5-11.0)
[2017-03-24 09:13] LABS: Mean Corpuscular Hemoglobin 25 pg (28-32)
[2017-03-24] MEDS: HALFPRIN EC PO SCH (09:57)
[2017-03-24] MEDS: MIRALAX 3350 PO SCH (09:57)
--- NOTE | 2017-03-24 13:20 | Progress Note ---
Assessment and Plan Assessment and plan: Patient is 66-year-old woman with history of morbid obesity, functional quadriplegia, chronic hypoxic respiratory failure on home oxygen due to PE, acute right leg DVT on Eliquis, PFO with recent CVA (Jan 2017) who presents with constipation, chest pain and shortness of breath. She denies ever having a colonoscopy, she is on 3 L oxygen, chest x-ray read as clear lungs, CTA chest negative for PE. -Constipation with loose stool: enema x 1 and consulted GI, await final decision , called Dr. Pérez and spoke with history, will try another enema==>Colonoscopy tomorrow, hold Eliquis -CP, most likely pleuric chest pain venous thromboembolism: pain control and continue to monitor -Functional quadriplegia: PT/OT -DVT/PE: Continue anticoagulation due to immobility -Acute on chronic hypoxic respiratory failure: on 2 liters at home, now on 3l, continue to wean down to baseline, treat with nebs -SIRS due UTI: urine ctx and start abx -DVT prophylaxis: on Eliquis 03/22/17 per GI, DR. Pérez, Colonoscopy Impression: 1. Rectal ulcer with visible vessel/active bleeding - treated with epinephrine injection and hemoclip placement with hemostasis 2. Fecal impaction (manual disimpaction performed) 3. Diffuse diverticulosis Recommendations: -High fiber diet daily -Bowel regimen daily (miralax BID), avoid enemas -Limit medications (narcotics) that can worsen constipation -Canasa suppository BID x 2 weeks -If no further bleeding after 24-48 hours, okay to restart anticoagulation while monitoring for bleeding 03/23/17: per GI 1. Constipation, chronic 2. detention A/C , DVT 3. Functional quadriplegia S/p colonoscopy : 1. Rectal ulcer with visible vessel/active bleeding - treated with epinephrine injection and hemoclip placement with hemostasis 2. Fecal impaction (manual disimpaction performed) 3. Diffuse diverticulosis Recommendations: 1-High fiber diet daily 2-Bowel regimen daily (miralax BID), avoid enemas 3-Limit medications (narcotics) that can worsen constipation 4. Small amt of bleeding per nursing, this is expected. H/h stable. Continue to monitor H/h and bleeding repeat h/h, hold Eliquis for now 03/24/17: Daughter Lennie [phone] at bedside. She gives a more thorough history. 11/13/2016 patient had a total abdominal hysterectomy due to endometrial cancer at [facility] aka [facility]. She was discharged on February 18. Patient went back to the hospital at [facility] on February 23 and was found to have DVT right arm/PE and she was transferred to [facility] due to PFO which they closed and she was discharged on March 10 from there. Patient abdominal pains are worse, will get CT abd/pelvis. History Interval history: Patient was seen and examined. Follow-up on current diagnosis/constipation. Overnight uneventful. Patient denies any chest pain, shortness breath, nausea/ vomiting or severe headaches. Imaging, nursing note, chart, labs and old chart reviewed. Discussed with patient. She feels better with less abd pains. She had small amount of BRBPR in diaper resolved daughter Lennie [phone] at bedside. She gives a more thorough history. 11/13/2016 patient had a total abdominal hysterectomy due to endometrial cancer [facility] also known as [facility]. She was discharged on February 18. Patient went back to the hospital at [facility] February 23 was found to have DVT PE and she was transferred to [facility] due to PFO which they closed and she was discharged on March 10 from there. Hospitalist Physical - Physical exam Narrative exam: GEN: morbid obesity bmi 50.2, WDWN, NAD, AWAKE, ALERT, ORIENTATED x 3 HEENT: NCAT, EOMI, PERRL, OP Clear NECK: supple, no adenopathy, no thyromegaly, no JVD CVS/HEART: RRR, NORMAL S1S2, NO JVD, pulses present bilaterally CHEST/LUNGS: CTA B, Symmetrical chest expansion, good air entry bilaterally GI/Abdomen: soft, NTND, good bowel sounds, no guarding or rebound /Bladder: no suprapubic tenderness, no CVA or paraspinal tenderness EXT/Skin: lymphedema bilateral legs MSK: lROM x 4 Neuro: CN 2-12 grossly intact, no new focal deficits Psych: calm - Constitutional Vitals: Temp Pulse Resp BP Pulse Ox 98.6 F 94 H 22 113/81 97 03/24/17 08:18 03/24/17 07:54 03/24/17 08:18 03/24/17 08:18 03/24/17 07:54 General appearance: Present: well-nourished Results - Labs CBC & Chem 7: 03/24/17 08:53 03/23/17 07:05 Labs: Laboratory Last Values WBC 9.6 K/mm3 (4.5-11.0) 03/24/17 08:53 RBC 4.32 M/mm3 (3.65-5.03) 03/24/17 08:53 Hgb 10.7 gm/dl (10.1-14.3) 03/24/17 08:53 Hct 32.8 % (30.3-42.9) 03/24/17 08:53 MCV 76 fl (79-97) L 03/24/17 08:53 MCH 25 pg (28-32) L 03/24/17 08:53 MCHC 33 % (30-34) 03/24/17 08:53 RDW 19.9 % (13.2-15.2) H 03/24/17 08:53 Plt Count 241 K/mm3 (140-440) 03/24/17 08:53 Lymph % (Auto) 16.6 % (13.4-35.0) 03/24/17 08:53 [place] % (Auto) 8.4 % (0.0-7.3) H 03/24/17 08:53 Eos % (Auto) 1.0 % (0.0-4.3) 03/24/17 08:53 Baso % (Auto) 0.2 % (0.0-1.8) 03/24/17 08:53 Lymph # 1.6 K/mm3 (1.2-5.4) 03/24/17 08:53 [place] # 0.8 K/mm3 (0.0-0.8) 03/24/17 08:53 Eos # 0.1 K/mm3 (0.0-0.4) 03/24/17 08:53 Baso # 0.0 K/mm3 (0.0-0.1) 03/24/17 08:53 Seg Neutrophils % 73.8 % (40.0-70.0) H 03/24/17 08:53 Seg Neutrophils # 7.1 K/mm3 (1.8-7.7) 03/24/17 08:53 PT 16.0 Sec. (12.2-14.9) H 03/17/17 09:10 INR 1.22 (0.87-1.13) H 03/17/17 09:10 Sodium 146 mmol/L (137-145) H 03/23/17 07:05 Potassium 3.2 mmol/L (3.6-5.0) L 03/23/17 07:05 Chloride 102.9 mmol/L (98-107) 03/23/17 07:05 Carbon Dioxide 25 mmol/L (22-30) 03/23/17 07:05 Anion Gap 21 mmol/L 03/23/17 07:05 BUN 6 mg/dL (7-17) L 03/23/17 07:05 Creatinine 0.3 mg/dL (0.7-1.2) L 03/23/17 07:05 Estimated GFR > 60 ml/min 03/23/17 07:05 BUN/Creatinine Ratio 20 % 03/23/17 07:05 Glucose 108 mg/dL (65-100) H 03/23/17 07:05 POC Glucose 138 (70-105) H 03/24/17 08:19 Calcium 10.2 mg/dL (8.4-10.2) 03/23/17 07:05 Magnesium 2.20 mg/dL (1.7-2.3) 03/17/17 09:10 Total Bilirubin 1.00 mg/dL (0.1-1.2) 03/19/17 05:40 AST 24 units/L (5-40) 03/19/17 05:40 ALT 16 units/L (7-56) 03/19/17 05:40 Alkaline Phosphatase 59 units/L (35-129) 03/19/17 05:40 Total Creatine Kinase 67 units/L (30-135) 03/18/17 13:19 CK-MB (CK-2) 1.1 ng/mL (0.0-4.0) 03/18/17 13:19 CK-MB (CK-2) Rel Index 1.6 (0-4) 03/18/17 13:19 Troponin T < 0.010 ng/mL (0.00-0.029) 03/18/17 13:19 NT-Pro-B Natriuret Pep 103.3 pg/mL (0-900) 03/17/17 09:10 Total Protein 6.5 g/dL (6.3-8.2) 03/19/17 05:40 Albumin 3.1 g/dL (3.9-5) L 03/19/17 05:40 Albumin/Globulin Ratio 0.9 % 03/19/17 05:40 Urine Color Yellow (Yellow) 03/17/17 13:20 Urine Turbidity Clear (Clear) 03/17/17 13:20 Urine pH 9.0 (5.0-7.0) H 03/17/17 13:20 Ur Specific [place] > 1.059 (1.003-1.030) H 03/17/17 13:20 Urine Protein <15 mg/dl mg/dL (Negative) 03/17/17 13:20 Urine Glucose (UA) Neg mg/dL (Negative) 03/17/17 13:20 Urine Ketones 20 mg/dL (Negative) 03/17/17 13:20 Urine Blood Neg (Negative) 03/17/17 13:20 Urine Nitrite Neg (Negative) 03/17/17 13:20 Urine Bilirubin Neg (Negative) 03/17/17 13:20 Urine Urobilinogen 2.0 mg/dL (<2.0) 03/17/17 13:20 Ur Leukocyte Esterase Mod (Negative) 03/17/17 13:20 Urine WBC (Auto) 13.0 /HPF (0.0-6.0) H 03/17/17 13:20 Urine RBC (Auto) 7.0 /HPF (0.0-6.0) 03/17/17 13:20 U Epithel Cells (Auto) 5.0 /HPF (0-13.0) 03/17/17 13:20 Urine Mucus Few /HPF 03/17/17 13:20
[2017-03-24] MEDS: ROCEPHIN/NS 1 GM/50 ML 1 GM/50 ML BAG IV SCH (16:15)
[2017-03-24] MEDS ORDERED: NACL ONE (16:33)
--- NOTE | 2017-03-24 18:13 | Cat Scan Report ---
FINAL REPORT EXAM: CT ABDOMEN PELVIS W CON HISTORY: severe abd pains TECHNIQUE: Dynamic helical CT scan through the abdomen and pelvis after ingestion of oral contrast and during and again after intravenous injection of iodinated contrast. Images are reconstructed in the sagittal and coronal planes. The reconstructed images are limited by motion. PRIORS: None. FINDINGS: The lung bases are clear. The liver, pancreas, spleen and adrenal glands appear normal. There are multiple stones in an otherwise normal-appearing gallbladder. The kidneys appear normal. The uterus and right ovary are not seen. There is a 2.5 cm left adnexal cyst probably within the left ovary. The stomach appears grossly within normal limits. Technical factors limited evaluation of the pelvis but there does appear to be inflammatory fat graying near the sigmoid that may be due to diverticulitis. There is no evidence of perforation or abscess formation. There are no abnormally dilated loops of bowel. The appendix is not discretely visualized but there are no inflammatory changes in the right lower quadrant around the area of the cecum. The abdominal aorta has a normal diameter. There is an IVC filter in place. The bones are diffusely demineralized. There is advanced degenerative disc and facet disease at L5-S1. There is degenerative facet disease at L4-5 as well. IMPRESSION: 1. Multiple stones in an otherwise normal-appearing gallbladder 2. Left adnexal cyst probably within the left ovary. If there are pelvic symptoms consider further evaluation with pelvic ultrasound. Also correlation with past surgical history is required. 3. Question sigmoid diverticulitis
--- NOTE | 2017-03-24 18:46 | Gastroenterology Progress Note ---
Assessment and Plan GI: s/p colon w/ bleeding therapy with stable h/h - continue follow h/h - continue stool softeners - pt w/ abdominal pain with possible diverticulitis on ct scan - Cipro bid/Flagyl tid x 7 days - if stable in am ok to d/c from GI standpoint Subjective Date of service: 03/24/17 Principal diagnosis: CHF Exacerbation Constipation Interval history: - reports some abdominal pain overnight, denies signs bleeding Objective - Constitutional Vitals: Temp Pulse Resp BP Pulse Ox 98.6 F 104 H 16 133/78 100 03/24/17 08:18 03/24/17 16:02 03/24/17 16:01 03/24/17 16:01 03/24/17 16:02 General appearance: no acute distress - Respiratory Respiratory: bilateral: CTA - Cardiovascular Heart Sounds: Present: S1 & S2 - Gastrointestinal General gastrointestinal: Present: soft, non-tender - Labs CBC & Chem 7: 03/24/17 08:53 03/23/17 07:05 Labs: Laboratory Results - last 24 hr 03/23/17 03/23/17 03/24/17 17:08 22:01 06:30 WBC RBC Hgb Hct MCV MCH MCHC RDW Plt Count Lymph % (Auto) [place] % (Auto) Eos % (Auto) Baso % (Auto) Lymph # [place] # Eos # Baso # Seg Neutrophils % Seg Neutrophils # POC Glucose 141 H 165 H 128 H 03/24/17 03/24/17 08:19 08:53 WBC 9.6 RBC 4.32 Hgb 10.7 Hct 32.8 MCV 76 L MCH 25 L MCHC 33 RDW 19.9 H Plt Count 241 Lymph % (Auto) 16.6 [place] % (Auto) 8.4 H Eos % (Auto) 1.0 Baso % (Auto) 0.2 Lymph # 1.6 [place] # 0.8 Eos # 0.1 Baso # 0.0 Seg Neutrophils % 73.8 H Seg Neutrophils # 7.1 POC Glucose 138 H
[2017-03-25 06:11] LABS: Hematocrit 31.8 % (30.3-42.9); Mean Corpuscular HGB Conc 32 % (30-34); Mean Corpuscular Volume 76 fl (79-97); Platelet Count 236 K/mm3 (140-440); Red Blood Count 4.18 M/mm3 (3.65-5.03); White Blood Count 6.4 K/mm3 (4.5-11.0)
[2017-03-25 06:18] LABS: Mean Corpuscular Hemoglobin 24 pg (28-32); Red Cell Distribution Width 20.3 % (13.2-15.2)
[2017-03-25 06:37] LABS: Alanine Aminotransferase 14 units/L (7-56); Albumin 2.8 g/dL (3.9-5); Albumin/Globulin Ratio 0.8 %; Alkaline Phosphatase 55 units/L (35-129); Anion Gap 14 mmol/L; BUN/Creatinine Ratio 30; Blood Urea Nitrogen 6 mg/dL (7-17); Carbon Dioxide 30 mmol/L (22-30); Glucose 115 mg/dL (65-100); Sodium 142 mmol/L (137-145); Total Protein 6.1 g/dL (6.3-8.2)
[2017-03-25] MEDS: DUONEB *Not for PRN Use IH SCH (08:26)
[2017-03-25] MEDS: NOVOLOG SUB-Q SCH ×4 (09:20→22:09)
[2017-03-25] MEDS ORDERED: K-DUR PO ONE (10:00)
--- NOTE | 2017-03-25 10:12 | Gastroenterology Progress Note ---
Assessment and Plan GI: pt s/p constipation w/ bleeding therapy from ulcer - h/h stable - ensure stable bm's - pt w/ mild lower abdominal pain w/ ?diverticulitis - flagyl/cipro x 7 days - ok to d/c from GI standpoint, call if needed Subjective Date of service: 03/25/17 Principal diagnosis: CHF Exacerbation Constipation Interval history: - reports abdominal pain improving Objective - Constitutional Vitals: Temp Pulse Resp BP Pulse Ox 98.7 F 86 18 102/52 98 03/25/17 07:00 03/25/17 07:29 03/25/17 07:29 03/25/17 07:00 03/25/17 08:26 General appearance: no acute distress - Respiratory Respiratory: bilateral: CTA - Cardiovascular Rhythm: regular Heart Sounds: Present: S1 & S2 - Gastrointestinal General gastrointestinal: Present: soft, non-tender - Labs CBC & Chem 7: 03/25/17 05:20 03/25/17 05:20 Labs: Laboratory Results - last 24 hr 03/24/17 03/24/17 03/24/17 06:30 08:19 12:55 WBC RBC Hgb Hct MCV MCH MCHC RDW Plt Count Sodium Potassium Chloride Carbon Dioxide Anion Gap BUN Creatinine Estimated GFR BUN/Creatinine Ratio Glucose POC Glucose 128 H 138 H 117 H Calcium Total Bilirubin AST ALT Alkaline Phosphatase Total Protein Albumin Albumin/Globulin Ratio 03/24/17 03/24/17 03/25/17 16:03 21:54 05:20 WBC 6.4 RBC 4.18 Hgb 10.0 L Hct 31.8 MCV 76 L MCH 24 L MCHC 32 RDW 20.3 H Plt Count 236 Sodium Potassium Chloride Carbon Dioxide Anion Gap BUN Creatinine Estimated GFR BUN/Creatinine Ratio Glucose POC Glucose 126 H 112 H Calcium Total Bilirubin AST ALT Alkaline Phosphatase Total Protein Albumin Albumin/Globulin Ratio 03/25/17 05:20 WBC RBC Hgb Hct MCV MCH MCHC RDW Plt Count Sodium 142 Potassium 3.0 L Chloride 101.0 Carbon Dioxide 30 Anion Gap 14 BUN 6 L Creatinine 0.2 L Estimated GFR > 60 BUN/Creatinine Ratio 30 Glucose 115 H POC Glucose Calcium 10.0 Total Bilirubin 0.70 AST 16 ALT 14 Alkaline Phosphatase 55 Total Protein 6.1 L Albumin 2.8 L Albumin/Globulin Ratio 0.8
[2017-03-25] MEDS: MIRALAX 3350 PO SCH (10:29)
[2017-03-25] MEDS: HALFPRIN EC PO SCH (10:29)
--- NOTE | 2017-03-25 12:25 | Progress Note ---
Assessment and Plan Assessment and plan: Patient is 66-year-old woman with history of morbid obesity, functional quadriplegia, chronic hypoxic respiratory failure on home oxygen due to PE, acute right leg DVT on Eliquis, PFO with recent CVA (Jan 2017) who presents with constipation, chest pain and shortness of breath. She denies ever having a colonoscopy, she is on 3 L oxygen, chest x-ray read as clear lungs, CTA chest negative for PE. -Constipation with loose stool: enema x 1 and consulted GI, await final decision , called Dr. Pérez and spoke with history, will try another enema==>Colonoscopy tomorrow, hold Eliquis -CP, most likely pleuric chest pain venous thromboembolism: pain control and continue to monitor -Functional quadriplegia: PT/OT -DVT/PE: Continue anticoagulation due to immobility -Acute on chronic hypoxic respiratory failure: on 2 liters at home, now on 3l, continue to wean down to baseline, treat with nebs -SIRS due UTI: urine ctx and start abx -DVT prophylaxis: on Eliquis 03/22/17 per GI, DR. Pérez, Colonoscopy Impression: 1. Rectal ulcer with visible vessel/active bleeding - treated with epinephrine injection and hemoclip placement with hemostasis 2. Fecal impaction (manual disimpaction performed) 3. Diffuse diverticulosis Recommendations: -High fiber diet daily -Bowel regimen daily (miralax BID), avoid enemas -Limit medications (narcotics) that can worsen constipation -Canasa suppository BID x 2 weeks -If no further bleeding after 24-48 hours, okay to restart anticoagulation while monitoring for bleeding 03/23/17: per GI 1. Constipation, chronic 2. skilled nursing A/C , DVT 3. Functional quadriplegia S/p colonoscopy : 1. Rectal ulcer with visible vessel/active bleeding - treated with epinephrine injection and hemoclip placement with hemostasis 2. Fecal impaction (manual disimpaction performed) 3. Diffuse diverticulosis Recommendations: 1-High fiber diet daily 2-Bowel regimen daily (miralax BID), avoid enemas 3-Limit medications (narcotics) that can worsen constipation 4. Small amt of bleeding per nursing, this is expected. H/h stable. Continue to monitor H/h and bleeding repeat h/h, hold Eliquis for now 03/24/17: Daughter Lennie [phone] at bedside. She gives a more thorough history. 11/13/2016 patient had a total abdominal hysterectomy due to [facility] She was discharged on February 18. Patient went back to the hospital at [facility] on February 23 and was found to have DVT right arm/PE and she was transferred to [facility] due to PFO which they closed and she was discharged on March 10 from there. Patient abdominal pains are worse, will get CT abd/pelvis. 03/25/17: Reviewed ctap and it shows possible sigmoid diverticulits, so i added flagyl to the levaquin. Patient was told that she needed BETSEY (I concur) but insurance [facility] will not cover per patient. Will consult Case management to investigate. Anticipate d/c tomorrow. History Interval history: Patient was seen and examined. Follow-up on current diagnosis/constipation. Overnight uneventful. Patient denies any chest pain, shortness breath, nausea/ vomiting or severe headaches. Imaging, nursing note, chart, labs and old chart reviewed. Discussed with patient. She feels better with less abd pains. She had small amount of BRBPR in diaper resolved daughter Lennie [phone] at bedside. She gives a more thorough history. 11/13/2016 patient had a total abdominal hysterectomy due to endometrial cancer [facility] also known as [facility]. She was discharged on February 18. Patient went back to the hospital at [facility] February 23 was found to have DVT PE and she was transferred to [facility] due to PFO which they closed and she was discharged on March 10 from there. Hospitalist Physical - Physical exam Narrative exam: GEN: morbid obesity bmi 50.2, WDWN, NAD, AWAKE, ALERT, ORIENTATED x 3 HEENT: NCAT, EOMI, PERRL, OP Clear NECK: supple, no adenopathy, no thyromegaly, no JVD CVS/HEART: RRR, NORMAL S1S2, NO JVD, pulses present bilaterally CHEST/LUNGS: CTA B, Symmetrical chest expansion, good air entry bilaterally GI/Abdomen: soft, NTND, good bowel sounds, no guarding or rebound /Bladder: no suprapubic tenderness, no CVA or paraspinal tenderness EXT/Skin: lymphedema bilateral legs MSK: lROM x 4 Neuro: CN 2-12 grossly intact, no new focal deficits Psych: calm - Constitutional Vitals: Temp Pulse Resp BP Pulse Ox 98.7 F 86 18 102/52 98 03/25/17 07:00 03/25/17 07:29 03/25/17 07:29 03/25/17 07:00 03/25/17 08:26 General appearance: Present: well-nourished Results - Labs CBC & Chem 7: 03/25/17 05:20 03/25/17 05:20 Labs: Laboratory Last Values WBC 6.4 K/mm3 (4.5-11.0) 03/25/17 05:20 RBC 4.18 M/mm3 (3.65-5.03) 03/25/17 05:20 Hgb 10.0 gm/dl (10.1-14.3) L 03/25/17 05:20 Hct 31.8 % (30.3-42.9) 03/25/17 05:20 MCV 76 fl (79-97) L 03/25/17 05:20 MCH 24 pg (28-32) L 03/25/17 05:20 MCHC 32 % (30-34) 03/25/17 05:20 RDW 20.3 % (13.2-15.2) H 03/25/17 05:20 Plt Count 236 K/mm3 (140-440) 03/25/17 05:20 Lymph % (Auto) 16.6 % (13.4-35.0) 03/24/17 08:53 [place] % (Auto) 8.4 % (0.0-7.3) H 03/24/17 08:53 Eos % (Auto) 1.0 % (0.0-4.3) 03/24/17 08:53 Baso % (Auto) 0.2 % (0.0-1.8) 03/24/17 08:53 Lymph # 1.6 K/mm3 (1.2-5.4) 03/24/17 08:53 [place] # 0.8 K/mm3 (0.0-0.8) 03/24/17 08:53 Eos # 0.1 K/mm3 (0.0-0.4) 03/24/17 08:53 Baso # 0.0 K/mm3 (0.0-0.1) 03/24/17 08:53 Seg Neutrophils % 73.8 % (40.0-70.0) H 03/24/17 08:53 Seg Neutrophils # 7.1 K/mm3 (1.8-7.7) 03/24/17 08:53 PT 16.0 Sec. (12.2-14.9) H 03/17/17 09:10 INR 1.22 (0.87-1.13) H 03/17/17 09:10 Sodium 142 mmol/L (137-145) 03/25/17 05:20 Potassium 3.0 mmol/L (3.6-5.0) L 03/25/17 05:20 Chloride 101.0 mmol/L (98-107) 03/25/17 05:20 Carbon Dioxide 30 mmol/L (22-30) 03/25/17 05:20 Anion Gap 14 mmol/L 03/25/17 05:20 BUN 6 mg/dL (7-17) L 03/25/17 05:20 Creatinine 0.2 mg/dL (0.7-1.2) L 03/25/17 05:20 Estimated GFR > 60 ml/min 03/25/17 05:20 BUN/Creatinine Ratio 30 % 03/25/17 05:20 Glucose 115 mg/dL (65-100) H 03/25/17 05:20 POC Glucose 112 (70-105) H 03/24/17 21:54 Calcium 10.0 mg/dL (8.4-10.2) 03/25/17 05:20 Magnesium 2.20 mg/dL (1.7-2.3) 03/17/17 09:10 Total Bilirubin 0.70 mg/dL (0.1-1.2) 03/25/17 05:20 AST 16 units/L (5-40) 03/25/17 05:20 ALT 14 units/L (7-56) 03/25/17 05:20 Alkaline Phosphatase 55 units/L (35-129) 03/25/17 05:20 Total Creatine Kinase 67 units/L (30-135) 03/18/17 13:19 CK-MB (CK-2) 1.1 ng/mL (0.0-4.0) 03/18/17 13:19 CK-MB (CK-2) Rel Index 1.6 (0-4) 03/18/17 13:19 Troponin T < 0.010 ng/mL (0.00-0.029) 03/18/17 13:19 NT-Pro-B Natriuret Pep 103.3 pg/mL (0-900) 03/17/17 09:10 Total Protein 6.1 g/dL (6.3-8.2) L 03/25/17 05:20 Albumin 2.8 g/dL (3.9-5) L 03/25/17 05:20 Albumin/Globulin Ratio 0.8 % 03/25/17 05:20 Urine Color Yellow (Yellow) 03/17/17 13:20 Urine Turbidity Clear (Clear) 03/17/17 13:20 Urine pH 9.0 (5.0-7.0) H 03/17/17 13:20 Ur Specific [place] > 1.059 (1.003-1.030) H 03/17/17 13:20 Urine Protein <15 mg/dl mg/dL (Negative) 03/17/17 13:20 Urine Glucose (UA) Neg mg/dL (Negative) 03/17/17 13:20 Urine Ketones 20 mg/dL (Negative) 03/17/17 13:20 Urine Blood Neg (Negative) 03/17/17 13:20 Urine Nitrite Neg (Negative) 03/17/17 13:20 Urine Bilirubin Neg (Negative) 03/17/17 13:20 Urine Urobilinogen 2.0 mg/dL (<2.0) 03/17/17 13:20 Ur Leukocyte Esterase Mod (Negative) 03/17/17 13:20 Urine WBC (Auto) 13.0 /HPF (0.0-6.0) H 03/17/17 13:20 Urine RBC (Auto) 7.0 /HPF (0.0-6.0) 03/17/17 13:20 U Epithel Cells (Auto) 5.0 /HPF (0-13.0) 03/17/17 13:20 Urine Mucus Few /HPF 03/17/17 13:20
[2017-03-25] MEDS ORDERED: POTASSIUM CHLORIDE PO ONE (13:00)
[2017-03-25] MEDS: ROCEPHIN/NS 1 GM/50 ML 1 GM/50 ML BAG IV SCH (16:56)
[2017-03-26 07:13] LABS: Hematocrit 30.9 % (30.3-42.9); Mean Corpuscular HGB Conc 32 % (30-34); Mean Corpuscular Volume 77 fl (79-97); Platelet Count 219 K/mm3 (140-440); Red Blood Count 4.04 M/mm3 (3.65-5.03); Red Cell Distribution Width 19.9 % (13.2-15.2); White Blood Count 5.8 K/mm3 (4.5-11.0)
[2017-03-26 07:24] LABS: Mean Corpuscular Hemoglobin 25 pg (28-32)
[2017-03-26 07:35] LABS: Anion Gap 15 mmol/L; BUN/Creatinine Ratio 17; Blood Urea Nitrogen 5 mg/dL (7-17); Calcium 9.9 mg/dL (8.4-10.2); Carbon Dioxide 27 mmol/L (22-30); Chloride 102.6 mmol/L (98-107); Glucose 112 mg/dL (65-100); Potassium 3.5 mmol/L (3.6-5.0); Sodium 141 mmol/L (137-145)
[2017-03-26] MEDS: NOVOLOG SUB-Q SCH ×4 (08:09→22:00)
[2017-03-26] MEDS: MIRALAX 3350 PO SCH (09:38)
[2017-03-26] MEDS: HALFPRIN EC PO SCH (09:40)
--- NOTE | 2017-03-26 13:55 | Progress Note ---
Assessment and Plan Assessment and plan: Patient is 66-year-old woman with history of morbid obesity, functional quadriplegia, chronic hypoxic respiratory failure on home oxygen due to PE, acute right leg DVT on Eliquis, PFO with recent CVA (Jan 2017) who presents with constipation, chest pain and shortness of breath. She denies ever having a colonoscopy, she is on 3 L oxygen, chest x-ray read as clear lungs, CTA chest negative for PE. -Constipation with loose stool: enema x 1 and consulted GI, await final decision , called Dr. 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 Pérez, Colonoscopy Impression: 1. Rectal ulcer with visible vessel/active bleeding - treated with epinephrine injection and hemoclip placement with hemostasis 2. Fecal impaction (manual disimpaction performed) 3. Diffuse diverticulosis Recommendations: -High fiber diet daily -Bowel regimen daily (miralax BID), avoid enemas -Limit medications (narcotics) that can worsen constipation -Canasa suppository BID x 2 weeks -If no further bleeding after 24-48 hours, okay to restart anticoagulation while monitoring for bleeding 03/23/17: per GI 1. Constipation, chronic 2. group home A/C , DVT 3. Functional quadriplegia S/p colonoscopy : 1. Rectal ulcer with visible vessel/active bleeding - treated with epinephrine injection and hemoclip placement with hemostasis 2. Fecal impaction (manual disimpaction performed) 3. Diffuse diverticulosis Recommendations: 1-High fiber diet daily 2-Bowel regimen daily (miralax BID), avoid enemas 3-Limit medications (narcotics) that can worsen constipation 4. Small amt of bleeding per nursing, this is expected. H/h stable. Continue to monitor H/h and bleeding repeat h/h, hold Eliquis for now 03/24/17: Daughter Lennie [phone] at bedside. She gives a more thorough history. 11/13/2016 patient had a total abdominal hysterectomy due to endometrial [facility] She was discharged on February 18. Patient went back to the hospital at [facility] [place] on February 23 and was found to have DVT right arm/PE and she was transferred to [facility] due to PFO which they closed and she was discharged on March 10 from there. Patient abdominal pains are worse, will get CT abd/pelvis. 03/25/17: Reviewed ctap and it shows possible sigmoid diverticulits, so i added flagyl to the levaquin. Patient was told that she needed BETSEY (I concur) but insurance [facility] will not cover per patient. Will consult Case management to investigate. Anticipate d/c tomorrow. 03/26/17: BETSEY placement pending d/w case management. PT evaluation pending. Today is last day for iv abx x 7 day coarse, treating uti with contaminate sample History Interval history: Patient was seen and examined. Follow-up on current diagnosis/constipation. Overnight uneventful. Patient denies any chest pain, shortness breath, nausea/ vomiting or severe headaches. Imaging, nursing note, chart, labs and old chart reviewed. Discussed with patient. She feels better with less abd pains. She had small amount of BRBPR in diaper resolved daughter Lennie [phone] NOT at bedside today. She gives a more thorough history. 11/13/2016 patient had a total abdominal hysterectomy due to endometrial cancer [facility] also known [facility]. She was discharged on February 18. Patient went back to the hospital at [facility] [place] February 23 was found to have DVT PE and she was transferred to [facility] due to PFO which they closed and she was discharged on March 10 from there. She is still on O2 Hospitalist Physical - Physical exam Narrative exam: GEN: morbid obesity bmi 50.2, WDWN, NAD, AWAKE, ALERT, ORIENTATED x 3 HEENT: NCAT, EOMI, PERRL, OP Clear NECK: supple, no adenopathy, no thyromegaly, no JVD CVS/HEART: RRR, NORMAL S1S2, NO JVD, pulses present bilaterally CHEST/LUNGS: CTA B, Symmetrical chest expansion, good air entry bilaterally GI/Abdomen: soft,nd good bowel sounds, no guarding or rebound, her tenderness was out of proportion to exam, now better. /Bladder: + suprapubic tenderness less tender today, no CVA or paraspinal tenderness EXT/Skin: lymphedema bilateral legs MSK: lROM x 4 Neuro: CN 2-12 grossly intact, no new focal deficits Psych: calm - Constitutional Vitals: Temp Pulse Resp BP Pulse Ox 98.0 F 97 H 20 95/62 97 03/26/17 12:03 03/26/17 12:03 03/26/17 12:03 03/26/17 12:03 03/26/17 12:03 General appearance: Present: well-nourished Results - Labs CBC & Chem 7: 03/26/17 06:38 03/26/17 06:38 Labs: Laboratory Last Values WBC 5.8 K/mm3 (4.5-11.0) 03/26/17 06:38 RBC 4.04 M/mm3 (3.65-5.03) 03/26/17 06:38 Hgb 10.0 gm/dl (10.1-14.3) L 03/26/17 06:38 Hct 30.9 % (30.3-42.9) 03/26/17 06:38 MCV 77 fl (79-97) L 03/26/17 06:38 MCH 25 pg (28-32) L 03/26/17 06:38 MCHC 32 % (30-34) 03/26/17 06:38 RDW 19.9 % (13.2-15.2) H 03/26/17 06:38 Plt Count 219 K/mm3 (140-440) 03/26/17 06:38 Lymph % (Auto) 16.6 % (13.4-35.0) 03/24/17 08:53 [place] % (Auto) 8.4 % (0.0-7.3) H 03/24/17 08:53 Eos % (Auto) 1.0 % (0.0-4.3) 03/24/17 08:53 Baso % (Auto) 0.2 % (0.0-1.8) 03/24/17 08:53 Lymph # 1.6 K/mm3 (1.2-5.4) 03/24/17 08:53 [place] # 0.8 K/mm3 (0.0-0.8) 03/24/17 08:53 Eos # 0.1 K/mm3 (0.0-0.4) 03/24/17 08:53 Baso # 0.0 K/mm3 (0.0-0.1) 03/24/17 08:53 Seg Neutrophils % 73.8 % (40.0-70.0) H 03/24/17 08:53 Seg Neutrophils # 7.1 K/mm3 (1.8-7.7) 03/24/17 08:53 PT 16.0 Sec. (12.2-14.9) H 03/17/17 09:10 INR 1.22 (0.87-1.13) H 03/17/17 09:10 Sodium 142 mmol/L (137-145) 03/25/17 05:20 Potassium 3.0 mmol/L (3.6-5.0) L 03/25/17 05:20 Chloride 101.0 mmol/L (98-107) 03/25/17 05:20 Carbon Dioxide 27 mmol/L (22-30) 03/26/17 06:38 Anion Gap 14 mmol/L 03/25/17 05:20 BUN 5 mg/dL (7-17) L 03/26/17 06:38 Creatinine 0.3 mg/dL (0.7-1.2) L 03/26/17 06:38 Estimated GFR > 60 ml/min 03/26/17 06:38 BUN/Creatinine Ratio 17 % 03/26/17 06:38 Glucose 112 mg/dL (65-100) H 03/26/17 06:38 POC Glucose 113 (70-105) H 03/26/17 12:06 Calcium 9.9 mg/dL (8.4-10.2) 03/26/17 06:38 Magnesium 2.00 mg/dL (1.7-2.3) 03/26/17 06:38 Total Bilirubin 0.70 mg/dL (0.1-1.2) 03/25/17 05:20 AST 16 units/L (5-40) 03/25/17 05:20 ALT 14 units/L (7-56) 03/25/17 05:20 Alkaline Phosphatase 55 units/L (35-129) 03/25/17 05:20 Total Creatine Kinase 67 units/L (30-135) 03/18/17 13:19 CK-MB (CK-2) 1.1 ng/mL (0.0-4.0) 03/18/17 13:19 CK-MB (CK-2) Rel Index 1.6 (0-4) 03/18/17 13:19 Troponin T < 0.010 ng/mL (0.00-0.029) 03/18/17 13:19 NT-Pro-B Natriuret Pep 103.3 pg/mL (0-900) 03/17/17 09:10 Total Protein 6.1 g/dL (6.3-8.2) L 03/25/17 05:20 Albumin 2.8 g/dL (3.9-5) L 03/25/17 05:20 Albumin/Globulin Ratio 0.8 % 03/25/17 05:20 Urine Color Yellow (Yellow) 03/17/17 13:20 Urine Turbidity Clear (Clear) 03/17/17 13:20 Urine pH 9.0 (5.0-7.0) H 03/17/17 13:20 Ur Specific [place] > 1.059 (1.003-1.030) H 03/17/17 13:20 Urine Protein <15 mg/dl mg/dL (Negative) 03/17/17 13:20 Urine Glucose (UA) Neg mg/dL (Negative) 03/17/17 13:20 Urine Ketones 20 mg/dL (Negative) 03/17/17 13:20 Urine Blood Neg (Negative) 03/17/17 13:20 Urine Nitrite Neg (Negative) 03/17/17 13:20 Urine Bilirubin Neg (Negative) 03/17/17 13:20 Urine Urobilinogen 2.0 mg/dL (<2.0) 03/17/17 13:20 Ur Leukocyte Esterase Mod (Negative) 03/17/17 13:20 Urine WBC (Auto) 13.0 /HPF (0.0-6.0) H 03/17/17 13:20 Urine RBC (Auto) 7.0 /HPF (0.0-6.0) 03/17/17 13:20 U Epithel Cells (Auto) 5.0 /HPF (0-13.0) 03/17/17 13:20 Urine Mucus Few /HPF 03/17/17 13:20
[2017-03-26] MEDS: ROCEPHIN/NS 1 GM/50 ML 1 GM/50 ML BAG IV SCH (17:47)
[2017-03-27 06:53] LABS: Hematocrit 31.6 % (30.3-42.9); Mean Corpuscular HGB Conc 32 % (30-34); Mean Corpuscular Volume 76 fl (79-97); Platelet Count 228 K/mm3 (140-440); Red Blood Count 4.16 M/mm3 (3.65-5.03); Red Cell Distribution Width 19.7 % (13.2-15.2)
[2017-03-27 06:56] LABS: Mean Corpuscular Hemoglobin 24 pg (28-32)
[2017-03-27] MEDS: NOVOLOG SUB-Q SCH ×4 (07:30→22:07)
[2017-03-27] MEDS: MIRALAX 3350 PO SCH (10:41)
[2017-03-27] MEDS: HALFPRIN EC PO SCH (10:41)
--- NOTE | 2017-03-27 11:06 | Progress Note ---
Assessment and Plan Assessment and plan: Sigmoid diverticulitis. Continue antibiotics of Flagyl and Levaquin. Constipation, chronic/fecal impaction. Manual disimpaction performed. Chest pain. Etiology most likely pleuric chest pain venous thromboembolism: pain control and continue to monitor Functional quadriplegia: PT/OT. Await rehabilitation placement. 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 Etiology secondary to #1. Resolving. DVT prophylaxis: on Eliquis Morbid obesity, bmi 51.7: PT evaluation, [employer] History Interval history: No new issues overnight. Hospitalist Physical - Constitutional Vitals: Temp Pulse Resp BP Pulse Ox 98.3 F 92 H 20 112/68 98 03/27/17 08:35 03/27/17 08:35 03/27/17 08:35 03/27/17 08:35 03/27/17 08:35 General appearance: Present: well-nourished - EENT Eyes: Present: PERRL, EOM intact ENT: hearing intact, clear oral mucosa, dentition normal - Neck Neck: Present: supple, normal ROM - Respiratory Respiratory effort: normal Respiratory: bilateral: CTA - Cardiovascular Rhythm: regular Heart Sounds: Present: S1 & S2. Absent: gallop, rub - Extremities Extremities: no ischemia, No edema, Full ROM - Abdominal General gastrointestinal: soft, non-tender, non-distended, normal bowel sounds - Integumentary Integumentary: Present: clear, warm, dry - Neurologic Neurologic: CNII-XII intact, moves all extremities Results - Labs CBC & Chem 7: 03/27/17 06:17 03/26/17 06:38 Labs: Laboratory Last Values WBC 6.0 K/mm3 (4.5-11.0) 03/27/17 06:17 RBC 4.16 M/mm3 (3.65-5.03) 03/27/17 06:17 Hgb 10.0 gm/dl (10.1-14.3) L 03/27/17 06:17 Hct 31.6 % (30.3-42.9) 03/27/17 06:17 MCV 76 fl (79-97) L 03/27/17 06:17 MCH 24 pg (28-32) L 03/27/17 06:17 MCHC 32 % (30-34) 03/27/17 06:17 RDW 19.7 % (13.2-15.2) H 03/27/17 06:17 Plt Count 228 K/mm3 (140-440) 03/27/17 06:17 Lymph % (Auto) 16.6 % (13.4-35.0) 03/24/17 08:53 [place] % (Auto) 8.4 % (0.0-7.3) H 03/24/17 08:53 Eos % (Auto) 1.0 % (0.0-4.3) 03/24/17 08:53 Baso % (Auto) 0.2 % (0.0-1.8) 03/24/17 08:53 Lymph # 1.6 K/mm3 (1.2-5.4) 03/24/17 08:53 [place] # 0.8 K/mm3 (0.0-0.8) 03/24/17 08:53 Eos # 0.1 K/mm3 (0.0-0.4) 03/24/17 08:53 Baso # 0.0 K/mm3 (0.0-0.1) 03/24/17 08:53 Seg Neutrophils % 73.8 % (40.0-70.0) H 03/24/17 08:53 Seg Neutrophils # 7.1 K/mm3 (1.8-7.7) 03/24/17 08:53 PT 16.0 Sec. (12.2-14.9) H 03/17/17 09:10 INR 1.22 (0.87-1.13) H 03/17/17 09:10 Sodium 142 mmol/L (137-145) 03/25/17 05:20 Potassium 3.0 mmol/L (3.6-5.0) L 03/25/17 05:20 Chloride 101.0 mmol/L (98-107) 03/25/17 05:20 Carbon Dioxide 27 mmol/L (22-30) 03/26/17 06:38 Anion Gap 14 mmol/L 03/25/17 05:20 BUN 5 mg/dL (7-17) L 03/26/17 06:38 Creatinine 0.3 mg/dL (0.7-1.2) L 03/26/17 06:38 Estimated GFR > 60 ml/min 03/26/17 06:38 BUN/Creatinine Ratio 17 % 03/26/17 06:38 Glucose 112 mg/dL (65-100) H 03/26/17 06:38 POC Glucose 87 (70-105) 03/26/17 20:08 Calcium 9.9 mg/dL (8.4-10.2) 03/26/17 06:38 Magnesium 2.00 mg/dL (1.7-2.3) 03/26/17 06:38 Total Bilirubin 0.70 mg/dL (0.1-1.2) 03/25/17 05:20 AST 16 units/L (5-40) 03/25/17 05:20 ALT 14 units/L (7-56) 03/25/17 05:20 Alkaline Phosphatase 55 units/L (35-129) 03/25/17 05:20 Total Creatine Kinase 67 units/L (30-135) 03/18/17 13:19 CK-MB (CK-2) 1.1 ng/mL (0.0-4.0) 03/18/17 13:19 CK-MB (CK-2) Rel Index 1.6 (0-4) 03/18/17 13:19 Troponin T < 0.010 ng/mL (0.00-0.029) 03/18/17 13:19 NT-Pro-B Natriuret Pep 103.3 pg/mL (0-900) 03/17/17 09:10 Total Protein 6.1 g/dL (6.3-8.2) L 03/25/17 05:20 Albumin 2.8 g/dL (3.9-5) L 03/25/17 05:20 Albumin/Globulin Ratio 0.8 % 03/25/17 05:20 Urine Color Yellow (Yellow) 03/17/17 13:20 Urine Turbidity Clear (Clear) 03/17/17 13:20 Urine pH 9.0 (5.0-7.0) H 03/17/17 13:20 Ur Specific [place] > 1.059 (1.003-1.030) H 03/17/17 13:20 Urine Protein <15 mg/dl mg/dL (Negative) 03/17/17 13:20 Urine Glucose (UA) Neg mg/dL (Negative) 03/17/17 13:20 Urine Ketones 20 mg/dL (Negative) 03/17/17 13:20 Urine Blood Neg (Negative) 03/17/17 13:20 Urine Nitrite Neg (Negative) 03/17/17 13:20 Urine Bilirubin Neg (Negative) 03/17/17 13:20 Urine Urobilinogen 2.0 mg/dL (<2.0) 03/17/17 13:20 Ur Leukocyte Esterase Mod (Negative) 03/17/17 13:20 Urine WBC (Auto) 13.0 /HPF (0.0-6.0) H 03/17/17 13:20 Urine RBC (Auto) 7.0 /HPF (0.0-6.0) 03/17/17 13:20 U Epithel Cells (Auto) 5.0 /HPF (0-13.0) 03/17/17 13:20 Urine Mucus Few /HPF 03/17/17 13:20
[2017-03-27] MEDS: ROCEPHIN/NS 1 GM/50 ML 1 GM/50 ML BAG IV SCH (22:07)
[2017-03-28 06:28] LABS: Basophils % (Auto) 0.6 % (0.0-1.8); Eosinophils % (Auto) 3.2 % (0.0-4.3); Hematocrit 32.2 % (30.3-42.9); Hemoglobin 10.4 gm/dl (10.1-14.3); Mean Corpuscular HGB Conc 32 % (30-34); Mean Corpuscular Volume 77 fl (79-97); Platelet Count 259 K/mm3 (140-440); White Blood Count 7.7 K/mm3 (4.5-11.0)
[2017-03-28 06:33] LABS: Mean Corpuscular Hemoglobin 25 pg (28-32)
[2017-03-28 06:49] LABS: Anion Gap 17 mmol/L; BUN/Creatinine Ratio 17; Blood Urea Nitrogen 5 mg/dL (7-17); Calcium 10.5 mg/dL (8.4-10.2); Carbon Dioxide 25 mmol/L (22-30); Chloride 104.7 mmol/L (98-107); Glucose 116 mg/dL (65-100); Potassium 3.8 mmol/L (3.6-5.0); Sodium 143 mmol/L (137-145)
[2017-03-28] MEDS: NOVOLOG SUB-Q SCH ×4 (07:30→22:29)
--- NOTE | 2017-03-28 11:12 | Progress Note ---
Assessment and Plan Assessment and plan: Sigmoid diverticulitis. Continue antibiotics of Flagyl and Levaquin. Constipation, chronic/fecal impaction. Manual disimpaction performed. Chest pain. Etiology most likely pleuric chest pain venous thromboembolism: pain control and continue to monitor Functional quadriplegia. Continue PT/OT. Await rehabilitation placement. 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 Etiology secondary to #1. Resolving. DVT prophylaxis: on Eliquis Morbid obesity, BMI 51.7 History Interval history: No new issues overnight. Hospitalist Physical - Constitutional Vitals: Temp Pulse Resp BP Pulse Ox 98.4 F 91 H 20 118/77 99 03/28/17 08:58 03/28/17 08:58 03/28/17 08:58 03/28/17 08:58 03/28/17 08:58 General appearance: Present: well-nourished - EENT Eyes: Present: PERRL, EOM intact ENT: hearing intact, clear oral mucosa, dentition normal - Neck Neck: Present: supple, normal ROM - Respiratory Respiratory effort: normal Respiratory: bilateral: CTA - Cardiovascular Rhythm: regular Heart Sounds: Present: S1 & S2. Absent: gallop, rub - Extremities Extremities: no ischemia, No edema, Full ROM - Abdominal General gastrointestinal: soft, non-tender, non-distended, normal bowel sounds - Integumentary Integumentary: Present: clear, warm, dry - Neurologic Neurologic: CNII-XII intact, moves all extremities Results - Labs CBC & Chem 7: 03/28/17 06:00 03/28/17 06:00 Labs: Laboratory Last Values WBC 7.7 K/mm3 (4.5-11.0) 03/28/17 06:00 RBC 4.20 M/mm3 (3.65-5.03) 03/28/17 06:00 Hgb 10.4 gm/dl (10.1-14.3) 03/28/17 06:00 Hct 32.2 % (30.3-42.9) 03/28/17 06:00 MCV 77 fl (79-97) L 03/28/17 06:00 MCH 25 pg (28-32) L 03/28/17 06:00 MCHC 32 % (30-34) 03/28/17 06:00 RDW 20.0 % (13.2-15.2) H 03/28/17 06:00 Plt Count 259 K/mm3 (140-440) 03/28/17 06:00 Lymph % (Auto) 13.9 % (13.4-35.0) 03/28/17 06:00 [place] % (Auto) 10.0 % (0.0-7.3) H 03/28/17 06:00 Eos % (Auto) 3.2 % (0.0-4.3) 03/28/17 06:00 Baso % (Auto) 0.6 % (0.0-1.8) 03/28/17 06:00 Lymph # 1.1 K/mm3 (1.2-5.4) L 03/28/17 06:00 [place] # 0.8 K/mm3 (0.0-0.8) 03/28/17 06:00 Eos # 0.2 K/mm3 (0.0-0.4) 03/28/17 06:00 Baso # 0.0 K/mm3 (0.0-0.1) 03/28/17 06:00 Seg Neutrophils % 72.3 % (40.0-70.0) H 03/28/17 06:00 Seg Neutrophils # 5.6 K/mm3 (1.8-7.7) 03/28/17 06:00 PT 16.0 Sec. (12.2-14.9) H 03/17/17 09:10 INR 1.22 (0.87-1.13) H 03/17/17 09:10 Sodium 143 mmol/L (137-145) 03/28/17 06:00 Potassium 3.8 mmol/L (3.6-5.0) 03/28/17 06:00 Chloride 104.7 mmol/L (98-107) 03/28/17 06:00 Carbon Dioxide 25 mmol/L (22-30) 03/28/17 06:00 Anion Gap 17 mmol/L 03/28/17 06:00 BUN 5 mg/dL (7-17) L 03/28/17 06:00 Creatinine 0.3 mg/dL (0.7-1.2) L 03/28/17 06:00 Estimated GFR > 60 ml/min 03/28/17 06:00 BUN/Creatinine Ratio 17 % 03/28/17 06:00 Glucose 116 mg/dL (65-100) H 03/28/17 06:00 POC Glucose 118 (70-105) H 03/28/17 09:05 Calcium 10.5 mg/dL (8.4-10.2) H 03/28/17 06:00 Magnesium 2.00 mg/dL (1.7-2.3) 03/26/17 06:38 Total Bilirubin 0.70 mg/dL (0.1-1.2) 03/25/17 05:20 AST 16 units/L (5-40) 03/25/17 05:20 ALT 14 units/L (7-56) 03/25/17 05:20 Alkaline Phosphatase 55 units/L (35-129) 03/25/17 05:20 Total Creatine Kinase 67 units/L (30-135) 03/18/17 13:19 CK-MB (CK-2) 1.1 ng/mL (0.0-4.0) 03/18/17 13:19 CK-MB (CK-2) Rel Index 1.6 (0-4) 03/18/17 13:19 Troponin T < 0.010 ng/mL (0.00-0.029) 03/18/17 13:19 NT-Pro-B Natriuret Pep 103.3 pg/mL (0-900) 03/17/17 09:10 Total Protein 6.1 g/dL (6.3-8.2) L 03/25/17 05:20 Albumin 2.8 g/dL (3.9-5) L 03/25/17 05:20 Albumin/Globulin Ratio 0.8 % 03/25/17 05:20 Urine Color Yellow (Yellow) 03/17/17 13:20 Urine Turbidity Clear (Clear) 03/17/17 13:20 Urine pH 9.0 (5.0-7.0) H 03/17/17 13:20 Ur Specific [place] > 1.059 (1.003-1.030) H 03/17/17 13:20 Urine Protein <15 mg/dl mg/dL (Negative) 03/17/17 13:20 Urine Glucose (UA) Neg mg/dL (Negative) 03/17/17 13:20 Urine Ketones 20 mg/dL (Negative) 03/17/17 13:20 Urine Blood Neg (Negative) 03/17/17 13:20 Urine Nitrite Neg (Negative) 03/17/17 13:20 Urine Bilirubin Neg (Negative) 03/17/17 13:20 Urine Urobilinogen 2.0 mg/dL (<2.0) 03/17/17 13:20 Ur Leukocyte Esterase Mod (Negative) 03/17/17 13:20 Urine WBC (Auto) 13.0 /HPF (0.0-6.0) H 03/17/17 13:20 Urine RBC (Auto) 7.0 /HPF (0.0-6.0) 03/17/17 13:20 U Epithel Cells (Auto) 5.0 /HPF (0-13.0) 03/17/17 13:20 Urine Mucus Few /HPF 03/17/17 13:20
[2017-03-28] MEDS: MIRALAX 3350 PO SCH (11:14)
[2017-03-28] MEDS: HALFPRIN EC PO SCH (11:14)
[2017-03-28] MEDS: ROCEPHIN/NS 1 GM/50 ML 1 GM/50 ML BAG IV SCH (17:07)
[2017-03-29] MEDS: MIRALAX 3350 PO SCH (09:39)
[2017-03-29] MEDS: HALFPRIN EC PO SCH (09:40)
[2017-03-29] MEDS: NOVOLOG SUB-Q SCH ×4 (09:42→22:40)
--- NOTE | 2017-03-29 10:58 | Progress Note ---
Assessment and Plan Assessment and plan: Sigmoid diverticulitis. Continue antibiotics of Flagyl and Levaquin. Constipation, chronic/fecal impaction. Manual disimpaction performed. Chest pain. Etiology most likely pleuric chest pain venous thromboembolism: pain control and continue to monitor Functional quadriplegia. Continue PT/OT. Await rehabilitation placement. 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 Etiology secondary to #1. Resolving. DVT prophylaxis: on Eliquis Morbid obesity, BMI 51.7 Disposition. Await rehabilitation placement. History Interval history: No new issues overnight. Hospitalist Physical - Constitutional Vitals: Temp Pulse Resp BP Pulse Ox 98.2 F 91 H 18 120/70 98 03/29/17 07:49 03/29/17 10:00 03/29/17 10:00 03/29/17 07:49 03/29/17 07:49 General appearance: Present: well-nourished - EENT Eyes: Present: PERRL, EOM intact ENT: hearing intact, clear oral mucosa, dentition normal - Neck Neck: Present: supple, normal ROM - Respiratory Respiratory effort: normal Respiratory: bilateral: CTA - Cardiovascular Rhythm: regular Heart Sounds: Present: S1 & S2. Absent: gallop, rub - Extremities Extremities: no ischemia, No edema, Full ROM - Abdominal General gastrointestinal: soft, non-tender, non-distended, normal bowel sounds - Integumentary Integumentary: Present: clear, warm, dry - Neurologic Neurologic: CNII-XII intact, moves all extremities Results - Labs CBC & Chem 7: 03/28/17 06:00 03/28/17 06:00 Labs: Laboratory Last Values WBC 7.7 K/mm3 (4.5-11.0) 03/28/17 06:00 RBC 4.20 M/mm3 (3.65-5.03) 03/28/17 06:00 Hgb 10.4 gm/dl (10.1-14.3) 03/28/17 06:00 Hct 32.2 % (30.3-42.9) 03/28/17 06:00 MCV 77 fl (79-97) L 03/28/17 06:00 MCH 25 pg (28-32) L 03/28/17 06:00 MCHC 32 % (30-34) 03/28/17 06:00 RDW 20.0 % (13.2-15.2) H 03/28/17 06:00 Plt Count 259 K/mm3 (140-440) 03/28/17 06:00 Lymph % (Auto) 13.9 % (13.4-35.0) 03/28/17 06:00 [place] % (Auto) 10.0 % (0.0-7.3) H 03/28/17 06:00 Eos % (Auto) 3.2 % (0.0-4.3) 03/28/17 06:00 Baso % (Auto) 0.6 % (0.0-1.8) 03/28/17 06:00 Lymph # 1.1 K/mm3 (1.2-5.4) L 03/28/17 06:00 [place] # 0.8 K/mm3 (0.0-0.8) 03/28/17 06:00 Eos # 0.2 K/mm3 (0.0-0.4) 03/28/17 06:00 Baso # 0.0 K/mm3 (0.0-0.1) 03/28/17 06:00 Seg Neutrophils % 72.3 % (40.0-70.0) H 03/28/17 06:00 Seg Neutrophils # 5.6 K/mm3 (1.8-7.7) 03/28/17 06:00 PT 16.0 Sec. (12.2-14.9) H 03/17/17 09:10 INR 1.22 (0.87-1.13) H 03/17/17 09:10 Sodium 143 mmol/L (137-145) 03/28/17 06:00 Potassium 3.8 mmol/L (3.6-5.0) 03/28/17 06:00 Chloride 104.7 mmol/L (98-107) 03/28/17 06:00 Carbon Dioxide 25 mmol/L (22-30) 03/28/17 06:00 Anion Gap 17 mmol/L 03/28/17 06:00 BUN 5 mg/dL (7-17) L 03/28/17 06:00 Creatinine 0.3 mg/dL (0.7-1.2) L 03/28/17 06:00 Estimated GFR > 60 ml/min 03/28/17 06:00 BUN/Creatinine Ratio 17 % 03/28/17 06:00 Glucose 116 mg/dL (65-100) H 03/28/17 06:00 POC Glucose 110 (70-105) H 03/29/17 09:27 Calcium 10.5 mg/dL (8.4-10.2) H 03/28/17 06:00 Magnesium 2.00 mg/dL (1.7-2.3) 03/26/17 06:38 Total Bilirubin 0.70 mg/dL (0.1-1.2) 03/25/17 05:20 AST 16 units/L (5-40) 03/25/17 05:20 ALT 14 units/L (7-56) 03/25/17 05:20 Alkaline Phosphatase 55 units/L (35-129) 03/25/17 05:20 Total Creatine Kinase 67 units/L (30-135) 03/18/17 13:19 CK-MB (CK-2) 1.1 ng/mL (0.0-4.0) 03/18/17 13:19 CK-MB (CK-2) Rel Index 1.6 (0-4) 03/18/17 13:19 Troponin T < 0.010 ng/mL (0.00-0.029) 03/18/17 13:19 NT-Pro-B Natriuret Pep 103.3 pg/mL (0-900) 03/17/17 09:10 Total Protein 6.1 g/dL (6.3-8.2) L 03/25/17 05:20 Albumin 2.8 g/dL (3.9-5) L 03/25/17 05:20 Albumin/Globulin Ratio 0.8 % 03/25/17 05:20 Urine Color Yellow (Yellow) 03/17/17 13:20 Urine Turbidity Clear (Clear) 03/17/17 13:20 Urine pH 9.0 (5.0-7.0) H 03/17/17 13:20 Ur Specific [place] > 1.059 (1.003-1.030) H 03/17/17 13:20 Urine Protein <15 mg/dl mg/dL (Negative) 03/17/17 13:20 Urine Glucose (UA) Neg mg/dL (Negative) 03/17/17 13:20 Urine Ketones 20 mg/dL (Negative) 03/17/17 13:20 Urine Blood Neg (Negative) 03/17/17 13:20 Urine Nitrite Neg (Negative) 03/17/17 13:20 Urine Bilirubin Neg (Negative) 03/17/17 13:20 Urine Urobilinogen 2.0 mg/dL (<2.0) 03/17/17 13:20 Ur Leukocyte Esterase Mod (Negative) 03/17/17 13:20 Urine WBC (Auto) 13.0 /HPF (0.0-6.0) H 03/17/17 13:20 Urine RBC (Auto) 7.0 /HPF (0.0-6.0) 03/17/17 13:20 U Epithel Cells (Auto) 5.0 /HPF (0-13.0) 03/17/17 13:20 Urine Mucus Few /HPF 03/17/17 13:20
[2017-03-29] MEDS: ROCEPHIN/NS 1 GM/50 ML 1 GM/50 ML BAG IV SCH (15:51)
[2017-03-29 18:50] LABS: Hematocrit 31.1 % (30.3-42.9); Hemoglobin 10.2 gm/dl (10.1-14.3); Mean Corpuscular HGB Conc 33 % (30-34); Mean Corpuscular Volume 77 fl (79-97); Platelet Count 245 K/mm3 (140-440); Red Blood Count 4.06 M/mm3 (3.65-5.03); Red Cell Distribution Width 19.8 % (13.2-15.2); White Blood Count 8.1 K/mm3 (4.5-11.0)
[2017-03-29 19:16] LABS: Mean Corpuscular Hemoglobin 25 pg (28-32)
[2017-03-30 06:38] LABS: Hematocrit 30.5 % (30.3-42.9); Hemoglobin 10.2 gm/dl (10.1-14.3); Mean Corpuscular HGB Conc 33 % (30-34); Mean Corpuscular Volume 76 fl (79-97); Platelet Count 267 K/mm3 (140-440); Red Blood Count 4.01 M/mm3 (3.65-5.03); White Blood Count 7.2 K/mm3 (4.5-11.0)
[2017-03-30 06:41] LABS: Mean Corpuscular Hemoglobin 25 pg (28-32)
--- NOTE | 2017-03-30 09:54 | Gastroenterology Progress Note ---
Assessment and Plan 1. rectal bleeding 2.chronic constipation 3.skilled nursing A/C, DVT 4.functional quadriplegia -pt s/p colonoscopy 03/22/17 that showed a rectal ulcer with visible vessel/ active bleeding which was treated with epi injection and hemoclip placement with hemostasis, fecal impaction (manual disimpaction performed, and diffuse diverticulosis -nursing reports scant amount of rectal bleeding yesterday with bright red blood , which is expected 2/2 rectal ulcer -H/H has remained stable at 10.2 -continue to monitor H/H and transfuse as needed -continue daily bowel regimen to ensure stable BMs -limit narcotics that can worsen constipation -high fiber diet -no recommendations for GI intervention at this time -will signs off, please re-consult if needed Subjective Date of service: 03/30/17 Principal diagnosis: rectal bleeding Interval history: Patient sitting up in bed this am eating breakfast. No acute distress. BM x 1 overnight with scant amount of rectal bleeding with bright red blood per nursing. Objective - Constitutional Vitals: Temp Pulse Resp BP Pulse Ox 99.0 F 98 H 20 119/72 95 03/30/17 04:20 03/30/17 04:20 03/30/17 04:20 03/30/17 04:20 03/30/17 04:20 General appearance: no acute distress - EENT Eyes: PERRL, EOM intact ENT: hearing intact - Respiratory Respiratory: bilateral: CTA - Cardiovascular Rhythm: regular Heart Sounds: Present: S1 & S2 - Gastrointestinal General gastrointestinal: Present: soft, non-tender, non-distended, normal bowel sounds - Integumentary Integumentary: Present: warm, dry - Labs CBC & Chem 7: 03/30/17 06:11 03/28/17 06:00 Labs: Laboratory Results - last 24 hr 03/29/17 03/29/17 03/29/17 11:43 17:16 18:32 WBC 8.1 RBC 4.06 Hgb 10.2 Hct 31.1 MCV 77 L MCH 25 L MCHC 33 RDW 19.8 H Plt Count 245 POC Glucose 112 H 101 03/29/17 03/30/17 22:13 06:11 WBC 7.2 RBC 4.01 Hgb 10.2 Hct 30.5 MCV 76 L MCH 25 L MCHC 33 RDW 20.0 H Plt Count 267 POC Glucose 96
[2017-03-30] MEDS: HALFPRIN EC PO SCH (11:18)
[2017-03-30] MEDS: MIRALAX 3350 PO SCH (11:19)
[2017-03-30] MEDS: NOVOLOG SUB-Q SCH ×4 (11:19→23:37)
--- NOTE | 2017-03-30 11:55 | Progress Note ---
Assessment and Plan Assessment and plan: Sigmoid diverticulitis. Continue antibiotics of Flagyl and Levaquin. Constipation, chronic/fecal impaction. Manual disimpaction performed. Chest pain. Etiology most likely pleuric chest pain venous thromboembolism: pain control and continue to monitor Functional quadriplegia. Continue PT/OT. Await rehabilitation placement. 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 Etiology secondary to #1. Resolving. DVT prophylaxis: on Eliquis Morbid obesity, BMI 51.7 Disposition. Await rehabilitation placement. History Interval history: No new issues overnight. Hospitalist Physical - Constitutional Vitals: Temp Pulse Resp BP Pulse Ox 98.7 F 93 H 20 131/92 99 03/30/17 08:46 03/30/17 11:20 03/30/17 11:20 03/30/17 08:46 03/30/17 11:20 General appearance: Present: well-nourished - EENT Eyes: Present: PERRL, EOM intact ENT: hearing intact, clear oral mucosa, dentition normal - Neck Neck: Present: supple, normal ROM - Respiratory Respiratory effort: normal Respiratory: bilateral: CTA - Cardiovascular Rhythm: regular Heart Sounds: Present: S1 & S2. Absent: gallop, rub - Extremities Extremities: no ischemia, No edema, Full ROM - Abdominal General gastrointestinal: soft, non-tender, non-distended, normal bowel sounds - Integumentary Integumentary: Present: clear, warm, dry - Neurologic Neurologic: CNII-XII intact, moves all extremities Results - Labs CBC & Chem 7: 03/30/17 06:11 03/28/17 06:00 Labs: Laboratory Last Values WBC 7.2 K/mm3 (4.5-11.0) 03/30/17 06:11 RBC 4.01 M/mm3 (3.65-5.03) 03/30/17 06:11 Hgb 10.2 gm/dl (10.1-14.3) 03/30/17 06:11 Hct 30.5 % (30.3-42.9) 03/30/17 06:11 MCV 76 fl (79-97) L 03/30/17 06:11 MCH 25 pg (28-32) L 03/30/17 06:11 MCHC 33 % (30-34) 03/30/17 06:11 RDW 20.0 % (13.2-15.2) H 03/30/17 06:11 Plt Count 267 K/mm3 (140-440) 03/30/17 06:11 Lymph % (Auto) 13.9 % (13.4-35.0) 03/28/17 06:00 [place] % (Auto) 10.0 % (0.0-7.3) H 03/28/17 06:00 Eos % (Auto) 3.2 % (0.0-4.3) 03/28/17 06:00 Baso % (Auto) 0.6 % (0.0-1.8) 03/28/17 06:00 Lymph # 1.1 K/mm3 (1.2-5.4) L 03/28/17 06:00 [place] # 0.8 K/mm3 (0.0-0.8) 03/28/17 06:00 Eos # 0.2 K/mm3 (0.0-0.4) 03/28/17 06:00 Baso # 0.0 K/mm3 (0.0-0.1) 03/28/17 06:00 Seg Neutrophils % 72.3 % (40.0-70.0) H 03/28/17 06:00 Seg Neutrophils # 5.6 K/mm3 (1.8-7.7) 03/28/17 06:00 PT 16.0 Sec. (12.2-14.9) H 03/17/17 09:10 INR 1.22 (0.87-1.13) H 03/17/17 09:10 Sodium 143 mmol/L (137-145) 03/28/17 06:00 Potassium 3.8 mmol/L (3.6-5.0) 03/28/17 06:00 Chloride 104.7 mmol/L (98-107) 03/28/17 06:00 Carbon Dioxide 25 mmol/L (22-30) 03/28/17 06:00 Anion Gap 17 mmol/L 03/28/17 06:00 BUN 5 mg/dL (7-17) L 03/28/17 06:00 Creatinine 0.3 mg/dL (0.7-1.2) L 03/28/17 06:00 Estimated GFR > 60 ml/min 03/28/17 06:00 BUN/Creatinine Ratio 17 % 03/28/17 06:00 Glucose 116 mg/dL (65-100) H 03/28/17 06:00 POC Glucose 96 (70-105) 03/29/17 22:13 Calcium 10.5 mg/dL (8.4-10.2) H 03/28/17 06:00 Magnesium 2.00 mg/dL (1.7-2.3) 03/26/17 06:38 Total Bilirubin 0.70 mg/dL (0.1-1.2) 03/25/17 05:20 AST 16 units/L (5-40) 03/25/17 05:20 ALT 14 units/L (7-56) 03/25/17 05:20 Alkaline Phosphatase 55 units/L (35-129) 03/25/17 05:20 Total Creatine Kinase 67 units/L (30-135) 03/18/17 13:19 CK-MB (CK-2) 1.1 ng/mL (0.0-4.0) 03/18/17 13:19 CK-MB (CK-2) Rel Index 1.6 (0-4) 03/18/17 13:19 Troponin T < 0.010 ng/mL (0.00-0.029) 03/18/17 13:19 NT-Pro-B Natriuret Pep 103.3 pg/mL (0-900) 03/17/17 09:10 Total Protein 6.1 g/dL (6.3-8.2) L 03/25/17 05:20 Albumin 2.8 g/dL (3.9-5) L 03/25/17 05:20 Albumin/Globulin Ratio 0.8 % 03/25/17 05:20 Urine Color Yellow (Yellow) 03/17/17 13:20 Urine Turbidity Clear (Clear) 03/17/17 13:20 Urine pH 9.0 (5.0-7.0) H 03/17/17 13:20 Ur Specific [place] > 1.059 (1.003-1.030) H 03/17/17 13:20 Urine Protein <15 mg/dl mg/dL (Negative) 03/17/17 13:20 Urine Glucose (UA) Neg mg/dL (Negative) 03/17/17 13:20 Urine Ketones 20 mg/dL (Negative) 03/17/17 13:20 Urine Blood Neg (Negative) 03/17/17 13:20 Urine Nitrite Neg (Negative) 03/17/17 13:20 Urine Bilirubin Neg (Negative) 03/17/17 13:20 Urine Urobilinogen 2.0 mg/dL (<2.0) 03/17/17 13:20 Ur Leukocyte Esterase Mod (Negative) 03/17/17 13:20 Urine WBC (Auto) 13.0 /HPF (0.0-6.0) H 03/17/17 13:20 Urine RBC (Auto) 7.0 /HPF (0.0-6.0) 03/17/17 13:20 U Epithel Cells (Auto) 5.0 /HPF (0-13.0) 03/17/17 13:20 Urine Mucus Few /HPF 03/17/17 13:20
[2017-03-30] MEDS: TYLENOL PO PRN (17:58)
[2017-03-31] MEDS: NOVOLOG SUB-Q SCH ×4 (08:30→23:03)
[2017-03-31] MEDS: HALFPRIN EC PO SCH (10:00)
[2017-03-31] MEDS: MIRALAX 3350 PO SCH (10:02)
--- NOTE | 2017-03-31 13:21 | Progress Note ---
Assessment and Plan Assessment and plan: Sigmoid diverticulitis. Continue antibiotics of Flagyl and Levaquin. Constipation, chronic/fecal impaction. Manual disimpaction performed. Chest pain. Etiology most likely pleuric chest pain venous thromboembolism: pain control and continue to monitor Functional quadriplegia. Continue PT/OT. Await rehabilitation placement. 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 Etiology secondary to #1. Resolving. DVT prophylaxis: on Eliquis Morbid obesity, BMI 51.7 Disposition. Await rehabilitation placement. History Interval history: No new issues overnight. Hospitalist Physical - Constitutional Vitals: Temp Pulse Resp BP Pulse Ox 98.3 F 102 H 18 105/67 97 03/31/17 04:00 03/31/17 04:00 03/31/17 04:00 03/31/17 04:00 03/31/17 04:00 General appearance: Present: well-nourished - EENT Eyes: Present: PERRL, EOM intact ENT: hearing intact, clear oral mucosa, dentition normal - Neck Neck: Present: supple, normal ROM - Respiratory Respiratory effort: normal Respiratory: bilateral: CTA - Cardiovascular Rhythm: regular Heart Sounds: Present: S1 & S2. Absent: gallop, rub - Extremities Extremities: no ischemia, No edema, Full ROM - Abdominal General gastrointestinal: soft, non-tender, non-distended, normal bowel sounds - Integumentary Integumentary: Present: clear, warm, dry - Neurologic Neurologic: CNII-XII intact, moves all extremities Results - Labs CBC & Chem 7: 03/30/17 06:11 03/28/17 06:00 Labs: Laboratory Last Values WBC 7.2 K/mm3 (4.5-11.0) 03/30/17 06:11 RBC 4.01 M/mm3 (3.65-5.03) 03/30/17 06:11 Hgb 10.2 gm/dl (10.1-14.3) 03/30/17 06:11 Hct 30.5 % (30.3-42.9) 03/30/17 06:11 MCV 76 fl (79-97) L 03/30/17 06:11 MCH 25 pg (28-32) L 03/30/17 06:11 MCHC 33 % (30-34) 03/30/17 06:11 RDW 20.0 % (13.2-15.2) H 03/30/17 06:11 Plt Count 267 K/mm3 (140-440) 03/30/17 06:11 Lymph % (Auto) 13.9 % (13.4-35.0) 03/28/17 06:00 [place] % (Auto) 10.0 % (0.0-7.3) H 03/28/17 06:00 Eos % (Auto) 3.2 % (0.0-4.3) 03/28/17 06:00 Baso % (Auto) 0.6 % (0.0-1.8) 03/28/17 06:00 Lymph # 1.1 K/mm3 (1.2-5.4) L 03/28/17 06:00 [place] # 0.8 K/mm3 (0.0-0.8) 03/28/17 06:00 Eos # 0.2 K/mm3 (0.0-0.4) 03/28/17 06:00 Baso # 0.0 K/mm3 (0.0-0.1) 03/28/17 06:00 Seg Neutrophils % 72.3 % (40.0-70.0) H 03/28/17 06:00 Seg Neutrophils # 5.6 K/mm3 (1.8-7.7) 03/28/17 06:00 PT 16.0 Sec. (12.2-14.9) H 03/17/17 09:10 INR 1.22 (0.87-1.13) H 03/17/17 09:10 Sodium 143 mmol/L (137-145) 03/28/17 06:00 Potassium 3.8 mmol/L (3.6-5.0) 03/28/17 06:00 Chloride 104.7 mmol/L (98-107) 03/28/17 06:00 Carbon Dioxide 25 mmol/L (22-30) 03/28/17 06:00 Anion Gap 17 mmol/L 03/28/17 06:00 BUN 5 mg/dL (7-17) L 03/28/17 06:00 Creatinine 0.3 mg/dL (0.7-1.2) L 03/28/17 06:00 Estimated GFR > 60 ml/min 03/28/17 06:00 BUN/Creatinine Ratio 17 % 03/28/17 06:00 Glucose 116 mg/dL (65-100) H 03/28/17 06:00 POC Glucose 100 (70-105) 03/31/17 09:10 Calcium 10.5 mg/dL (8.4-10.2) H 03/28/17 06:00 Magnesium 2.00 mg/dL (1.7-2.3) 03/26/17 06:38 Total Bilirubin 0.70 mg/dL (0.1-1.2) 03/25/17 05:20 AST 16 units/L (5-40) 03/25/17 05:20 ALT 14 units/L (7-56) 03/25/17 05:20 Alkaline Phosphatase 55 units/L (35-129) 03/25/17 05:20 Total Creatine Kinase 67 units/L (30-135) 03/18/17 13:19 CK-MB (CK-2) 1.1 ng/mL (0.0-4.0) 03/18/17 13:19 CK-MB (CK-2) Rel Index 1.6 (0-4) 03/18/17 13:19 Troponin T < 0.010 ng/mL (0.00-0.029) 03/18/17 13:19 NT-Pro-B Natriuret Pep 103.3 pg/mL (0-900) 03/17/17 09:10 Total Protein 6.1 g/dL (6.3-8.2) L 03/25/17 05:20 Albumin 2.8 g/dL (3.9-5) L 03/25/17 05:20 Albumin/Globulin Ratio 0.8 % 03/25/17 05:20 Urine Color Yellow (Yellow) 03/17/17 13:20 Urine Turbidity Clear (Clear) 03/17/17 13:20 Urine pH 9.0 (5.0-7.0) H 03/17/17 13:20 Ur Specific [place] > 1.059 (1.003-1.030) H 03/17/17 13:20 Urine Protein <15 mg/dl mg/dL (Negative) 03/17/17 13:20 Urine Glucose (UA) Neg mg/dL (Negative) 03/17/17 13:20 Urine Ketones 20 mg/dL (Negative) 03/17/17 13:20 Urine Blood Neg (Negative) 03/17/17 13:20 Urine Nitrite Neg (Negative) 03/17/17 13:20 Urine Bilirubin Neg (Negative) 03/17/17 13:20 Urine Urobilinogen 2.0 mg/dL (<2.0) 03/17/17 13:20 Ur Leukocyte Esterase Mod (Negative) 03/17/17 13:20 Urine WBC (Auto) 13.0 /HPF (0.0-6.0) H 03/17/17 13:20 Urine RBC (Auto) 7.0 /HPF (0.0-6.0) 03/17/17 13:20 U Epithel Cells (Auto) 5.0 /HPF (0-13.0) 03/17/17 13:20 Urine Mucus Few /HPF 03/17/17 13:20
[2017-03-31] MEDS: NACL 0.9% 1000 ML 1,000 ML IV SCH (18:52)
[2017-04-01] MEDS: NOVOLOG SUB-Q SCH ×3 (08:00→18:17)
[2017-04-01] MEDS: MIRALAX 3350 PO SCH (11:14)
[2017-04-01] MEDS: HALFPRIN EC PO SCH (11:14)
--- NOTE | 2017-04-01 11:29 | Progress Note ---
Assessment and Plan Assessment and plan: Sigmoid diverticulitis. Continue antibiotics of Flagyl and Levaquin. Constipation, chronic/fecal impaction. Manual disimpaction performed. Chest pain. Etiology most likely pleuric chest pain venous thromboembolism: pain control and continue to monitor Functional quadriplegia. Continue PT/OT. Await rehabilitation placement. 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 Etiology secondary to #1. Resolving. DVT prophylaxis: on Eliquis Morbid obesity, BMI 51.7 Disposition. Await rehabilitation placement. History Interval history: No new issues overnight. Hospitalist Physical - Constitutional Vitals: Temp Pulse Resp BP Pulse Ox 98.2 F 97 H 18 112/67 98 04/01/17 04:00 04/01/17 04:00 04/01/17 04:00 04/01/17 04:00 04/01/17 04:00 General appearance: Present: well-nourished - EENT Eyes: Present: PERRL, EOM intact ENT: hearing intact, clear oral mucosa, dentition normal - Neck Neck: Present: supple, normal ROM - Respiratory Respiratory effort: normal Respiratory: bilateral: CTA - Cardiovascular Rhythm: regular Heart Sounds: Present: S1 & S2. Absent: gallop, rub - Extremities Extremities: no ischemia, No edema, Full ROM - Abdominal General gastrointestinal: soft, non-tender, non-distended, normal bowel sounds - Integumentary Integumentary: Present: clear, warm, dry - Neurologic Neurologic: CNII-XII intact, moves all extremities Results - Labs CBC & Chem 7: 03/30/17 06:11 03/28/17 06:00 Labs: Laboratory Last Values WBC 7.2 K/mm3 (4.5-11.0) 03/30/17 06:11 RBC 4.01 M/mm3 (3.65-5.03) 03/30/17 06:11 Hgb 10.2 gm/dl (10.1-14.3) 03/30/17 06:11 Hct 30.5 % (30.3-42.9) 03/30/17 06:11 MCV 76 fl (79-97) L 03/30/17 06:11 MCH 25 pg (28-32) L 03/30/17 06:11 MCHC 33 % (30-34) 03/30/17 06:11 RDW 20.0 % (13.2-15.2) H 03/30/17 06:11 Plt Count 267 K/mm3 (140-440) 03/30/17 06:11 Lymph % (Auto) 13.9 % (13.4-35.0) 03/28/17 06:00 [place] % (Auto) 10.0 % (0.0-7.3) H 03/28/17 06:00 Eos % (Auto) 3.2 % (0.0-4.3) 03/28/17 06:00 Baso % (Auto) 0.6 % (0.0-1.8) 03/28/17 06:00 Lymph # 1.1 K/mm3 (1.2-5.4) L 03/28/17 06:00 [place] # 0.8 K/mm3 (0.0-0.8) 03/28/17 06:00 Eos # 0.2 K/mm3 (0.0-0.4) 03/28/17 06:00 Baso # 0.0 K/mm3 (0.0-0.1) 03/28/17 06:00 Seg Neutrophils % 72.3 % (40.0-70.0) H 03/28/17 06:00 Seg Neutrophils # 5.6 K/mm3 (1.8-7.7) 03/28/17 06:00 PT 16.0 Sec. (12.2-14.9) H 03/17/17 09:10 INR 1.22 (0.87-1.13) H 03/17/17 09:10 Sodium 143 mmol/L (137-145) 03/28/17 06:00 Potassium 3.8 mmol/L (3.6-5.0) 03/28/17 06:00 Chloride 104.7 mmol/L (98-107) 03/28/17 06:00 Carbon Dioxide 25 mmol/L (22-30) 03/28/17 06:00 Anion Gap 17 mmol/L 03/28/17 06:00 BUN 5 mg/dL (7-17) L 03/28/17 06:00 Creatinine 0.3 mg/dL (0.7-1.2) L 03/28/17 06:00 Estimated GFR > 60 ml/min 03/28/17 06:00 BUN/Creatinine Ratio 17 % 03/28/17 06:00 Glucose 116 mg/dL (65-100) H 03/28/17 06:00 POC Glucose 116 (70-105) H 04/01/17 10:49 Calcium 10.5 mg/dL (8.4-10.2) H 03/28/17 06:00 Magnesium 2.00 mg/dL (1.7-2.3) 03/26/17 06:38 Total Bilirubin 0.70 mg/dL (0.1-1.2) 03/25/17 05:20 AST 16 units/L (5-40) 03/25/17 05:20 ALT 14 units/L (7-56) 03/25/17 05:20 Alkaline Phosphatase 55 units/L (35-129) 03/25/17 05:20 Total Creatine Kinase 67 units/L (30-135) 03/18/17 13:19 CK-MB (CK-2) 1.1 ng/mL (0.0-4.0) 03/18/17 13:19 CK-MB (CK-2) Rel Index 1.6 (0-4) 03/18/17 13:19 Troponin T < 0.010 ng/mL (0.00-0.029) 03/18/17 13:19 NT-Pro-B Natriuret Pep 103.3 pg/mL (0-900) 03/17/17 09:10 Total Protein 6.1 g/dL (6.3-8.2) L 03/25/17 05:20 Albumin 2.8 g/dL (3.9-5) L 03/25/17 05:20 Albumin/Globulin Ratio 0.8 % 03/25/17 05:20 Urine Color Yellow (Yellow) 03/17/17 13:20 Urine Turbidity Clear (Clear) 03/17/17 13:20 Urine pH 9.0 (5.0-7.0) H 03/17/17 13:20 Ur Specific [place] > 1.059 (1.003-1.030) H 03/17/17 13:20 Urine Protein <15 mg/dl mg/dL (Negative) 03/17/17 13:20 Urine Glucose (UA) Neg mg/dL (Negative) 03/17/17 13:20 Urine Ketones 20 mg/dL (Negative) 03/17/17 13:20 Urine Blood Neg (Negative) 03/17/17 13:20 Urine Nitrite Neg (Negative) 03/17/17 13:20 Urine Bilirubin Neg (Negative) 03/17/17 13:20 Urine Urobilinogen 2.0 mg/dL (<2.0) 03/17/17 13:20 Ur Leukocyte Esterase Mod (Negative) 03/17/17 13:20 Urine WBC (Auto) 13.0 /HPF (0.0-6.0) H 03/17/17 13:20 Urine RBC (Auto) 7.0 /HPF (0.0-6.0) 03/17/17 13:20 U Epithel Cells (Auto) 5.0 /HPF (0-13.0) 03/17/17 13:20 Urine Mucus Few /HPF 03/17/17 13:20
[2017-04-02] MEDS: NOVOLOG SUB-Q SCH ×5 (01:38→21:59)
--- NOTE | 2017-04-02 10:17 | Progress Note ---
Assessment and Plan Assessment and plan: Sigmoid diverticulitis. Continue antibiotics of Flagyl and Levaquin. Constipation, chronic/fecal impaction. Manual disimpaction performed. Chest pain. Etiology most likely pleuric chest pain venous thromboembolism: pain control and continue to monitor Functional quadriplegia. Continue PT/OT. Await rehabilitation placement. DVT/PE: Continue anticoagulation due to immobility Acute on chronic hypoxic respiratory failure: on 2 liters at home, continue O2/ supportive care Sepsis present on admission. Etiology secondary to #1. Resolving. DVT prophylaxis: on Eliquis Morbid obesity, BMI 51.7 Disposition. Await rehabilitation placement versus home with hospice. History Interval history: No new issues overnight. Hospitalist Physical - Constitutional Vitals: Temp Pulse Resp BP Pulse Ox 98.3 F 91 H 20 121/70 98 04/02/17 04:05 04/02/17 04:05 04/02/17 04:05 04/02/17 04:05 04/02/17 04:05 General appearance: Present: well-nourished - EENT Eyes: Present: PERRL, EOM intact ENT: hearing intact, clear oral mucosa, dentition normal - Neck Neck: Present: supple, normal ROM - Respiratory Respiratory effort: normal Respiratory: bilateral: CTA - Cardiovascular Rhythm: regular Heart Sounds: Present: S1 & S2. Absent: gallop, rub - Extremities Extremities: no ischemia, No edema, Full ROM - Abdominal General gastrointestinal: soft, non-tender, non-distended, normal bowel sounds - Integumentary Integumentary: Present: clear, warm, dry - Neurologic Neurologic: CNII-XII intact, moves all extremities Results - Labs CBC & Chem 7: 03/30/17 06:11 03/28/17 06:00 Labs: Laboratory Last Values WBC 7.2 K/mm3 (4.5-11.0) 03/30/17 06:11 RBC 4.01 M/mm3 (3.65-5.03) 03/30/17 06:11 Hgb 10.2 gm/dl (10.1-14.3) 03/30/17 06:11 Hct 30.5 % (30.3-42.9) 03/30/17 06:11 MCV 76 fl (79-97) L 03/30/17 06:11 MCH 25 pg (28-32) L 03/30/17 06:11 MCHC 33 % (30-34) 03/30/17 06:11 RDW 20.0 % (13.2-15.2) H 03/30/17 06:11 Plt Count 267 K/mm3 (140-440) 03/30/17 06:11 Lymph % (Auto) 13.9 % (13.4-35.0) 03/28/17 06:00 [place] % (Auto) 10.0 % (0.0-7.3) H 03/28/17 06:00 Eos % (Auto) 3.2 % (0.0-4.3) 03/28/17 06:00 Baso % (Auto) 0.6 % (0.0-1.8) 03/28/17 06:00 Lymph # 1.1 K/mm3 (1.2-5.4) L 03/28/17 06:00 [place] # 0.8 K/mm3 (0.0-0.8) 03/28/17 06:00 Eos # 0.2 K/mm3 (0.0-0.4) 03/28/17 06:00 Baso # 0.0 K/mm3 (0.0-0.1) 03/28/17 06:00 Seg Neutrophils % 72.3 % (40.0-70.0) H 03/28/17 06:00 Seg Neutrophils # 5.6 K/mm3 (1.8-7.7) 03/28/17 06:00 PT 16.0 Sec. (12.2-14.9) H 03/17/17 09:10 INR 1.22 (0.87-1.13) H 03/17/17 09:10 Sodium 143 mmol/L (137-145) 03/28/17 06:00 Potassium 3.8 mmol/L (3.6-5.0) 03/28/17 06:00 Chloride 104.7 mmol/L (98-107) 03/28/17 06:00 Carbon Dioxide 25 mmol/L (22-30) 03/28/17 06:00 Anion Gap 17 mmol/L 03/28/17 06:00 BUN 5 mg/dL (7-17) L 03/28/17 06:00 Creatinine 0.3 mg/dL (0.7-1.2) L 03/28/17 06:00 Estimated GFR > 60 ml/min 03/28/17 06:00 BUN/Creatinine Ratio 17 % 03/28/17 06:00 Glucose 116 mg/dL (65-100) H 03/28/17 06:00 POC Glucose 106 (70-105) H 04/02/17 08:39 Calcium 10.5 mg/dL (8.4-10.2) H 03/28/17 06:00 Magnesium 2.00 mg/dL (1.7-2.3) 03/26/17 06:38 Total Bilirubin 0.70 mg/dL (0.1-1.2) 03/25/17 05:20 AST 16 units/L (5-40) 03/25/17 05:20 ALT 14 units/L (7-56) 03/25/17 05:20 Alkaline Phosphatase 55 units/L (35-129) 03/25/17 05:20 Total Creatine Kinase 67 units/L (30-135) 03/18/17 13:19 CK-MB (CK-2) 1.1 ng/mL (0.0-4.0) 03/18/17 13:19 CK-MB (CK-2) Rel Index 1.6 (0-4) 03/18/17 13:19 Troponin T < 0.010 ng/mL (0.00-0.029) 03/18/17 13:19 NT-Pro-B Natriuret Pep 103.3 pg/mL (0-900) 03/17/17 09:10 Total Protein 6.1 g/dL (6.3-8.2) L 03/25/17 05:20 Albumin 2.8 g/dL (3.9-5) L 03/25/17 05:20 Albumin/Globulin Ratio 0.8 % 03/25/17 05:20 Urine Color Yellow (Yellow) 03/17/17 13:20 Urine Turbidity Clear (Clear) 03/17/17 13:20 Urine pH 9.0 (5.0-7.0) H 03/17/17 13:20 Ur Specific [place] > 1.059 (1.003-1.030) H 03/17/17 13:20 Urine Protein <15 mg/dl mg/dL (Negative) 03/17/17 13:20 Urine Glucose (UA) Neg mg/dL (Negative) 03/17/17 13:20 Urine Ketones 20 mg/dL (Negative) 03/17/17 13:20 Urine Blood Neg (Negative) 03/17/17 13:20 Urine Nitrite Neg (Negative) 03/17/17 13:20 Urine Bilirubin Neg (Negative) 03/17/17 13:20 Urine Urobilinogen 2.0 mg/dL (<2.0) 03/17/17 13:20 Ur Leukocyte Esterase Mod (Negative) 03/17/17 13:20 Urine WBC (Auto) 13.0 /HPF (0.0-6.0) H 03/17/17 13:20 Urine RBC (Auto) 7.0 /HPF (0.0-6.0) 03/17/17 13:20 U Epithel Cells (Auto) 5.0 /HPF (0-13.0) 03/17/17 13:20 Urine Mucus Few /HPF 03/17/17 13:20
[2017-04-02] MEDS: HALFPRIN EC PO SCH (10:21)
[2017-04-02] MEDS: MIRALAX 3350 PO SCH (10:21)
[2017-04-03 08:11] LABS: Basophils % (Auto) 0.7 % (0.0-1.8); Eosinophils % (Auto) 1.6 % (0.0-4.3); Hematocrit 29.8 % (30.3-42.9); Hemoglobin 10.1 gm/dl (10.1-14.3); Mean Corpuscular HGB Conc 34 % (30-34); Mean Corpuscular Volume 75 fl (79-97); Platelet Count 286 K/mm3 (140-440); Red Blood Count 3.96 M/mm3 (3.65-5.03); Red Cell Distribution Width 19.7 % (13.2-15.2); White Blood Count 6.8 K/mm3 (4.5-11.0)
[2017-04-03 08:14] LABS: Mean Corpuscular Hemoglobin 25 pg (28-32)
[2017-04-03 08:25] LABS: Anion Gap 14 mmol/L; BUN/Creatinine Ratio 20; Blood Urea Nitrogen 6 mg/dL (7-17); Calcium 10.2 mg/dL (8.4-10.2); Carbon Dioxide 27 mmol/L (22-30); Glucose 118 mg/dL (65-100); Potassium 3.4 mmol/L (3.6-5.0); Sodium 141 mmol/L (137-145)
[2017-04-03 09:20] VITALS: BP 96/75
[2017-04-03] MEDS: HALFPRIN EC PO SCH (10:11)
[2017-04-03] MEDS: MIRALAX 3350 PO SCH (10:11)
[2017-04-03] MEDS: NOVOLOG SUB-Q SCH (10:14)
--- NOTE | 2017-04-03 10:22 | Discharge Summary ---
Providers - Providers Date of Admission: 03/17/17 11:44 Date of discharge: 04/03/17 Attending physician: FISH VOSS 03/19/17 15:10 Consult to Physician [CONS] Routine Consulting Provider: NEREIDA SOLORZANO Reason For Exam: ?Impacted Place consult to:: gi Notified:: office Phone number called:: [phone] Was contact made?: Yes If yes, spoke with:: mery Time called:: 16:13 03/26/17 09:28 Physical Therapy Evaluation and Treat [CONS] Routine Comment: Reason For Exam: skill level for snf 03/26/17 09:29 Occupational Therapy Evaluate and Treat [CONS] Routine Comment: Reason For Exam: skill level for snf 04/02/17 15:32 Consult to Wound/ET Nurse [CONS] Routine Reason For Exam: wound eval Primary care physician: KAREN BARRETT Hospitalization Reason for admission: CP and constipation Condition: Good Hospital course: Ms. Jay is a 66 y/o AA female admitted with place SOB, CP as well as constipation. Patient was admitted with diagnosis of acute on chronic hypoxemic respiratory failure, SIRS due to UTI and severe constipation. She has a hx of functional quadriplegia, and is on home oxygen due to PE, acute right leg DVT on Eliquis, PFO with recent CVA (Jan 2017). She reported having symptoms of worsening constipation. CT revealed moderate stool burden in the sigmoid/ rectal area. She denied N/V or abdominal pain. Patient underwent colonoscopy for screening purposes and possibly therapeutic as well given fecal impaction. Colonoscopy revealed rectal ulcer with visible vessel/active bleeding s/p treatment with epinephrine injection and hemoclip placement with hemostasis. Fecal impaction in rectum was also noted and manual disimpaction performed. Diffuse diverticulosis and sigmoid diverticulitis also noted. Patient was continued on antibiotics for both the sigmoid diverticulitis and UTI. GI recommend a high-fiber diet, MiraLAX twice a day limiting narcotics and resuming anticoagulation of eliquis. Patient's oxygen was weaned back to her home dose of 2 L.. Physical therapy evaluate the patient and recommended to subacute rehabilitation. Case management was consulted with regards to possible discharged to subacute rehabilitation. Case management spoke to the daughter with regards to home needs and the daughter was receptive of home hospice services as directed/suggested by case management. Home hospice was arranged. Dedicated discharge time 32 minutes. Disposition: DC-50 TO HOSPICE (HOME) Time spent for discharge: 32 - Discharge Diagnoses (1) SIRS (systemic inflammatory response syndrome) Status: Acute (2) UTI (urinary tract infection) Status: Acute Qualifiers: Urinary tract infection type: U Hematuria presence: H Indwelling urinary catheter type: I Encounter type: E (3) Diverticulitis Status: Acute Qualifiers: Diverticulitis site: D Diverticulitis bleeding: D Diverticulitis complication: D (4) Constipation Status: Acute Qualifiers: Constipation type: unspecified constipation type Qualified Code(s): K59.00 - Constipation, unspecified (5) Debility Status: Acute (6) HTN (hypertension) Status: Chronic Qualifiers: Hypertension type: essential hypertension Qualified Code(s): I10 - Essential (primary) hypertension (7) Acute DVT (deep venous thrombosis) Status: Acute Qualifiers: DVT location: lower extremity Affected thrombotic vein of extremity: popliteal Laterality: right Qualified Code(s): I82.431 - Acute embolism and thrombosis of right popliteal vein (8) Acute massive pulmonary embolism Status: Acute (9) Hx of essential hypertension Status: Acute (10) Pulmonary emboli Status: Acute Qualifiers: Pulmonary embolism type: saddle Chronicity: C Acute cor pulmonale presence: A Core Measure Documentation - Palliative Care Palliative Care/ Comfort Measures: Hospice Care - Core Measures Any of the following diagnoses?: none Exam - Constitutional Vitals: Temp Pulse Resp BP Pulse Ox 98.6 F 98 H 20 96/75 98 04/03/17 09:05 04/03/17 09:05 04/03/17 09:05 04/03/17 09:05 04/03/17 09:05 General appearance: Present: no acute distress, well-nourished - EENT Eyes: Present: PERRL ENT: hearing intact, clear oral mucosa - Neck Neck: Present: supple, normal ROM - Respiratory Respiratory effort: normal Respiratory: bilateral: CTA - Cardiovascular Heart Sounds: Present: S1 & S2. Absent: rub, click - Extremities Extremities: pulses symmetrical, No edema Peripheral Pulses: within normal limits - Abdominal General gastrointestinal: Present: soft, non-tender, non-distended, normal bowel sounds Female genitourinary: Present: normal - Integumentary Integumentary: Present: clear, warm, dry - Musculoskeletal Musculoskeletal: gait normal, strength equal bilaterally - Psychiatric Psychiatric: appropriate mood/affect, intact judgment & insight - Neurologic Neurologic: CNII-XII intact, moves all extremities Plan Activity: no restrictions Weight Bearing Status: Full Weight Bearing Diet: other (high fiber) Follow up with: KAREN BARRETT MD [Primary Care Provider] - 3-5 Days DANTE GUADARRAMA MD [Staff Physician] - 7 Days Prescriptions: Apixaban [Eliquis] 10 mg PO Q12HR #60 tablet Aspirin [Adult Low Dose Aspirin EC] 81 mg PO DAILY #30 tablet. AtorvaSTATin [Lipitor] 40 mg PO QHS #30 tablet Polyethylene Glycol 3350 [Miralax 3350] 17 gm PO QDAY #30 powd.pack
== END 2017-04-03 16:11 | disposition hospice, home (50) | DRG 871 ==
LOC: ED 07:16 → 4A 11:44
PROVIDERS: ADMIT Internal Medicine; ATTEND Hospitalist
PROC: 0W3P8ZZ Control Bleeding in Gastrointestinal Tract, Via Natural or Artificial Opening Endoscopic (ICD-10-PCS; principal; 2017-03-22)
PROC: 3E0H8GC Introduction of Other Therapeutic Substance into Lower GI, Via Natural or Artificial Opening Endoscopic (ICD-10-PCS; 2017-03-22)
DX: A41.9 Sepsis, unspecified organism (principal); J96.21 Acute and chronic respiratory failure with hypoxia; R53.2 Functional quadriplegia; I50.43 Acute on chronic combined systolic (congestive) and diastolic (congestive) heart failure; N39.0 Urinary tract infection, site not specified; I82.401 Acute embolism and thrombosis of unspecified deep veins of right lower extremity; D68.59 Other primary thrombophilia; K62.6 Ulcer of anus and rectum; K62.5 Hemorrhage of anus and rectum; Z68.43 Body mass index [BMI] 50.0-59.9, adult; K57.32 Diverticulitis of large intestine without perforation or abscess without bleeding; E66.01 Morbid (severe) obesity due to excess calories; E55.9 Vitamin D deficiency, unspecified; I16.0 Hypertensive urgency; K57.90 Diverticulosis of intestine, part unspecified, without perforation or abscess without bleeding; F41.9 Anxiety disorder, unspecified; K56.41 Fecal impaction; I11.0 Hypertensive heart disease with heart failure; E11.9 Type 2 diabetes mellitus without complications; E78.5 Hyperlipidemia, unspecified; J44.9 Chronic obstructive pulmonary disease, unspecified; K21.9 Gastro-esophageal reflux disease without esophagitis; Z82.49 Family history of ischemic heart disease and other diseases of the circulatory system; Z86.73 Personal history of transient ischemic attack (TIA), and cerebral infarction without residual deficits; Z86.711 Personal history of pulmonary embolism; Z88.5 Allergy status to narcotic agent; Z79.01 Long term (current) use of anticoagulants; Z87.891 Personal history of nicotine dependence; Z90.710 Acquired absence of both cervix and uterus
CPT/HCPCS: 36415; 71010; 71275; 74176; 74177; 80048; 80053; 81001; 82550; 82553; 82962; 83735; 83880; 84484; 85014; 85018; 85025; 85027; 85610; 87086; 93005; 93010; 94640; 94760; 96360; 96361; J0171; J0696; J1170; J1815; J2405; J2704; J2765; J7030; J7050; Q9967

== ENCOUNTER 2017-09-04 09:23 | Outpatient (CLI) | payer OTHER ==
--- NOTE | 2017-09-04 11:21 | Ultrasound Report ---
BILATERAL BREAST ULTRASOUND: 09/04/17 09:23:00 CLINICAL: Left breast lumps. The patient is bedridden and can't stand for a mammogram. COMPARISON: None. FINDINGS: Ultrasound of the right breast(including all four quadrants and the retroareolar area) was performed and demonstrated normal fibroglandular structures are normal fatty structures. No mass, cyst or shadowing. Ultrasound of the left breast (including all four quadrants and the retroareolar area) was performed and demonstrated multiple solid masses at 11 o'clock and 12 o'clock. An oval heterogeneous solid poorly marginated mass at 12 o'clock 12 cm from the nipple measures 3.2 x 2.1 x 2.6 cm. A similar but more clearly marginated oval heterogeneous hypoechoic mass at 12 o'clock 8 cm from the nipple measures 3.2 x 2.9 x 2.2 cm. Contiguous irregular solid hypoechoic masses at 12 o'clock 14 cm from nipple measure 1.4 x 0.7 x 1.0 cm and 1.1 x 0.7 x 1.0 cm. An irregular solid hypoechoic mass at 11 o'clock 16 cm from the nipple measures 1.8 x 1.3 x 1.7 cm. Ultrasound of the left axilla demonstrated no suspicious lymph nodes. IMPRESSION: Five solid breast masses at 11 o'clock and 12 o'clock. The most suspicious mass is at 11 o'clock 16 cm from the nipple and the second most suspicious mass is at 12 o'clock 8 cm from the nipple. Recommend ultrasound-guided needle biopsies of these two masses. BI-RADS 4--Suspicious RECOMMENDATION: Ultrasound guided needle biopsy of two left breast masses. I discussed the findings and the recommendation for two ultrasound-guided needle core biopsies of the left breast with the patient and her daughter at the time of the examination.
== END 2017-09-04 09:24 | disposition home or self-care (01) ==
LOC: SPVWC 09:23
PROVIDERS: ATTEND Surgery
DX: N63.22 Unspecified lump in the left breast, upper inner quadrant (principal)

== ENCOUNTER 2017-09-11 12:49 | Outpatient (CLI) | payer OTHER ==
--- NOTE | 2017-09-12 09:23 | Ultrasound Report ---
ULTRASOUND GUIDED NEEDLE CORE BIOPSY WITH CLIP PLACEMENT AT 2 SITES LEFT BREAST : 09/11/17 CLINICAL: Multiple left breast masses in a bedridden patient for which mammography is not an option. COMPARISON :09/04/17 FINDINGS: The procedure was explained to the patient and informed consent was obtained . Ultrasound demonstrated the previously described solid heterogeneous hypoechoic irregular mass at 11 o'clock 16 cm from the nipple and the previously described solid oval heterogeneous mass at 12 o'clock 8 cm from the nipple. The skin was prepped with Betadine and anesthetized with 1% lidocaine. Ultrasound needle core biopsy was performed at 11 o'clock through a small dermatotomy using ultrasound guidance, 2% lidocaine with epinephrine for deep anesthesia and a 14-gauge coaxial Bard biopsy device. Imaging demonstrated satisfactory sampling. Multiple cores were obtained and placed in formalin. A localizer clip was then placed within the lesion. The skin was prepped with Betadine and anesthetized with 1% lidocaine. Ultrasound needle core biopsy was performed 12 o'clock through a small dermatotomy using ultrasound guidance, 2% lidocaine with epinephrine for deep anesthesia and a 14-gauge coaxial Bard biopsy device. Multiple cores were obtained and placed in formalin. A localizer clip was deployed within the lesion. Hemostasis was obtained both sites with minimal pressure and sterile dressings were applied. The patient tolerated the procedure well and there were no apparent complications. She was discharged in good condition and was given instructions for wound care and followup. IMPRESSION: Uncomplicated ultrasound-guided needle core biopsy of 2 left breast masses .
== END 2017-09-11 12:50 | disposition home or self-care (01) ==
LOC: SPVWC 12:49
PROVIDERS: ATTEND Surgery
DX: N63.22 Unspecified lump in the left breast, upper inner quadrant (principal); N63.21 Unspecified lump in the left breast, upper outer quadrant; N64.1 Fat necrosis of breast
CPT/HCPCS: 88305

== ENCOUNTER 2019-07-01 09:15 | Outpatient (CLI) | payer MEDICARE ==
--- NOTE | 2019-07-01 15:02 | Ultrasound Report ---
COMPLETE BILATERAL BREAST ULTRASOUND HISTORY: 77-year-old bed ridden patient who cannot stand for a mammogram. Bilateral breast lumps. She had ultrasound-guided needle biopsies of left breast masses at 11:00 and 12:00 09/11/2017 with [facility] pathology demonstrating benign breast tissue with benign fat necrosis. COMPARISON: 09/04/2017 and 09/11/2017 ultrasound exams. FINDINGS: Complete sonographic evaluation of the right breast including imaging of the four quadrants and subar eolar areas reveals no distinct abnormality. No mass, cyst or suspicious shadowing. Complete sonographic evaluation of the left breast including imaging of the four quadrants and subare olar areas reveals several solid and complex cystic and solid upper inner quadrant masses. The larges t is heterogeneous with both cystic and solid components. It is located at 11:00 10 cm from the nippl e and measures 3.0 x 1.3 x 1.1 cm. This mass correlates with a previously biopsied mass at 11:00 10 c m from the nipple. It previously measured 2.6 x 1.7 x 1.6 cm. It has become more cystic since the bio psy. A benign oil cyst at 10:00 15 cm from the nipple measures 7 mm. A heterogeneous solid isoechoic and hypoechoic mass at 11:00 16 cm from the nipple measures 1.4 x 1.1 cm. It demonstrates moderate sh adowing. IMPRESSION: 1. Benign left breast masses with morphology consistent with benign fat necrosis. 2. Negative right breast. 3. No suspicious mass. If the clinical examination remains stable, the patient should continue an annual screening mammograp hic evaluation schedule. BIRADS 2: Benign Recommend clinical follow-up. Signer Name: Kevin Martin MD Signed: 07/01/2019 2:58 PM Workstation Name: [id number]
== END 2019-07-01 09:16 | disposition home or self-care (01) ==
LOC: SPVWC 09:15
PROVIDERS: ATTEND Surgery
DX: N60.02 Solitary cyst of left breast (principal); N63.22 Unspecified lump in the left breast, upper inner quadrant